=== PATIENT | female | born 1965 | race African-American/Black ===

== ENCOUNTER 2023-08-14 01:37 | Observation (INO) | payer OTHER ==
[2023-08-14 05:12] LABS: ALT/SGPT 41 U/L (13-56); AST/SGOT 36 U/L (15-37); Albumin 4.1 g/dL (3.4-5.0); Alkaline Phosphatase 73 U/L (45-117); BUN Blood Urea Nitrogen 16 mg/dL (7-18); Bicarbonate 30 mEq/L (21-32); Bilirubin Direct 0.2 mg/dL (0-0.2); Bilirubin Indirect, Calculated 0.3 mg/dL (0.2-0.8); Bilirubin Total 0.5 mg/dL (0.2-1.0); Glomerular Filtration Rate 38 ml/min (=/>90); Glucose Level 99 mg/dL (74-106); Magnesium 1.7 mg/dL (1.6-2.4); Potassium 4.2 mEq/L (3.5-5.1); Sodium Level 138 mEq/L (136-145); Troponin High Sensitivity < 3.0 pg/mL (<58.9)
[2023-08-14 05:13] LABS: Protime INR 1.21
[2023-08-14 05:14] LABS: Absolute Lymphocytes (CBC) 0.6 K/uL (0.7-4.9); Hematocrit 34.3 % (36.0-45.0); Lymphocytes % 7.6 % (15.3-44.8); MCV 78.4 fL (80-100); Platelets 159 thou/uL (152-406); RBC Red Blood Cell Count 4.37 M/uL (3.86-4.86)
[2023-08-14 05:15] LABS: Blood Morphology Comment NOT SEEN (NOT SEEN); Platelet Estimate ADEQ
--- OUTSIDE RECORDS SUMMARY | 2023-08-14 05:26 | XMS REPORT | Continuity of Care Document ---
Author Name Unknown Address [address] [facility] [address] [place] [address] [facility] Address [address] [facility] [address] [place] [address] Care Team Providers Care Planning Engineer Name Role Phone ETHAN VARELA Primary Care Physician UnavailMIRYAM Thacker Attending Clinician UnavailMEGAN Hudson Attending Clinician Unavailable ETHAN VARELA Attending Clinician Unavailable GLORIA MOORE Attending Clinician Unavailable SHALONDA STRICKLAND Attending Clinician Unavailable [place] TRAVIS Attending Clinician Unavailable Indiana Travis MD Attending Clinician [phone] Ethan Varela MD Attending Clinician [phone] Doctor Unassigned, [place] Attending Clinician U JA Rodrigez Attending Clinician Unavailable JA RASMUSSEN Attending Clinician Unavailable ELLIS LOVE Attending Clinician UnavailELLIS De La Cruz Attending Clinician UnavailSanthosh Tobin Attending Clinician [phone] SANTHOSH RIVERA Attending Clinician Unavailable Unknown, Attending Attending Clinician Unavailab molly UNKNOWN, ATTENDING Attending Clinician Unavailab Gloria Yancey Attending Clinician Unavailable Ellis Love MD Attending Clinician [phone] Sivakumar Espinosa MD Attending Clinician [phone], [facility] Attending Clinician Unavailable SIVAKUMAR ESPINOSA Attending Clinician UnavailMiryam Wright MD Attending Clinician [phone] CRESENCIO WOLF Attending Clinician Unavailable Cresencio Seymour Attending Clinician [phone] Erick Reno DOhia Vickey Attending Clinician Alex Bass MD Attending Clinician [phone] ALEX BASS Attending Clinician Unavaila ZAFAR Wade Attending Clinician Unavail able Zafar Cartwright OD Attending Clinician GLORIA GANDHI Attending Clinician Unavailable Mina PATELPGloria Attending Clinician [phone] DIAZ WALKER Attending Clinician Unavaila Danielle Wolfe MD Attending Clinician [phone] DANIELLE ZEE Attending Clinician Unavailab DENNIS Gaitan Attending Clinician Unav MANJU Rosenthal Attending Clinician Unavailable Vaccine, [facility] Attending Clinician Unavailable JONAS GRISSOM Attending Clinician Unavail JONAS Valladares Attending Clinician Unavail Jonas Valladares MD Attending Clinician JOSE ALFREDO ANN Attending Clinician Unavailable Jose Alfredo Ann MD Attending Clinician [phone] BERYL RENO Attending Clinician Unavailable JONAS GRISSOM Admitting Clinician Unavail able MIRYAM SOLORIO Admitting Clinician UnavailETHAN Peter Admitting Clinician Unavailable Payers Payer Name Policy Type Policy Number Effective Date Expirati on Date Source [id number] 2023 00:00:00 [place] [id number] 2023 00:00:00 Problems Condition Name Condition Details Condition Category Status Onset Date Resolution Date Last Treatment Date Treating Clinician Comments Source Pre-op evaluation Pre-op evaluation Disease Active 07-31 00:00: 00 [facility] Need for full coverage dental crown Need for full coverage dental crown Disease Active 07-31 00:00: 00 [facility] Chronic constipati on Chronic constipati on Disease Active - 00:00: 00 [facility] Acute pain of left hip Acute pain of left hip Disease Active - 00:00: 00 [facility] Decreased renal function Decreased renal function Disease Active 2021-07 00:00: 00 [facility] H/O sickle cell trait H/O sickle cell trait Disease Active 2021-07 00:00: 00 [facility] Hoarseness of voice Hoarseness of voice Disease Active 2021-07 00:00: 00 [facility] Elevated serum creatinine Elevated serum creatinine Disease Active 2021-07 00:00: 00 [facility] Hot flashes due to menopause Hot flashes due to menopause Disease Active 2021-07 00:00: 00 [facility] History of trichomoni asis History of trichomoni asis Disease Active 2021-07 00:00: 00 [facility] Facial droop Facial droop Disease Active 2021-07 00:00: 00 [facility] Atrophy of vagina Atrophy of vagina Disease Active 2021-07 00:00: 00 [facility] Elevated liver enzymes Elevated liver enzymes Disease Active 2021-07 00:00: 00 [facility] Vaginal discharge Vaginal discharge Disease Active 2021-07 00:00: 00 [facility] Type 2 diabetes mellitus without complicati on, with long-term current use of insulin Type 2 diabetes mellitus without complicati on, with long-term current use of insulin Disease Active 04-13 00:00: 00 [facility] 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 Disease Active 04-13 00:00: 00 [facility] Encounter for comprehens michelle diabetic foot examinatio n, type 2 diabetes mellitus Encounter for comprehens michelle diabetic foot examinatio n, type 2 diabetes mellitus Disease Active 04-13 00:00: 00 [facility] 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 Disease Active 04-13 00:00: 00 [facility] Dyslipidem ia Dyslipidem ia Disease Active 04-13 00:00: 00 [facility] Essential hypertensi on Essential hypertensi on Disease Active 04-13 00:00: 00 [facility] 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 Disease Active 04-13 00:00: 00 [facility] Anxiety, generalize d Anxiety, generalize d Disease Active 04-13 00:00: 00 [facility] Encounter for screening mammogram for malignant neoplasm of breast Encounter for screening mammogram for malignant neoplasm of breast Disease Active 04-13 00:00: 00 [facility] Need for hepatitis C screening test Need for hepatitis C screening test Disease Active 04-13 00:00: 00 [facility] Need for influenza vaccinatio n Need for influenza vaccinatio n Disease Active 04-13 00:00: 00 [facility] Screening for malignant neoplasm of the cervix Screening for malignant neoplasm of the cervix Disease Active 04-13 00:00: 00 [facility] 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 Disease Active 04-13 00:00: 00 [facility] Senile osteoporos is Senile osteoporos is Disease Active 04-13 00:00: 00 [facility] Allergies, Adverse Reactions, Alerts Allergy Name Allergy Type Status Severity Reaction(s) Onset Date Inactive Date Treating Clinician Comments Source NO KNOWN ALLERGIE S Drug Class Active [facility] Family History Family Member Diagnosis Comments Start Date Stop Date Sourc e Natural father Diabetes [facility] Natural [facility] Hy[facility] Social History Social Habit Start Date Stop Date Quantity Comments Source Gender identity [facility] Sexual [facility] Alcohol intake 2023-08-12 00:00:00 2023-08-12 00:00:00 Lifetime non-drinker (finding) [facility] History of Social function 2023-07-10 00:00:00 2023-07-10 00:00:00 [facility] Exposure to SARS-CoV-2 (event) 2022-12-10 00:00:00 2022-12-20 21:43:00 Not sure [facility] Tobacco use and exposure 2022-04-13 00:00:00 2022-04-13 00:00:00 Smokeless tobacco non-user [facility] Sex Assigned At 1965 00:00:00 1965 00:00:00 [facility] Smoking Status Start Date Stop Date Source Never smoked tobacco [facility] Medications Ordered Medication Name Filled Medication Name Start Date Stop Date Current Medication? Ordering Clinician Indication Dosage Frequency Signature (SIG) Comments Components Source gabapentin 300 mg capsule 08-12 00:00: 00 Yes [id number] 300mg Take 1 capsule by mouth in the morning and 1 capsule at noon and 1 capsule in the evening. 1 cap in morning, 1 cap in afternoon, and 2 cap at bedtime [facility] gabapentin 300 mg capsule 08-12 00:00: 00 Yes [id number] 300mg Take 1 capsule by mouth in the morning and 1 capsule at noon and 1 capsule in the evening. 1 cap in morning, 1 cap in afternoon, and 2 cap at bedtime [facility] clarithromy ofelia 500 mg tablet 07-31 00:00: 00 08-01 05:59 :00 No [id number] 500mg Take 1 tablet by mouth once now for 1 dose. Dental Prophylaxi s [facility] clarithromy ofelia 500 mg tablet 07-31 00:00: 00 08-01 05:59 :00 No [id number] 500mg Take 1 tablet by mouth once now for 1 dose. Dental Prophylaxi s [facility] cefdinir 300 mg capsule 2022-07 00:00: 00 07-30 05:59 :00 Yes [id number] 600mg Take 2 capsules by mouth in the morning for 10 days. [facility] cefdinir 300 mg capsule 2022-07 00:00: 00 07-30 05:59 :00 Yes [id number] 600mg Take 2 capsules by mouth in the morning for 10 days. [facility] dulaglutide (TRULICITY) 1.5 mg/0.5 mL PnIj 2022-07 00:00: 00 Yes [id number] 1.5mg inject 1 Pen under the skin weekly. [facility] ity [facility] dulaglutide (TRULICITY) 1.5 mg/0.5 mL PnIj 2022-07 00:00: 00 Yes [id number] 1.5mg inject 1 Pen under the skin weekly. [facility] ity [facility] tirzepatide (MOUNJARO) 2.5 mg/0.5 mL subcutaneou s injection 2022-07 00:00: 00 Yes [id number] 2.5mg inject 2.5 mg under the skin weekly. Start 2.5mg SC qWeek x 4 Weeks, then increase to 5 mg SC qWeek [facility] ity [facility] tirzepatide (MOUNJARO) 5 mg/0.5 mL subcutaneou s injection 2022-07 00:00: 00 Yes [id number] 5mg inject 5 mg under the skin weekly. Start 2.5mg SC qWeek x 4 Weeks, then increase to 5 mg SC [facility]Week [facility] dulaglutide (TRULICITY) 1.5 mg/0.5 mL PnIj 2022-07 00:00: 00 Yes [id number] 1.5mg inject 1 Pen under the skin weekly. [facility] ity [facility] tirzepatide (MOUNJARO) 2.5 mg/0.5 mL subcutaneou s injection 2022-07 00:00: 00 Yes [id number] 2.5mg inject 2.5 mg under the skin weekly. Start 2.5mg SC qWeek x 4 Weeks, then increase to 5 mg SC qWeek [facility] tirzepatide (MOUNJARO) 5 mg/0.5 mL subcutaneou s injection 2022-07 00:00: 00 Yes [id number] 5mg inject 5 mg under the skin weekly. Start 2.5mg SC qWeek x 4 Weeks, then increase to 5 mg SC qWeek [facility] dulaglutide (TRULICITY) 1.5 mg/0.5 mL PnIj 2022-07 2 00:00: 00 Yes [id number] 1.5mg inject 1 Pen under the skin weekly. [facility] tirzepatide (MOUNJARO) 2.5 mg/0.5 mL subcutaneou s injection 2022-07 2 00:00: 00 Yes [id number] 2.5mg inject 2.5 mg under the skin weekly. Start 2.5mg SC qWeek x 4 Weeks, then increase to 5 mg SC qWeek [facility] tirzepatide (MOUNJARO) 5 mg/0.5 mL subcutaneou s injection 2022-07 2 00:00: 00 Yes [id number] 5mg inject 5 mg under the skin weekly. Start 2.5mg SC qWeek x 4 Weeks, then increase to 5 mg SC qWeek [facility] dulaglutide (TRULICITY) 1.5 mg/0.5 mL PnIj 2022-07 00:00: 00 Yes [id number] 1.5mg inject 1 Pen under the skin weekly. [facility] tirzepatide (MOUNJARO) 2.5 mg/0.5 mL subcutaneou s injection 2022-07 00:00: 00 Yes [id number] 2.5mg inject 2.5 mg under the skin weekly. Start 2.5mg SC qWeek x 4 Weeks, then increase to 5 mg SC qWeek [facility] tirzepatide (MOUNJARO) 5 mg/0.5 mL subcutaneou s injection 2022-07 2 00:00: 00 Yes [id number] 5mg inject 5 mg under the skin weekly. Start 2.5mg SC qWeek x 4 Weeks, then increase to 5 mg SC qWeek [facility] dulaglutide (TRULICITY) 1.5 mg/0.5 mL PnIj 2022-07 2 00:00: 00 Yes [id number] 1.5mg inject 1 Pen under the skin weekly. [facility] dulaglutide (TRULICITY) 1.5 mg/0.5 mL PnIj 2022-07 00:00: 00 Yes [id number] 1.5mg inject 1 Pen [facility] the skin weekly. [facility] tirzepatide (MOUNJARO) 2.5 mg/0.5 mL subcutaneou s injection 2022-07 00:00: 00 Yes [id number] 2.5mg inject 2.5 mg under the skin weekly. Start 2.5mg SC qWeek x 4 Weeks, then increase to 5 mg SC qWeek [facility] tirzepatide (MOUNJARO) 5 mg/0.5 mL subcutaneou s injection 2022-07 00:00: 00 Yes [id number] 5mg inject 5 mg under the skin weekly. Start 2.5mg SC qWeek x 4 Weeks, then increase to 5 mg SC qWeek [facility] dulaglutide (TRULICITY) 1.5 mg/0.5 mL PnIj 2022-07 00:00: 00 Yes [id number] 1.5mg inject 1 Pen under the skin weekly. [facility] tirzepatide (MOUNJARO) 2.5 mg/0.5 mL subcutaneou s injection 2022-07 00:00: 00 Yes [id number] 2.5mg inject 2.5 mg under the skin weekly. Start 2.5mg SC qWeek x 4 Weeks, then increase to 5 mg SC qWeek [facility] tirzepatide (MOUNJARO) 5 mg/0.5 mL subcutaneou s injection 2022-07 00:00: 00 Yes [id number] 5mg inject 5 mg under the skin weekly. Start 2.5mg SC qWeek x 4 Weeks, then increase to 5 mg SC qWeek [facility] dulaglutide (TRULICITY) 1.5 mg/0.5 mL PnIj 2022-07 00:00: 00 Yes [id number] 1.5mg inject 1 Pen under the skin weekly. [facility] ity [facility] tirzepatide (MOUNJARO) 2.5 mg/0.5 mL subcutaneou s injection 2022-07 00:00: 00 Yes [id number] 2.5mg inject 2.5 mg under the skin weekly. Start 2.5mg SC qWeek x 4 Weeks, then increase to 5 mg SC qWeek [facility] tirzepatide (MOUNJARO) 5 mg/0.5 mL subcutaneou s injection 2022-07 00:00: 00 Yes [id number] 5mg inject 5 mg under the skin weekly. Start 2.5mg SC qWeek x 4 Weeks, then increase to 5 mg SC qWeek [facility] dulaglutide (TRULICITY) 1.5 mg/0.5 mL PnIj 2022-07 00:00: 00 Yes [id number] 1.5mg inject 1 Pen under the skin weekly. [facility] ity [facility] tirzepatide (MOUNJARO) 2.5 mg/0.5 mL subcutaneou s injection 2022-07 00:00: 00 Yes [id number] 2.5mg inject 2.5 mg under the skin weekly. Start 2.5mg SC qWeek x 4 Weeks, then increase to 5 mg SC qWeek [facility] tirzepatide (MOUNJARO) 5 mg/0.5 mL subcutaneou s injection 2022-07 00:00: 00 Yes [id number] 5mg inject 5 mg under the skin weekly. Start 2.5mg SC qWeek x 4 Weeks, then increase to 5 mg SC qWeek Univers y [facility] dulaglutide (TRULICITY) 1.5 mg/0.5 mL PnIj 2022-07 00:00: 00 Yes [id number] 1.5mg inject 1 Pen under the skin weekly. [facility] ity [facility] tirzepatide (MOUNJARO) 2.5 mg/0.5 mL subcutaneou s injection 2022-07 00:00: 00 Yes [id number] 2.5mg inject 2.5 mg under the skin weekly. Start 2.5mg SC qWeek x 4 Weeks, then increase to 5 mg SC qWeek [facility] tirzepatide (MOUNJARO) 5 mg/0.5 mL subcutaneou s injection 2022-07 2 00:00: 00 Yes [id number] 5mg inject 5 mg under the skin weekly. Start 2.5mg SC qWeek x 4 Weeks, then increase to 5 mg SC qWeek Univers [facility] dulaglutide (TRULICITY) 1.5 mg/0.5 mL PnIj 2022-07 2 00:00: 00 Yes [id number] 1.5mg inject 1 Pen under the skin weekly. [facility] tirzepatide (MOUNJARO) 2.5 mg/0.5 mL subcutaneou s injection 2022-07 00:00: 00 Yes [id number] 2.5mg inject 2.5 mg under the skin weekly. Start 2.5mg SC qWeek x 4 Weeks, then increase to 5 mg SC qWeek Univers [facility] tirzepatide (MOUNJARO) 5 mg/0.5 mL subcutaneou s injection 2022-07 00:00: 00 Yes [id number] 5mg inject 5 mg under the skin weekly. Start 2.5mg SC qWeek x 4 Weeks, then increase to 5 mg SC qWeek [facility] dulaglutide (TRULICITY) 1.5 mg/0.5 mL PnIj 2022-07 00:00: 00 Yes [id number] 1.5mg inject 1 Pen under the skin weekly. [facility] tirzepatide (MOUNJARO) 2.5 mg/0.5 mL subcutaneou s injection 2022-07 00:00: 00 Yes [id number] 2.5mg inject 2.5 mg under the skin weekly. Start 2.5mg SC qWeek x 4 Weeks, then increase to 5 mg SC qWeek [facility] tirzepatide (MOUNJARO) 5 mg/0.5 mL subcutaneou s injection 2022-07 00:00: 00 Yes [id number] 5mg inject 5 mg under the skin weekly. Start 2.5mg SC qWeek x 4 Weeks, then increase to 5 mg SC qWeek Univers [facility] dulaglutide (TRULICITY) 1.5 mg/0.5 mL PnIj 2022-07 00:00: 00 Yes [id number] 1.5mg inject 1 Pen under the skin weekly. [facility] tirzepatide (MOUNJARO) 2.5 mg/0.5 mL subcutaneou s injection 2022-07 2 00:00: 00 Yes [id number] 2.5mg inject 2.5 mg under the skin weekly. Start 2.5mg SC qWeek x 4 Weeks, then increase to 5 mg SC qWeek [facility] tirzepatide (MOUNJARO) 5 mg/0.5 mL subcutaneou s injection 2022-07 00:00: 00 Yes [id number] 5mg inject 5 mg under the skin weekly. Start 2.5mg SC qWeek x 4 Weeks, then increase to 5 mg SC qWeek [facility] tirzepatide (MOUNJARO) 5 mg/0.5 mL subcutaneou s injection 2022-07 00:00: 00 Yes [id number] 5mg inject 5 mg under the skin weekly. Start 2.5mg SC qWeek x 4 Weeks, then increase to 5 mg SC qWeek [facility] tirzepatide (MOUNJARO) 5 mg/0.5 mL subcutaneou s injection 2022-07 00:00: 00 Yes [id number] 5mg inject 5 mg under the skin weekly. Start 2.5mg SC qWeek x 4 Weeks, then increase to 5 mg SC qWeek [facility] dulaglutide (TRULICITY) 1.5 mg/0.5 mL PnIj 2022-07 00:00: 00 08-12 00:00 :00 No [id number] 1.5mg inject 1 Pen under the skin weekly. [facility] tirzepatide (MOUNJARO) 2.5 mg/0.5 mL subcutaneou s injection 2022-07 00:00: 00 08-12 00:00 :00 No [id number] 2.5mg inject 2.5 mg under the skin weekly. Start 2.5mg SC qWeek x 4 Weeks, then increase to 5 mg SC qWeek [facility] dulaglutide (TRULICITY) 1.5 mg/0.5 mL PnIj 2022-07 2 00:00: 00 08-12 00:00 :00 No [id number] 1.5mg inject 1 Pen under the skin weekly. [facility] tirzepatide (MOUNJARO) 2.5 mg/0.5 mL subcutaneou s injection 2022-07 00:00: 00 08-12 00:00 :00 No [id number] 2.5mg inject 2.5 mg under the skin weekly. Start 2.5mg SC qWeek x 4 Weeks, then increase to 5 mg SC qWeek [facility] metoprolol succinate XL 50 mg 24 hr tablet 2022-07 00:00: 00 Yes [id number] 50mg Take 1 tablet by mouth in the morning. [facility] metoprolol succinate XL 50 mg 24 hr tablet 2022-07 00:00: 00 Yes [id number] 50mg Take 1 tablet by mouth in the morning. [facility] metoprolol succinate XL 50 mg 24 hr tablet 2022-07 00:00: 00 Yes [id number] 50mg Take 1 tablet by mouth in the morning. [facility] metoprolol succinate XL 50 mg 24 hr tablet 2022-07 00:00: 00 Yes [id number] 50mg Take 1 tablet by mouth in the morning. [facility] metoprolol succinate XL 50 mg 24 hr tablet 2022-07 00:00: 00 Yes [id number] 50mg Take 1 tablet by mouth in the morning. [facility] metoprolol succinate XL 50 mg 24 hr tablet 2022-07 00:00: 00 Yes [id number] 50mg Take 1 tablet by mouth in the morning. [facility] metoprolol succinate XL 50 mg 24 hr tablet 2022-07 00:00: 00 Yes [id number] 50mg Take 1 tablet by mouth in the morning. [facility] metoprolol succinate XL 50 mg 24 hr tablet 2022-07 00:00: 00 Yes [id number] 50mg Take 1 tablet by mouth in the morning. [facility] metoprolol succinate XL 50 mg 24 hr tablet 2022-07 00:00: 00 Yes [id number] 50mg Take 1 tablet by mouth in the morning. [facility] metoprolol succinate XL 50 mg 24 hr tablet 2022-07 00:00: 00 Yes [id number] 50mg Take 1 tablet by mouth in the morning. [facility] metoprolol succinate XL 50 mg 24 hr tablet 2022-07 00:00: 00 Yes [id number] 50mg Take 1 tablet by mouth in the morning. [facility] metoprolol succinate XL 50 mg 24 hr tablet 2022-07 00:00: 00 Yes [id number] 50mg Take 1 tablet by mouth in the morning. [facility] metoprolol succinate XL 50 mg 24 hr tablet 2022-07 00:00: 00 Yes [id number] 50mg Take 1 tablet by mouth in the morning. [facility] metoprolol succinate XL 50 mg 24 hr tablet 2022-07 00:00: 00 Yes [id number] 50mg Take 1 tablet by mouth in the morning. [facility] metoprolol succinate XL 50 mg 24 hr tablet 2022-07 00:00: 00 Yes [id number] 50mg Take 1 tablet by mouth in the morning. [facility] metoprolol succinate XL 50 mg 24 hr tablet 2022-07 00:00: 00 Yes [id number] 50mg Take 1 tablet by mouth in the morning. [facility] metoprolol succinate XL 50 mg 24 hr tablet 2022-07 00:00: 00 Yes [id number] 50mg Take 1 tablet by mouth in the morning. [facility] metoprolol succinate XL 50 mg 24 hr tablet 2022-07 00:00: 00 Yes [id number] 50mg Take 1 tablet by mouth in the morning. [facility] metoprolol succinate XL 50 mg 24 hr tablet 2022-07 00:00: 00 Yes [id number] 50mg Take 1 tablet by mouth in the morning. [facility] metoprolol succinate XL 50 mg 24 hr tablet 2022-07 00:00: 00 Yes [id number] 50mg Take 1 tablet by mouth in the morning. [facility] metoprolol succinate XL 50 mg 24 hr tablet 2022-07 00:00: 00 Yes [id number] 50mg Take 1 tablet by mouth in the morning. [facility] metoprolol succinate XL 50 mg 24 hr tablet 2022-07 00:00: 00 Yes [id number] 50mg Take 1 tablet by mouth in the morning. [facility] metoprolol succinate XL 50 mg 24 hr tablet 2022-07 00:00: 00 Yes [id number] 50mg Take 1 tablet by mouth in the morning. [facility] metoprolol succinate XL 50 mg 24 hr tablet 2022-07 00:00: 00 Yes [id number] 50mg Take 1 tablet by mouth in the morning. [facility] lisinopriL 20 mg tablet 2022-07 0 00:00: 00 Yes [id number] 20mg Take 1 tablet by mouth in the morning and 1 tablet in the evening. [facility] lisinopriL 20 mg tablet 2022-07 0 00:00: 00 Yes [id number] 20mg Take 1 tablet by mouth in the morning and 1 tablet in the evening. [facility] lisinopriL 20 mg tablet 2022-07 0 00:00: 00 Yes [id number] 20mg Take 1 tablet by mouth in the morning and 1 tablet in the evening. [facility] lisinopriL 20 mg tablet 2022-07 0 00:00: 00 Yes [id number] 20mg Take 1 tablet by mouth in the morning and 1 tablet in the evening. [facility] lisinopriL 20 mg tablet 2022-07 0 00:00: 00 Yes [id number] 20mg Take 1 tablet by mouth in the morning and 1 tablet in the evening. [facility] lisinopriL 20 mg tablet 2022-07 0 00:00: 00 Yes [id number] 20mg Take 1 tablet by mouth in the morning and 1 tablet in the evening. [facility] [facility]-07 0 00:00: 00 Yes [id number] 20mg Take 1 tablet by mouth in the morning and 1 tablet in the evening. [facility] lisinopriL 20 mg tablet 2022-07 0 00:00: 00 Yes [id number] 20mg Take 1 tablet by mouth in the morning and 1 tablet in the evening. [facility] lisinopriL 20 mg tablet 2022-07 0 00:00: 00 Yes [id number] 20mg Take 1 tablet by mouth in the morning and 1 tablet in the evening. [facility] lisinopriL 20 mg tablet 2022-07 0 00:00: 00 Yes [id number] 20mg Take 1 tablet by mouth in the morning and 1 tablet in the evening. [facility] lisinopriL 20 mg tablet 2022-07 0 00:00: 00 Yes [id number] 20mg Take 1 tablet by mouth in the morning and 1 tablet in the evening. [facility] lisinopriL 20 mg tablet 2022-07 0 00:00: 00 Yes [id number] 20mg Take 1 tablet by mouth in the morning and 1 tablet in the evening. [facility] lisinopriL 20 mg tablet 2022-07 0 00:00: 00 Yes [id number] 20mg Take 1 tablet by mouth in the morning and 1 tablet in the evening. [facility] lisinopriL 20 mg tablet 2022-07 0 00:00: 00 Yes [id number] 20mg Take 1 tablet by mouth in the morning and 1 tablet in the evening. [facility] lisinopriL 20 mg tablet 2022- 0 00:00: 00 Yes [id number] 20mg Take 1 tablet by mouth in the morning and 1 tablet in the evening. [facility] lisinopriL 20 mg tablet 2022- 0 00:00: 00 Yes [id number] 20mg Take 1 tablet by mouth in the morning and 1 tablet in the evening. [facility] lisinopriL 20 mg tablet 2022-07 0 00:00: 00 Yes [id number] 20mg Take 1 tablet by mouth in the morning and 1 tablet in the evening. [facility] lisinopriL 20 mg tablet 2022-07 0 00:00: 00 Yes [id number] 20mg Take 1 tablet by mouth in the morning and 1 tablet in the evening. [facility] lisinopriL 20 mg tablet 2022-07 0 00:00: 00 Yes [id number] 20mg Take 1 tablet by mouth in the morning and 1 tablet in the evening. [facility] lisinopriL 20 mg tablet 2022-07 0 00:00: 00 Yes [id number] 20mg Take 1 tablet by mouth in the morning and 1 tablet in the evening. [facility] lisinopriL 20 mg tablet 2022-07 0 00:00: 00 Yes [id number] 20mg Take 1 tablet by mouth in the morning and 1 tablet in the evening. [facility] lisinopriL 20 mg tablet 2022-07 00:00: 00 Yes [id number] 20mg Take 1 tablet by mouth in the morning and 1 tablet in the evening. [facility] lisinopriL 20 mg tablet 2022-07 0 00:00: 00 Yes [id number] 20mg Take 1 tablet by mouth in the morning and 1 tablet in the evening. [facility] lisinopriL 20 mg tablet 2022-07 0 00:00: 00 Yes [id number] 20mg Take 1 tablet by mouth in the morning and 1 tablet in the evening. [facility] lisinopriL 20 mg tablet 2022-07 0 00:00: 00 Yes [id number] 20mg Take 1 tablet by mouth in the morning and 1 tablet in the evening. [facility] lisinopriL 20 mg tablet 2022- 0 00:00: 00 Yes [id number] 20mg Take 1 tablet by mouth in the morning and 1 tablet in the evening. [facility] lisinopriL 20 mg tablet 2022- 0 00:00: 00 Yes [id number] 20mg Take 1 tablet by mouth in the morning and 1 tablet in the evening. [facility] polyethylen e glycol 3350 (MIRALAX) 17 gram/dose powder 2022-07 0-17 00:00: 00 06-07 05:59 :00 No [id number] 34g Take 34 g by mouth in the morning for 30 days. [facility] polyethylen e glycol 3350 (MIRALAX) 17 gram/dose powder 2022-07 0- 00:00: 00 06-07 05:59 :00 No [id number] 34g Take 34 g by mouth in the morning for 30 days. [facility] polyethylen e glycol 3350 (MIRALAX) 17 gram/dose powder 2022-07 0 00:00: 00 06-07 05:59 :00 No [id number] 34g Take 34 g by mouth in the morning for 30 days. [facility] polyethylen e glycol 3350 (MIRALAX) 17 gram/dose powder 2022-07 0- 00:00: 00 06-07 05:59 :00 No [id number] 34g Take 34 g by mouth in the morning for 30 days. [facility] polyethylen e glycol 3350 (MIRALAX) 17 gram/dose powder 2022-07 0 00:00: 00 06-07 05:59 :00 No [id number] 34g Take 34 g by mouth in the morning for 30 days. [facility] polyethylen e glycol 3350 (MIRALAX) 17 gram/dose powder 2022-07 0- 00:00: 00 06-07 05:59 :00 No [id number] 34g Take 34 g by mouth in the morning for 30 days. [facility] atorvastati n 40 mg tablet 2022-07 0 00:00: 00 Yes [id number] 40mg Take 1 tablet by mouth at bedtime. [facility] gabapentin 100 mg capsule 2022-07 0 00:00: 00 Yes [id number] 1 cap in morning, 1 cap in afternoon, and 2 cap at bedtime [facility] buPROPion XL 300 mg 24 hr tablet 2022-07 0 00:00: 00 Yes [id number] 300mg Take 1 tablet by mouth in the morning. [facility] ARIPiprazol e (ABILIFY) 2 mg tablet 2022-07 00:00: 00 Yes [id number] 2mg Take 1 tablet by mouth in the morning. [facility] hydroCHLORO thiazide 25 mg tablet 2022-07 0 00:00: 00 Yes [id number] 25mg Take 1 tablet by mouth in the morning. [facility] insulin glargine U-300 conc (TOUJEO MAX U-300 SOLOSTAR) 300 unit/mL (3 mL) In 2022-07 00:00: 00 Yes [id number] 10U inject 10 Units under the skin daily before breakfast. [facility] atorvastati n 40 mg tablet 2022-07 00:00: 00 Yes [id number] 40mg Take 1 tablet by mouth at bedtime. [facility] gabapentin 100 mg capsule 2022-07 00:00: 00 Yes [id number] 1 cap in morning, 1 cap in afternoon, and 2 cap at bedtime [facility] buPROPion XL 300 mg 24 hr tablet 2022-07 00:00: 00 Yes [id number] 300mg Take 1 tablet by mouth in the morning. [facility] ARIPiprazol e (ABILIFY) 2 mg tablet 2022-07 00:00: 00 Yes [id number] 2mg Take 1 tablet by mouth in the morning. [facility] hydroCHLORO thiazide 25 mg tablet 2022-07 0 00:00: 00 Yes [id number] 25mg Take 1 tablet by mouth in the morning. [facility] insulin glargine U-300 conc (TOUJEO MAX U-300 SOLOSTAR) 300 unit/mL (3 mL) InPn 2022-07 0 00:00: 00 Yes [id number] 10U inject 10 Units under the skin daily before breakfast. [facility] atorvastati n 40 mg tablet 2022-07 00:00: 00 Yes [id number] 40mg Take 1 tablet by mouth at bedtime. [facility] gabapentin 100 mg capsule 2022-07 00:00: 00 Yes [id number] 1 cap in morning, 1 cap in afternoon, and 2 cap at bedtime [facility] buPROPion XL 300 mg 24 hr tablet 2022-07 00:00: 00 Yes [id number] 300mg Take 1 tablet by mouth in the morning. [facility] ARIPiprazol e (ABILIFY) 2 mg tablet 2022-07 00:00: 00 Yes [id number] 2mg Take 1 tablet by mouth in the morning. [facility] hydroCHLORO thiazide 25 mg tablet 2022-07 00:00: 00 Yes [id number] 25mg Take 1 tablet by mouth in the morning. [facility] insulin glargine U-300 conc (TOUJEO MAX U-300 SOLOSTAR) 300 unit/mL (3 mL) InPn 2022-07 00:00: 00 Yes [id number] 10U inject 10 Units under the skin daily before breakfast. [facility] atorvastati n 40 mg tablet 2022-07 00:00: 00 Yes [id number] 40mg Take 1 tablet by mouth at bedtime. [facility] gabapentin 100 mg capsule 2022-07 00:00: 00 Yes [id number] 1 cap in morning, 1 cap in afternoon, and 2 cap at bedtime [facility] buPROPion XL 300 mg 24 hr tablet 2022-07 00:00: 00 Yes [id number] 300mg Take 1 tablet by mouth in the morning. [facility] ARIPiprazol e (ABILIFY) 2 mg tablet 2022-07 00:00: 00 Yes [id number] 2mg Take 1 tablet by mouth in the morning. [facility] hydroCHLORO thiazide 25 mg tablet 2022-07 00:00: 00 Yes [id number] 25mg Take 1 tablet by mouth in the morning. [facility] insulin glargine U-300 conc (TOUJEO MAX U-300 SOLOSTAR) 300 unit/mL (3 mL) In 2022-07 0 00:00: 00 Yes [id number] 10U inject 10 Units under the skin daily before breakfast. [facility] atorvastati n 40 mg tablet 2022-07 0 00:00: 00 Yes [id number] 40mg Take 1 tablet by mouth at bedtime. [facility] gabapentin 100 mg capsule 2022-07 00:00: 00 Yes [id number] 1 cap in morning, 1 cap in afternoon, and 2 cap at bedtime [facility] buPROPion XL 300 mg 24 hr tablet 2022-07 00:00: 00 Yes [id number] 300mg Take 1 tablet by mouth in the morning. [facility] ARIPiprazol e (ABILIFY) 2 mg tablet 2022-07 00:00: 00 Yes [id number] 2mg Take 1 tablet by mouth in the morning. [facility] hydroCHLORO thiazide 25 mg tablet 2022-07 00:00: 00 Yes [id number] 25mg Take 1 tablet by mouth in the morning. [facility] insulin glargine U-300 conc (TOUJEO MAX U-300 SOLOSTAR) 300 unit/mL (3 mL) [facility] 2022-07 00:00: 00 Yes [id number] 10U inject 10 Units under the skin daily before breakfast. [facility] atorvastati n 40 mg tablet 2022-07 00:00: 00 Yes [id number] 40mg Take 1 tablet by mouth at bedtime. [facility] gabapentin 100 mg capsule 2022-07 0 00:00: 00 Yes [id number] 1 cap in morning, 1 cap in afternoon, and 2 cap at bedtime [facility] buPROPion XL 300 mg 24 hr tablet 2022-07 0 00:00: 00 Yes [id number] 300mg Take 1 tablet by mouth in the morning. [facility] ARIPiprazol e (ABILIFY) 2 mg tablet 2022-07 00:00: 00 Yes [id number] 2mg Take 1 tablet by mouth in the morning. [facility] hydroCHLORO thiazide 25 mg tablet 2022-07 00:00: 00 Yes [id number] 25mg Take 1 tablet by mouth in the morning. [facility] insulin glargine U-300 conc (TOUJEO MAX U-300 SOLOSTAR) 300 unit/mL (3 mL) In 2022-07 00:00: 00 Yes [id number] 10U inject 10 Units under the skin daily before breakfast. [facility] atorvastati n 40 mg tablet 2022-07 00:00: 00 Yes [id number] 40mg Take 1 tablet by mouth at bedtime. [facility] gabapentin 100 mg capsule 2022-07 00:00: 00 Yes [id number] 1 cap in morning, 1 cap in afternoon, and 2 cap at bedtime [facility] buPROPion XL 300 mg 24 hr tablet 2022-07 00:00: 00 Yes [id number] 300mg Take 1 tablet by mouth in the morning. [facility] ARIPiprazol e (ABILIFY) 2 mg tablet 2022-07 00:00: 00 Yes [id number] 2mg Take 1 tablet by mouth in the morning. [facility] hydroCHLORO thiazide 25 mg tablet 2022-07 00:00: 00 Yes [id number] 25mg Take 1 tablet by mouth in the morning. [facility] insulin glargine U-300 conc (TOUJEO MAX U-300 SOLOSTAR) 300 unit/mL (3 mL) In 2022-07 00:00: 00 Yes [id number] 10U inject 10 Units under the skin daily before breakfast. [facility] atorvastati n 40 mg tablet 2022-07 00:00: 00 Yes [id number] 40mg Take 1 tablet by mouth at bedtime. [facility] gabapentin 100 mg capsule 2022-07 00:00: 00 Yes [id number] 1 cap in morning, 1 cap in afternoon, and 2 cap at bedtime [facility] buPROPion XL 300 mg 24 hr tablet 2022-07 00:00: 00 Yes [id number] 300mg Take 1 tablet by mouth in the morning. [facility] ARIPiprazol e (ABILIFY) 2 mg tablet 2022-07 00:00: 00 Yes [id number] 2mg Take 1 tablet by mouth in the morning. [facility] hydroCHLORO thiazide 25 mg tablet 2022-07 00:00: 00 Yes [id number] 25mg Take 1 tablet by mouth in the morning. [facility] insulin glargine U-300 conc (TOUJEO MAX U-300 SOLOSTAR) 300 unit/mL (3 mL) In 2022-07 00:00: 00 Yes [id number] 10U inject 10 Units under the skin daily before breakfast. [facility] atorvastati n 40 mg tablet 2022-07 00:00: 00 Yes [id number] 40mg Take 1 tablet by mouth at bedtime. [facility] gabapentin 100 mg capsule 2022-07 00:00: 00 Yes [id number] 1 cap in morning, 1 cap in afternoon, and 2 cap at bedtime [facility] buPROPion XL 300 mg 24 hr tablet 2022-07 00:00: 00 Yes [id number] 300mg Take 1 tablet by mouth in the morning. [facility] ARIPiprazol e (ABILIFY) 2 mg tablet 2022-07 00:00: 00 Yes [id number] 2mg Take 1 tablet by mouth in the morning. [facility] hydroCHLORO thiazide 25 mg tablet 2022-07 00:00: 00 Yes [id number] 25mg Take 1 tablet by mouth in the morning. [facility] insulin glargine U-300 conc (TOUJEO MAX U-300 SOLOSTAR) 300 unit/mL (3 mL) In 2022-07 00:00: 00 Yes [id number] 10U inject 10 Units under the skin daily before breakfast. [facility] atorvastati n 40 mg tablet 2022-07 0 00:00: 00 Yes [id number] 40mg Take 1 tablet by mouth at bedtime. [facility] gabapentin 100 mg capsule 2022-07 00:00: 00 Yes [id number] 1 cap in morning, 1 cap in afternoon, and 2 cap at bedtime [facility] buPROPion XL 300 mg 24 hr tablet 2022-07 00:00: 00 Yes [id number] 300mg Take 1 tablet by mouth in the morning. [facility] ARIPiprazol e (ABILIFY) 2 mg tablet 2022-07 00:00: 00 Yes [id number] 2mg Take 1 tablet by mouth in the morning. [facility] hydroCHLORO thiazide 25 mg tablet 2022-07 00:00: 00 Yes [id number] 25mg Take 1 tablet by mouth in the morning. [facility] insulin glargine U-300 conc (TOUJEO MAX U-300 SOLOSTAR) 300 unit/mL (3 mL) InPn 2022-07 00:00: 00 Yes [id number] 10U inject 10 Units under the skin daily before breakfast. [facility] atorvastati n 40 mg tablet 2022-07 00:00: 00 Yes [id number] 40mg Take 1 tablet by mouth at bedtime. [facility] gabapentin 100 mg capsule 2022-07 00:00: 00 Yes [id number] 1 cap in morning, 1 cap in afternoon, and 2 cap at bedtime [facility] buPROPion XL 300 mg 24 hr tablet 2022-07 00:00: 00 Yes [id number] 300mg Take 1 tablet by mouth in the morning. [facility] ARIPiprazol e (ABILIFY) 2 mg tablet 2022-07 00:00: 00 Yes [id number] 2mg Take 1 tablet by mouth in the morning. [facility] hydroCHLORO thiazide 25 mg tablet 2022-07 00:00: 00 Yes [id number] 25mg Take 1 tablet by mouth in the morning. [facility] insulin glargine U-300 conc (TOUJEO MAX U-300 SOLOSTAR) 300 unit/mL (3 mL) In 2022-07 00:00: 00 Yes [id number] 10U inject 10 Units under the skin daily before breakfast. [facility] atorvastati n 40 mg tablet 2022-07 00:00: 00 Yes [id number] 40mg Take 1 tablet by mouth at bedtime. [facility] gabapentin 100 mg capsule 2022-07 00:00: 00 Yes [id number] 1 cap in morning, 1 cap in afternoon, and 2 cap at bedtime [facility] buPROPion XL 300 mg 24 hr tablet 2022-07 00:00: 00 Yes [id number] 300mg Take 1 tablet by mouth in the morning. [facility] ARIPiprazol e (ABILIFY) 2 mg tablet 2022-07 00:00: 00 Yes [id number] 2mg Take 1 tablet by mouth in the morning. [facility] hydroCHLORO thiazide 25 mg tablet 2022-07 00:00: 00 Yes [id number] 25mg Take 1 tablet by mouth in the morning. [facility] insulin glargine U-300 conc (TOUJEO MAX U-300 SOLOSTAR) 300 unit/mL (3 mL) [facility] 2022-07 00:00: 00 Yes [id number] 10U inject 10 Units under the skin daily before breakfast. [facility] atorvastati n 40 mg tablet 2022-07 00:00: 00 Yes [id number] 40mg Take 1 tablet by mouth at bedtime. [facility] gabapentin 100 mg capsule 2022-07 00:00: 00 Yes [id number] 1 cap in morning, 1 cap in afternoon, and 2 cap at bedtime [facility] buPROPion XL 300 mg 24 hr tablet 2022-07 00:00: 00 Yes [id number] 300mg Take 1 tablet by mouth in the morning. [facility] ARIPiprazol e (ABILIFY) 2 mg tablet 2022-07 00:00: 00 Yes [id number] 2mg Take 1 tablet by mouth in the morning. [facility] hydroCHLORO thiazide 25 mg tablet 2022-07 00:00: 00 Yes [id number] 25mg Take 1 tablet by mouth in the morning. [facility] insulin glargine U-300 conc (TOUJEO MAX U-300 SOLOSTAR) 300 unit/mL (3 mL) In 2022-07 00:00: 00 Yes [id number] 10U inject 10 Units under the skin daily before breakfast. [facility] atorvastati n 40 mg tablet 2022-07 00:00: 00 Yes [id number] 40mg Take 1 tablet by mouth at bedtime. [facility] gabapentin 100 mg capsule 2022-07 00:00: 00 Yes [id number] 1 cap in morning, 1 cap in afternoon, and 2 cap at bedtime [facility] buPROPion XL 300 mg 24 hr tablet 2022-07 00:00: 00 Yes [id number] 300mg Take 1 tablet by mouth in the morning. [facility] ARIPiprazol e (ABILIFY) 2 mg tablet 2022-07 00:00: 00 Yes [id number] 2mg Take 1 tablet by mouth in the morning. [facility] hydroCHLORO thiazide 25 mg tablet 2022-07 00:00: 00 Yes [id number] 25mg Take 1 tablet by mouth in the morning. [facility] insulin glargine U-300 conc (TOUJEO MAX U-300 SOLOSTAR) 300 unit/mL (3 mL) In 2022-07 00:00: 00 Yes [id number] 10U inject 10 Units under the skin daily before breakfast. [facility] atorvastati n 40 mg tablet 2022-07 00:00: 00 Yes [id number] 40mg Take 1 tablet by mouth at bedtime. [facility] gabapentin 100 mg capsule 2022-07 00:00: 00 Yes [id number] 1 cap in morning, 1 cap in afternoon, and 2 cap at bedtime [facility] buPROPion XL 300 mg 24 hr tablet 2022-07 00:00: 00 Yes [id number] 300mg Take 1 tablet by mouth in the morning. [facility] ARIPiprazol e (ABILIFY) 2 mg tablet 2022-07 00:00: 00 Yes [id number] 2mg Take 1 tablet by mouth in the morning. [facility] hydroCHLORO thiazide 25 mg tablet 2022-07 00:00: 00 Yes [id number] 25mg Take 1 tablet by mouth in the morning. [facility] insulin glargine U-300 conc (TOUJEO MAX U-300 SOLOSTAR) 300 unit/mL (3 mL) In 2022-07 00:00: 00 Yes [id number] 10U inject 10 Units under the skin daily before breakfast. [facility] atorvastati n 40 mg tablet 2022-07 00:00: 00 Yes [id number] 40mg Take 1 tablet by mouth at bedtime. [facility] gabapentin 100 mg capsule 2022-07 00:00: 00 Yes [id number] 1 cap in morning, 1 cap in afternoon, and 2 cap at bedtime [facility] buPROPion XL 300 mg 24 hr tablet 2022-07 00:00: 00 Yes [id number] 300mg Take 1 tablet by mouth in the morning. [facility] ARIPiprazol e (ABILIFY) 2 mg tablet 2022-07 00:00: 00 Yes [id number] 2mg Take 1 tablet by mouth in the morning. [facility] hydroCHLORO thiazide 25 mg tablet 2022-07 00:00: 00 Yes [id number] 25mg Take 1 tablet by mouth in the morning. [facility] insulin glargine U-300 conc (TOUJEO MAX U-300 SOLOSTAR) 300 unit/mL (3 mL) In 2022-07 00:00: 00 Yes [id number] 10U inject 10 Units under the skin daily before breakfast. [facility] atorvastati n 40 mg tablet 2022-07 0 00:00: 00 Yes [id number] 40mg Take 1 tablet by mouth at bedtime. [facility] gabapentin 100 mg capsule 2022-07 0 00:00: 00 Yes [id number] 1 cap in morning, 1 cap in afternoon, and 2 cap at bedtime [facility] buPROPion XL 300 mg 24 hr tablet 2022-07 00:00: 00 Yes [id number] 300mg Take 1 tablet by mouth in the morning. [facility] ARIPiprazol e (ABILIFY) 2 mg tablet 2022-07 00:00: 00 Yes [id number] 2mg Take 1 tablet by mouth in the morning. [facility] hydroCHLORO thiazide 25 mg tablet 2022-07 00:00: 00 Yes [id number] 25mg Take 1 tablet by mouth in the morning. [facility] insulin glargine U-300 conc (TOUJEO MAX U-300 SOLOSTAR) 300 unit/mL (3 mL) InPn 2022-07 00:00: 00 Yes [id number] 10U inject 10 Units under the skin daily before breakfast. [facility] atorvastati n 40 mg tablet 2022-07 00:00: 00 Yes [id number] 40mg Take 1 tablet by mouth at bedtime. [facility] gabapentin 100 mg capsule 2022-07 0 00:00: 00 Yes [id number] 1 cap in morning, 1 cap in afternoon, and 2 cap at bedtime [facility] buPROPion XL 300 mg 24 hr tablet 2022-07 0 00:00: 00 Yes [id number] 300mg Take 1 tablet by mouth in the morning. [facility] ARIPiprazol e (ABILIFY) 2 mg tablet 2022-07 0 00:00: 00 Yes [id number] 2mg Take 1 tablet by mouth in the morning. [facility] hydroCHLORO thiazide 25 mg tablet 2022-07 00:00: 00 Yes [id number] 25mg Take 1 tablet by mouth in the morning. [facility] insulin glargine U-300 conc (TOUJEO MAX U-300 SOLOSTAR) 300 unit/mL (3 mL) In 2022-07 00:00: 00 Yes [id number] 10U inject 10 Units under the skin daily before breakfast. [facility] atorvastati n 40 mg tablet 2022-07 00:00: 00 Yes [id number] 40mg Take 1 tablet by mouth at bedtime. [facility] gabapentin 100 mg capsule 2022-07 00:00: 00 Yes [id number] 1 cap in morning, 1 cap in afternoon, and 2 cap at bedtime [facility] buPROPion XL 300 mg 24 hr tablet 2022-07 00:00: 00 Yes [id number] 300mg Take 1 tablet by mouth in the morning. [facility] ARIPiprazol e (ABILIFY) 2 mg tablet 2022-07 00:00: 00 Yes [id number] 2mg Take 1 tablet by mouth in the morning. [facility] hydroCHLORO thiazide 25 mg tablet 2022-07 00:00: 00 Yes [id number] 25mg Take 1 tablet by mouth in the morning. [facility] insulin glargine U-300 conc (TOUJEO MAX U-300 SOLOSTAR) 300 unit/mL (3 mL) [facility] 2022-07 00:00: 00 Yes [id number] 10U inject 10 Units under the skin daily before breakfast. [facility] atorvastati n 40 mg tablet 2022-07 00:00: 00 Yes [id number] 40mg Take 1 tablet by mouth at bedtime. [facility] gabapentin 100 mg capsule 2022-07 00:00: 00 Yes [id number] 1 cap in morning, 1 cap in afternoon, and 2 cap at bedtime [facility] buPROPion XL 300 mg 24 hr tablet 2022-07 00:00: 00 Yes [id number] 300mg Take 1 tablet by mouth in the morning. [facility] ARIPiprazol e (ABILIFY) 2 mg tablet 2022-07 00:00: 00 Yes [id number] 2mg Take 1 tablet by mouth in the morning. [facility] hydroCHLORO thiazide 25 mg tablet 2022-07 00:00: 00 Yes [id number] 25mg Take 1 tablet by mouth in the morning. [facility] insulin glargine U-300 conc (TOUJEO MAX U-300 SOLOSTAR) 300 unit/mL (3 mL) In 2022-07 00:00: 00 Yes [id number] 10U inject 10 Units under the skin daily before breakfast. [facility] atorvastati n 40 mg tablet 2022-07 00:00: 00 Yes [id number] 40mg Take 1 tablet by mouth at bedtime. [facility] gabapentin 100 mg capsule 2022-07 00:00: 00 Yes [id number] 1 cap in morning, 1 cap in afternoon, and 2 cap at bedtime [facility] buPROPion XL 300 mg 24 hr tablet 2022-07 00:00: 00 Yes [id number] 300mg Take 1 tablet by mouth in the morning. [facility] ARIPiprazol e (ABILIFY) 2 mg tablet 2022-07 00:00: 00 Yes [id number] 2mg Take 1 tablet by mouth in the morning. [facility] hydroCHLORO thiazide 25 mg tablet 2022-07 00:00: 00 Yes [id number] 25mg Take 1 tablet by mouth in the morning. [facility] insulin glargine U-300 conc (TOUJEO MAX U-300 SOLOSTAR) 300 unit/mL (3 mL) In 2022-07 00:00: 00 Yes [id number] 10U inject 10 Units under the skin daily before breakfast. [facility] atorvastati n 40 mg tablet 2022-07 00:00: 00 Yes [id number] 40mg Take 1 tablet by mouth at bedtime. [facility] gabapentin 100 mg capsule 2022-07 00:00: 00 Yes [id number] 1 cap in morning, 1 cap in afternoon, and 2 cap at bedtime [facility] buPROPion XL 300 mg 24 hr tablet 2022-07 00:00: 00 Yes [id number] 300mg Take 1 tablet by mouth in the morning. [facility] ARIPiprazol e (ABILIFY) 2 mg tablet 2022-07 00:00: 00 Yes [id number] 2mg Take 1 tablet by mouth in the morning. [facility] hydroCHLORO thiazide 25 mg tablet 2022-07 00:00: 00 Yes [id number] 25mg Take 1 tablet by mouth in the morning. [facility] insulin glargine U-300 conc (TOUJEO MAX U-300 SOLOSTAR) 300 unit/mL (3 mL) InPn 2022-07 00:00: 00 Yes [id number] 10U inject 10 Units under the skin daily before breakfast. [facility] atorvastati n 40 mg tablet 2022-07 00:00: 00 Yes [id number] 40mg Take 1 tablet by mouth at bedtime. [facility] gabapentin 100 mg capsule 2022-07 00:00: 00 Yes [id number] 1 cap in morning, 1 cap in afternoon, and 2 cap at bedtime [facility] buPROPion XL 300 mg 24 hr tablet 2022-07 00:00: 00 Yes [id number] 300mg Take 1 tablet by mouth in the morning. [facility] ARIPiprazol e (ABILIFY) 2 mg tablet 2022-07 00:00: 00 Yes [id number] 2mg Take 1 tablet by mouth in the morning. [facility] hydroCHLORO thiazide 25 mg tablet 2022-07 00:00: 00 Yes [id number] 25mg Take 1 tablet by mouth in the morning. [facility] insulin glargine U-300 conc (TOUJEO MAX U-300 SOLOSTAR) 300 unit/mL (3 mL) In 2022-07 00:00: 00 Yes [id number] 10U inject 10 Units under the skin daily before breakfast. [facility] atorvastati n 40 mg tablet 2022-07 00:00: 00 Yes [id number] 40mg Take 1 tablet by mouth at bedtime. [facility] buPROPion XL 300 mg 24 hr tablet 2022-07 00:00: 00 Yes [id number] 300mg Take 1 tablet by mouth in the morning. [facility] ARIPiprazol e (ABILIFY) 2 mg tablet 2022-07 00:00: 00 Yes [id number] 2mg Take 1 tablet by mouth in the morning. [facility] hydroCHLORO thiazide 25 mg tablet 2022-07 00:00: 00 Yes [id number] 25mg Take 1 tablet by mouth in the morning. [facility] insulin glargine U-300 conc (TOUJEO MAX U-300 SOLOSTAR) 300 unit/mL (3 mL) [facility] 2022-07 00:00: 00 Yes [id number] 10U inject 10 Units under the skin daily before breakfast. [facility] atorvastati n 40 mg tablet 2022-07 00:00: 00 Yes [id number] 40mg Take 1 tablet by mouth at bedtime. [facility] buPROPion XL 300 mg 24 hr tablet 2022-07 00:00: 00 Yes [id number] 300mg Take 1 tablet by mouth in the morning. [facility] ARIPiprazol e (ABILIFY) 2 mg tablet 2022-07 00:00: 00 Yes [id number] 2mg Take 1 tablet by mouth in the morning. [facility] hydroCHLORO thiazide 25 mg tablet 2022-07 00:00: 00 Yes [id number] 25mg Take 1 tablet by mouth in the morning. [facility] insulin glargine U-300 conc (TOUJEO MAX U-300 SOLOSTAR) 300 unit/mL (3 mL) In 2022-07 00:00: 00 Yes [id number] 10U inject 10 Units under the skin daily before breakfast. [facility] atorvastati n 40 mg tablet 2022-07 0 00:00: 00 Yes [id number] 40mg Take 1 tablet by mouth at bedtime. [facility] gabapentin 100 mg capsule 2022-07 00:00: 00 Yes [id number] 1 cap in morning, 1 cap in afternoon, and 2 cap at bedtime [facility] buPROPion XL 300 mg 24 hr tablet 2022-07 00:00: 00 Yes [id number] 300mg Take 1 tablet by mouth in the morning. [facility] ARIPiprazol e (ABILIFY) 2 mg tablet 2022-07 00:00: 00 Yes [id number] 2mg Take 1 tablet by mouth in the morning. [facility] hydroCHLORO thiazide 25 mg tablet 2022-07 00:00: 00 Yes [id number] 25mg Take 1 tablet by mouth in the morning. [facility] insulin glargine U-300 conc (TOUJEO MAX U-300 SOLOSTAR) 300 unit/mL (3 mL) InPn 2022-07 00:00: 00 Yes [id number] 10U inject 10 Units under the skin daily before breakfast. [facility] atorvastati n 40 mg tablet 2022-07 00:00: 00 Yes [id number] 40mg Take 1 tablet by mouth at bedtime. [facility] gabapentin 100 mg capsule 2022-07 00:00: 00 Yes [id number] 1 cap in morning, 1 cap in afternoon, and 2 cap at bedtime [facility] buPROPion XL 300 mg 24 hr tablet 2022-07 00:00: 00 Yes [id number] 300mg Take 1 tablet by mouth in the morning. [facility] ARIPiprazol e (ABILIFY) 2 mg tablet 2022-07 00:00: 00 Yes [id number] 2mg Take 1 tablet by mouth in the morning. [facility] hydroCHLORO thiazide 25 mg tablet 2022-07 00:00: 00 Yes [id number] 25mg Take 1 tablet by mouth in the morning. [facility] insulin glargine U-300 conc (TOUJEO MAX U-300 SOLOSTAR) 300 unit/mL (3 mL) In 2022-07 00:00: 00 Yes [id number] 10U inject 10 Units under the skin daily before breakfast. [facility] atorvastati n 40 mg tablet 2022-07 00:00: 00 Yes [id number] 40mg Take 1 tablet by mouth at bedtime. [facility] gabapentin 100 mg capsule 2022-07 00:00: 00 Yes [id number] 1 cap in morning, 1 cap in afternoon, and 2 cap at bedtime [facility] buPROPion XL 300 mg 24 hr tablet 2022-07 00:00: 00 Yes [id number] 300mg Take 1 tablet by mouth in the morning. [facility] ARIPiprazol e (ABILIFY) 2 mg tablet 2022-07 00:00: 00 Yes [id number] 2mg Take 1 tablet by mouth in the morning. [facility] hydroCHLORO thiazide 25 mg tablet 2022-07 00:00: 00 Yes [id number] 25mg Take 1 tablet by mouth in the morning. [facility] insulin glargine U-300 conc (TOUJEO MAX U-300 SOLOSTAR) 300 unit/mL (3 mL) [facility] 2022-07 00:00: 00 Yes [id number] 10U inject 10 Units under the skin daily before breakfast. [facility] atorvastati n 40 mg tablet 2022-07 00:00: 00 Yes [id number] 40mg Take 1 tablet by mouth at bedtime. [facility] gabapentin 100 mg capsule 2022-07 00:00: 00 Yes [id number] 1 cap in morning, 1 cap in afternoon, and 2 cap at bedtime [facility] buPROPion XL 300 mg 24 hr tablet 2022-07 00:00: 00 Yes [id number] 300mg Take 1 tablet by mouth in the morning. [facility] ARIPiprazol e (ABILIFY) 2 mg tablet 2022-07 00:00: 00 Yes [id number] 2mg Take 1 tablet by mouth in the morning. [facility] hydroCHLORO thiazide 25 mg tablet 2022-07 00:00: 00 Yes [id number] 25mg Take 1 tablet by mouth in the morning. [facility] insulin glargine U-300 conc (TOUJEO MAX U-300 SOLOSTAR) 300 unit/mL (3 mL) In 2022-07 00:00: 00 Yes [id number] 10U inject 10 Units under the skin daily before breakfast. [facility] atorvastati n 40 mg tablet 2022-07 00:00: 00 Yes [id number] 40mg Take 1 tablet by mouth at bedtime. [facility] gabapentin 100 mg capsule 2022-07 00:00: 00 Yes [id number] 1 cap in morning, 1 cap in afternoon, and 2 cap at bedtime [facility] buPROPion XL 300 mg 24 hr tablet 2022-07 00:00: 00 Yes [id number] 300mg Take 1 tablet by mouth in the morning. [facility] ARIPiprazol e (ABILIFY) 2 mg tablet 2022-07 00:00: 00 Yes [id number] 2mg Take 1 tablet by mouth in the morning. [facility] hydroCHLORO thiazide 25 mg tablet 2022-07 00:00: 00 Yes [id number] 25mg Take 1 tablet by mouth in the morning. [facility] insulin glargine U-300 conc (TOUJEO MAX U-300 SOLOSTAR) 300 unit/mL (3 mL) In 2022-07 00:00: 00 Yes [id number] 10U inject 10 Units under the skin daily before breakfast. [facility] atorvastati n 40 mg tablet 2022-07 00:00: 00 Yes [id number] 40mg Take 1 tablet by mouth at bedtime. [facility] gabapentin 100 mg capsule 2022-07 00:00: 00 Yes [id number] 1 cap in morning, 1 cap in afternoon, and 2 cap at bedtime [facility] buPROPion XL 300 mg 24 hr tablet 2022-07 00:00: 00 Yes [id number] 300mg Take 1 tablet by mouth in the morning. [facility] ARIPiprazol e (ABILIFY) 2 mg tablet 2022-07 00:00: 00 Yes [id number] 2mg Take 1 tablet by mouth in the morning. [facility] hydroCHLORO thiazide 25 mg tablet 2022-07 00:00: 00 Yes [id number] 25mg Take 1 tablet by mouth in the morning. [facility] insulin glargine U-300 conc (TOUJEO MAX U-300 SOLOSTAR) 300 unit/mL (3 mL) InPn 2022-07 00:00: 00 Yes [id number] 10U inject 10 Units under the skin daily before breakfast. [facility] atorvastati n 40 mg tablet 2022-07 00:00: 00 Yes [id number] 40mg Take 1 tablet by mouth at bedtime. [facility] gabapentin 100 mg capsule 2022-07 00:00: 00 Yes [id number] 1 cap in morning, 1 cap in afternoon, and 2 cap at bedtime [facility] buPROPion XL 300 mg 24 hr tablet 2022-07 00:00: 00 Yes [id number] 300mg Take 1 tablet by mouth in the morning. [facility] ARIPiprazol e (ABILIFY) 2 mg tablet 2022-07 00:00: 00 Yes [id number] 2mg Take 1 tablet by mouth in the morning. [facility] hydroCHLORO thiazide 25 mg tablet 2022-07 00:00: 00 Yes [id number] 25mg Take 1 tablet by mouth in the morning. [facility] insulin glargine U-300 conc (TOUJEO MAX U-300 SOLOSTAR) 300 unit/mL (3 mL) In 2022-07 0 00:00: 00 Yes [id number] 10U inject 10 Units under the skin daily before breakfast. [facility] atorvastati n 40 mg tablet 2022-07 0 00:00: 00 Yes [id number] 40mg Take 1 tablet by mouth at bedtime. [facility] gabapentin 100 mg capsule 2022-07 0 00:00: 00 Yes [id number] 1 cap in morning, 1 cap in afternoon, and 2 cap at bedtime [facility] buPROPion XL 300 mg 24 hr tablet 2022-07 00:00: 00 Yes [id number] 300mg Take 1 tablet by mouth in the morning. [facility] ARIPiprazol e (ABILIFY) 2 mg tablet 2022-07 00:00: 00 Yes [id number] 2mg Take 1 tablet by mouth in the morning. [facility] hydroCHLORO thiazide 25 mg tablet 2022-07 0 00:00: 00 Yes [id number] 25mg Take 1 tablet by mouth in the morning. [facility] insulin glargine U-300 conc (TOUJEO MAX U-300 SOLOSTAR) 300 unit/mL (3 mL) [facility] 2022-07 00:00: 00 Yes [id number] 10U inject 10 Units under the skin daily before breakfast. [facility] gabapentin 100 mg capsule 2022-07 00:00: 00 08-12 00:00 :00 No [id number] 1 cap in morning, 1 cap in afternoon, and 2 cap at bedtime [facility] gabapentin 100 mg capsule 2022-07 0 00:00: 00 08-12 00:00 :00 No [id number] 1 cap in morning, 1 cap in afternoon, and 2 cap at bedtime [facility] Estradiol (YUVAFEM) 10 mcg tablet 2022-07 0 00:00: 00 Yes [id number] 10ug Insert 1 tablet into vagina 2 (two) times per week. [facility] Estradiol (YUVAFEM) 10 mcg tablet 2022-07 0-09 00:00: 00 Yes [id number] 10ug Insert 1 tablet into vagina 2 (two) times per week. [facility] Estradiol (YUVAFEM) 10 mcg tablet 2022-07 0- 00:00: 00 Yes [id number] 10ug Insert 1 tablet into vagina 2 (two) times per week. [facility] Estradiol (YUVAFEM) 10 mcg tablet 2022-07 0- 00:00: 00 Yes [id number] 10ug Insert 1 tablet into vagina 2 (two) times per week. [facility] Estradiol (YUVAFEM) 10 mcg tablet 2022-07 0- 00:00: 00 Yes [id number] 10ug Insert 1 tablet into vagina 2 (two) times per week. [facility] Estradiol (YUVAFEM) 10 mcg tablet 2022-07 0- 00:00: 00 Yes [id number] 10ug Insert 1 tablet into vagina 2 (two) times per week. [facility] Estradiol (YUVAFEM) 10 mcg tablet 2022-07 0- 00:00: 00 Yes [id number] 10ug Insert 1 tablet into vagina 2 (two) times per week. [facility] Estradiol (YUVAFEM) 10 mcg tablet 2022-07 0 00:00: 00 Yes [id number] 10ug Insert 1 tablet into vagina 2 (two) times per week. [facility] Estradiol (YUVAFEM) 10 mcg tablet 2022-07 0- 00:00: 00 Yes [id number] 10ug Insert 1 tablet into vagina 2 (two) times per week. [facility] Estradiol (YUVAFEM) 10 mcg tablet 2022-07 0- 00:00: 00 Yes [id number] 10ug Insert 1 tablet into vagina 2 (two) times per week. [facility] Estradiol (YUVAFEM) 10 mcg tablet 2022-07 0- 00:00: 00 Yes [id number] 10ug Insert 1 tablet into vagina 2 (two) times per week. [facility] Estradiol (YUVAFEM) 10 mcg tablet 2022-07 0- 00:00: 00 Yes [id number] 10ug Insert 1 tablet into vagina 2 (two) times per week. [facility] Estradiol (YUVAFEM) 10 mcg tablet 2022-07 0-09 00:00: 00 Yes [id number] 10ug Insert 1 tablet into vagina 2 (two) times per week. [facility] (YUVAFEM[facility] 10 mcg tablet 2022-07 0-09 00:00: 00 Yes [id number] 10ug Insert 1 tablet into vagina 2 (two) times per week. [facility] Estradiol (YUVAFEM) 10 mcg tablet 2022-07 0-09 00:00: 00 Yes [id number] 10ug Insert 1 tablet into vagina 2 (two) times per week. [facility] Estradiol (YUVAFEM) 10 mcg tablet 2022-07 0- 00:00: 00 Yes [id number] 10ug Insert 1 tablet into vagina 2 (two) times per week. [facility] Estradiol (YUVAFEM) 10 mcg tablet 2022-07 0- 00:00: 00 Yes [id number] 10ug Insert 1 tablet into vagina 2 (two) times per week. [facility] Estradiol (YUVAFEM) 10 mcg tablet 2022-07 0- 00:00: 00 Yes [id number] 10ug Insert 1 tablet into vagina 2 (two) times per week. [facility] Estradiol (YUVAFEM) 10 mcg tablet 2022-07 0- 00:00: 00 Yes [id number] 10ug Insert 1 tablet into vagina 2 (two) times per week. [facility] Estradiol (YUVAFEM) 10 mcg tablet 2022-07 0-09 00:00: 00 Yes [id number] 10ug Insert 1 tablet into vagina 2 (two) times per week. [facility] Estradiol (YUVAFEM) 10 mcg tablet 2022-07 0- 00:00: 00 Yes [id number] 10ug Insert 1 tablet into vagina 2 (two) times per week. [facility] Estradiol (YUVAFEM) 10 mcg tablet 2022-07 0-09 00:00: 00 Yes [id number] 10ug Insert 1 tablet into vagina 2 (two) times per week. [facility] Estradiol (YUVAFEM) 10 mcg tablet 2022-07 0-09 00:00: 00 Yes [id number] 10ug Insert 1 tablet into vagina 2 (two) times per week. [facility] Estradiol (YUVAFEM) 10 mcg tablet 2022-07 0-09 00:00: 00 Yes [id number] 10ug Insert 1 tablet into vagina 2 (two) times per week. [facility] Estradiol (YUVAFEM) 10 mcg tablet 2022-07 0-09 00:00: 00 Yes [id number] 10ug Insert 1 tablet into vagina 2 (two) times per week. [facility] Estradiol (YUVAFEM) 10 mcg tablet 2022-07 0-09 00:00: 00 Yes [id number] 10ug Insert 1 tablet into vagina 2 (two) times per week. [facility] Estradiol (YUVAFEM) 10 mcg tablet 2022-07 0-09 00:00: 00 Yes [id number] 10ug Insert 1 tablet into vagina 2 (two) times per week. [facility] Estradiol (YUVAFEM) 10 mcg tablet 2022-07 0-09 00:00: 00 Yes [id number] 10ug Insert 1 tablet into vagina 2 (two) times per week. [facility] Estradiol (YUVAFEM) 10 mcg tablet 2022-07 0-09 00:00: 00 Yes [id number] 10ug Insert 1 tablet into vagina 2 (two) times per week. [facility] Estradiol (YUVAFEM) 10 mcg tablet 2022-07 0-09 00:00: 00 07-10 00:00 :00 No [id number] 10ug Insert 1 tablet into vagina 2 (two) times per week. [facility] Estradiol (YUVAFEM) 10 mcg tablet 2022-07 0-09 00:00: 00 07-10 00:00 :00 No [id number] 10ug Insert 1 tablet into vagina 2 (two) times per week. [facility] Estradiol (YUVAFEM) 10 mcg tablet 2022-07 0-09 00:00: 00 07-10 00:00 :00 No [id number] 10ug Insert 1 tablet into vagina 2 (two) times per week. [facility] fluconazole (DIFLUCAN) 100 mg tablet 2022-07 0-09 00:00: 00 05-07 04:59 :00 No 100mg Take 1 tablet by mouth every 72 (seventy-t wo) hours for 3 doses. [facility] fluconazole (DIFLUCAN) 100 mg tablet 2022-07 0-09 00:00: 00 05-07 04:59 :00 No 100mg Take 1 tablet by mouth every 72 (seventy-t wo) hours for 3 doses. [facility] fluconazole (DIFLUCAN) 100 mg tablet 2022-07 0-09 00:00: 00 05-07 04:59 :00 No 100mg Take 1 tablet by mouth every 72 (seventy-t wo) hours for 3 doses. [facility] fluconazole (DIFLUCAN) 100 mg tablet 2022-07 0-09 00:00: 00 05-07 04:59 :00 No 100mg Take 1 tablet by mouth every 72 (seventy-t wo) hours for 3 doses. [facility] fluconazole (DIFLUCAN) 100 mg tablet 2022-07 0-09 00:00: 00 05-07 04:59 :00 No 100mg Take 1 tablet by mouth every 72 (seventy-t wo) hours for 3 doses. [facility] Insulin [place], Disposable, 32 gauge x 1/4" Ndle 2022-07 008 00:00: 00 Yes [id number] Use once a day. Use brand that is covered by insurance. [facility] docusate (COLACE) 100 mg capsule 2022-07 0-08 00:00: 00 Yes [id number] 100mg Take 1 capsule by mouth 2 (two) times daily as needed for Constipati on. [facility] Insulin [place], Disposable, 32 gauge x 1/4" Ndle 2022-07 0-08 00:00: 00 Yes [id number] Use once a day. Use brand that is covered by insurance. [facility] docusate (COLACE) 100 mg capsule 2022-07 0-08 00:00: 00 Yes [id number] 100mg Take 1 capsule by mouth 2 (two) times daily as needed for Constipati on. [facility] [place], Disposable, 32 gauge x 1/4" Ndle 2022-07 0-08 00:00: 00 Yes [id number] Use once a day. Use brand that is covered by insurance. [facility] docusate (COLACE) 100 mg capsule 2022-07 0-08 00:00: 00 Yes [id number] 100mg Take 1 capsule by mouth 2 (two) times daily as needed for Constipati on. [facility] Insulin [place], Disposable, 32 gauge x 1/4" Ndle 2022-07 0-08 00:00: 00 Yes [id number] Use once a day. Use brand that is covered by insurance. [facility] docusate (COLACE) 100 mg capsule 2022-07 0-08 00:00: 00 Yes [id number] 100mg Take 1 capsule by mouth 2 (two) times daily as needed for Constipati on. [facility] Insulin [place], Disposable, 32 gauge x 1/4" Ndle 2022-07 0-08 00:00: 00 Yes [id number] Use once a day. Use brand that is covered by insurance. [facility] docusate (COLACE) 100 mg capsule 2022-07 0- 00:00: 00 Yes [id number] 100mg Take 1 capsule by mouth 2 (two) times daily as needed for Constipati on. [facility] Insulin [place], Disposable, 32 gauge x 1/4" Ndle 2022-07 0-08 00:00: 00 Yes [id number] Use once a day. Use brand that is covered by insurance. [facility] docusate (COLACE) 100 mg capsule 2022-07 0-08 00:00: 00 Yes [id number] 100mg Take 1 capsule by mouth 2 (two) times daily as needed for Constipati on. [facility] Insulin [place], Disposable, 32 gauge x 1/4" Ndle 2022-07 0-08 00:00: 00 Yes [id number] Use once a day. Use brand that is covered by insurance. [facility] docusate (COLACE) 100 mg capsule 2022-07 0-08 00:00: 00 Yes [id number] 100mg Take 1 capsule by mouth 2 (two) times daily as needed for Constipati on. [facility] Insulin [place], Disposable, 32 gauge x 1/4" Ndle 2022-07 0-08 00:00: 00 Yes [id number] Use once a day. Use brand that is covered by insurance. [facility] docusate (COLACE) 100 mg capsule 2022-07 0-08 00:00: 00 Yes [id number] 100mg Take 1 capsule by mouth 2 (two) times daily as needed for Constipati on. [facility] Insulin [place], Disposable, 32 gauge x 1/4" Ndle 2022-07 0-08 00:00: 00 Yes [id number] Use once a day. Use brand that is covered by insurance. [facility] docusate (COLACE) 100 mg capsule 2022-07 0- 00:00: 00 Yes [id number] 100mg Take 1 capsule by mouth 2 (two) times daily as needed for Constipati on. [facility] Insulin [place], Disposable, 32 gauge x 1/4" Ndle 2022-07 0-08 00:00: 00 Yes [id number] Use once a day. Use brand that is covered by insurance. [facility] docusate (COLACE) 100 mg capsule 2022-07 0-08 00:00: 00 Yes [id number] 100mg Take 1 capsule by mouth 2 (two) times daily as needed for Constipati on. [facility] Insulin [place], Disposable, 32 gauge x 1/4" Ndle 2022-07 0-08 00:00: 00 Yes [id number] Use once a day. Use brand that is covered by insurance. [facility] docusate (COLACE) 100 mg capsule 2022-07 0-08 00:00: 00 Yes [id number] 100mg Take 1 capsule by mouth 2 (two) times daily as needed for Constipati on. [facility] Insulin [place], Disposable, 32 gauge x 1/4" Ndle 2022-07 0-08 00:00: 00 Yes [id number] Use once a day. Use brand that is covered by insurance. [facility] docus[facility] (COLACE) 100 mg capsule 2022-07 0-08 00:00: 00 Yes [id number] 100mg Take 1 capsule by mouth 2 (two) times daily as needed for Constipati on. [facility] Insulin [place], Disposable, 32 gauge x 1/4" Ndle 2022-07 0-08 00:00: 00 Yes [id number] Use once a day. Use brand that is covered by insurance. [facility] docusate (COLACE) 100 mg capsule 2022-07 0-08 00:00: 00 Yes [id number] 100mg Take 1 capsule by mouth 2 (two) times daily as needed for Constipati on. [facility] Insulin [place], Disposable, 32 gauge x 1/4" Ndle 2022-07 0-08 00:00: 00 Yes [id number] Use once a day. Use brand that is covered by insurance. [facility] docusate (COLACE) 100 mg capsule 2022-07 0-08 00:00: 00 Yes [id number] 100mg Take 1 capsule by mouth 2 (two) times daily as needed for Constipati on. [facility] Insulin [place], Disposable, 32 gauge x 1/4" Ndle 2022-07 0-08 00:00: 00 Yes [id number] Use once a day. Use brand that is covered by insurance. [facility] docusate (COLACE) 100 mg capsule 2022-07 0-08 00:00: 00 Yes [id number] 100mg Take 1 capsule by mouth 2 (two) times daily as needed for Constipati on. [facility] Insulin [place], Disposable, 32 gauge x 1/4" Ndle 2022-07 0-08 00:00: 00 Yes [id number] Use once a day. Use brand that is covered by insurance. [facility] docusate (COLACE) 100 mg capsule 2022-07 0-08 00:00: 00 Yes [id number] 100mg Take 1 capsule by mouth 2 (two) times daily as needed for Constipati on. [facility] Insulin [place], Disposable, 32 gauge x 1/4" Ndle 2022-07 0-08 00:00: 00 Yes [id number] Use once a day. Use brand that is covered by insurance. [facility] (COLACE) 100 mg capsule 2022-07 0-08 00:00: 00 Yes [id number] 100mg Take 1 capsule by mouth 2 (two) times daily as needed for Constipati on. [facility] Insulin [place], Disposable, 32 gauge x 1/4" Ndle 2022-07 0-08 00:00: 00 Yes [id number] Use once a day. Use brand that is covered by insurance. [facility] mg capsule 2022-07 0- 00:00: 00 Yes [id number] 100mg Take 1 capsule by mouth 2 (two) times daily as needed for Constipati on. [facility] Insulin [place], Disposable, 32 gauge x 1/4" Ndle 2022-07 0- 00:00: 00 Yes [id number] Use once a day. Use brand that is covered by insurance. [facility] docusate (COLACE) 100 mg capsule 2022-07 0- 00:00: 00 Yes [id number] 100mg Take 1 capsule by mouth 2 (two) times daily as needed for Constipati on. [facility] Insulin [place], Disposable, 32 gauge x 1/4" Ndle 2022-07 0-08 00:00: 00 Yes [id number] Use once a day. Use brand that is covered by insurance. [facility]COLACE[facility] 100 mg capsule 2022-07 0-08 00:00: 00 Yes [id number] 100mg Take 1 capsule by mouth 2 (two) times daily as needed for Constipati on. [facility] Insulin [place], Disposable, 32 gauge x 1/4" Ndle 2022-07 0-08 00:00: 00 Yes [id number] Use once a day. Use brand that is covered by insurance. [facility]COLACE[facility] 100 mg capsule 2022-07 0-08 00:00: 00 Yes [id number] 100mg Take 1 capsule by mouth 2 (two) times daily as needed for Constipati on. [facility] Insulin [place], Disposable, 32 gauge x 1/4" Ndle 2022-07 0-08 00:00: 00 Yes [id number] Use once a day. Use brand that is covered by insurance. [facility] (COLACE) 100 mg capsule 2022-07 0-08 00:00: 00 Yes [id number] 100mg Take 1 capsule by mouth 2 (two) times daily as needed for Constipati on. [facility] Insulin [place], Disposable, 32 gauge x 1/4" Ndle 2022-07 0-08 00:00: 00 Yes [id number] Use once a day. Use brand that is covered by insurance. [facility] docusate (COLACE) 100 mg capsule 2022-07 0-08 00:00: 00 Yes [id number] 100mg Take 1 capsule by mouth 2 (two) times daily as needed for Constipati on. [facility] Insulin [place], Disposable, 32 gauge x 1/4" Ndle 2022-07 0-08 00:00: 00 Yes [id number] Use once a day. Use brand that is covered by insurance. [facility] docusate (COLACE) 100 mg capsule 2022-07 0-08 00:00: 00 Yes [id number] 100mg Take 1 capsule by mouth 2 (two) times daily as needed for Constipati on. [facility] Insulin [place], Disposable, 32 gauge x 1/4" Ndle 2022-07 0-08 00:00: 00 Yes [id number] Use once a day. Use brand that is covered by insurance. [facility] docusate (COLACE) 100 mg capsule 2022-07 0-08 00:00: 00 Yes [id number] 100mg Take 1 capsule by mouth 2 (two) times daily as needed for Constipati on. [facility] Insulin [place], Disposable, 32 gauge x 1/4" Ndle 2022-07 0-08 00:00: 00 Yes [id number] Use once a day. Use brand that is covered by insurance. [facility] docusate (COLACE) 100 mg capsule 2022-07 0-08 00:00: 00 Yes [id number] 100mg Take 1 capsule by mouth 2 (two) times daily as needed for Constipati on. [facility] [place], Disposable, 32 gauge x 1/4" Ndle 2022-07 0-08 00:00: 00 Yes [id number] Use once a day. Use brand that is covered by insurance. [facility] docusate (COLACE) 100 mg capsule 2022-07 0-08 00:00: 00 Yes [id number] 100mg Take 1 capsule by mouth 2 (two) times daily as needed for Constipati on. [facility] Insulin [place], Disposable, 32 gauge x 1/4" Ndle 2022-07 0-08 00:00: 00 Yes [id number] Use once a day. Use brand that is covered by insurance. [facility] docusate (COLACE) 100 mg capsule 2022-07 0- 00:00: 00 Yes [id number] 100mg Take 1 capsule by mouth 2 (two) times daily as needed for Constipati on. [facility] Insulin [place], Disposable, 32 gauge x 1/4" Ndle 2022-07 0-08 00:00: 00 Yes [id number] Use once a day. Use brand that is covered by insurance. [facility] docusate (COLACE) 100 mg capsule 2022-07 0-08 00:00: 00 Yes [id number] 100mg Take 1 capsule by mouth 2 (two) times daily as needed for Constipati on. [facility] Insulin [place], Disposable, 32 gauge x 1/4" Ndle 2022-07 0-08 00:00: 00 Yes [id number] Use once a day. Use brand that is covered by insurance. [facility] docusate (COLACE) 100 mg capsule 2022-07 0-08 00:00: 00 Yes [id number] 100mg Take 1 capsule by mouth 2 (two) times daily as needed for Constipati on. [facility] Ins[facility] [place], Disposable, 32 gauge x 1/4" Ndle 2022-07 0-08 00:00: 00 Yes [id number] Use once a day. Use brand that is covered by insurance. [facility] docusate (COLACE) 100 mg capsule 2022-07 0-08 00:00: 00 Yes [id number] 100mg Take 1 capsule by mouth 2 (two) times daily as needed for Constipati on. [facility] Insulin [place], Disposable, 32 gauge x 1/4" Ndle 2022-07 0-08 00:00: 00 Yes [id number] Use once a day. Use brand that is covered by insurance. [facility] docusate (COLACE) 100 mg capsule 2022-07 0-08 00:00: 00 Yes [id number] 100mg Take 1 capsule by mouth 2 (two) times daily as needed for Constipati on. [facility] Insulin [place], Disposable, 32 gauge x 1/4" Ndle 2022-07 0-08 00:00: 00 Yes [id number] Use once a day. Use brand that is covered by insurance. [facility] docusate (COLACE) 100 mg capsule 2022-07 0- 00:00: 00 Yes [id number] 100mg Take 1 capsule by mouth 2 (two) times daily as needed for Constipati on. [facility] Insulin [place], Disposable, 32 gauge x 1/4" Ndle 2022-07 0 00:00: 00 Yes [id number] Use once a day. Use brand that is covered by insurance. [facility] docusate (COLACE) 100 mg capsule 2022-07 0- 00:00: 00 Yes [id number] 100mg Take 1 capsule by mouth 2 (two) times daily as needed for Constipati on. [facility] Insulin [place], Disposable, 32 gauge x 1/4" Ndle 2022-07 0-08 00:00: 00 Yes [id number] Use once a day. Use brand that is covered by insurance. [facility] docusate (COLACE) 100 mg capsule 2022-07 0-08 00:00: 00 Yes [id number] 100mg Take 1 capsule by mouth 2 (two) times daily as needed for Constipati on. [facility] Insulin [place], Disposable, 32 gauge x 1/4" Ndle 2022-07 0-08 00:00: 00 Yes [id number] Use once a day. Use brand that is covered by insurance. [facility]COLACE[facility] 100 mg capsule 2022-07 0-08 00:00: 00 Yes [id number] 100mg Take 1 capsule by mouth 2 (two) times daily as needed for Constipati on. [facility] Ins[facility] [place], Disposable, 32 gauge x 1/4" Ndle 2022-07 0-08 00:00: 00 Yes [id number] Use once a day. Use brand that is covered by insurance. [facility] docusate (COLACE) 100 mg capsule 2022-07 0-08 00:00: 00 Yes [id number] 100mg Take 1 capsule by mouth 2 (two) times daily as needed for Constipati on. [facility] Insulin [place], Disposable, 32 gauge x 1/4" Ndle 2022-07 0-08 00:00: 00 Yes [id number] Use once a day. Use brand that is covered by insurance. [facility] docusate (COLACE) 100 mg capsule 2022-07 0-08 00:00: 00 Yes [id number] 100mg Take 1 capsule by mouth 2 (two) times daily as needed for Constipati on. [facility] Insulin [place], Disposable, 32 gauge x 1/4" Ndle 2022-07 0-08 00:00: 00 Yes [id number] Use once a day. Use brand that is covered by insurance. [facility] docusate (COLACE) 100 mg capsule 2022-07 0-08 00:00: 00 Yes [id number] 100mg Take 1 capsule by mouth 2 (two) times daily as needed for Constipati on. [facility] Insulin [place], Disposable, 32 gauge x 1/4" Ndle 2022-07 0-08 00:00: 00 Yes [id number] Use once a day. Use brand that is covered by insurance. [facility] docusate (COLACE) 100 mg capsule 2022- 0-08 00:00: 00 Yes [id number] 100mg Take 1 capsule by mouth 2 (two) times daily as needed for Constipati on. [facility] metroNIDAZO LE 500 mg tablet 2022-07 0-06 00:00: 00 Yes [id number] 500mg Take 1 tablet by mouth every 12 (twelve) hours. [facility] metro[facility]IDAZ[facility] LE 500 mg tablet 2022- 0-06 00:00: 00 Yes [id number] 500mg Take 1 tablet by mouth every 12 (twelve) hours. [facility] metroNIDAZ[facility] LE 500 mg tablet 2022- 0-06 00:00: 00 Yes [id number] 500mg Take 1 tablet by mouth every 12 (twelve) hours. [facility] metroNIDAZ[facility] LE 500 mg tablet 2022- 0-06 00:00: 00 Yes [id number] 500mg Take 1 tablet by mouth every 12 (twelve) hours. [facility] metro[facility]AZ[facility] LE 500 mg tablet 2022-07 0-06 00:00: 00 Yes [id number] 500mg Take 1 tablet by mouth every 12 (twelve) hours. [facility] metro[facility]IDAZ[facility] LE 500 mg tablet 2022-07 0-06 00:00: 00 Yes [id number] 500mg Take 1 tablet by mouth every 12 (twelve) hours. [facility] metro[facility]IDAZ[facility] LE 500 mg tablet 2022-07 0-06 00:00: 00 Yes [id number] 500mg Take 1 tablet by mouth every 12 (twelve) hours. [facility] metro[facility]IDAZ[facility] LE 500 mg tablet 2022- 0-06 00:00: 00 Yes [id number] 500mg Take 1 tablet by mouth every 12 (twelve) hours. [facility] metro[facility]AZ[facility] LE 500 mg tablet 2022- 0-06 00:00: 00 Yes [id number] 500mg Take 1 tablet by mouth every 12 (twelve) hours. [facility] metro[facility]AZ[facility] LE 500 mg tablet 2022- 0-06 00:00: 00 Yes [id number] 500mg Take 1 tablet by mouth every 12 (twelve) hours. [facility] metroNIDAZ[facility] LE 500 mg tablet 2022-1 0-06 00:00: 00 Yes [id number] 500mg Take 1 tablet by mouth every 12 (twelve) hours. [facility] metroNIDAZO LE 500 mg tablet 2022-07 0-06 00:00: 00 Yes [id number] 500mg Take 1 tablet by mouth every 12 (twelve) hours. [facility] metro[facility]IDAZ[facility] LE 500 mg tablet 2022-07 0-06 00:00: 00 Yes [id number] 500mg Take 1 tablet by mouth every 12 (twelve) hours. [facility] metroNIDAZO LE 500 mg tablet 2022-07 0-06 00:00: 00 Yes [id number] 500mg Take 1 tablet by mouth every 12 (twelve) hours. [facility] metroNIDAZO LE 500 mg tablet 2022- 0-06 00:00: 00 Yes [id number] 500mg Take 1 tablet by mouth every 12 (twelve) hours. [facility] metroNIDAZ[facility] LE 500 mg tablet 2022-07 0-06 00:00: 00 Yes [id number] 500mg Take 1 tablet by mouth every 12 (twelve) hours. [facility] metroNIDAZO LE 500 mg tablet 2022-07 0-06 00:00: 00 Yes [id number] 500mg Take 1 tablet by mouth every 12 (twelve) hours. [facility] metro[facility]IDAZ[facility] LE 500 mg tablet 2022-07 0-06 00:00: 00 Yes [id number] 500mg Take 1 tablet by mouth every 12 (twelve) hours. [facility] metroNIDAZO LE 500 mg tablet 2022-07 0-06 00:00: 00 Yes [id number] 500mg Take 1 tablet by mouth every 12 (twelve) hours. [facility] metroNIDAZO LE 500 mg tablet 2022- 0-06 00:00: 00 Yes [id number] 500mg Take 1 tablet by mouth every 12 (twelve) hours. [facility] metroNIDAZO LE 500 mg tablet 2022- 0-06 00:00: 00 Yes [id number] 500mg Take 1 tablet by mouth every 12 (twelve) hours. [facility] metroNIDAZ[facility] LE 500 mg tablet 2022-1 0-06 00:00: 00 Yes [id number] 500mg Take 1 tablet by mouth every 12 (twelve) hours. [facility] metroNIDAZO LE 500 mg tablet 2022-07 0-06 00:00: 00 Yes [id number] 500mg Take 1 tablet by mouth every 12 (twelve) hours. [facility] metroNIDAZO LE 500 mg tablet 2022-07 0-06 00:00: 00 Yes [id number] 500mg Take 1 tablet by mouth every 12 (twelve) hours. [facility] metroNIDAZO LE 500 mg tablet 2022-07 0-06 00:00: 00 Yes [id number] 500mg Take 1 tablet by mouth every 12 (twelve) hours. [facility] metroNIDAZO LE 500 mg tablet 2022-07 0-06 00:00: 00 Yes [id number] 500mg Take 1 tablet by mouth every 12 (twelve) hours. [facility] metroNIDAZ[facility] LE 500 mg tablet 2022-07 0-06 00:00: 00 Yes [id number] 500mg Take 1 tablet by mouth every 12 (twelve) hours. [facility] metroNIDAZ[facility] LE 500 mg tablet 2022-07 0-06 00:00: 00 Yes [id number] 500mg Take 1 tablet by mouth every 12 (twelve) hours. [facility] metroNIDAZO LE 500 mg tablet 2022-07 0-06 00:00: 00 Yes [id number] 500mg Take 1 tablet by mouth every 12 (twelve) hours. [facility] metroNIDAZO LE 500 mg tablet 2022-07 0-06 00:00: 00 Yes [id number] 500mg Take 1 tablet by mouth every 12 (twelve) hours. [facility] metroNIDAZO LE 500 mg tablet 2022-07 0-06 00:00: 00 07-10 00:00 :00 No [id number] 500mg Take 1 tablet by mouth every 12 (twelve) hours. [facility] metroNIDAZO LE 500 mg tablet 2022-07 0-06 00:00: 00 07-10 00:00 :00 No [id number] 500mg Take 1 tablet by mouth every 12 (twelve) hours. [facility] glimepiride 4 mg tablet 9-25 00:00: 00 Yes [id number] 4mg Take 1 tablet by mouth daily with breakfast. [facility] metFORMIN 1,000 mg tablet 3-0 25 00:00: 00 Yes [id number] 1000mg Take 1 tablet by mouth in the morning and 1 tablet in the evening. Take with meals. [facility] glimepiride 4 mg tablet 3-0 -25 00:00: 00 Yes [id number] 4mg Take 1 tablet by mouth daily with breakfast. [facility] metFORMIN 1,000 mg tablet 3-0 25 00:00: 00 Yes [id number] 1000mg Take 1 tablet by mouth in the morning and 1 tablet in the evening. Take with meals. [facility] glimepiride 4 mg tablet 2022-0 25 00:00: 00 Yes [id number] 4mg Take 1 tablet by mouth daily with breakfast. [facility] metFORMIN 1,000 mg tablet 3-0 25 00:00: 00 Yes [id number] 1000mg Take 1 tablet by mouth in the morning and 1 tablet in the evening. Take with meals. [facility] glimepiride 4 mg tablet 3-0 25 00:00: 00 Yes [id number] 4mg Take 1 tablet by mouth daily with breakfast. [facility] metFORMIN 1,000 mg tablet 3-0 25 00:00: 00 Yes [id number] 1000mg Take 1 tablet by mouth in the morning and 1 tablet in the evening. Take with meals. [facility] glimepiride 4 mg tablet 3-0 25 00:00: 00 Yes [id number] 4mg Take 1 tablet by mouth daily with breakfast. [facility] metFORMIN 1,000 mg tablet 3-0 -25 00:00: 00 Yes [id number] 1000mg Take 1 tablet by mouth in the morning and 1 tablet in the evening. Take with meals. [facility] glimepiride 4 mg tablet 3-0 9-25 00:00: 00 Yes [id number] 4mg Take 1 tablet by mouth daily with breakfast. [facility] metFORMIN 1,000 mg tablet 3-0 9-25 00:00: 00 Yes [id number] 1000mg Take 1 tablet by mouth in the morning and 1 tablet in the evening. Take with meals. [facility] glimepiride 4 mg tablet 2022-0 04-15 00:00: 00 Yes [id number] 4mg Take 1 tablet by mouth daily with breakfast. [facility] metFORMIN 1,000 mg tablet 2022-0 04-15 00:00: 00 Yes [id number] 1000mg Take 1 tablet by mouth in the morning and 1 tablet in the evening. Take with meals. [facility] glimepiride 4 mg tablet 2022-0 04-15 00:00: 00 Yes [id number] 4mg Take 1 tablet by mouth daily with breakfast. [facility] metFORMIN 1,000 mg tablet 2022-0 04-15 00:00: 00 Yes [id number] 1000mg Take 1 tablet by mouth in the morning and 1 tablet in the evening. Take with meals. [facility] glimepiride 4 mg tablet 2022-0 04-15 00:00: 00 Yes [id number] 4mg Take 1 tablet by mouth daily with breakfast. [facility] metFORMIN 1,000 mg tablet 2022-0 04-15 00:00: 00 Yes [id number] 1000mg Take 1 tablet by mouth in the morning and 1 tablet in the evening. Take with meals. [facility] glimepiride 4 mg tablet 2022-0 04-15 00:00: 00 Yes [id number] 4mg Take 1 tablet by mouth daily with breakfast. [facility] metFORMIN 1,000 mg tablet 2022-0 04-15 00:00: 00 Yes [id number] 1000mg Take 1 tablet by mouth in the morning and 1 tablet in the evening. Take with meals. [facility] glimepiride 4 mg tablet 3-0 04-15 00:00: 00 Yes [id number] 4mg Take 1 tablet by mouth daily with breakfast. [facility] metFORMIN 1,000 mg tablet 3-0 04-15 00:00: 00 Yes [id number] 1000mg Take 1 tablet by mouth in the morning and 1 tablet in the evening. Take with meals. [facility] glimepiride 4 mg tablet 3-0 25 00:00: 00 Yes [id number] 4mg Take 1 tablet by mouth daily with breakfast. [facility] metFORMIN 1,000 mg tablet 2022-0 25 00:00: 00 Yes [id number] 1000mg Take 1 tablet by mouth in the morning and 1 tablet in the evening. Take with meals. [facility] glimepiride 4 mg tablet 2022-0 25 00:00: 00 Yes [id number] 4mg Take 1 tablet by mouth daily with breakfast. [facility] metFORMIN 1,000 mg tablet 2022-0 04-15 00:00: 00 Yes [id number] 1000mg Take 1 tablet by mouth in the morning and 1 tablet in the evening. Take with meals. [facility] glimepiride 4 mg tablet 2022-0 04-15 00:00: 00 Yes [id number] 4mg Take 1 tablet by mouth daily with breakfast. [facility] metFORMIN 1,000 mg tablet 2022-0 04-15 00:00: 00 Yes [id number] 1000mg Take 1 tablet by mouth in the morning and 1 tablet in the evening. Take with meals. [facility] glimepiride 4 mg tablet 2022-0 25 00:00: 00 Yes [id number] 4mg Take 1 tablet by mouth daily with breakfast. [facility] metFORMIN 1,000 mg tablet 2022-0 25 00:00: 00 Yes [id number] 1000mg Take 1 tablet by mouth in the morning and 1 tablet in the evening. Take with meals. [facility] glimepiride 4 mg tablet 3-0 25 00:00: 00 Yes [id number] 4mg Take 1 tablet by mouth daily with breakfast. [facility] metFORMIN 1,000 mg tablet 2022-0 -25 00:00: 00 Yes [id number] 1000mg Take 1 tablet by mouth in the morning and 1 tablet in the evening. Take with meals. [facility] glimepiride 4 mg tablet 3-0 25 00:00: 00 Yes [id number] 4mg Take 1 tablet by mouth daily with breakfast. [facility] metFORMIN 1,000 mg tablet 3-0 25 00:00: 00 Yes [id number] 1000mg Take 1 tablet by mouth in the morning and 1 tablet in the evening. Take with meals. [facility] glimepiride 4 mg tablet 3-0 25 00:00: 00 Yes [id number] 4mg Take 1 tablet by mouth daily with breakfast. [facility] metFORMIN 1,000 mg tablet 2022-0 25 00:00: 00 Yes [id number] 1000mg Take 1 tablet by mouth in the morning and 1 tablet in the evening. Take with meals. [facility] glimepiride 4 mg tablet 2022-0 25 00:00: 00 Yes [id number] 4mg Take 1 tablet by mouth daily with breakfast. [facility] metFORMIN 1,000 mg tablet 2022-0 25 00:00: 00 Yes [id number] 1000mg Take 1 tablet by mouth in the morning and 1 tablet in the evening. Take with meals. [facility] glimepiride 4 mg tablet 3-0 25 00:00: 00 Yes [id number] 4mg Take 1 tablet by mouth daily with breakfast. [facility] metFORMIN 1,000 mg tablet 2022-0 25 00:00: 00 Yes [id number] 1000mg Take 1 tablet by mouth in the morning and 1 tablet in the evening. Take with meals. [facility] glimepiride 4 mg tablet 3-0 25 00:00: 00 Yes [id number] 4mg Take 1 tablet by mouth daily with breakfast. [facility] metFORMIN 1,000 mg tablet 3-0 -25 00:00: 00 Yes [id number] 1000mg Take 1 tablet by mouth in the morning and 1 tablet in the evening. Take with meals. [facility] glimepiride 4 mg tablet 3-0 -25 00:00: 00 Yes [id number] 4mg Take 1 tablet by mouth daily with breakfast. [facility] metFORMIN 1,000 mg tablet 3-0 25 00:00: 00 Yes [id number] 1000mg Take 1 tablet by mouth in the morning and 1 tablet in the evening. Take with meals. [facility] glimepiride 4 mg tablet 3-0 25 00:00: 00 Yes [id number] 4mg Take 1 tablet by mouth daily with breakfast. [facility] metFORMIN 1,000 mg tablet 3-0 25 00:00: 00 Yes [id number] 1000mg Take 1 tablet by mouth in the morning and 1 tablet in the evening. Take with meals. [facility] glimepiride 4 mg tablet 3-0 25 00:00: 00 Yes [id number] 4mg Take 1 tablet by mouth daily with breakfast. [facility] metFORMIN 1,000 mg tablet 2022-0 04-15 00:00: 00 Yes [id number] 1000mg Take 1 tablet by mouth in the morning and 1 tablet in the evening. Take with meals. [facility] glimepiride 4 mg tablet 2022-0 25 00:00: 00 Yes [id number] 4mg Take 1 tablet by mouth daily with breakfast. [facility] metFORMIN 1,000 mg tablet 2022-0 25 00:00: 00 Yes [id number] 1000mg Take 1 tablet by mouth in the morning and 1 tablet in the evening. Take with meals. [facility] glimepiride 4 mg tablet 3-0 25 00:00: 00 Yes [id number] 4mg Take 1 tablet by mouth daily with breakfast. [facility] metFORMIN 1,000 mg tablet 3-0 25 00:00: 00 Yes [id number] 1000mg Take 1 tablet by mouth in the morning and 1 tablet in the evening. Take with meals. [facility] glimepiride 4 mg tablet 3-0 -25 00:00: 00 Yes [id number] 4mg Take 1 tablet by mouth daily with breakfast. [facility] metFORMIN 1,000 mg tablet 3-0 -25 00:00: 00 Yes [id number] 1000mg Take 1 tablet by mouth in the morning and 1 tablet in the evening. Take with meals. [facility] glimepiride 4 mg tablet 3-0 25 00:00: 00 Yes [id number] 4mg Take 1 tablet by mouth daily with breakfast. [facility] metFORMIN 1,000 mg tablet 2022-0 25 00:00: 00 Yes [id number] 1000mg Take 1 tablet by mouth in the morning and 1 tablet in the evening. Take with meals. [facility] glimepiride 4 mg tablet 3-0 25 00:00: 00 Yes [id number] 4mg Take 1 tablet by mouth daily with breakfast. [facility] metFORMIN 1,000 mg tablet 2022-0 25 00:00: 00 Yes [id number] 1000mg Take 1 tablet by mouth in the morning and 1 tablet in the evening. Take with meals. [facility] glimepiride 4 mg tablet 3-0 25 00:00: 00 Yes [id number] 4mg Take 1 tablet by mouth daily with breakfast. [facility] metFORMIN 1,000 mg tablet 2022-0 25 00:00: 00 Yes [id number] 1000mg Take 1 tablet by mouth in the morning and 1 tablet in the evening. Take with meals. [facility] glimepiride 4 mg tablet 2022-0 25 00:00: 00 Yes [id number] 4mg Take 1 tablet by mouth daily with breakfast. [facility] metFORMIN 1,000 mg tablet 3-0 25 00:00: 00 Yes [id number] 1000mg Take 1 tablet by mouth in the morning and 1 tablet in the evening. Take with meals. [facility] glimepiride 4 mg tablet 3-0 25 00:00: 00 Yes [id number] 4mg Take 1 tablet by mouth daily with breakfast. [facility] metFORMIN 1,000 mg tablet 3-0 -25 00:00: 00 Yes [id number] 1000mg Take 1 tablet by mouth in the morning and 1 tablet in the evening. Take with meals. [facility] glimepiride 4 mg tablet 3-0 9-25 00:00: 00 Yes [id number] 4mg Take 1 tablet by mouth daily with breakfast. [facility] metFORMIN 1,000 mg tablet 2022-0 04-15 00:00: 00 Yes [id number] 1000mg Take 1 tablet by mouth in the morning and 1 tablet in the evening. Take with meals. [facility] glimepiride 4 mg tablet 2022-0 04-15 00:00: 00 Yes [id number] 4mg Take 1 tablet by mouth daily with breakfast. [facility] metFORMIN 1,000 mg tablet 2022-0 04-15 00:00: 00 Yes [id number] 1000mg Take 1 tablet by mouth in the morning and 1 tablet in the evening. Take with meals. [facility] glimepiride 4 mg tablet 2022-0 04-15 00:00: 00 Yes [id number] 4mg Take 1 tablet by mouth daily with breakfast. [facility] metFORMIN 1,000 mg tablet 2022-0 04-15 00:00: 00 Yes [id number] 1000mg Take 1 tablet by mouth in the morning and 1 tablet in the evening. Take with meals. [facility] glimepiride 4 mg tablet 2022-0 04-15 00:00: 00 Yes [id number] 4mg Take 1 tablet by mouth daily with breakfast. [facility] metFORMIN 1,000 mg tablet 2022-0 04-15 00:00: 00 Yes [id number] 1000mg Take 1 tablet by mouth in the morning and 1 tablet in the evening. Take with meals. [facility] glimepiride 4 mg tablet 2022-0 04-15 00:00: 00 Yes [id number] 4mg Take 1 tablet by mouth daily with breakfast. [facility] metFORMIN 1,000 mg tablet 2022-0 04-15 00:00: 00 Yes [id number] 1000mg Take 1 tablet by mouth in the morning and 1 tablet in the evening. Take with meals. [facility] glimepiride 4 mg tablet 2022-0 04-15 00:00: 00 Yes [id number] 4mg Take 1 tablet by mouth daily with breakfast. [facility] metFORMIN 1,000 mg tablet 2022-0 04-15 00:00: 00 Yes [id number] 1000mg Take 1 tablet by mouth in the morning and 1 tablet in the evening. Take with meals. [facility] glimepiride 4 mg tablet 2022-0 04-15 00:00: 00 Yes [id number] 4mg Take 1 tablet by mouth daily with breakfast. [facility] metFORMIN 1,000 mg tablet 2022-0 04-15 00:00: 00 Yes [id number] 1000mg Take 1 tablet by mouth in the morning and 1 tablet in the evening. Take with meals. [facility] glimepiride 4 mg tablet 2022-0 04-15 00:00: 00 Yes [id number] 4mg Take 1 tablet by mouth daily with breakfast. [facility] metFORMIN 1,000 mg tablet 2022-0 04-15 00:00: 00 Yes [id number] 1000mg Take 1 tablet by mouth in the morning and 1 tablet in the evening. Take with meals. [facility] glimepiride 4 mg tablet 2022-0 04-15 00:00: 00 Yes [id number] 4mg Take 1 tablet by mouth daily with breakfast. [facility] metFORMIN 1,000 mg tablet 2022-0 04-15 00:00: 00 Yes [id number] 1000mg Take 1 tablet by mouth in the morning and 1 tablet in the evening. Take with meals. [facility] glimepiride 4 mg tablet 3-0 04-15 00:00: 00 Yes [id number] 4mg Take 1 tablet by mouth daily with breakfast. [facility] metFORMIN 1,000 mg tablet 3-0 25 00:00: 00 Yes [id number] 1000mg Take 1 tablet by mouth in the morning and 1 tablet in the evening. Take with meals. [facility] glimepiride 4 mg tablet 3-0 25 00:00: 00 Yes [id number] 4mg Take 1 tablet by mouth daily with breakfast. [facility] metFORMIN 1,000 mg tablet 3-0 25 00:00: 00 Yes [id number] 1000mg Take 1 tablet by mouth in the morning and 1 tablet in the evening. Take with meals. [facility] glimepiride 4 mg tablet 04-15 00:00: 00 Yes [id number] 4mg Take 1 tablet by mouth daily with breakfast. [facility] metFORMIN 1,000 mg tablet 04-15 00:00: 00 Yes [id number] 1000mg Take 1 tablet by mouth in the morning and 1 tablet in the evening. Take with meals. [facility] glimepiride 4 mg tablet 04-15 00:00: 00 Yes [id number] 4mg Take 1 tablet by mouth daily with breakfast. [facility] metFORMIN 1,000 mg tablet 04-15 00:00: 00 Yes [id number] 1000mg Take 1 tablet by mouth in the morning and 1 tablet in the evening. Take with meals. [facility] glimepiride 4 mg tablet 04-15 00:00: 00 Yes [id number] 4mg Take 1 tablet by mouth daily with breakfast. [facility] metFORMIN 1,000 mg tablet 04-15 00:00: 00 Yes [id number] 1000mg Take 1 tablet by mouth in the morning and 1 tablet in the evening. Take with meals. [facility] glimepiride 4 mg tablet 04-15 00:00: 00 Yes [id number] 4mg Take 1 tablet by mouth daily with breakfast. [facility] metFORMIN 1,000 mg tablet 04-15 00:00: 00 Yes [id number] 1000mg Take 1 tablet by mouth in the morning and 1 tablet in the evening. Take with meals. [facility] bran-gum-fi b-shannon-psyl- kelp-pec (FIBER 6) 1,000 mg Tab 04-04 00:00: 00 Yes [id number] 1{tbl} Take 1 tablet by mouth in the morning and 1 tablet in the evening. Take with meals. [facility] docusate (COLACE) 100 mg capsule 04-04 00:00: 00 Yes [id number] 100mg Take 1 capsule by mouth 2 (two) times daily as needed for Constipati on. [facility] bran-gum-fi b-shannon-psyl- kelp-pec (FIBER 6) 1,000 mg Tab 3-0 04-04 00:00: 00 Yes [id number] 1{tbl} Take 1 tablet by mouth in the morning and 1 tablet in the evening. Take with meals. [facility] docusate (COLACE) 100 mg capsule 3-0 04-04 00:00: 00 Yes [id number] 100mg Take 1 capsule by mouth 2 (two) times daily as needed for Constipati on. [facility] bran-gum-fi b-shannon-psyl- kelp-pec (FIBER 6) 1,000 mg Tab 3-0 04-04 00:00: 00 Yes [id number] 1{tbl} Take 1 tablet by mouth in the morning and 1 tablet in the evening. Take with meals. [facility] docusate (COLACE) 100 mg capsule 2022-0 04-04 00:00: 00 Yes [id number] 100mg Take 1 capsule by mouth 2 (two) times daily as needed for Constipati on. [facility] bran-gum-fi b-shannon-psyl- kelp-pec (FIBER 6) 1,000 mg Tab 3-0 04-04 00:00: 00 Yes [id number] 1{tbl} Take 1 tablet by mouth in the morning and 1 tablet in the evening. Take with meals. [facility] docusate (COLACE) 100 mg capsule 2022-0 04-04 00:00: 00 Yes [id number] 100mg Take 1 capsule by mouth 2 (two) times daily as needed for Constipati on. [facility] bran-gum-fi b-shannon-psyl- kelp-pec (FIBER 6) 1,000 mg Tab 3-0 04-04 00:00: 00 Yes [id number] 1{tbl} Take 1 tablet by mouth in the morning and 1 tablet in the evening. Take with meals. [facility] docusate (COLACE) 100 mg capsule 3-0 04-04 00:00: 00 Yes [id number] 100mg Take 1 capsule by mouth 2 (two) times daily as needed for Constipati on. [facility] bran-gum-fi b-shannon-psyl- kelp-pec (FIBER 6) 1,000 mg Tab 2022-0 04-04 00:00: 00 Yes [id number] 1{tbl} Take 1 tablet by mouth in the morning and 1 tablet in the evening. Take with meals. [facility] docusate (COLACE) 100 mg capsule 2022-04-04 00:00: 00 Yes [id number] 100mg Take 1 capsule by mouth 2 (two) times daily as needed for Constipati on. [facility] bran-gum-fi b-shannon-psyl- kelp-pec (FIBER 6) 1,000 mg Tab 2022-0 04-04 00:00: 00 Yes [id number] 1{tbl} Take 1 tablet by mouth in the morning and 1 tablet in the evening. Take with meals. [facility] docusate (COLACE) 100 mg capsule 2022-0 04-04 00:00: 00 Yes [id number] 100mg Take 1 capsule by mouth 2 (two) times daily as needed for Constipati on. [facility] bran-gum-fi b-shannon-psyl- kelp-pec (FIBER 6) 1,000 mg Tab 2022-0 04-04 00:00: 00 Yes [id number] 1{tbl} Take 1 tablet by mouth in the morning and 1 tablet in the evening. Take with meals. [facility] docusate (COLACE) 100 mg capsule 2022-0 04-04 00:00: 00 Yes [id number] 100mg Take 1 capsule by mouth 2 (two) times daily as needed for Constipati on. [facility] bran-gum-fi b-shannon-psyl- kelp-pec (FIBER 6) 1,000 mg Tab 3-0 04-04 00:00: 00 Yes [id number] 1{tbl} Take 1 tablet by mouth in the morning and 1 tablet in the evening. Take with meals. [facility] docusate (COLACE) 100 mg capsule 3-0 04-04 00:00: 00 Yes [id number] 100mg Take 1 capsule by mouth 2 (two) times daily as needed for Constipati on. [facility] bran-gum-fi b-shannon-psyl- kelp-pec (FIBER 6) 1,000 mg Tab 2022-0 04-04 00:00: 00 Yes [id number] 1{tbl} Take 1 tablet by mouth in the morning and 1 tablet in the evening. Take with meals. [facility] docusate (COLACE) 100 mg capsule 2022-0 04-04 00:00: 00 Yes [id number] 100mg Take 1 capsule by mouth 2 (two) times daily as needed for Constipati on. [facility] bran-gum-fi b-shannon-psyl- kelp-pec (FIBER 6) 1,000 mg Tab 2022-0 04-04 00:00: 00 Yes [id number] 1{tbl} Take 1 tablet by mouth in the morning and 1 tablet in the evening. Take with meals. [facility] docusate (COLACE) 100 mg capsule 2022-0 04-04 00:00: 00 Yes [id number] 100mg Take 1 capsule by mouth 2 (two) times daily as needed for Constipati on. [facility] bran-gum-fi b-shannon-psyl- kelp-pec (FIBER 6) 1,000 mg Tab 0 04-04 00:00: 00 Yes [id number] 1{tbl} Take 1 tablet by mouth in the morning and 1 tablet in the evening. Take with meals. [facility] docusate (COLACE) 100 mg capsule 2022-0 04-04 00:00: 00 Yes [id number] 100mg Take 1 capsule by mouth 2 (two) times daily as needed for Constipati on. [facility] bran-gum-fi b-shannon-psyl- kelp-pec (FIBER 6) 1,000 mg Tab 2022-0 04-04 00:00: 00 Yes [id number] 1{tbl} Take 1 tablet by mouth in the morning and 1 tablet in the evening. Take with meals. [facility] docusate (COLACE) 100 mg capsule 2023-0 9-14 00:00: 00 Yes [id number] 100mg Take 1 capsule by mouth 2 (two) times daily as needed for Constipati on. [facility] bran-gum-fi b-shannon-psyl- kelp-pec (FIBER 6) 1,000 mg Tab 2023-0 9-14 00:00: 00 Yes [id number] 1{tbl} Take 1 tablet by mouth in the morning and 1 tablet in the evening. Take with meals. [facility] bran-gum-fi b-shannon-psyl- kelp-pec (FIBER 6) 1,000 mg Tab 2023-0 9-14 00:00: 00 Yes [id number] 1{tbl} Take 1 tablet by mouth in the morning and 1 tablet in the evening. Take with meals. [facility]-gum-fi b-shannon-psyl- kelp-pec (FIBER 6) 1,000 mg Tab 2023-0 9-14 00:00: 00 Yes [id number] 1{tbl} Take 1 tablet by mouth in the morning and 1 tablet in the evening. Take with meals. [facility]-gum-fi b-shannon-psyl- kelp-pec (FIBER 6) 1,000 mg Tab 2023-0 9-14 00:00: 00 Yes [id number] 1{tbl} Take 1 tablet by mouth in the morning and 1 tablet in the evening. Take with meals. [facility] bran-gum-fi b-shannon-psyl- kelp-pec (FIBER 6) 1,000 mg Tab 2023-0 9-14 00:00: 00 Yes [id number] 1{tbl} Take 1 tablet by mouth in the morning and 1 tablet in the evening. Take with meals. [facility] bran-gum-fi b-shannon-psyl- kelp-pec (FIBER 6) 1,000 mg Tab 2023-0 9-14 00:00: 00 Yes [id number] 1{tbl} Take 1 tablet by mouth in the morning and 1 tablet in the evening. Take with meals. [facility] bran-gum-fi b-shannon-psyl- kelp-pec (FIBER 6) 1,000 mg Tab 2023-0 9-14 00:00: 00 Yes [id number] 1{tbl} Take 1 tablet by mouth in the morning and 1 tablet in the evening. Take with meals. [facility] bran-gum-fi b-shannon-psyl- kelp-pec (FIBER 6) 1,000 mg Tab 2023-0 9-14 00:00: 00 Yes [id number] 1{tbl} Take 1 tablet by mouth in the morning and 1 tablet in the evening. Take with meals. [facility]-gum-fi b-shannon-psyl- kelp-pec (FIBER 6) 1,000 mg Tab 2023-0 9-14 00:00: 00 Yes [id number] 1{tbl} Take 1 tablet by mouth in the morning and 1 tablet in the evening. Take with meals. [facility]-gum-fi b-shannon-psyl- kelp-pec (FIBER 6) 1,000 mg Tab 2023-0 9-14 00:00: 00 Yes [id number] 1{tbl} Take 1 tablet by mouth in the morning and 1 tablet in the evening. Take with meals. [facility]-gum-fi b-shannon-psyl- kelp-pec (FIBER 6) 1,000 mg Tab 2023-0 9-14 00:00: 00 Yes [id number] 1{tbl} Take 1 tablet by mouth in the morning and 1 tablet in the evening. Take with meals. [facility] bran-gum-fi b-shannon-psyl- kelp-pec (FIBER 6) 1,000 mg Tab 2023-0 9-14 00:00: 00 Yes [id number] 1{tbl} Take 1 tablet by mouth in the morning and 1 tablet in the evening. Take with meals. [facility] bran-gum-fi b-shannon-psyl- kelp-pec (FIBER 6) 1,000 mg Tab 2023-0 9-14 00:00: 00 Yes [id number] 1{tbl} Take 1 tablet by mouth in the morning and 1 tablet in the evening. Take with meals. [facility] bran-gum-fi b-shannon-psyl- kelp-pec (FIBER 6) 1,000 mg Tab 2023-0 9-14 00:00: 00 Yes [id number] 1{tbl} Take 1 tablet by mouth in the morning and 1 tablet in the evening. Take with meals. [facility] bran-gum-fi b-shannon-psyl- kelp-pec (FIBER 6) 1,000 mg Tab 2023-0 9-14 00:00: 00 Yes [id number] 1{tbl} Take 1 tablet by mouth in the morning and 1 tablet in the evening. Take with meals. [facility]-gum-fi b-shannon-psyl- kelp-pec (FIBER 6) 1,000 mg Tab 2023-0 9-14 00:00: 00 Yes [id number] 1{tbl} Take 1 tablet by mouth in the morning and 1 tablet in the evening. Take with meals. [facility]-gum-fi b-shannon-psyl- kelp-pec (FIBER 6) 1,000 mg Tab 2023-0 9-14 00:00: 00 Yes [id number] 1{tbl} Take 1 tablet by mouth in the morning and 1 tablet in the evening. Take with meals. [facility] bran-gum-fi b-shannon-psyl- kelp-pec (FIBER 6) 1,000 mg Tab 2023-0 9-14 00:00: 00 Yes [id number] 1{tbl} Take 1 tablet by mouth in the morning and 1 tablet in the evening. Take with meals. [facility] bran-gum-fi b-shannon-psyl- kelp-pec (FIBER 6) 1,000 mg Tab 2023-0 9-14 00:00: 00 Yes [id number] 1{tbl} Take 1 tablet by mouth in the morning and 1 tablet in the evening. Take with meals. [facility]-gum-fi b-shannon-psyl- kelp-pec (FIBER 6) 1,000 mg Tab 2023-0 9-14 00:00: 00 Yes [id number] 1{tbl} Take 1 tablet by mouth in the morning and 1 tablet in the evening. Take with meals. [facility] bran-gum-fi b-shannon-psyl- kelp-pec (FIBER 6) 1,000 mg Tab 2023-0 9-14 00:00: 00 Yes [id number] 1{tbl} Take 1 tablet by mouth in the morning and 1 tablet in the evening. Take with meals. [facility]-gum-fi b-shannon-psyl- kelp-pec (FIBER 6) 1,000 mg Tab 2023-0 9-14 00:00: 00 Yes [id number] 1{tbl} Take 1 tablet by mouth in the morning and 1 tablet in the evening. Take with meals. [facility]-gum-fi b-shannon-psyl- kelp-pec (FIBER 6) 1,000 mg Tab 2023-0 9-14 00:00: 00 Yes [id number] 1{tbl} Take 1 tablet by mouth in the morning and 1 tablet in the evening. Take with meals. [facility]-gum-fi b-shannon-psyl- kelp-pec (FIBER 6) 1,000 mg Tab 2023-0 9-14 00:00: 00 Yes [id number] 1{tbl} Take 1 tablet by mouth in the morning and 1 tablet in the evening. Take with meals. [facility]-gum-fi b-shannon-psyl- kelp-pec (FIBER 6) 1,000 mg Tab 2023-0 9-14 00:00: 00 Yes [id number] 1{tbl} Take 1 tablet by mouth in the morning and 1 tablet in the evening. Take with meals. [facility]-gum-fi b-shannon-psyl- kelp-pec (FIBER 6) 1,000 mg Tab 2023-0 9-14 00:00: 00 Yes [id number] 1{tbl} Take 1 tablet by mouth in the morning and 1 tablet in the evening. Take with meals. [facility]-gum- b-shannon-psyl- kelp-pec (FIBER 6) 1,000 mg Tab 2023-0 9-14 00:00: 00 Yes [id number] 1{tbl} Take 1 tablet by mouth in the morning and 1 tablet in the evening. Take with meals. [facility] bran-gum-fi b-shannon-psyl- kelp-pec (FIBER 6) 1,000 mg Tab 2023-0 9-14 00:00: 00 Yes [id number] 1{tbl} Take 1 tablet by mouth in the morning and 1 tablet in the evening. Take with meals. [facility] bran-gum-fi b-shannon-psyl- kelp-pec (FIBER 6) 1,000 mg Tab 2023-0 9-14 00:00: 00 Yes [id number] 1{tbl} Take 1 tablet by mouth in the morning and 1 tablet in the evening. Take with meals. [facility]-gum-fi b-shannon-psyl- kelp-pec (FIBER 6) 1,000 mg Tab 2023-0 9-14 00:00: 00 Yes [id number] 1{tbl} Take 1 tablet by mouth in the morning and 1 tablet in the evening. Take with meals. [facility]-gum-fi b-shannon-psyl- kelp-pec (FIBER 6) 1,000 mg Tab 2023-0 9-14 00:00: 00 Yes [id number] 1{tbl} Take 1 tablet by mouth in the morning and 1 tablet in the evening. Take with meals. [facility]-gum-fi b-shannon-psyl- kelp-pec (FIBER 6) 1,000 mg Tab 2023-0 9-14 00:00: 00 Yes [id number] 1{tbl} Take 1 tablet by mouth in the morning and 1 tablet in the evening. Take with meals. [facility]-gum-fi b-shannon-psyl- kelp-pec (FIBER 6) 1,000 mg Tab 2023-0 9-14 00:00: 00 Yes [id number] 1{tbl} Take 1 tablet by mouth in the morning and 1 tablet in the evening. Take with meals. [facility]-gum-fi b-shannon-psyl- kelp-pec (FIBER 6) 1,000 mg Tab 2023-0 9-14 00:00: 00 Yes [id number] 1{tbl} Take 1 tablet by mouth in the morning and 1 tablet in the evening. Take with meals. [facility] bran-gum-fi b-shannon-psyl- kelp-pec (FIBER 6) 1,000 mg Tab 2023-0 9-14 00:00: 00 Yes [id number] 1{tbl} Take 1 tablet by mouth in the morning and 1 tablet in the evening. Take with meals. [facility] bran-gum-fi b-shannon-psyl- kelp-pec (FIBER 6) 1,000 mg Tab 2023-0 9-14 00:00: 00 Yes [id number] 1{tbl} Take 1 tablet by mouth in the morning and 1 tablet in the evening. Take with meals. [facility]-gum-fi b-shannon-psyl- kelp-pec (FIBER 6) 1,000 mg Tab 2023-0 9-14 00:00: 00 Yes [id number] 1{tbl} Take 1 tablet by mouth in the morning and 1 tablet in the evening. Take with meals. [facility]-gum-fi b-shannon-psyl- kelp-pec (FIBER 6) 1,000 mg Tab 2023-0 9-14 00:00: 00 Yes [id number] 1{tbl} Take 1 tablet by mouth in the morning and 1 tablet in the evening. Take with meals. [facility]-gum-fi b-shannon-psyl- kelp-pec (FIBER 6) 1,000 mg Tab 2023-0 9-14 00:00: 00 Yes [id number] 1{tbl} Take 1 tablet by mouth in the morning and 1 tablet in the evening. Take with meals. [facility]-gum-fi b-shannon-psyl- kelp-pec (FIBER 6) 1,000 mg Tab 2023-0 9-14 00:00: 00 Yes [id number] 1{tbl} Take 1 tablet by mouth in the morning and 1 tablet in the evening. Take with meals. [facility]-gum-fi b-shannon-psyl- kelp-pec (FIBER 6) 1,000 mg Tab 2023-0 9-14 00:00: 00 Yes [id number] 1{tbl} Take 1 tablet by mouth in the morning and 1 tablet in the evening. Take with meals. [facility] docusate (COLACE) 100 mg capsule 04-04 00:00: 00 04-27 00:00 :00 No [id number] 100mg Take 1 capsule by mouth 2 (two) times daily as needed for Constipati on. [facility] docusate (COLACE) 100 mg capsule 04-04 00:00: 00 04-27 00:00 :00 No [id number] 100mg Take 1 capsule by mouth 2 (two) times daily as needed for Constipati on. [facility] docusate (COLACE) 100 mg capsule 02-26 00:00: 00 Yes [id number] 100mg Take 1 capsule by mouth 2 (two) times daily as needed for Constipati on. [facility] docusate (COLACE) 100 mg capsule 02-26 00:00: 00 Yes [id number] 100mg Take 1 capsule by mouth 2 (two) times daily as needed for Constipati on. [facility] docusate (COLACE) 100 mg capsule 0 02-26 00:00: 00 Yes [id number] 100mg Take 1 capsule by mouth 2 (two) times daily as needed for Constipati on. [facility] docusate (COLACE) 100 mg capsule 02-26 00:00: 00 04-04 00:00 :00 No [id number] 100mg Take 1 capsule by mouth 2 (two) times daily as needed for Constipati on. [facility] docusate (COLACE) 100 mg capsule 02-26 00:00: 00 04-04 00:00 :00 No [id number] 100mg Take 1 capsule by mouth 2 (two) times daily as needed for Constipati on. [facility] metoprolol succinate XL 50 mg 24 hr tablet 02-25 00:00: 00 Yes [id number] 50mg Take 1 tablet by mouth in the morning. [facility] metoprolol succinate XL 50 mg 24 hr tablet 2022-0 02-25 00:00: 00 Yes [id number] 50mg Take 1 tablet by mouth in the morning. [facility] metoprolol succinate XL 50 mg 24 hr tablet 2022-0 02-25 00:00: 00 Yes [id number] 50mg Take 1 tablet by mouth in the morning. [facility] metoprolol succinate XL 50 mg 24 hr tablet 2022-0 02-25 00:00: 00 Yes [id number] 50mg Take 1 tablet by mouth in the morning. [facility] metoprolol succinate XL 50 mg 24 hr tablet 2022-0 02-25 00:00: 00 Yes [id number] 50mg Take 1 tablet by mouth in the morning. [facility] metoprolol succinate XL 50 mg 24 hr tablet 2022-0 02-25 00:00: 00 Yes [id number] 50mg Take 1 tablet by mouth in the morning. [facility] metoprolol succinate XL 50 mg 24 hr tablet 2022-0 02-25 00:00: 00 Yes [id number] 50mg Take 1 tablet by mouth in the morning. [facility] metoprolol succinate XL 50 mg 24 hr tablet 2022-0 02-25 00:00: 00 Yes [id number] 50mg Take 1 tablet by mouth in the morning. [facility] metoprolol succinate XL 50 mg 24 hr tablet 2022-0 02-25 00:00: 00 Yes [id number] 50mg Take 1 tablet by mouth in the morning. [facility] metoprolol succinate XL 50 mg 24 hr tablet 2022-0 02-25 00:00: 00 Yes [id number] 50mg Take 1 tablet by mouth in the morning. [facility] metoprolol succinate XL 50 mg 24 hr tablet 3-0 02-25 00:00: 00 Yes [id number] 50mg Take 1 tablet by mouth in the morning. [facility] metoprolol succinate XL 50 mg 24 hr tablet 3-0 02-25 00:00: 00 Yes [id number] 50mg Take 1 tablet by mouth in the morning. [facility] metoprolol succinate XL 50 mg 24 hr tablet 2022-0 02-25 00:00: 00 Yes [id number] 50mg Take 1 tablet by mouth in the morning. [facility] metoprolol succinate XL 50 mg 24 hr tablet 2022-0 02-25 00:00: 00 Yes [id number] 50mg Take 1 tablet by mouth in the morning. [facility] metoprolol succinate XL 50 mg 24 hr tablet 2022-0 02-25 00:00: 00 Yes [id number] 50mg Take 1 tablet by mouth in the morning. [facility] metoprolol succinate XL 50 mg 24 hr tablet 2022-0 02-25 00:00: 00 Yes [id number] 50mg Take 1 tablet by mouth in the morning. [facility] metoprolol succinate XL 50 mg 24 hr tablet 2022-0 02-25 00:00: 00 Yes [id number] 50mg Take 1 tablet by mouth in the morning. [facility] metoprolol succinate XL 50 mg 24 hr tablet 2022-0 02-25 00:00: 00 Yes [id number] 50mg Take 1 tablet by mouth in the morning. [facility] metoprolol succinate XL 50 mg 24 hr tablet 2022-0 02-25 00:00: 00 Yes [id number] 50mg Take 1 tablet by mouth in the morning. [facility] metoprolol succinate XL 50 mg 24 hr tablet 2022-0 02-25 00:00: 00 Yes [id number] 50mg Take 1 tablet by mouth in the morning. [facility] metoprolol succinate XL 50 mg 24 hr tablet 2022-0 02-25 00:00: 00 Yes [id number] 50mg Take 1 tablet by mouth in the morning. [facility] metoprolol succinate XL 50 mg 24 hr tablet 2022-0 02-25 00:00: 00 Yes [id number] 50mg Take 1 tablet by mouth in the morning. [facility] metoprolol succinate XL 50 mg 24 hr tablet 2022-0 02-25 00:00: 00 Yes [id number] 50mg Take 1 tablet by mouth in the morning. [facility] metoprolol succinate XL 50 mg 24 hr tablet 3-0 8 00:00: 00 Yes [id number] 50mg Take 1 tablet by mouth in the morning. [facility] metoprolol succinate XL 50 mg 24 hr tablet 0 8 00:00: 00 Yes [id number] 50mg Take 1 tablet by mouth in the morning. [facility] metoprolol succinate XL 50 mg 24 hr tablet 2022-0 02-25 00:00: 00 Yes [id number] 50mg Take 1 tablet by mouth in the morning. [facility] metoprolol succinate XL 50 mg 24 hr tablet 2022-0 8 00:00: 00 Yes [id number] 50mg Take 1 tablet by mouth in the morning. [facility] metoprolol succinate XL 50 mg 24 hr tablet 0 8 00:00: 00 Yes [id number] 50mg Take 1 tablet by mouth in the morning. [facility] metoprolol succinate XL 50 mg 24 hr tablet 2022-0 8 00:00: 00 Yes [id number] 50mg Take 1 tablet by mouth in the morning. [facility] metoprolol succinate XL 50 mg 24 hr tablet 0 02-25 00:00: 00 Yes [id number] 50mg Take 1 tablet by mouth in the morning. [facility] metoprolol succinate XL 50 mg 24 hr tablet 0 02-25 00:00: 00 Yes [id number] 50mg Take 1 tablet by mouth in the morning. [facility] metoprolol succinate XL 50 mg 24 hr tablet 0 02-25 00:00: 00 Yes [id number] 50mg Take 1 tablet by mouth in the morning. [facility] metoprolol succinate XL 50 mg 24 hr tablet 0 8 00:00: 00 Yes [id number] 50mg Take 1 tablet by mouth in the morning. [facility] metoprolol succinate XL 50 mg 24 hr tablet 2022-0 8 00:00: 00 Yes [id number] 50mg Take 1 tablet by mouth in the morning. [facility] metoprolol succinate XL 50 mg 24 hr tablet 2022-0 8- 00:00: 00 Yes [id number] 50mg Take 1 tablet by mouth in the morning. [facility] metoprolol succinate XL 50 mg 24 hr tablet 0 8 00:00: 00 Yes [id number] 50mg Take 1 tablet by mouth in the morning. [facility] metoprolol succinate XL 50 mg 24 hr tablet 8 00:00: 00 06-17 00:00 :00 No [id number] 50mg Take 1 tablet by mouth in the morning. [facility] buPROPion XL 300 mg 24 hr tablet 01-29 00:00: 00 Yes [id number] 300mg Take 1 tablet by mouth in the morning. [facility] ARIPiprazol e (ABILIFY) 2 mg tablet 0 01-29 00:00: 00 Yes [id number] 2mg Take 1 tablet by mouth in the morning. [facility] buPROPion XL 300 mg 24 hr tablet 0 01-29 00:00: 00 Yes [id number] 300mg Take 1 tablet by mouth in the morning. [facility] ARIPiprazol e (ABILIFY) 2 mg tablet 0 01-29 00:00: 00 Yes [id number] 2mg Take 1 tablet by mouth in the morning. [facility] buPROPion XL 300 mg 24 hr tablet 0 01-29 00:00: 00 Yes [id number] 300mg Take 1 tablet by mouth in the morning. [facility] ARIPiprazol e (ABILIFY) 2 mg tablet 0 01-29 00:00: 00 Yes [id number] 2mg Take 1 tablet by mouth in the morning. [facility] buPROPion XL 300 mg 24 hr tablet 0 01-29 00:00: 00 Yes [id number] 300mg Take 1 tablet by mouth in the morning. [facility] ARIPiprazol e (ABILIFY) 2 mg tablet 0 01-29 00:00: 00 Yes [id number] 2mg Take 1 tablet by mouth in the morning. [facility] buPROPion XL 300 mg 24 hr tablet 2022-0 7 00:00: 00 Yes [id number] 300mg Take 1 tablet by mouth in the morning. [facility] ARIPiprazol e (ABILIFY) 2 mg tablet 3-0 7-11 00:00: 00 Yes [id number] 2mg Take 1 tablet by mouth in the morning. [facility] buPROPion XL 300 mg 24 hr tablet 2022-0 7- 00:00: 00 Yes [id number] 300mg Take 1 tablet by mouth in the morning. [facility] ARIPiprazol e (ABILIFY) 2 mg tablet 2022-0 7 00:00: 00 Yes [id number] 2mg Take 1 tablet by mouth in the morning. [facility] buPROPion XL 300 mg 24 hr tablet 3-0 7 00:00: 00 Yes [id number] 300mg Take 1 tablet by mouth in the morning. [facility] ARIPiprazol e (ABILIFY) 2 mg tablet 3-0 7- 00:00: 00 Yes [id number] 2mg Take 1 tablet by mouth in the morning. [facility] buPROPion XL 300 mg 24 hr tablet 2022-0 01-29 00:00: 00 Yes [id number] 300mg Take 1 tablet by mouth in the morning. [facility] ARIPiprazol e (ABILIFY) 2 mg tablet 2022-0 01-29 00:00: 00 Yes [id number] 2mg Take 1 tablet by mouth in the morning. [facility] buPROPion XL 300 mg 24 hr tablet 3-0 7 00:00: 00 Yes [id number] 300mg Take 1 tablet by mouth in the morning. [facility] ARIPiprazol e (ABILIFY) 2 mg tablet 2022-0 711 00:00: 00 Yes [id number] 2mg Take 1 tablet by mouth in the morning. [facility] buPROPion XL 300 mg 24 hr tablet 3-0 7-11 00:00: 00 Yes [id number] 300mg Take 1 tablet by mouth in the morning. [facility] ARIPiprazol e (ABILIFY) 2 mg tablet 3-0 7-11 00:00: 00 Yes [id number] 2mg Take 1 tablet by mouth in the morning. [facility] buPROPion XL 300 mg 24 hr tablet 2022-0 7 00:00: 00 Yes [id number] 300mg Take 1 tablet by mouth in the morning. [facility] ARIPiprazol e (ABILIFY) 2 mg tablet 2022-0 01-29 00:00: 00 Yes [id number] 2mg Take 1 tablet by mouth in the morning. [facility] buPROPion XL 300 mg 24 hr tablet 0 01-29 00:00: 00 Yes [id number] 300mg Take 1 tablet by mouth in the morning. [facility] ARIPiprazol e (ABILIFY) 2 mg tablet 0 01-29 00:00: 00 Yes [id number] 2mg Take 1 tablet by mouth in the morning. [facility] buPROPion XL 300 mg 24 hr tablet 2022-0 01-29 00:00: 00 Yes [id number] 300mg Take 1 tablet by mouth in the morning. [facility] ARIPiprazol e (ABILIFY) 2 mg tablet 0 01-29 00:00: 00 Yes [id number] 2mg Take 1 tablet by mouth in the morning. [facility] buPROPion XL 300 mg 24 hr tablet 0 01-29 00:00: 00 Yes [id number] 300mg Take 1 tablet by mouth in the morning. [facility] ARIPiprazol e (ABILIFY) 2 mg tablet 0 01-29 00:00: 00 Yes [id number] 2mg Take 1 tablet by mouth in the morning. [facility] buPROPion XL 300 mg 24 hr tablet 0 01-29 00:00: 00 Yes [id number] 300mg Take 1 tablet by mouth in the morning. [facility] ARIPiprazol e (ABILIFY) 2 mg tablet 2022-0 01-29 00:00: 00 Yes [id number] 2mg Take 1 tablet by mouth in the morning. [facility] buPROPion XL 300 mg 24 hr tablet 2022-0 7 00:00: 00 Yes [id number] 300mg Take 1 tablet by mouth in the morning. [facility] ARIPiprazol e (ABILIFY) 2 mg tablet 2022-0 7 00:00: 00 Yes [id number] 2mg Take 1 tablet by mouth in the morning. [facility] buPROPion XL 300 mg 24 hr tablet 2022-0 7 00:00: 00 Yes [id number] 300mg Take 1 tablet by mouth in the morning. [facility] ARIPiprazol e (ABILIFY) 2 mg tablet 2022-0 01-29 00:00: 00 Yes [id number] 2mg Take 1 tablet by mouth in the morning. [facility] buPROPion XL 300 mg 24 hr tablet 2022-0 01-29 00:00: 00 Yes [id number] 300mg Take 1 tablet by mouth in the morning. [facility] ARIPiprazol e (ABILIFY) 2 mg tablet 2022-0 01-29 00:00: 00 Yes [id number] 2mg Take 1 tablet by mouth in the morning. [facility] buPROPion XL 300 mg 24 hr tablet 2022-0 01-29 00:00: 00 Yes [id number] 300mg Take 1 tablet by mouth in the morning. [facility] ARIPiprazol e (ABILIFY) 2 mg tablet 2022-0 01-29 00:00: 00 Yes [id number] 2mg Take 1 tablet by mouth in the morning. [facility] buPROPion XL 300 mg 24 hr tablet 2022-0 01-29 00:00: 00 Yes [id number] 300mg Take 1 tablet by mouth in the morning. [facility] ARIPiprazol e (ABILIFY) 2 mg tablet 2022-0 7 00:00: 00 Yes [id number] 2mg Take 1 tablet by mouth in the morning. [facility] buPROPion XL 300 mg 24 hr tablet 2022-0 7 00:00: 00 Yes [id number] 300mg Take 1 tablet by mouth in the morning. [facility] ARIPiprazol e (ABILIFY) 2 mg tablet 2022-0 01-29 00:00: 00 Yes [id number] 2mg Take 1 tablet by mouth in the morning. [facility] buPROPion XL 300 mg 24 hr tablet 2022-0 7 00:00: 00 Yes [id number] 300mg Take 1 tablet by mouth in the morning. [facility] ARIPiprazol e (ABILIFY) 2 mg tablet 0 01-29 00:00: 00 Yes [id number] 2mg Take 1 tablet by mouth in the morning. [facility] buPROPion XL 300 mg 24 hr tablet 2022-0 01-29 00:00: 00 Yes [id number] 300mg Take 1 tablet by mouth in the morning. [facility] ARIPiprazol e (ABILIFY) 2 mg tablet 0 01-29 00:00: 00 Yes [id number] 2mg Take 1 tablet by mouth in the morning. [facility] buPROPion XL 300 mg 24 hr tablet 2022-0 01-29 00:00: 00 Yes [id number] 300mg Take 1 tablet by mouth in the morning. [facility] ARIPiprazol e (ABILIFY) 2 mg tablet 0 01-29 00:00: 00 Yes [id number] 2mg Take 1 tablet by mouth in the morning. [facility] buPROPion XL 300 mg 24 hr tablet 0 01-29 00:00: 00 Yes [id number] 300mg Take 1 tablet by mouth in the morning. [facility] ARIPiprazol e (ABILIFY) 2 mg tablet 0 01-29 00:00: 00 Yes [id number] 2mg Take 1 tablet by mouth in the morning. [facility] buPROPion XL 300 mg 24 hr tablet 2022-0 01-29 00:00: 00 Yes [id number] 300mg Take 1 tablet by mouth in the morning. [facility] ARIPiprazol e (ABILIFY) 2 mg tablet 2022-0 01-29 00:00: 00 Yes [id number] 2mg Take 1 tablet by mouth in the morning. [facility] buPROPion XL 300 mg 24 hr tablet 20201-29 00:00: 00 Yes [id number] 300mg Take 1 tablet by mouth in the morning. [facility] ARIPiprazol e (ABILIFY) 2 mg tablet 01-29 00:00: 00 Yes [id number] 2mg Take 1 tablet by mouth in the morning. [facility] buPROPion XL 300 mg 24 hr tablet 01-29 00:00: 00 Yes [id number] 300mg Take 1 tablet by mouth in the morning. [facility] ARIPiprazol e (ABILIFY) 2 mg tablet 01-29 00:00: 00 Yes [id number] 2mg Take 1 tablet by mouth in the morning. [facility] buPROPion XL 300 mg 24 hr tablet 01-29 00:00: 00 04-27 00:00 :00 No [id number] 300mg Take 1 tablet by mouth in the morning. [facility] ARIPiprazol e (ABILIFY) 2 mg tablet 01-29 00:00: 00 04-27 00:00 :00 No [id number] 2mg Take 1 tablet by mouth in the morning. [facility] buPROPion XL 300 mg 24 hr tablet 01-29 00:00: 00 04-27 00:00 :00 No [id number] 300mg Take 1 tablet by mouth in the morning. [facility] ARIPiprazol e (ABILIFY) 2 mg tablet 01-29 00:00: 00 04-27 00:00 :00 No [id number] 2mg Take 1 tablet by mouth in the morning. [facility] buPROPion XL 300 mg 24 hr tablet 01-29 00:00: 00 04-27 00:00 :00 No [id number] 300mg Take 1 tablet by mouth in the morning. [facility] ARIPiprazol e (ABILIFY) 2 mg tablet 01-29 00:00: 00 04-27 00:00 :00 No [id number] 2mg Take 1 tablet by mouth in the morning. [facility] buPROPion XL 300 mg 24 hr tablet 01-29 00:00: 00 04-27 00:00 :00 No [id number] 300mg Take 1 tablet by mouth in the morning. [facility] ARIPiprazol e (ABILIFY) 2 mg tablet 01-29 00:00: 00 04-27 00:00 :00 No [id number] 2mg Take 1 tablet by mouth in the morning. [facility] lisinopriL 20 mg tablet 01-28 00:00: 00 Yes [id number] 20mg Take 1 tablet by mouth in the morning and 1 tablet in the evening. [facility] hydroCHLORO thiazide 25 mg tablet 01-28 00:00: 00 Yes [id number] 25mg Take 1 tablet by mouth in the morning. [facility] metFORMIN 500 mg tablet 01-28 00:00: 00 Yes 500mg Take 1 tablet by mouth in the morning and 1 tablet in the evening. Take with meals. [facility] lisinopriL 20 mg tablet 01-28 00:00: 00 Yes [id number] 20mg Take 1 tablet by mouth in the morning and 1 tablet in the evening. [facility] hydroCHLORO thiazide 25 mg tablet 01-28 00:00: 00 Yes [id number] 25mg Take 1 tablet by mouth in the morning. [facility] metFORMIN 500 mg tablet 01-28 00:00: 00 Yes 500mg Take 1 tablet by mouth in the morning and 1 tablet in the evening. Take with meals. [facility] lisinopriL 20 mg tablet 01-28 00:00: 00 Yes [id number] 20mg Take 1 tablet by mouth in the morning and 1 tablet in the evening. [facility] hydroCHLORO thiazide 25 mg tablet 01-28 00:00: 00 Yes [id number] 25mg Take 1 tablet by mouth in the morning. [facility] metFORMIN 500 mg tablet 01-28 00:00: 00 Yes 500mg Take 1 tablet by mouth in the morning and 1 tablet in the evening. Take with meals. [facility] lisinopriL 20 mg tablet 3-0 7-10 00:00: 00 Yes [id number] 20mg Take 1 tablet by mouth in the morning and 1 tablet in the evening. [facility] hydroCHLORO thiazide 25 mg tablet 3-0 7-10 00:00: 00 Yes [id number] 25mg Take 1 tablet by mouth in the morning. [facility] metFORMIN 500 mg tablet 3-0 7-10 00:00: 00 Yes 500mg Take 1 tablet by mouth in the morning and 1 tablet in the evening. Take with meals. [facility] lisinopriL 20 mg tablet 3-0 7-10 00:00: 00 Yes [id number] 20mg Take 1 tablet by mouth in the morning and 1 tablet in the evening. [facility] hydroCHLORO thiazide 25 mg tablet 3-0 7-10 00:00: 00 Yes [id number] 25mg Take 1 tablet by mouth in the morning. [facility] metFORMIN 500 mg tablet 3-0 7-10 00:00: 00 Yes 500mg Take 1 tablet by mouth in the morning and 1 tablet in the evening. Take with meals. [facility] lisinopriL 20 mg tablet 3-0 7-10 00:00: 00 Yes [id number] 20mg Take 1 tablet by mouth in the morning and 1 tablet in the evening. [facility] hydroCHLORO thiazide 25 mg tablet 3-0 7-10 00:00: 00 Yes [id number] 25mg Take 1 tablet by mouth in the morning. [facility] metFORMIN 500 mg tablet 3-0 7-10 00:00: 00 Yes 500mg Take 1 tablet by mouth in the morning and 1 tablet in the evening. Take with meals. [facility] lisinopriL 20 mg tablet 3-0 7-10 00:00: 00 Yes [id number] 20mg Take 1 tablet by mouth in the morning and 1 tablet in the evening. [facility] hydroCHLORO thiazide 25 mg tablet 3-0 7-10 00:00: 00 Yes [id number] 25mg Take 1 tablet by mouth in the morning. [facility] metFORMIN 500 mg tablet 3-0 7-10 00:00: 00 Yes 500mg Take 1 tablet by mouth in the morning and 1 tablet in the evening. Take with meals. [facility] lisinopriL 20 mg tablet 3-0 7-10 00:00: 00 Yes [id number] 20mg Take 1 tablet by mouth in the morning and 1 tablet in the evening. [facility] hydroCHLORO thiazide 25 mg tablet 3-0 7-10 00:00: 00 Yes [id number] 25mg Take 1 tablet by mouth in the morning. [facility] metFORMIN 500 mg tablet 3-0 7-10 00:00: 00 Yes 500mg Take 1 tablet by mouth in the morning and 1 tablet in the evening. Take with meals. [facility] lisinopriL 20 mg tablet 3-0 7-10 00:00: 00 Yes [id number] 20mg Take 1 tablet by mouth in the morning and 1 tablet in the evening. [facility] hydroCHLORO thiazide 25 mg tablet 3-0 7-10 00:00: 00 Yes [id number] 25mg Take 1 tablet by mouth in the morning. [facility] metFORMIN 500 mg tablet 3-0 7-10 00:00: 00 Yes 500mg Take 1 tablet by mouth in the morning and 1 tablet in the evening. Take with meals. [facility] lisinopriL 20 mg tablet 3-0 7-10 00:00: 00 Yes [id number] 20mg Take 1 tablet by mouth in the morning and 1 tablet in the evening. [facility] hydroCHLORO thiazide 25 mg tablet 3-0 7-10 00:00: 00 Yes [id number] 25mg Take 1 tablet by mouth in the morning. [facility] metFORMIN 500 mg tablet 3-0 7-10 00:00: 00 Yes 500mg Take 1 tablet by mouth in the morning and 1 tablet in the evening. Take with meals. [facility] lisinopriL 20 mg tablet 3-0 7-10 00:00: 00 Yes [id number] 20mg Take 1 tablet by mouth in the morning and 1 tablet in the evening. [facility] hydroCHLORO thiazide 25 mg tablet 3-0 7-10 00:00: 00 Yes [id number] 25mg Take 1 tablet by mouth in the morning. [facility] metFORMIN 500 mg tablet 3-0 7-10 00:00: 00 Yes 500mg Take 1 tablet by mouth in the morning and 1 tablet in the evening. Take with meals. [facility] lisinopriL 20 mg tablet 3-0 7-10 00:00: 00 Yes [id number] 20mg Take 1 tablet by mouth in the morning and 1 tablet in the evening. [facility] hydroCHLORO thiazide 25 mg tablet 3-0 7-10 00:00: 00 Yes [id number] 25mg Take 1 tablet by mouth in the morning. [facility] metFORMIN 500 mg tablet 2022-0 7-10 00:00: 00 Yes 500mg Take 1 tablet by mouth in the morning and 1 tablet in the evening. Take with meals. [facility] lisinopriL 20 mg tablet 3-0 710 00:00: 00 Yes [id number] 20mg Take 1 tablet by mouth in the morning and 1 tablet in the evening. [facility] hydroCHLORO thiazide 25 mg tablet 3-0 7-10 00:00: 00 Yes [id number] 25mg Take 1 tablet by mouth in the morning. [facility] metFORMIN 500 mg tablet 3-0 710 00:00: 00 Yes 500mg Take 1 tablet by mouth in the morning and 1 tablet in the evening. Take with meals. [facility] lisinopriL 20 mg tablet 3-0 7-10 00:00: 00 Yes [id number] 20mg Take 1 tablet by mouth in the morning and 1 tablet in the evening. [facility] hydroCHLORO thiazide 25 mg tablet 3-0 7-10 00:00: 00 Yes [id number] 25mg Take 1 tablet by mouth in the morning. [facility] metFORMIN 500 mg tablet 3-0 7-10 00:00: 00 Yes 500mg Take 1 tablet by mouth in the morning and 1 tablet in the evening. Take with meals. [facility] lisinopriL 20 mg tablet 3-0 7-10 00:00: 00 Yes [id number] 20mg Take 1 tablet by mouth in the morning and 1 tablet in the evening. [facility] hydroCHLORO thiazide 25 mg tablet 3-0 7-10 00:00: 00 Yes [id number] 25mg Take 1 tablet by mouth in the morning. [facility] lisinopriL 20 mg tablet 3-0 7-10 00:00: 00 Yes [id number] 20mg Take 1 tablet by mouth in the morning and 1 tablet in the evening. [facility] hydroCHLORO thiazide 25 mg tablet 3-0 7-10 00:00: 00 Yes [id number] 25mg Take 1 tablet by mouth in the morning. [facility] lisinopriL 20 mg tablet 3-0 7-10 00:00: 00 Yes [id number] 20mg Take 1 tablet by mouth in the morning and 1 tablet in the evening. [facility] hydroCHLORO thiazide 25 mg tablet 3-0 7-10 00:00: 00 Yes [id number] 25mg Take 1 tablet by mouth in the morning. [facility] lisinopriL 20 mg tablet 3-0 7-10 00:00: 00 Yes [id number] 20mg Take 1 tablet by mouth in the morning and 1 tablet in the evening. [facility] hydroCHLORO thiazide 25 mg tablet 3-0 7-10 00:00: 00 Yes [id number] 25mg Take 1 tablet by mouth in the morning. [facility] lisinopriL 20 mg tablet 3-0 7-10 00:00: 00 Yes [id number] 20mg Take 1 tablet by mouth in the morning and 1 tablet in the evening. [facility] hydroCHLORO thiazide 25 mg tablet 3-0 7-10 00:00: 00 Yes [id number] 25mg Take 1 tablet by mouth in the morning. [facility] lisinopriL 20 mg tablet 3-0 7-10 00:00: 00 Yes [id number] 20mg Take 1 tablet by mouth in the morning and 1 tablet in the evening. [facility] hydroCHLORO thiazide 25 mg tablet 3-0 7-10 00:00: 00 Yes [id number] 25mg Take 1 tablet by mouth in the morning. [facility] lisinopriL 20 mg tablet 2023-0 7-10 00:00: 00 Yes [id number] 20mg Take 1 tablet by mouth in the morning and 1 tablet in the evening. [facility] hydroCHLORO thiazide 25 mg tablet 2023-0 7-10 00:00: 00 Yes [id number] 25mg Take 1 tablet by mouth in the morning. [facility] lisinopriL 20 mg tablet 2023-0 7-10 00:00: 00 Yes [id number] 20mg Take 1 tablet by mouth in the morning and 1 tablet in the evening. [facility] hydroCHLORO thiazide 25 mg tablet 3-0 7-10 00:00: 00 Yes [id number] 25mg Take 1 tablet by mouth in the morning. [facility] lisinopriL 20 mg tablet 3-0 7-10 00:00: 00 Yes [id number] 20mg Take 1 tablet by mouth in the morning and 1 tablet in the evening. [facility] hydroCHLORO thiazide 25 mg tablet 3-0 7-10 00:00: 00 Yes [id number] 25mg Take 1 tablet by mouth in the morning. [facility] lisinopriL 20 mg tablet 3-0 7-10 00:00: 00 Yes [id number] 20mg Take 1 tablet by mouth in the morning and 1 tablet in the evening. [facility] hydroCHLORO thiazide 25 mg tablet 2023-0 7-10 00:00: 00 Yes [id number] 25mg Take 1 tablet by mouth in the morning. [facility] lisinopriL 20 mg tablet 3-0 7-10 00:00: 00 Yes [id number] 20mg Take 1 tablet by mouth in the morning and 1 tablet in the evening. [facility] hydroCHLORO thiazide 25 mg tablet 3-0 7-10 00:00: 00 Yes [id number] 25mg Take 1 tablet by mouth in the morning. [facility] lisinopriL 20 mg tablet 2023-0 7-10 00:00: 00 Yes [id number] 20mg Take 1 tablet by mouth in the morning and 1 tablet in the evening. [facility] hydroCHLORO thiazide 25 mg tablet 3-0 7-10 00:00: 00 Yes [id number] 25mg Take 1 tablet by mouth in the morning. [facility] lisinopriL 20 mg tablet 3-0 7-10 00:00: 00 Yes [id number] 20mg Take 1 tablet by mouth in the morning and 1 tablet in the evening. [facility] hydroCHLORO thiazide 25 mg tablet 3-0 7-10 00:00: 00 Yes [id number] 25mg Take 1 tablet by mouth in the morning. [facility] lisinopriL 20 mg tablet 3-0 7-10 00:00: 00 Yes [id number] 20mg Take 1 tablet by mouth in the morning and 1 tablet in the evening. [facility] hydroCHLORO thiazide 25 mg tablet 3-0 7-10 00:00: 00 Yes [id number] 25mg Take 1 tablet by mouth in the morning. [facility] lisinopriL 20 mg tablet 3-0 7-10 00:00: 00 Yes [id number] 20mg Take 1 tablet by mouth in the morning and 1 tablet in the evening. [facility] lisinopriL 20 mg tablet 3-0 7-10 00:00: 00 Yes [id number] 20mg Take 1 tablet by mouth in the morning and 1 tablet in the evening. [facility] lisinopriL 20 mg tablet 3-0 7-10 00:00: 00 Yes [id number] 20mg Take 1 tablet by mouth in the morning and 1 tablet in the evening. [facility] lisinopriL 20 mg tablet 3-0 7-10 00:00: 00 Yes [id number] 20mg Take 1 tablet by mouth in the morning and 1 tablet in the evening. [facility] lisinopriL 20 mg tablet 3-0 7-10 00:00: 00 Yes [id number] 20mg Take 1 tablet by mouth in the morning and 1 tablet in the evening. [facility] lisinopriL 20 mg tablet 3-0 7-10 00:00: 00 Yes [id number] 20mg Take 1 tablet by mouth in the morning and 1 tablet in the evening. [facility] lisinopriL 20 mg tablet 3-0 7-10 00:00: 00 Yes [id number] 20mg Take 1 tablet by mouth in the morning and 1 tablet in the evening. [facility] lisinopriL 20 mg tablet 3-0 7-10 00:00: 00 Yes [id number] 20mg Take 1 tablet by mouth in the morning and 1 tablet in the evening. [facility] lisinopriL 20 mg tablet 3-0 7-10 00:00: 00 Yes [id number] 20mg Take 1 tablet by mouth in the morning and 1 tablet in the evening. [facility] lisinopriL 20 mg tablet 3-0 7-10 00:00: 00 05-12 00:00 :00 No [id number] 20mg Take 1 tablet by mouth in the morning and 1 tablet in the evening. [facility] hydroCHLORO thiazide 25 mg tablet 3-0 7-10 00:00: 00 04-27 00:00 :00 No [id number] 25mg Take 1 tablet by mouth in the morning. [facility] [facility] hydroCHLORO thiazide 25 mg tablet 3-0 7-10 00:00: 00 04-27 00:00 :00 No [id number] 25mg Take 1 tablet by mouth in the morning. [facility] hydroCHLORO thiazide 25 mg tablet 3-0 7-10 00:00: 00 04-27 00:00 :00 No [id number] 25mg Take 1 tablet by mouth in the morning. [facility] hydroCHLORO thiazide 25 mg tablet 3-0 7-10 00:00: 00 04-27 00:00 :00 No [id number] 25mg Take 1 tablet by mouth in the morning. [facility] metFORMIN 500 mg tablet 3-0 7-10 00:00: 00 04-15 00:00 :00 No 500mg Take 1 tablet by mouth in the morning and 1 tablet in the evening. Take with meals. [facility] metFORMIN 500 mg tablet 2022-0 7-10 00:00: 00 04-15 00:00 :00 No 500mg Take 1 tablet by mouth in the morning and 1 tablet in the evening. Take with meals. [facility] atorvastati n 40 mg tablet 01-18 00:00: 00 Yes [id number] 40mg Take 1 tablet by mouth at bedtime. [facility] gabapentin 100 mg capsule 01-18 00:00: 00 Yes [id number] 1 cap in morning, 1 cap in afternoon, and 2 cap at bedtime [facility] glimepiride 1 mg tablet 01-18 00:00: 00 Yes 1mg Take 1 tablet by mouth daily with breakfast. [facility] atorvastati n 40 mg tablet 01-18 00:00: 00 Yes [id number] 40mg Take 1 tablet by mouth at bedtime. [facility] gabapentin 100 mg capsule 01-18 00:00: 00 Yes [id number] 1 cap in morning, 1 cap in afternoon, and 2 cap at bedtime [facility] glimepiride 1 mg tablet 01-18 00:00: 00 Yes 1mg Take 1 tablet by mouth daily with breakfast. [facility] atorvastati n 40 mg tablet 01-18 00:00: 00 Yes [id number] 40mg Take 1 tablet by mouth at bedtime. [facility] gabapentin 100 mg capsule 01-18 00:00: 00 Yes [id number] 1 cap in morning, 1 cap in afternoon, and 2 cap at bedtime [facility] glimepiride 1 mg tablet 01-18 00:00: 00 Yes 1mg Take 1 tablet by mouth daily with breakfast. [facility] atorvastati n 40 mg tablet 01-18 00:00: 00 Yes [id number] 40mg Take 1 tablet by mouth at bedtime. [facility] gabapentin 100 mg capsule 01-18 00:00: 00 Yes [id number] 1 cap in morning, 1 cap in afternoon, and 2 cap at bedtime [facility] glimepiride 1 mg tablet 01-18 00:00: 00 Yes 1mg Take 1 tablet by mouth daily with breakfast. [facility] atorvastati n 40 mg tablet 2022-0 01-18 00:00: 00 Yes [id number] 40mg Take 1 tablet by mouth at bedtime. [facility] gabapentin 100 mg capsule 01-18 00:00: 00 Yes [id number] 1 cap in morning, 1 cap in afternoon, and 2 cap at bedtime [facility] glimepiride 1 mg tablet 01-18 00:00: 00 Yes 1mg Take 1 tablet by mouth daily with breakfast. [facility] atorvastati n 40 mg tablet 01-18 00:00: 00 Yes [id number] 40mg Take 1 tablet by mouth at bedtime. [facility] gabapentin 100 mg capsule 01-18 00:00: 00 Yes [id number] 1 cap in morning, 1 cap in afternoon, and 2 cap at bedtime [facility] glimepiride 1 mg tablet 01-18 00:00: 00 Yes 1mg Take 1 tablet by mouth daily with breakfast. [facility] atorvastati n 40 mg tablet 01-18 00:00: 00 Yes [id number] 40mg Take 1 tablet by mouth at bedtime. [facility] gabapentin 100 mg capsule 01-18 00:00: 00 Yes [id number] 1 cap in morning, 1 cap in afternoon, and 2 cap at bedtime [facility] glimepiride 1 mg tablet 01-18 00:00: 00 Yes 1mg Take 1 tablet by mouth daily with breakfast. [facility] atorvastati n 40 mg tablet 01-18 00:00: 00 Yes [id number] 40mg Take 1 tablet by mouth at bedtime. [facility] gabapentin 100 mg capsule 01-18 00:00: 00 Yes [id number] 1 cap in morning, 1 cap in afternoon, and 2 cap at bedtime [facility] glimepiride 1 mg tablet 01-18 00:00: 00 Yes 1mg Take 1 tablet by mouth daily with breakfast. [facility] atorvastati n 40 mg tablet 2022-0 01-18 00:00: 00 Yes [id number] 40mg Take 1 tablet by mouth at bedtime. [facility] gabapentin 100 mg capsule 2022-0 01-18 00:00: 00 Yes [id number] 1 cap in morning, 1 cap in afternoon, and 2 cap at bedtime [facility] glimepiride 1 mg tablet 2022-0 01-18 00:00: 00 Yes 1mg Take 1 tablet by mouth daily with breakfast. [facility] atorvastati n 40 mg tablet 2022-0 01-18 00:00: 00 Yes [id number] 40mg Take 1 tablet by mouth at bedtime. [facility] gabapentin 100 mg capsule 0 01-18 00:00: 00 Yes [id number] 1 cap in morning, 1 cap in afternoon, and 2 cap at bedtime [facility] glimepiride 1 mg tablet 2022-0 01-18 00:00: 00 Yes 1mg Take 1 tablet by mouth daily with breakfast. [facility] atorvastati n 40 mg tablet 2022-0 01-18 00:00: 00 Yes [id number] 40mg Take 1 tablet by mouth at bedtime. [facility] gabapentin 100 mg capsule 0 01-18 00:00: 00 Yes [id number] 1 cap in morning, 1 cap in afternoon, and 2 cap at bedtime [facility] glimepiride 1 mg tablet 2022-0 01-18 00:00: 00 Yes 1mg Take 1 tablet by mouth daily with breakfast. [facility] atorvastati n 40 mg tablet 2022-0 01-18 00:00: 00 Yes [id number] 40mg Take 1 tablet by mouth at bedtime. [facility] gabapentin 100 mg capsule 2022-0 01-18 00:00: 00 Yes [id number] 1 cap in morning, 1 cap in afternoon, and 2 cap at bedtime [facility] glimepiride 1 mg tablet 0 01-18 00:00: 00 Yes 1mg Take 1 tablet by mouth daily with breakfast. [facility] atorvastati n 40 mg tablet 2022-0 01-18 00:00: 00 Yes [id number] 40mg Take 1 tablet by mouth at bedtime. [facility] gabapentin 100 mg capsule 2022-0 01-18 00:00: 00 Yes [id number] 1 cap in morning, 1 cap in afternoon, and 2 cap at bedtime [facility] glimepiride 1 mg tablet 2022-0 01-18 00:00: 00 Yes 1mg Take 1 tablet by mouth daily with breakfast. [facility] atorvastati n 40 mg tablet 2022-0 01-18 00:00: 00 Yes [id number] 40mg Take 1 tablet by mouth at bedtime. [facility] gabapentin 100 mg capsule 2022-0 01-18 00:00: 00 Yes [id number] 1 cap in morning, 1 cap in afternoon, and 2 cap at bedtime [facility] glimepiride 1 mg tablet 2022-0 01-18 00:00: 00 Yes 1mg Take 1 tablet by mouth daily with breakfast. [facility] atorvastati n 40 mg tablet 2022-0 01-18 00:00: 00 Yes [id number] 40mg Take 1 tablet by mouth at bedtime. [facility] gabapentin 100 mg capsule 2022-0 01-18 00:00: 00 Yes [id number] 1 cap in morning, 1 cap in afternoon, and 2 cap at bedtime [facility] glimepiride 1 mg tablet 2022-0 01-18 00:00: 00 Yes 1mg Take 1 tablet by mouth daily with breakfast. [facility] atorvastati n 40 mg tablet 2022-0 01-18 00:00: 00 Yes [id number] 40mg Take 1 tablet by mouth at bedtime. [facility] gabapentin 100 mg capsule 2022-0 01-18 00:00: 00 Yes [id number] 1 cap in morning, 1 cap in afternoon, and 2 cap at bedtime [facility] atorvastati n 40 mg tablet 3-0 30 00:00: 00 Yes [id number] 40mg Take 1 tablet by mouth at bedtime. [facility] gabapentin 100 mg capsule 2022-0 30 00:00: 00 Yes [id number] 1 cap in morning, 1 cap in afternoon, and 2 cap at bedtime [facility] atorvastati n 40 mg tablet 3-0 30 00:00: 00 Yes [id number] 40mg Take 1 tablet by mouth at bedtime. [facility] gabapentin 100 mg capsule 3-0 30 00:00: 00 Yes [id number] 1 cap in morning, 1 cap in afternoon, and 2 cap at bedtime [facility] atorvastati n 40 mg tablet 2022-0 30 00:00: 00 Yes [id number] 40mg Take 1 tablet by mouth at bedtime. [facility] gabapentin 100 mg capsule 3-0 30 00:00: 00 Yes [id number] 1 cap in morning, 1 cap in afternoon, and 2 cap at bedtime [facility] atorvastati n 40 mg tablet 3-0 30 00:00: 00 Yes [id number] 40mg Take 1 tablet by mouth at bedtime. [facility] gabapentin 100 mg capsule 3-0 30 00:00: 00 Yes [id number] 1 cap in morning, 1 cap in afternoon, and 2 cap at bedtime [facility] atorvastati n 40 mg tablet 2022-0 30 00:00: 00 Yes [id number] 40mg Take 1 tablet by mouth at bedtime. [facility] gabapentin 100 mg capsule 3-0 30 00:00: 00 Yes [id number] 1 cap in morning, 1 cap in afternoon, and 2 cap at bedtime [facility] atorvastati n 40 mg tablet 3-0 30 00:00: 00 Yes [id number] 40mg Take 1 tablet by mouth at bedtime. [facility] gabapentin 100 mg capsule 3-0 30 00:00: 00 Yes [id number] 1 cap in morning, 1 cap in afternoon, and 2 cap at bedtime [facility] atorvastati n 40 mg tablet 3-0 30 00:00: 00 Yes [id number] 40mg Take 1 tablet by mouth at bedtime. [facility] gabapentin 100 mg capsule 3-0 30 00:00: 00 Yes [id number] 1 cap in morning, 1 cap in afternoon, and 2 cap at bedtime [facility] atorvastati n 40 mg tablet 3-0 30 00:00: 00 Yes [id number] 40mg Take 1 tablet by mouth at bedtime. [facility] gabapentin 100 mg capsule 3-0 30 00:00: 00 Yes [id number] 1 cap in morning, 1 cap in afternoon, and 2 cap at bedtime [facility] atorvastati n 40 mg tablet 3-0 30 00:00: 00 Yes [id number] 40mg Take 1 tablet by mouth at bedtime. [facility] gabapentin 100 mg capsule 3-0 30 00:00: 00 Yes [id number] 1 cap in morning, 1 cap in afternoon, and 2 cap at bedtime [facility] atorvastati n 40 mg tablet 2022-0 30 00:00: 00 Yes [id number] 40mg Take 1 tablet by mouth at bedtime. [facility] gabapentin 100 mg capsule 3-0 30 00:00: 00 Yes [id number] 1 cap in morning, 1 cap in afternoon, and 2 cap at bedtime [facility] atorvastati n 40 mg tablet 3-0 30 00:00: 00 Yes [id number] 40mg Take 1 tablet by mouth at bedtime. [facility] gabapentin 100 mg capsule 3-0 30 00:00: 00 Yes [id number] 1 cap in morning, 1 cap in afternoon, and 2 cap at bedtime [facility] atorvastati n 40 mg tablet 3-0 30 00:00: 00 Yes [id number] 40mg Take 1 tablet by mouth at bedtime. [facility] gabapentin 100 mg capsule 3-0 630 00:00: 00 Yes [id number] 1 cap in morning, 1 cap in afternoon, and 2 cap at bedtime [facility] atorvastati n 40 mg tablet 3-0 630 00:00: 00 Yes [id number] 40mg Take 1 tablet by mouth at bedtime. [facility] gabapentin 100 mg capsule 2022-0 630 00:00: 00 Yes [id number] 1 cap in morning, 1 cap in afternoon, and 2 cap at bedtime [facility] atorvastati n 40 mg tablet 2022-0 30 00:00: 00 04-27 00:00 :00 No [id number] 40mg Take 1 tablet by mouth at bedtime. [facility] gabapentin 100 mg capsule 2022-0 30 00:00: 00 04-27 00:00 :00 No [id number] 1 cap in morning, 1 cap in afternoon, and 2 cap at bedtime [facility] atorvastati n 40 mg tablet 2022-0 01-18 00:00: 00 04-27 00:00 :00 No [id number] 40mg Take 1 tablet by mouth at bedtime. [facility] gabapentin 100 mg capsule 2022-0 30 00:00: 00 04-27 00:00 :00 No [id number] 1 cap in morning, 1 cap in afternoon, and 2 cap at bedtime [facility] atorvastati n 40 mg tablet 2022-0 01-18 00:00: 00 04-27 00:00 :00 No [id number] 40mg Take 1 tablet by mouth at bedtime. [facility] gabapentin 100 mg capsule 3-0 630 00:00: 00 04-27 00:00 :00 No [id number] 1 cap in morning, 1 cap in afternoon, and 2 cap at bedtime [facility] atorvastati n 40 mg tablet 2022-0 630 00:00: 00 04-27 00:00 :00 No [id number] 40mg Take 1 tablet by mouth at bedtime. [facility] gabapentin 100 mg capsule 0 01-18 00:00: 00 04-27 00:00 :00 No [id number] 1 cap in morning, 1 cap in afternoon, and 2 cap at bedtime [facility] glimepiride 1 mg tablet 01-18 00:00: 00 04-15 00:00 :00 No 1mg Take 1 tablet by mouth daily with breakfast. [facility] glimepiride 1 mg tablet 01-18 00:00: 00 04-15 00:00 :00 No 1mg Take 1 tablet by mouth daily with breakfast. [facility] dulaglutide (TRULICITY) 1.5 mg/0.5 mL PnIj 2023-0 12-21 00:00: 00 Yes [id number] 1.5mg inject 1 Pen under the skin weekly. [facility] dulaglutide (TRULICITY) 1.5 mg/0.5 mL PnIj 2023-0 6- 00:00: 00 Yes [id number] 1.5mg inject 1 Pen under the skin weekly. [facility] dulaglutide (TRULICITY) 1.5 mg/0.5 mL PnIj 2023-0 6- 00:00: 00 Yes [id number] 1.5mg inject 1 Pen under the skin weekly. [facility] dulaglutide (TRULICITY) 1.5 mg/0.5 mL PnIj 2023-0 6 00:00: 00 Yes [id number] 1.5mg inject 1 Pen under the skin weekly. [facility] dulaglutide (TRULICITY) 1.5 mg/0.5 mL PnIj 2023-0 6- 00:00: 00 Yes [id number] 1.5mg inject 1 Pen under the skin weekly. [facility] dulaglutide (TRULICITY) 1.5 mg/0.5 mL PnIj 2023-0 6- 00:00: 00 Yes [id number] 1.5mg inject 1 Pen under the skin weekly. [facility] dulaglutide (TRULICITY) 1.5 mg/0.5 mL PnIj 2023-0 6-02 00:00: 00 Yes [id number] 1.5mg inject 1 Pen under the skin weekly. [facility] dulaglutide (TRULICITY) 1.5 mg/0.5 mL PnIj 2023-0 6-02 00:00: 00 Yes [id number] 1.5mg inject 1 Pen under the skin weekly. [facility] dulaglutide (TRULICITY) 1.5 mg/0.5 mL PnIj 2023-0 6- 00:00: 00 Yes [id number] 1.5mg inject 1 Pen under the skin weekly. [facility] dulaglutide (TRULICITY) 1.5 mg/0.5 mL PnIj 2023-0 6- 00:00: 00 Yes [id number] 1.5mg inject 1 Pen under the skin weekly. [facility] dulaglutide (TRULICITY) 1.5 mg/0.5 mL PnIj 2023-0 6- 00:00: 00 Yes [id number] 1.5mg inject 1 Pen under the skin weekly. [facility] dulaglutide (TRULICITY) 1.5 mg/0.5 mL PnIj 2023-0 6- 00:00: 00 Yes [id number] 1.5mg inject 1 Pen under the skin weekly. [facility] dulaglutide (TRULICITY) 1.5 mg/0.5 mL PnIj 2023-0 6- 00:00: 00 Yes [id number] 1.5mg inject 1 Pen under the skin weekly. [facility] dulaglutide (TRULICITY) 1.5 mg/0.5 mL PnIj 2023-0 6- 00:00: 00 Yes [id number] 1.5mg inject 1 Pen under the skin weekly. [facility] dulaglutide (TRULICITY) 1.5 mg/0.5 mL PnIj 2023-0 6-02 00:00: 00 Yes [id number] 1.5mg inject 1 Pen under the skin weekly. [facility] dulaglutide (TRULICITY) 1.5 mg/0.5 mL PnIj 2023-0 6-02 00:00: 00 Yes [id number] 1.5mg inject 1 Pen under the skin weekly. [facility] dulaglutide (TRULICITY) 1.5 mg/0.5 mL PnIj 2023-0 6-02 00:00: 00 Yes [id number] 1.5mg inject 1 Pen under the skin weekly. [facility] 1.5 mg/0.5 mL PnIj 2023-0 6-02 00:00: 00 Yes [id number] 1.5mg inject 1 Pen under the skin weekly. [facility] dulaglutide (TRULICITY) 1.5 mg/0.5 mL PnIj 2023-0 6- 00:00: 00 Yes [id number] 1.5mg inject 1 Pen under the skin weekly. [facility] dulaglutide (TRULICITY) 1.5 mg/0.5 mL PnIj 2023-0 6- 00:00: 00 Yes [id number] 1.5mg inject 1 Pen under the skin weekly. [facility] dulaglutide (TRULICITY) 1.5 mg/0.5 mL PnIj 2023-0 6-02 00:00: 00 Yes [id number] 1.5mg inject 1 Pen under the skin weekly. [facility] dulaglutide (TRULICITY) 1.5 mg/0.5 mL PnIj 2023-0 6-02 00:00: 00 Yes [id number] 1.5mg inject 1 Pen under the skin weekly. [facility] dulaglutide (TRULICITY) 1.5 mg/0.5 mL PnIj 2023-0 6-02 00:00: 00 Yes [id number] 1.5mg inject 1 Pen under the skin weekly. [facility] dulaglutide (TRULICITY) 1.5 mg/0.5 mL PnIj 2023-0 6-02 00:00: 00 Yes [id number] 1.5mg inject 1 Pen under the skin weekly. [facility] dulaglutide (TRULICITY) 1.5 mg/0.5 mL PnIj 2023-0 6-02 00:00: 00 Yes [id number] 1.5mg inject 1 Pen under the skin weekly. [facility] dulaglutide (TRULICITY) 1.5 mg/0.5 mL PnIj 2023-0 6-02 00:00: 00 Yes [id number] 1.5mg inject 1 Pen under the skin weekly. [facility] dulaglutide (TRULICITY) 1.5 mg/0.5 mL PnIj 2023-0 6-02 00:00: 00 Yes [id number] 1.5mg inject 1 Pen under the skin weekly. [facility] (TRULICITY) 1.5 mg/0.5 mL PnIj 2023-0 6-02 00:00: 00 Yes [id number] 1.5mg inject 1 Pen under the skin weekly. [facility] d[facility]ide (TRULICITY) 1.5 mg/0.5 mL PnIj 2023-0 6-02 00:00: 00 Yes [id number] 1.5mg inject 1 Pen under the skin weekly. [facility] dulaglutide (TRULICITY) 1.5 mg/0.5 mL PnIj 2023-0 6-02 00:00: 00 Yes [id number] 1.5mg inject 1 Pen under the skin weekly. [facility] dulaglutide (TRULICITY) 1.5 mg/0.5 mL PnIj 2023-0 6-02 00:00: 00 Yes [id number] 1.5mg inject 1 Pen under the skin weekly. [facility] dulaglutide (TRULICITY) 1.5 mg/0.5 mL PnIj 2023-0 6-02 00:00: 00 Yes [id number] 1.5mg inject 1 Pen under the skin weekly. [facility] dulaglutide (TRULICITY) 1.5 mg/0.5 mL PnIj 2023-0 6-02 00:00: 00 Yes [id number] 1.5mg inject 1 Pen under the skin weekly. [facility] dulag[facility]ide (TRULICITY) 1.5 mg/0.5 mL PnIj 2023-0 6-02 00:00: 00 Yes [id number] 1.5mg inject 1 Pen under the skin weekly. [facility] dulaglutide (TRULICITY) 1.5 mg/0.5 mL PnIj 2023-0 6-02 00:00: 00 Yes [id number] 1.5mg inject 1 Pen under the skin weekly. [facility] dul[facility]ide (TRULICITY) 1.5 mg/0.5 mL PnIj 2023-0 6-02 00:00: 00 Yes [id number] 1.5mg inject 1 Pen under the skin weekly. [facility] dulaglutide (TRULICITY) 1.5 mg/0.5 mL PnIj 2023-0 6- 00:00: 00 Yes [id number] 1.5mg inject 1 Pen under the skin weekly. [facility] dul[facility]ide (TRULICITY) 1.5 mg/0.5 mL PnIj 2023-0 6- 00:00: 00 Yes [id number] 1.5mg inject 1 Pen under the skin weekly. [facility] dulaglutide (TRULICITY) 1.5 mg/0.5 mL PnIj 2023-0 6- 00:00: 00 Yes [id number] 1.5mg inject 1 Pen under the skin weekly. [facility] dulaglutide (TRULICITY) 1.5 mg/0.5 mL PnIj 2023-0 6-02 00:00: 00 Yes [id number] 1.5mg inject 1 Pen under the skin weekly. [facility] dulaglutide (TRULICITY) 1.5 mg/0.5 mL PnIj 2023-0 6- 00:00: 00 Yes [id number] 1.5mg inject 1 Pen under the skin weekly. [facility] dulaglutide (TRULICITY) 1.5 mg/0.5 mL PnIj 2023-0 6- 00:00: 00 Yes [id number] 1.5mg inject 1 Pen under the skin weekly. [facility] dulaglutide (TRULICITY) 1.5 mg/0.5 mL PnIj 2023-0 6-02 00:00: 00 Yes [id number] 1.5mg inject 1 Pen under the skin weekly. [facility] dulaglutide (TRULICITY) 1.5 mg/0.5 mL PnIj 2023-0 6-02 00:00: 00 Yes [id number] 1.5mg inject 1 Pen under the skin weekly. [facility] dulaglutide (TRULICITY) 1.5 mg/0.5 mL PnIj 2023-0 6-02 00:00: 00 Yes [id number] 1.5mg inject 1 Pen under the skin weekly. [facility] dulaglutide (TRULICITY) 1.5 mg/0.5 mL PnIj 2023-0 6-02 00:00: 00 Yes [id number] 1.5mg inject 1 Pen under the skin weekly. [facility] (TRULICITY) 1.5 mg/0.5 mL PnIj 2023-0 6-02 00:00: 00 Yes [id number] 1.5mg inject 1 Pen under the skin weekly. [facility] dulaglutide (TRULICITY) 1.5 mg/0.5 mL PnIj 2023-0 6-02 00:00: 00 Yes [id number] 1.5mg inject 1 Pen under the skin weekly. [facility] dulaglutide (TRULICITY) 1.5 mg/0.5 mL PnIj 2023-0 6- 00:00: 00 Yes [id number] 1.5mg inject 1 Pen under the skin weekly. [facility] dulaglutide (TRULICITY) 1.5 mg/0.5 mL PnIj 2023-0 6- 00:00: 00 Yes [id number] 1.5mg inject 1 Pen under the skin weekly. [facility] dulaglutide (TRULICITY) 1.5 mg/0.5 mL PnIj 2023-0 6-02 00:00: 00 Yes [id number] 1.5mg inject 1 Pen under the skin weekly. [facility] dulaglutide (TRULICITY) 1.5 mg/0.5 mL PnIj 2023-0 6-02 00:00: 00 Yes [id number] 1.5mg inject 1 Pen under the skin weekly. [facility] 1.5 mg/0.5 mL PnIj 2023-0 6-02 00:00: 00 Yes [id number] 1.5mg inject 1 Pen under the skin weekly. [facility] dulaglutide (TRULICITY) 1.5 mg/0.5 mL PnIj 2023-0 6-02 00:00: 00 2023- 12-16 00:00 :00 No [id number] 1.5mg inject 1 Pen under the skin weekly. [facility] dulaglutide (TRULICITY) 1.5 mg/0.5 mL PnIj 12-21 00:00: 00 07-06 00:00 :00 No [id number] 1.5mg inject 1 Pen under the skin weekly. [facility] buPROPion XL 300 mg 24 hr tablet 12-20 00:00: 00 Yes [id number] 300mg Take 1 tablet by mouth in the morning. [facility] ARIPiprazol e (ABILIFY) 2 mg tablet 12-20 00:00: 00 Yes [id number] 2mg Take 1 tablet by mouth in the morning. [facility] buPROPion XL 300 mg 24 hr tablet 12-20 00:00: 00 Yes [id number] 300mg Take 1 tablet by mouth in the morning. [facility] ARIPiprazol e (ABILIFY) 2 mg tablet 12-20 00:00: 00 Yes [id number] 2mg Take 1 tablet by mouth in the morning. [facility] buPROPion XL 300 mg 24 hr tablet 12-20 00:00: 00 Yes [id number] 300mg Take 1 tablet by mouth in the morning. [facility] ARIPiprazol e (ABILIFY) 2 mg tablet 12-20 00:00: 00 Yes [id number] 2mg Take 1 tablet by mouth in the morning. [facility] buPROPion XL 300 mg 24 hr tablet 12-20 00:00: 00 Yes [id number] 300mg Take 1 tablet by mouth in the morning. [facility] ARIPiprazol e (ABILIFY) 2 mg tablet 12-20 00:00: 00 Yes [id number] 2mg Take 1 tablet by mouth in the morning. [facility] buPROPion XL 300 mg 24 hr tablet 12-20 00:00: 00 Yes [id number] 300mg Take 1 tablet by mouth in the morning. [facility] ARIPiprazol e (ABILIFY) 2 mg tablet 12-20 00:00: 00 Yes [id number] 2mg Take 1 tablet by mouth in the morning. [facility] buPROPion XL 300 mg 24 hr tablet 12-20 00:00: 00 Yes [id number] 300mg Take 1 tablet by mouth in the morning. [facility] ARIPiprazol e (ABILIFY) 2 mg tablet 12-20 00:00: 00 Yes [id number] 2mg Take 1 tablet by mouth in the morning. [facility] buPROPion XL 300 mg 24 hr tablet 12-20 00:00: 00 01-27 00:00 :00 No [id number] 300mg Take 1 tablet by mouth in the morning. [facility] ARIPiprazol e (ABILIFY) 2 mg tablet 12-20 00:00: 00 01-27 00:00 :00 No [id number] 2mg Take 1 tablet by mouth in the morning. [facility] Insulin [place], Disposable, 32 gauge x 1/4" Ndle 12-18 00:00: 00 Yes [id number] Use once a day. Use brand that is covered by insurance. [facility] atorvastati n 40 mg tablet 12-18 00:00: 00 Yes [id number] 40mg Take 1 tablet by mouth at bedtime. [facility] metoprolol succinate XL 50 mg 24 hr tablet 12-18 00:00: 00 Yes [id number] 50mg Take 1 tablet by mouth in the morning. [facility] [facility] lisinopriL 20 mg tablet 12-18 00:00: 00 Yes [id number] 20mg Take 1 tablet by mouth in the morning and 1 tablet in the evening. [facility] hydroCHLORO thiazide 25 mg tablet 12-18 00:00: 00 Yes [id number] 25mg Take 1 tablet by mouth in the morning. [facility] gabapentin 100 mg capsule 12-18 00:00: 00 Yes [id number] 1 cap in morning, 1 cap in afternoon, and 2 cap at bedtime [facility] metFORMIN 500 mg tablet 12-18 00:00: 00 Yes 500mg Take 1 tablet by mouth in the morning and 1 tablet in the evening. Take with meals. [facility] insulin glargine U-300 conc (TOUJEO MAX U-300 SOLOSTAR) 300 unit/mL (3 mL) InPn 12-18 00:00: 00 Yes 10U inject 10 Units under the skin daily before breakfast. [facility] glimepiride 1 mg tablet 12-18 00:00: 00 Yes 1mg Take 1 tablet by mouth daily with breakfast. [facility] dulaglutide (TRULICITY) 0.75 mg/0.5 mL PnIj 12-18 00:00: 00 Yes .75mg inject 1 Pen under the skin weekly. [facility] Insulin [place], Disposable, 32 gauge x 1/4" Ndle 12-18 00:00: 00 Yes [id number] Use once a day. Use brand that is covered by insurance. [facility] atorvastati n 40 mg tablet 12-18 00:00: 00 Yes [id number] 40mg Take 1 tablet by mouth at bedtime. [facility] metoprolol succinate XL 50 mg 24 hr tablet 12-18 00:00: 00 Yes [id number] 50mg Take 1 tablet by mouth in the morning. [facility] lisinopriL 20 mg tablet 12-18 00:00: 00 Yes [id number] 20mg Take 1 tablet by mouth in the morning and 1 tablet in the evening. [facility] hydroCHLORO thiazide 25 mg tablet 12-18 00:00: 00 Yes [id number] 25mg Take 1 tablet by mouth in the morning. [facility] gabapentin 100 mg capsule 12-18 00:00: 00 Yes [id number] 1 cap in morning, 1 cap in afternoon, and 2 cap at bedtime [facility] metFORMIN 500 mg tablet 12-18 00:00: 00 Yes 500mg Take 1 tablet by mouth in the morning and 1 tablet in the evening. Take with meals. [facility] insulin glargine U-300 conc (TOUJEO MAX U-300 SOLOSTAR) 300 unit/mL (3 mL) InPn 12-18 00:00: 00 Yes 10U inject 10 Units under the skin daily before breakfast. [facility] glimepiride 1 mg tablet 12-18 00:00: 00 Yes 1mg Take 1 tablet by mouth daily with breakfast. [facility] Insulin [place], Disposable, 32 gauge x 1/4" Ndle 12-18 00:00: 00 Yes [id number] Use once a day. Use brand that is covered by insurance. [facility] atorvastati n 40 mg tablet 12-18 00:00: 00 Yes [id number] 40mg Take 1 tablet by mouth at bedtime. [facility] metoprolol succinate XL 50 mg 24 hr tablet 12-18 00:00: 00 Yes [id number] 50mg Take 1 tablet by mouth in the morning. [facility] lisinopriL 20 mg tablet 12-18 00:00: 00 Yes [id number] 20mg Take 1 tablet by mouth in the morning and 1 tablet in the evening. [facility] hydroCHLORO thiazide 25 mg tablet 12-18 00:00: 00 Yes [id number] 25mg Take 1 tablet by mouth in the morning. [facility] gabapentin 100 mg capsule 12-18 00:00: 00 Yes [id number] 1 cap in morning, 1 cap in afternoon, and 2 cap at bedtime [facility] metFORMIN 500 mg tablet 12-18 00:00: 00 Yes 500mg Take 1 tablet by mouth in the morning and 1 tablet in the evening. Take with meals. [facility] insulin glargine U-300 conc (TOUJEO MAX U-300 SOLOSTAR) 300 unit/mL (3 mL) In 12-18 00:00: 00 Yes 10U inject 10 Units under the skin daily before breakfast. [facility] glimepiride 1 mg tablet 12-18 00:00: 00 Yes 1mg Take 1 tablet by mouth daily with breakfast. [facility] Insulin [place], Disposable, 32 gauge x 1/4" Ndle 12-18 00:00: 00 Yes [id number] Use once a day. Use brand that is covered by insurance. [facility] metoprolol succinate XL 50 mg 24 hr tablet 12-18 00:00: 00 Yes [id number] 50mg Take 1 tablet by mouth in the morning. [facility] lisinopriL 20 mg tablet 12-18 00:00: 00 Yes [id number] 20mg Take 1 tablet by mouth in the morning and 1 tablet in the evening. [facility] hydroCHLORO thiazide 25 mg tablet 12-18 00:00: 00 Yes [id number] 25mg Take 1 tablet by mouth in the morning. [facility] metFORMIN 500 mg tablet 12-18 00:00: 00 Yes 500mg Take 1 tablet by mouth in the morning and 1 tablet in the evening. Take with meals. [facility] insulin glargine U-300 conc (TOUJEO MAX U-300 SOLOSTAR) 300 unit/mL (3 mL) [facility] 12-18 00:00: 00 Yes 10U inject 10 Units under the skin daily before breakfast. [facility] Insulin [place], Disposable, 32 gauge x 1/4" Ndle 12-18 00:00: 00 Yes [id number] Use once a day. Use brand that is covered by insurance. [facility] metoprolol succinate XL 50 mg 24 hr tablet 12-18 00:00: 00 Yes [id number] 50mg Take 1 tablet by mouth in the morning. [facility] lisinopriL 20 mg tablet 12-18 00:00: 00 Yes [id number] 20mg Take 1 tablet by mouth in the morning and 1 tablet in the evening. [facility] hydroCHLORO thiazide 25 mg tablet 12-18 00:00: 00 Yes [id number] 25mg Take 1 tablet by mouth in the morning. [facility] metFORMIN 500 mg tablet 12-18 00:00: 00 Yes 500mg Take 1 tablet by mouth in the morning and 1 tablet in the evening. Take with meals. [facility] insulin glargine U-300 conc (TOUJEO MAX U-300 SOLOSTAR) 300 unit/mL (3 mL) In 12-18 00:00: 00 Yes 10U inject 10 Units under the skin daily before breakfast. [facility] Insulin [place], Disposable, 32 gauge x 1/4" Ndle 12-18 00:00: 00 Yes [id number] Use once a day. Use brand that is covered by insurance. [facility] metoprolol succinate XL 50 mg 24 hr tablet 12-18 00:00: 00 Yes [id number] 50mg Take 1 tablet by mouth in the morning. [facility] lisinopriL 20 mg tablet 12-18 00:00: 00 Yes [id number] 20mg Take 1 tablet by mouth in the morning and 1 tablet in the evening. [facility] hydroCHLORO thiazide 25 mg tablet 12-18 00:00: 00 Yes [id number] 25mg Take 1 tablet by mouth in the morning. [facility] metFORMIN 500 mg tablet 12-18 00:00: 00 Yes 500mg Take 1 tablet by mouth in the morning and 1 tablet in the evening. Take with meals. [facility] insulin glargine U-300 conc (TOUJEO MAX U-300 SOLOSTAR) 300 unit/mL (3 mL) In 12-18 00:00: 00 Yes 10U inject 10 Units under the skin daily before breakfast. [facility] Insulin [place], Disposable, 32 gauge x 1/4" Ndle 12-18 00:00: 00 Yes [id number] Use once a day. Use brand that is covered by insurance. [facility] metoprolol succinate XL 50 mg 24 hr tablet 12-18 00:00: 00 Yes [id number] 50mg Take 1 tablet by mouth in the morning. [facility]ine U-300 conc (TOUJEO MAX U-300 SOLOSTAR) 300 unit/mL (3 mL) In 12-18 00:00: 00 Yes 10U inject 10 Units under the skin daily before breakfast. [facility] Insulin [place], Disposable, 32 gauge x 1/4" Ndle 12-18 00:00: 00 Yes [id number] Use once a day. Use brand that is covered by insurance. [facility] metoprolol succinate XL 50 mg 24 hr tablet 12-18 00:00: 00 Yes [id number] 50mg Take 1 tablet by mouth in the morning. [facility] insulin glargine U-300 conc (TOUJEO MAX U-300 SOLOSTAR) 300 unit/mL (3 mL) In 12-18 00:00: 00 Yes 10U inject 10 Units under the skin daily before breakfast. [facility] Insulin [place], Disposable, 32 gauge x 1/4" Ndle 12-18 00:00: 00 Yes [id number] Use once a day. Use brand that is covered by insurance. [facility] insulin glargine U-300 conc (TOUJEO MAX U-300 SOLOSTAR) 300 unit/mL (3 mL) In 12-18 00:00: 00 Yes 10U inject 10 Units under the skin daily before breakfast. [facility] Insulin [place], Disposable, 32 gauge x 1/4" Ndle 12-18 00:00: 00 Yes [id number] Use once a day. Use brand that is covered by insurance. [facility] insulin glargine U-300 conc (TOUJEO MAX U-300 SOLOSTAR) 300 unit/mL (3 mL) In 12-18 00:00: 00 Yes 10U inject 10 Units under the skin daily before breakfast. [facility] Insulin [place], Disposable, 32 gauge x 1/4" Ndle 30 00:00: 00 Yes [id number] Use once a day. Use brand that is covered by insurance. [facility] insulin glargine U-300 conc (TOUJEO MAX U-300 SOLOSTAR) 300 unit/mL (3 mL) In 12-18 00:00: 00 Yes 10U inject 10 Units under the skin daily before breakfast. [facility] Insulin [place], Disposable, 32 gauge x 1/4" Ndle 12-18 00:00: 00 Yes [id number] Use once a day. Use brand that is covered by insurance. [facility] insulin glargine U-300 conc (TOUJEO MAX U-300 SOLOSTAR) 300 unit/mL (3 mL) In 12-18 00:00: 00 Yes 10U inject 10 Units under the skin daily before breakfast. [facility] Insulin [place], Disposable, 32 gauge x 1/4" Ndle 12-18 00:00: 00 Yes [id number] Use once a day. Use brand that is covered by insurance. [facility] insulin glargine U-300 conc (TOUJEO MAX U-300 SOLOSTAR) 300 unit/mL (3 mL) In 12-18 00:00: 00 Yes 10U inject 10 Units under the skin daily before breakfast. [facility] Insulin [place], Disposable, 32 gauge x 1/4" Ndle 30 00:00: 00 Yes [id number] Use once a day. Use brand that is covered by insurance. [facility] insulin glargine U-300 conc (TOUJEO MAX U-300 SOLOSTAR) 300 unit/mL (3 mL) In 12-18 00:00: 00 Yes 10U inject 10 Units under the skin daily before breakfast. [facility] Insulin [place], Disposable, 32 gauge x 1/4" Ndle 30 00:00: 00 Yes [id number] Use once a day. Use brand that is covered by insurance. [facility] insulin glargine U-300 conc (TOUJEO MAX U-300 SOLOSTAR) 300 unit/mL (3 mL) In 12-18 00:00: 00 Yes 10U inject 10 Units under the skin daily before breakfast. [facility] Insulin [place], Disposable, 32 gauge x 1/4" Ndle 12-18 00:00: 00 Yes [id number] Use once a day. Use brand that is covered by insurance. [facility] insulin glargine U-300 conc (TOUJEO MAX U-300 SOLOSTAR) 300 unit/mL (3 mL) In 12-18 00:00: 00 Yes 10U inject 10 Units under the skin daily before breakfast. [facility] Insulin [place], Disposable, 32 gauge x 1/4" Ndle 12-18 00:00: 00 Yes [id number] Use once a day. Use brand that is covered by insurance. [facility] insulin glargine U-300 conc (TOUJEO MAX U-300 SOLOSTAR) 300 unit/mL (3 mL) In 12-18 00:00: 00 Yes 10U inject 10 Units under the skin daily before breakfast. [facility] Insulin [place], Disposable, 32 gauge x 1/4" Ndle 12-18 00:00: 00 Yes [id number] Use once a day. Use brand that is covered by insurance. [facility] insulin glargine U-300 conc (TOUJEO MAX U-300 SOLOSTAR) 300 unit/mL (3 mL) In 12-18 00:00: 00 Yes 10U inject 10 Units under the skin daily before breakfast. [facility] Insulin [place], Disposable, 32 gauge x 1/4" Ndle 12-18 00:00: 00 Yes [id number] Use once a day. Use brand that is covered by insurance. [facility] insulin glargine U-300 conc (TOUJEO MAX U-300 SOLOSTAR) 300 unit/mL (3 mL) In 12-18 00:00: 00 Yes 10U inject 10 Units under the skin daily before breakfast. [facility] Insulin [place], Disposable, 32 gauge x 1/4" Ndle 12-18 00:00: 00 Yes [id number] Use once a day. Use brand that is covered by insurance. [facility] glargine U-300 conc (TOUJEO MAX U-300 SOLOSTAR) 300 unit/mL (3 mL) In 12-18 00:00: 00 Yes 10U inject 10 Units under the skin daily before breakfast. [facility] Insulin [place], Disposable, 32 gauge x 1/4" Ndle 12-18 00:00: 00 Yes [id number] Use once a day. Use brand that is covered by insurance. [facility] insulin glargine U-300 conc (TOUJEO MAX U-300 SOLOSTAR) 300 unit/mL (3 mL) In 12-18 00:00: 00 Yes 10U inject 10 Units under the skin daily before breakfast. [facility] Insulin [place], Disposable, 32 gauge x 1/4" Ndle 12-18 00:00: 00 Yes [id number] Use once a day. Use brand that is covered by insurance. [facility] insulin glargine U-300 conc (TOUJEO MAX U-300 SOLOSTAR) 300 unit/mL (3 mL) In 12-18 00:00: 00 Yes 10U inject 10 Units under the skin daily before breakfast. [facility] Insulin [place], Disposable, 32 gauge x 1/4" Ndle 12-18 00:00: 00 Yes [id number] Use once a day. Use brand that is covered by insurance. [facility] insulin glargine U-300 conc (TOUJEO MAX U-300 SOLOSTAR) 300 unit/mL (3 mL) In 12-18 00:00: 00 Yes 10U inject 10 Units under the skin daily before breakfast. [facility] Insulin [place], Disposable, 32 gauge x 1/4" Ndle 12-18 00:00: 00 Yes [id number] Use once a day. Use brand that is covered by insurance. [facility] insulin glargine U-300 conc (TOUJEO MAX U-300 SOLOSTAR) 300 unit/mL (3 mL) In 12-18 00:00: 00 Yes 10U inject 10 Units under the skin daily before breakfast. [facility] Insulin [place], Disposable, 32 gauge x 1/4" [place] 12-18 00:00: 00 Yes [id number] Use once a day. Use brand that is covered by insurance. [facility] insulin glargine U-300 conc (TOUJEO MAX U-300 SOLOSTAR) 300 unit/mL (3 mL) In 12-18 00:00: 00 Yes 10U inject 10 Units under the skin daily before breakfast. [facility] Insulin [place], Disposable, 32 gauge x 1/4" [place] 12-18 00:00: 00 Yes [id number] Use once a day. Use brand that is covered by insurance. [facility] insulin glargine U-300 conc (TOUJEO MAX U-300 SOLOSTAR) 300 unit/mL (3 mL) In 12-18 00:00: 00 Yes 10U inject 10 Units under the skin daily before breakfast. [facility] Insulin [place], Disposable, 32 gauge x 1/4" [place] 12-18 00:00: 00 Yes [id number] Use once a day. Use brand that is covered by insurance. [facility] insulin glargine U-300 conc (TOUJEO MAX U-300 SOLOSTAR) 300 unit/mL (3 mL) [facility] 12-18 00:00: 00 Yes 10U inject 10 Units under the skin daily before breakfast. [facility] Insulin [place], Disposable, 32 gauge x 1/4" Ndle 30 00:00: 00 Yes [id number] Use once a day. Use brand that is covered by insurance. [facility] insulin glargine U-300 conc (TOUJEO MAX U-300 SOLOSTAR) 300 unit/mL (3 mL) In 12-18 00:00: 00 Yes 10U inject 10 Units under the skin daily before breakfast. [facility] Insulin [place], Disposable, 32 gauge x 1/4" Ndle 12-18 00:00: 00 Yes [id number] Use once a day. Use brand that is covered by insurance. [facility] insulin glargine U-300 conc (TOUJEO MAX U-300 SOLOSTAR) 300 unit/mL (3 mL) In 12-18 00:00: 00 Yes 10U inject 10 Units under the skin daily before breakfast. [facility] Insulin [place], Disposable, 32 gauge x 1/4" Ndle 12-18 00:00: 00 Yes [id number] Use once a day. Use brand that is covered by insurance. [facility] insulin glargine U-300 conc (TOUJEO MAX U-300 SOLOSTAR) 300 unit/mL (3 mL) In 12-18 00:00: 00 Yes 10U inject 10 Units under the skin daily before breakfast. [facility] insulin glargine U-300 conc (TOUJEO MAX U-300 SOLOSTAR) 300 unit/mL (3 mL) In 12-18 00:00: 00 Yes 10U inject 10 Units under the skin daily before breakfast. [facility] insulin glargine U-300 conc (TOUJEO MAX U-300 SOLOSTAR) 300 unit/mL (3 mL) In 12-18 00:00: 00 Yes 10U inject 10 Units under the skin daily before breakfast. [facility] insulin glargine U-300 conc (TOUJEO MAX U-300 SOLOSTAR) 300 unit/mL (3 mL) In 12-18 00:00: 00 Yes 10U inject 10 Units under the skin daily before breakfast. [facility] insulin glargine U-300 conc (TOUJEO MAX U-300 SOLOSTAR) 300 unit/mL (3 mL) In 12-18 00:00: 00 Yes 10U inject 10 Units under the skin daily before breakfast. [facility] insulin glargine U-300 conc (TOUJEO MAX U-300 SOLOSTAR) 300 unit/mL (3 mL) In 12-18 00:00: 00 Yes 10U inject 10 Units under the skin daily before breakfast. [facility] Insulin [place], Disposable, 32 gauge x 1/4" Ndle 12-18 00:00: 00 04-27 00:00 :00 No [id number] Use once a day. Use brand that is covered by insurance. [facility] insulin glargine U-300 conc (TOUJEO MAX U-300 SOLOSTAR) 300 unit/mL (3 mL) In 12-18 00:00: 00 04-27 00:00 :00 No 10U inject 10 Units under the skin daily before breakfast. [facility] Insulin [place], Disposable, 32 gauge x 1/4" [place] 12-18 00:00: 00 04-27 00:00 :00 No [id number] Use once a day. Use brand that is covered by insurance. [facility] insulin glargine U-300 conc (TOUJEO MAX U-300 SOLOSTAR) 300 unit/mL (3 mL) In 12-18 00:00: 00 04-27 00:00 :00 No 10U inject 10 Units under the skin daily before breakfast. [facility] insulin glargine U-300 conc (TOUJEO MAX U-300 SOLOSTAR) 300 unit/mL (3 mL) In 12-18 00:00: 00 04-27 00:00 :00 No 10U inject 10 Units under the skin daily before breakfast. [facility] insulin glargine U-300 conc (TOUJEO MAX U-300 SOLOSTAR) 300 unit/mL (3 mL) In 12-18 00:00: 00 04-27 00:00 :00 No 10U inject 10 Units under the skin daily before breakfast. [facility] metoprolol succinate XL 50 mg 24 hr tablet 12-18 00:00: 00 02-24 00:00 :00 No [id number] 50mg Take 1 tablet by mouth in the morning. [facility] lisinopriL 20 mg tablet 12-18 00:00: 00 01-27 00:00 :00 No [id number] 20mg Take 1 tablet by mouth in the morning and 1 tablet in the evening. [facility] hydroCHLORO thiazide 25 mg tablet 12-18 00:00: 00 01-27 00:00 :00 No [id number] 25mg Take 1 tablet by mouth in the morning. [facility] metFORMIN 500 mg tablet 12-18 00:00: 00 01-27 00:00 :00 No 500mg Take 1 tablet by mouth in the morning and 1 tablet in the evening. Take with meals. [facility] atorvastati n 40 mg tablet 12-18 00:00: 00 01-17 00:00 :00 No [id number] 40mg Take 1 tablet by mouth at bedtime. [facility] gabapentin 100 mg capsule 12-18 00:00: 00 01-17 00:00 :00 No [id number] 1 cap in morning, 1 cap in afternoon, and 2 cap at bedtime [facility] glimepiride 1 mg tablet 12-18 00:00: 00 01-17 00:00 :00 No 1mg Take 1 tablet by mouth daily with breakfast. [facility] atorvastati n 40 mg tablet 12-18 00:00: 00 01-17 00:00 :00 No [id number] 40mg Take 1 tablet by mouth at bedtime. [facility] gabapentin 100 mg capsule 12-18 00:00: 00 01-17 00:00 :00 No [id number] 1 cap in morning, 1 cap in afternoon, and 2 cap at bedtime [facility] glimepiride 1 mg tablet 12-18 00:00: 00 01-17 00:00 :00 No 1mg Take 1 tablet by mouth daily with breakfast. [facility] atorvastati n 40 mg tablet 12-18 00:00: 00 01-17 00:00 :00 No [id number] 40mg Take 1 tablet by mouth at bedtime. [facility] gabapentin 100 mg capsule 12-18 00:00: 00 01-17 00:00 :00 No [id number] 1 cap in morning, 1 cap in afternoon, and 2 cap at bedtime [facility] glimepiride 1 mg tablet 12-18 00:00: 00 01-17 00:00 :00 No 1mg Take 1 tablet by mouth daily with breakfast. [facility] dulaglutide (TRULICITY) 0.75 mg/0.5 mL PnIj 12-18 00:00: 00 12-21 00:00 :00 No .75mg inject 1 Pen under the skin weekly. [facility] dulaglutide (TRULICITY) 0.75 mg/0.5 mL PnIj 12-18 00:00: 00 12-21 00:00 :00 No .75mg inject 1 Pen under the skin weekly. [facility] buPROPion XL 300 mg 24 hr tablet 11-16 00:00: 00 Yes [id number] 300mg Take 1 tablet by mouth in the morning. [facility] ARIPiprazol e (ABILIFY) 2 mg tablet 11-16 00:00: 00 Yes [id number] 2mg Take 1 tablet by mouth in the morning. [facility] atorvastati n 40 mg tablet 11-16 00:00: 00 Yes [id number] 40mg Take 1 tablet by mouth at bedtime. [facility] metoprolol succinate XL 50 mg 24 hr tablet 11-16 00:00: 00 Yes [id number] 50mg Take 1 tablet by mouth in the morning. [facility] lisinopriL 20 mg tablet 11-16 00:00: 00 Yes [id number] 20mg Take 1 tablet by mouth in the morning and 1 tablet in the evening. [facility] hydroCHLORO thiazide 25 mg tablet 11-16 00:00: 00 Yes [id number] 25mg Take 1 tablet by mouth in the morning. [facility] gabapentin 100 mg capsule 11-16 00:00: 00 Yes [id number] 1 cap in morning, 1 cap in afternoon, and 2 cap at bedtime [facility] metFORMIN 500 mg tablet 11-16 00:00: 00 Yes 500mg Take 1 tablet by mouth in the morning and 1 tablet in the evening. Take with meals. [facility] insulin glargine U-300 conc (TOUJEO MAX U-300 SOLOSTAR) 300 unit/mL (3 mL) InPn 11-16 00:00: 00 Yes 10U inject 10 Units under the skin daily before breakfast. [facility] glimepiride 1 mg tablet 11-16 00:00: 00 Yes 1mg Take 1 tablet by mouth daily with breakfast. [facility] dulaglutide (TRULICITY) 0.75 mg/0.5 mL PnIj 11-16 00:00: 00 Yes .75mg inject 1 Pen under the skin weekly. [facility] Diclofenac Sodium (VOLTAREN) 1 % gel 11-16 00:00: 00 Yes [id number] Apply to area(s) 4 (four) times daily. Apply 4 g qid [facility] lidocaine 5 % ointment 11-16 00:00: 00 Yes [id number] Apply 2g to affected areas BID PRN [facility] docusate 100 mg capsule 11-16 00:00: 00 Yes [id number] 100mg Take 1 capsule by mouth 2 (two) times daily as needed for Constipati on. [facility] Sennosides 8.6 mg Cap 11-16 00:00: 00 Yes [id number] 1{capsu le} Take 1 capsule by mouth once daily as needed for Constipati on. [facility] buPROPion XL 300 mg 24 hr tablet 11-16 00:00: 00 Yes [id number] 300mg Take 1 tablet by mouth in the morning. [facility] ARIPiprazol e (ABILIFY) 2 mg tablet 11-16 00:00: 00 Yes [id number] 2mg Take 1 tablet by mouth in the morning. [facility] atorvastati n 40 mg tablet 11-16 00:00: 00 Yes [id number] 40mg Take 1 tablet by mouth at bedtime. [facility] metoprolol succinate XL 50 mg 24 hr tablet 11-16 00:00: 00 Yes [id number] 50mg Take 1 tablet by mouth in the morning. [facility] lisinopriL 20 mg tablet 11-16 00:00: 00 Yes [id number] 20mg Take 1 tablet by mouth in the morning and 1 tablet in the evening. [facility] hydroCHLORO thiazide 25 mg tablet 11-16 00:00: 00 Yes [id number] 25mg Take 1 tablet by mouth in the morning. [facility] gabapentin 100 mg capsule 11-16 00:00: 00 Yes [id number] 1 cap in morning, 1 cap in afternoon, and 2 cap at bedtime [facility] metFORMIN 500 mg tablet 11-16 00:00: 00 Yes 500mg Take 1 tablet by mouth in the morning and 1 tablet in the evening. Take with meals. [facility] insulin glargine U-300 conc (TOUJEO MAX U-300 SOLOSTAR) 300 unit/mL (3 mL) InPn 11-16 00:00: 00 Yes 10U inject 10 Units under the skin daily before breakfast. [facility] glimepiride 1 mg tablet 11-16 00:00: 00 Yes 1mg Take 1 tablet by mouth daily with breakfast. [facility] dulaglutide (TRULICITY) 0.75 mg/0.5 mL PnIj 11-16 00:00: 00 Yes .75mg inject 1 Pen under the skin weekly. [facility] Diclofenac Sodium (VOLTAREN) 1 % gel 11-16 00:00: 00 Yes [id number] Apply to area(s) 4 (four) times daily. Apply 4 g qid [facility] lidocaine 5 % ointment 11-16 00:00: 00 Yes [id number] Apply 2g to affected areas BID PRN [facility] docusate 100 mg capsule 11-16 00:00: 00 Yes [id number] 100mg Take 1 capsule by mouth 2 (two) times daily as needed for Constipati on. [facility] Sennosides 8.6 mg Cap 11-16 00:00: 00 Yes [id number] 1{capsu le} Take 1 capsule by mouth once daily as needed for Constipati on. [facility] buPROPion XL 300 mg 24 hr tablet 11-16 00:00: 00 Yes [id number] 300mg Take 1 tablet by mouth in the morning. [facility] ARIPiprazol e (ABILIFY) 2 mg tablet 11-16 00:00: 00 Yes [id number] 2mg Take 1 tablet by mouth in the morning. [facility] atorvastati n 40 mg tablet 11-16 00:00: 00 Yes [id number] 40mg Take 1 tablet by mouth at bedtime. [facility] metoprolol succinate XL 50 mg 24 hr tablet 11-16 00:00: 00 Yes [id number] 50mg Take 1 tablet by mouth in the morning. [facility] lisinopriL 20 mg tablet 11-16 00:00: 00 Yes [id number] 20mg Take 1 tablet by mouth in the morning and 1 tablet in the evening. [facility] hydroCHLORO thiazide 25 mg tablet 11-16 00:00: 00 Yes [id number] 25mg Take 1 tablet by mouth in the morning. [facility] gabapentin 100 mg capsule 11-16 00:00: 00 Yes [id number] 1 cap in morning, 1 cap in afternoon, and 2 cap at bedtime [facility] metFORMIN 500 mg tablet 11-16 00:00: 00 Yes 500mg Take 1 tablet by mouth in the morning and 1 tablet in the evening. Take with meals. [facility] insulin glargine U-300 conc (TOUJEO MAX U-300 SOLOSTAR) 300 unit/mL (3 mL) InPn 11-16 00:00: 00 Yes 10U inject 10 Units under the skin daily before breakfast. [facility] glimepiride 1 mg tablet 11-16 00:00: 00 Yes 1mg Take 1 tablet by mouth daily with breakfast. [facility] dulaglutide (TRULICITY) 0.75 mg/0.5 mL PnIj 11-16 00:00: 00 Yes .75mg inject 1 Pen under the skin weekly. [facility] Diclofenac Sodium (VOLTAREN) 1 % gel 11-16 00:00: 00 Yes [id number] Apply to area(s) 4 (four) times daily. Apply 4 g qid [facility] lidocaine 5 % ointment 11-16 00:00: 00 Yes [id number] Apply 2g to affected areas BID PRN [facility] docusate 100 mg capsule 11-16 00:00: 00 Yes [id number] 100mg Take 1 capsule by mouth 2 (two) times daily as needed for Constipati on. [facility] Sennosides 8.6 mg Cap 11-16 00:00: 00 Yes [id number] 1{capsu le} Take 1 capsule by mouth once daily as needed for Constipati on. [facility] buPROPion XL 300 mg 24 hr tablet 11-16 00:00: 00 Yes [id number] 300mg Take 1 tablet by mouth in the morning. [facility] ARIPiprazol e (ABILIFY) 2 mg tablet 11-16 00:00: 00 Yes [id number] 2mg Take 1 tablet by mouth in the morning. [facility] atorvastati n 40 mg tablet 11-16 00:00: 00 Yes [id number] 40mg Take 1 tablet by mouth at bedtime. [facility] metoprolol succinate XL 50 mg 24 hr tablet 11-16 00:00: 00 Yes [id number] 50mg Take 1 tablet by mouth in the morning. [facility] lisinopriL 20 mg tablet 11-16 00:00: 00 Yes [id number] 20mg Take 1 tablet by mouth in the morning and 1 tablet in the evening. [facility] hydroCHLORO thiazide 25 mg tablet 11-16 00:00: 00 Yes [id number] 25mg Take 1 tablet by mouth in the morning. [facility] gabapentin 100 mg capsule 11-16 00:00: 00 Yes [id number] 1 cap in morning, 1 cap in afternoon, and 2 cap at bedtime [facility] metFORMIN 500 mg tablet 11-16 00:00: 00 Yes 500mg Take 1 tablet by mouth in the morning and 1 tablet in the evening. Take with meals. [facility] insulin glargine U-300 conc (TOUJEO MAX U-300 SOLOSTAR) 300 unit/mL (3 mL) InPn 11-16 00:00: 00 Yes 10U inject 10 Units under the skin daily before breakfast. [facility] glimepiride 1 mg tablet 11-16 00:00: 00 Yes 1mg Take 1 tablet by mouth daily with breakfast. [facility] dulaglutide (TRULICITY) 0.75 mg/0.5 mL PnIj 11-16 00:00: 00 Yes .75mg inject 1 Pen under the skin weekly. [facility] Diclofenac Sodium (VOLTAREN) 1 % gel 11-16 00:00: 00 Yes [id number] Apply to area(s) 4 (four) times daily. Apply 4 g qid [facility] lidocaine 5 % ointment 11-16 00:00: 00 Yes [id number] Apply 2g to affected areas BID PRN [facility] docusate 100 mg capsule 11-16 00:00: 00 Yes [id number] 100mg Take 1 capsule by mouth 2 (two) times daily as needed for Constipati on. [facility] Sennosides 8.6 mg Cap 11-16 00:00: 00 Yes [id number] 1{capsu le} Take 1 capsule by mouth once daily as needed for Constipati on. [facility] buPROPion XL 300 mg 24 hr tablet 11-16 00:00: 00 Yes [id number] 300mg Take 1 tablet by mouth in the morning. [facility] ARIPiprazol e (ABILIFY) 2 mg tablet 11-16 00:00: 00 Yes [id number] 2mg Take 1 tablet by mouth in the morning. [facility] atorvastati n 40 mg tablet 11-16 00:00: 00 Yes [id number] 40mg Take 1 tablet by mouth at bedtime. [facility] metoprolol succinate XL 50 mg 24 hr tablet 11-16 00:00: 00 Yes [id number] 50mg Take 1 tablet by mouth in the morning. [facility] lisinopriL 20 mg tablet 11-16 00:00: 00 Yes [id number] 20mg Take 1 tablet by mouth in the morning and 1 tablet in the evening. [facility] hydroCHLORO thiazide 25 mg tablet 11-16 00:00: 00 Yes [id number] 25mg Take 1 tablet by mouth in the morning. [facility] gabapentin 100 mg capsule 11-16 00:00: 00 Yes [id number] 1 cap in morning, 1 cap in afternoon, and 2 cap at bedtime [facility] metFORMIN 500 mg tablet 11-16 00:00: 00 Yes 500mg Take 1 tablet by mouth in the morning and 1 tablet in the evening. Take with meals. [facility] insulin glargine U-300 conc (TOUJEO MAX U-300 SOLOSTAR) 300 unit/mL (3 mL) InPn 11-16 00:00: 00 Yes 10U inject 10 Units under the skin daily before breakfast. [facility] glimepiride 1 mg tablet 11-16 00:00: 00 Yes 1mg Take 1 tablet by mouth daily with breakfast. [facility] dulaglutide (TRULICITY) 0.75 mg/0.5 mL PnIj 11-16 00:00: 00 Yes .75mg inject 1 Pen under the skin weekly. [facility] Diclofenac Sodium (VOLTAREN) 1 % gel 11-16 00:00: 00 Yes [id number] Apply to area(s) 4 (four) times daily. Apply 4 g qid [facility] lidocaine 5 % ointment 11-16 00:00: 00 Yes [id number] Apply 2g to affected areas BID PRN [facility] docusate 100 mg capsule 11-16 00:00: 00 Yes [id number] 100mg Take 1 capsule by mouth 2 (two) times daily as needed for Constipati on. [facility] Sennosides 8.6 mg Cap 11-16 00:00: 00 Yes [id number] 1{capsu le} Take 1 capsule by mouth once daily as needed for Constipati on. [facility] buPROPion XL 300 mg 24 hr tablet 11-16 00:00: 00 Yes [id number] 300mg Take 1 tablet by mouth in the morning. [facility] ARIPiprazol e (ABILIFY) 2 mg tablet 11-16 00:00: 00 Yes [id number] 2mg Take 1 tablet by mouth in the morning. [facility] atorvastati n 40 mg tablet 11-16 00:00: 00 Yes [id number] 40mg Take 1 tablet by mouth at bedtime. [facility] metoprolol succinate XL 50 mg 24 hr tablet 11-16 00:00: 00 Yes [id number] 50mg Take 1 tablet by mouth in the morning. [facility] lisinopriL 20 mg tablet 11-16 00:00: 00 Yes [id number] 20mg Take 1 tablet by mouth in the morning and 1 tablet in the evening. [facility] hydroCHLORO thiazide 25 mg tablet 11-16 00:00: 00 Yes [id number] 25mg Take 1 tablet by mouth in the morning. [facility] gabapentin 100 mg capsule 11-16 00:00: 00 Yes [id number] 1 cap in morning, 1 cap in afternoon, and 2 cap at bedtime [facility] metFORMIN 500 mg tablet 11-16 00:00: 00 Yes 500mg Take 1 tablet by mouth in the morning and 1 tablet in the evening. Take with meals. [facility] insulin glargine U-300 conc (TOUJEO MAX U-300 SOLOSTAR) 300 unit/mL (3 mL) InPn 11-16 00:00: 00 Yes 10U inject 10 Units under the skin daily before breakfast. [facility] glimepiride 1 mg tablet 11-16 00:00: 00 Yes 1mg Take 1 tablet by mouth daily with breakfast. [facility] dulaglutide (TRULICITY) 0.75 mg/0.5 mL PnIj 11-16 00:00: 00 Yes .75mg inject 1 Pen under the skin weekly. [facility] Diclofenac Sodium (VOLTAREN) 1 % gel 11-16 00:00: 00 Yes [id number] Apply to area(s) 4 (four) times daily. Apply 4 g qid [facility] lidocaine 5 % ointment 11-16 00:00: 00 Yes [id number] Apply 2g to affected areas BID PRN [facility] docusate 100 mg capsule 11-16 00:00: 00 Yes [id number] 100mg Take 1 capsule by mouth 2 (two) times daily as needed for Constipati on. [facility] Sennosides 8.6 mg Cap 11-16 00:00: 00 Yes [id number] 1{capsu le} Take 1 capsule by mouth once daily as needed for Constipati on. [facility] Diclofenac Sodium (VOLTAREN) 1 % gel 11-16 00:00: 00 Yes [id number] Apply to area(s) 4 (four) times daily. Apply 4 g qid [facility] ity [facility] lidocaine 5 % ointment 11-16 00:00: 00 Yes [id number] Apply 2g to affected areas BID PRN [facility] ity [facility] docusate 100 mg capsule 11-16 00:00: 00 Yes [id number] 100mg Take 1 capsule by mouth 2 (two) times daily as needed for Constipati on. [facility] Sennosides 8.6 mg Cap 11-16 00:00: 00 Yes [id number] 1{capsu le} Take 1 capsule by mouth once daily as needed for Constipati on. [facility] Diclofenac Sodium (VOLTAREN) 1 % gel 11-16 00:00: 00 Yes [id number] Apply to area(s) 4 (four) times daily. Apply 4 g qid [facility] lidocaine 5 % ointment 11-16 00:00: 00 Yes [id number] Apply 2g to affected areas BID PRN [facility] docusate 100 mg capsule 11-16 00:00: 00 Yes [id number] 100mg Take 1 capsule by mouth 2 (two) times daily as needed for Constipati on. [facility] Sennosides 8.6 mg Cap 11-16 00:00: 00 Yes [id number] 1{capsu le} Take 1 capsule by mouth once daily as needed for Constipati on. [facility] Diclofenac Sodium (VOLTAREN) 1 % gel 11-16 00:00: 00 Yes [id number] Apply to area(s) 4 (four) times daily. Apply 4 g qid [facility] ity [facility] lidocaine 5 % ointment 11-16 00:00: 00 Yes [id number] Apply 2g to affected areas BID PRN [facility] docusate 100 mg capsule 2022-0 11-16 00:00: 00 Yes [id number] 100mg Take 1 capsule by mouth 2 (two) times daily as needed for Constipati on. [facility] Sennosides 8.6 mg Cap 2022-0 11-16 00:00: 00 Yes [id number] 1{capsu le} Take 1 capsule by mouth once daily as needed for Constipati on. [facility] Diclofenac Sodium (VOLTAREN) 1 % gel 0 11-16 00:00: 00 Yes [id number] Apply to area(s) 4 (four) times daily. Apply 4 g qid [facility] ity [facility] lidocaine 5 % ointment 0 11-16 00:00: 00 Yes [id number] Apply 2g to affected areas BID PRN [facility] docusate 100 mg capsule 2022-0 11-16 00:00: 00 Yes [id number] 100mg Take 1 capsule by mouth 2 (two) times daily as needed for Constipati on. [facility] Sennosides 8.6 mg Cap 2022-0 11-16 00:00: 00 Yes [id number] 1{capsu le} Take 1 capsule by mouth once daily as needed for Constipati on. [facility] Diclofenac Sodium (VOLTAREN) 1 % gel 11-16 00:00: 00 01-20 00:00 :00 No [id number] Apply to area(s) 4 (four) times daily. Apply 4 g qid [facility] lidocaine 5 % ointment 0 11-16 00:00: 00 01-20 00:00 :00 No [id number] Apply 2g to affected areas BID PRN [facility] docusate 100 mg capsule 2022-0 11-16 00:00: 00 01-20 00:00 :00 No [id number] 100mg Take 1 capsule by mouth 2 (two) times daily as needed for Constipati on. [facility] Sennosides 8.6 mg Cap 2022-0 11-16 00:00: 00 01-20 00:00 :00 No [id number] 1{capsu le} Take 1 capsule by mouth once daily as needed for Constipati on. [facility] Diclofenac Sodium (VOLTAREN) 1 % gel 11-16 00:00: 00 01-20 00:00 :00 No [id number] Apply to area(s) 4 (four) times daily. Apply 4 g qid [facility] lidocaine 5 % ointment 11-16 00:00: 00 01-20 00:00 :00 No [id number] Apply 2g to affected areas BID PRN [facility] docusate 100 mg capsule 11-16 00:00: 00 01-20 00:00 :00 No [id number] 100mg Take 1 capsule by mouth 2 (two) times daily as needed for Constipati on. [facility] Sennosides 8.6 mg Cap 11-16 00:00: 00 01-20 00:00 :00 No [id number] 1{capsu le} Take 1 capsule by mouth once daily as needed for Constipati on. [facility] buPROPion XL 300 mg 24 hr tablet 11-16 00:00: 00 12-18 00:00 :00 No [id number] 300mg Take 1 tablet by mouth in the morning. [facility] ARIPiprazol e (ABILIFY) 2 mg tablet 11-16 00:00: 00 12-18 00:00 :00 No [id number] 2mg Take 1 tablet by mouth in the morning. [facility] atorvastati n 40 mg tablet 11-16 00:00: 00 12-18 00:00 :00 No [id number] 40mg Take 1 tablet by mouth at bedtime. [facility] metoprolol succinate XL 50 mg 24 hr tablet 11-16 00:00: 00 12-18 00:00 :00 No [id number] 50mg Take 1 tablet by mouth in the morning. [facility] lisinopriL 20 mg tablet 11-16 00:00: 00 12-18 00:00 :00 No [id number] 20mg Take 1 tablet by mouth in the morning and 1 tablet in the evening. [facility] hydroCHLORO thiazide 25 mg tablet 11-16 00:00: 00 12-18 00:00 :00 No [id number] 25mg Take 1 tablet by mouth in the morning. [facility] gabapentin 100 mg capsule 11-16 00:00: 00 12-18 00:00 :00 No [id number] 1 cap in morning, 1 cap in afternoon, and 2 cap at bedtime [facility] metFORMIN 500 mg tablet 11-16 00:00: 00 12-18 00:00 :00 No 500mg Take 1 tablet by mouth in the morning and 1 tablet in the evening. Take with meals. [facility] insulin glargine U-300 conc (TOUJEO MAX U-300 SOLOSTAR) 300 unit/mL (3 mL) InPn 11-16 00:00: 00 12-18 00:00 :00 No 10U inject 10 Units under the skin daily before breakfast. [facility] glimepiride 1 mg tablet 11-16 00:00: 00 12-18 00:00 :00 No 1mg Take 1 tablet by mouth daily with breakfast. [facility] dulaglutide (TRULICITY) 0.75 mg/0.5 mL PnIj 11-16 00:00: 00 12-18 00:00 :00 No .75mg inject 1 Pen under the skin weekly. [facility] HYDROCHLORO THIAZIDE 25 mg tablet 10-22 00:00: 00 Yes [id number] 25mg TAKE 1 TABLET BY MOUTH IN THE MORNING [facility] HYDROCHLORO THIAZIDE 25 mg tablet 10-22 00:00: 00 Yes [id number] 25mg TAKE 1 TABLET BY MOUTH IN THE MORNING [facility] HYDROCHLORO THIAZIDE 25 mg tablet 10-22 00:00: 00 11-16 00:00 :00 No [id number] 25mg TAKE 1 TABLET BY MOUTH IN THE MORNING [facility] HYDROCHLORO THIAZIDE 25 mg tablet 0 4-03 00:00: 00 11-16 00:00 :00 No [id number] 25mg TAKE 1 TABLET BY MOUTH IN THE MORNING [facility] Insulin [place], Disposable, 32 gauge x 1/4" Ndle 2023-0 2-15 00:00: 00 Yes [id number] Use once a day. Use brand that is covered by insurance. [facility] [place], Disposable, 32 gauge x 1/4" Ndle 2023-0 2-15 00:00: 00 Yes [id number] Use once a day. Use brand that is covered by insurance. [facility] [place], Disposable, 32 gauge x 1/4" Ndle 2023-0 2-15 00:00: 00 Yes [id number] Use once a day. Use brand that is covered by insurance. [facility] Insulin [place], Disposable, 32 gauge x 1/4" Ndle 2023-0 2-15 00:00: 00 Yes [id number] Use once a day. Use brand that is covered by insurance. [facility] Insulin [place], Disposable, 32 gauge x 1/4" Ndle 2023-0 2-15 00:00: 00 Yes [id number] Use once a day. Use brand that is covered by insurance. [facility] Insulin [place], Disposable, 32 gauge x 1/4" Ndle 2023-0 2-15 00:00: 00 Yes [id number] Use once a day. Use brand that is covered by insurance. [facility] Insulin [place], Disposable, 32 gauge x 1/4" Ndle 2023-0 2-15 00:00: 00 Yes [id number] Use once a day. Use brand that is covered by insurance. [facility] Insulin [place], Disposable, 32 gauge x 1/4" Ndle 2023-0 2-15 00:00: 00 Yes [id number] Use once a day. Use brand that is covered by insurance. [facility] Insulin [place], Disposable, 32 gauge x 1/4" Ndle 2023-0 2-15 00:00: 00 Yes [id number] Use once a day. Use brand that is covered by insurance. [facility] Insulin [place], Disposable, 32 gauge x 1/4" Ndle 2022-0 2-15 00:00: 00 Yes [id number] Use once a day. Use brand that is covered by insurance. [facility] Insulin [place], Disposable, 32 gauge x 1/4" Ndle 3-0 2-15 00:00: 00 Yes [id number] Use once a day. Use brand that is covered by insurance. [facility] Insulin [place], Disposable, 32 gauge x 1/4" Ndle 3-0 2-15 00:00: 00 12-18 00:00 :00 No [id number] Use once a day. Use brand that is covered by insurance. [facility] azelastine 0.05 % ophthalmic solution 2022-0 25 00:00: 00 Yes [id number] 1[drp] Place 1 Drop in both eyes in the morning and 1 Drop in the evening. [facility] azelastine 0.05 % ophthalmic solution 2022-0 25 00:00: 00 Yes [id number] 1[drp] Place 1 Drop in both eyes in the morning and 1 Drop in the evening. [facility] azelastine 0.05 % ophthalmic solution 2022-0 25 00:00: 00 Yes [id number] 1[drp] Place 1 Drop in both eyes in the morning and 1 Drop in the evening. [facility] azelastine 0.05 % ophthalmic solution 2022-0 25 00:00: 00 Yes [id number] 1[drp] Place 1 Drop in both eyes in the morning and 1 Drop in the evening. [facility] azelastine 0.05 % ophthalmic solution 2022-0 25 00:00: 00 Yes [id number] 1[drp] Place 1 Drop in both eyes in the morning and 1 Drop in the evening. [facility] azelastine 0.05 % ophthalmic solution 2022-0 25 00:00: 00 Yes [id number] 1[drp] Place 1 Drop in both eyes in the morning and 1 Drop in the evening. [facility] azelastine 0.05 % ophthalmic solution 08-15 00:00: 00 Yes [id number] 1[drp] Place 1 Drop in both eyes in the morning and 1 Drop in the evening. [facility] azelastine 0.05 % ophthalmic solution 08-15 00:00: 00 11-16 00:00 :00 No [id number] 1[drp] Place 1 Drop in both eyes in the morning and 1 Drop in the evening. [facility] azelastine 0.05 % ophthalmic solution 08-15 00:00: 00 11-16 00:00 :00 No [id number] 1[drp] Place 1 Drop in both eyes in the morning and 1 Drop in the evening. [facility] neomycin-po lymyxin-dex amethasone (MAXITROL) 3.5mg/mL-10 ,000 unit/mL-0.1 % ophthalmic suspension drops 08-13 00:00: 00 Yes [id number] 1[drp] Place 1 Drop in right eye 4 (four) times daily. [facility] epinastine 0.05 % ophthalmic drops 08-13 00:00: 00 Yes [id number] 1[drp] Place 1 Drop in right eye in the morning and 1 Drop in the evening. [facility] neomycin-po lymyxin-dex amethasone (MAXITROL) 3.5mg/mL-10 ,000 unit/mL-0.1 % ophthalmic suspension drops 08-13 00:00: 00 Yes [id number] 1[drp] Place 1 Drop in right eye 4 (four) times daily. [facility] epinastine 0.05 % ophthalmic drops 08-13 00:00: 00 Yes [id number] 1[drp] Place 1 Drop in right eye in the morning and 1 Drop in the evening. [facility] triamcinolo ne 55 mcg nasal inhaler 08-13 00:00: 00 Yes [id number] 1{spray } Use 1 [place] in each nostril in the morning and 1 [place] in the evening. Get over the counter Nasacort or triamcinol one nasal spray if not covered [facility] famotidine (PEPCID) 40 mg tablet 08-13 00:00: 00 Yes [id number] 40mg Take 1 tablet by mouth in the morning. [facility] triamcinolo ne 55 mcg nasal inhaler 08-13 00:00: 00 Yes [id number] 1{spray } Use 1 [place] in each nostril in the morning and 1 [place] in the evening. Get over the counter Nasacort or triamcinol one nasal spray if not covered [facility] famotidine (PEPCID) 40 mg tablet 08-13 00:00: 00 Yes [id number] 40mg Take 1 tablet by mouth in the morning. [facility] mcg nasal inhaler 08-13 00:00: 00 Yes [id number] 1{spray } Use 1 [place] in each nostril in the morning and 1 [place] in the evening. Get over the counter Nasacort or triamcinol one nasal spray if not covered [facility] famotidine (PEPCID) 40 mg tablet 08-13 00:00: 00 Yes [id number] 40mg Take 1 tablet by mouth in the morning. [facility] neomycin-po lymyxin-dex amethasone (MAXITROL) 3.5mg/mL-10 ,000 unit/mL-0.1 % ophthalmic suspension drops 08-13 00:00: 00 Yes [id number] 1[drp] Place 1 Drop in right eye 4 (four) times daily. [facility] epinastine 0.05 % ophthalmic drops 08-13 00:00: 00 Yes [id number] 1[drp] Place 1 Drop in right eye in the morning and 1 Drop in the evening. [facility] triamcinolo ne 55 mcg nasal inhaler 08-13 00:00: 00 Yes [id number] 1{spray } Use 1 [place] in each nostril in the morning and 1 [place] in the evening. Get over the counter Nasacort or triamcinol one nasal spray if not covered [facility] famotidine (PEPCID) 40 mg tablet 08-13 00:00: 00 Yes [id number] 40mg Take 1 tablet by mouth in the morning. [facility] neomycin-po lymyxin-dex amethasone (MAXITROL) 3.5mg/mL-10 ,000 unit/mL-0.1 % ophthalmic suspension drops 08-13 00:00: 00 Yes [id number] 1[drp] Place 1 Drop in right eye 4 (four) times daily. [facility] epinastine 0.05 % ophthalmic drops 08-13 00:00: 00 Yes [id number] 1[drp] Place 1 Drop in right eye in the morning and 1 Drop in the evening. [facility] triamcinolo ne 55 mcg nasal inhaler 08-13 00:00: 00 Yes [id number] 1{spray } Use 1 [place] in each nostril in the morning and 1 [place] in the evening. Get over the counter Nasacort or triamcinol one nasal spray if not covered [facility] famotidine (PEPCID) 40 mg tablet 08-13 00:00: 00 Yes [id number] 40mg Take 1 tablet by mouth in the morning. [facility] neomycin-po lymyxin-dex amethasone (MAXITROL) 3.5mg/mL-10 ,000 unit/mL-0.1 % ophthalmic suspension drops 08-13 00:00: 00 Yes [id number] 1[drp] Place 1 Drop in right eye 4 (four) times daily. [facility] epinastine 0.05 % ophthalmic drops 08-13 00:00: 00 Yes [id number] 1[drp] Place 1 Drop in right eye in the morning and 1 Drop in the evening. [facility] triamcinolo ne 55 mcg nasal inhaler 08-13 00:00: 00 Yes [id number] 1{spray } Use 1 [place] in each nostril in the morning and 1 [place] in the evening. Get over the counter Nasacort or triamcinol one nasal spray if not covered [facility] famotidine (PEPCID) 40 mg tablet 08-13 00:00: 00 Yes [id number] 40mg Take 1 tablet by mouth in the morning. [facility] neomycin-po lymyxin-dex amethasone (MAXITROL) 3.5mg/mL-10 ,000 unit/mL-0.1 % ophthalmic suspension drops 08-13 00:00: 00 Yes [id number] 1[drp] Place 1 Drop in right eye 4 (four) times daily. [facility] epinastine 0.05 % ophthalmic drops 08-13 00:00: 00 Yes [id number] 1[drp] Place 1 Drop in right eye in the morning and 1 Drop in the evening. [facility] triamcinolo ne 55 mcg nasal inhaler 08-13 00:00: 00 Yes [id number] 1{spray } Use 1 [place] in each nostril in the morning and 1 [place] in the evening. Get over the counter Nasacort or triamcinol one nasal spray if not covered [facility] famotidine (PEPCID) 40 mg tablet 08-13 00:00: 00 Yes [id number] 40mg Take 1 tablet by mouth in the morning. [facility] neomycin-po lymyxin-dex amethasone (MAXITROL) 3.5mg/mL-10 ,000 unit/mL-0.1 % ophthalmic suspension drops 08-13 00:00: 00 Yes [id number] 1[drp] Place 1 Drop in right eye 4 (four) times daily. [facility] epinastine 0.05 % ophthalmic drops 08-13 00:00: 00 Yes [id number] 1[drp] Place 1 Drop in right eye in the morning and 1 Drop in the evening. [facility] triamcinolo ne 55 mcg nasal inhaler 08-13 00:00: 00 Yes [id number] 1{spray } Use 1 [place] in each nostril in the morning and 1 [place] in the evening. Get over the counter Nasacort or triamcinol one nasal spray if not covered [facility] famotidine (PEPCID) 40 mg tablet 08-13 00:00: 00 Yes [id number] 40mg Take 1 tablet by mouth in the morning. [facility] neomycin-po lymyxin-dex amethasone (MAXITROL) 3.5mg/mL-10 ,000 unit/mL-0.1 % ophthalmic suspension drops 08-13 00:00: 00 Yes [id number] 1[drp] Place 1 Drop in right eye 4 (four) times daily. [facility] triamcinolo ne 55 mcg nasal inhaler 08-13 00:00: 00 Yes [id number] 1{spray } Use 1 [place] in each nostril in the morning and 1 [place] in the evening. Get over the counter Nasacort or triamcinol one nasal spray if not covered [facility] famotidine (PEPCID) 40 mg tablet 08-13 00:00: 00 Yes [id number] 40mg Take 1 tablet by mouth in the morning. [facility] neomycin-po lymyxin-dex amethasone (MAXITROL) 3.5mg/mL-10 ,000 unit/mL-0.1 % ophthalmic suspension drops 08-13 00:00: 00 Yes [id number] 1[drp] Place 1 Drop in right eye 4 (four) times daily. [facility] triamcinolo ne 55 mcg nasal inhaler 08-13 00:00: 00 Yes [id number] 1{spray } Use 1 [place] in each nostril in the morning and 1 [place] in the evening. Get over the counter Nasacort or triamcinol one nasal spray if not covered [facility] famotidine (PEPCID) 40 mg tablet 08-13 00:00: 00 Yes [id number] 40mg Take 1 tablet by mouth in the morning. [facility] triamcinolo ne 55 mcg nasal inhaler 08-13 00:00: 00 Yes [id number] 1{spray } Use 1 [place] in each nostril in the morning and 1 [place] in the evening. Get over the counter Nasacort or triamcinol one nasal spray if not covered [facility] famotidine (PEPCID) 40 mg tablet 08-13 00:00: 00 Yes [id number] 40mg Take 1 tablet by mouth in the morning. [facility] neomycin-po lymyxin-dex amethasone (MAXITROL) 3.5mg/mL-10 ,000 unit/mL-0.1 % ophthalmic suspension drops 08-13 00:00: 00 Yes [id number] 1[drp] Place 1 Drop in right eye 4 (four) times daily. [facility] triamcinolo ne 55 mcg nasal inhaler 08-13 00:00: 00 Yes [id number] 1{spray } Use 1 [place] in each nostril in the morning and 1 [place] in the evening. Get over the counter Nasacort or triamcinol one nasal spray if not covered [facility] famotidine (PEPCID) 40 mg tablet 08-13 00:00: 00 Yes [id number] 40mg Take 1 tablet by mouth in the morning. [facility] neomycin-po lymyxin-dex amethasone (MAXITROL) 3.5mg/mL-10 ,000 unit/mL-0.1 % ophthalmic suspension drops 08-13 00:00: 00 Yes [id number] 1[drp] Place 1 Drop in right eye 4 (four) times daily. [facility] triamcinolo ne 55 mcg nasal inhaler 08-13 00:00: 00 Yes [id number] 1{spray } Use 1 [place] in each nostril in the morning and 1 [place] in the evening. Get over the counter Nasacort or triamcinol one nasal spray if not covered [facility] famotidine (PEPCID) 40 mg tablet 08-13 00:00: 00 Yes [id number] 40mg Take 1 tablet by mouth in the morning. [facility] neomycin-po lymyxin-dex amethasone (MAXITROL) 3.5mg/mL-10 ,000 unit/mL-0.1 % ophthalmic suspension drops 08-13 00:00: 00 Yes [id number] 1[drp] Place 1 Drop in right eye 4 (four) times daily. [facility] triamcinolo ne 55 mcg nasal inhaler 08-13 00:00: 00 Yes [id number] 1{spray } Use 1 [place] in each nostril in the morning and 1 [place] in the evening. Get over the counter Nasacort or triamcinol one nasal spray if not covered [facility] famotidine (PEPCID) 40 mg tablet 08-13 00:00: 00 Yes [id number] 40mg Take 1 tablet by mouth in the morning. [facility] neomycin-po lymyxin-dex amethasone (MAXITROL) 3.5mg/mL-10 ,000 unit/mL-0.1 % ophthalmic suspension drops 08-13 00:00: 00 Yes [id number] 1[drp] Place 1 Drop in right eye 4 (four) times daily. [facility] mcg nasal inhaler 08-13 00:00: 00 Yes [id number] 1{spray } Use 1 [place] in each nostril in the morning and 1 [place] in the evening. Get over the counter Nasacort or triamcinol one nasal spray if not covered [facility] famotidine (PEPCID) 40 mg tablet 08-13 00:00: 00 Yes [id number] 40mg Take 1 tablet by mouth in the morning. [facility] neomycin-po lymyxin-dex amethasone (MAXITROL) 3.5mg/mL-10 ,000 unit/mL-0.1 % ophthalmic suspension drops 08-13 00:00: 00 Yes [id number] 1[drp] Place 1 Drop in right eye 4 (four) times daily. [facility] 55 mcg nasal inhaler 08-13 00:00: 00 Yes [id number] 1{spray } Use 1 [place] in each nostril in the morning and 1 [place] in the evening. Get over the counter Nasacort or triamcinol one nasal spray if not covered [facility] famotidine (PEPCID) 40 mg tablet 08-13 00:00: 00 Yes [id number] 40mg Take 1 tablet by mouth in the morning. [facility] neomycin-po lymyxin-dex amethasone (MAXITROL) 3.5mg/mL-10 ,000 unit/mL-0.1 % ophthalmic suspension drops 08-13 00:00: 00 Yes [id number] 1[drp] Place 1 Drop in right eye 4 (four) times daily. [facility] triamcinolo ne 55 mcg nasal inhaler 08-13 00:00: 00 Yes [id number] 1{spray } Use 1 [place] in each nostril in the morning and 1 [place] in the evening. Get over the counter Nasacort or triamcinol one nasal spray if not covered [facility] famotidine (PEPCID) 40 mg tablet 08-13 00:00: 00 Yes [id number] 40mg Take 1 tablet by mouth in the morning. [facility] neomycin-po lymyxin-dex amethasone (MAXITROL) 3.5mg/mL-10 ,000 unit/mL-0.1 % ophthalmic suspension drops 08-13 00:00: 00 Yes [id number] 1[drp] Place 1 Drop in right eye 4 (four) times daily. [facility] triamcinolo ne 55 mcg nasal inhaler 08-13 00:00: 00 11-16 00:00 :00 No [id number] 1{spray } Use 1 [place] in each nostril in the morning and 1 [place] in the evening. Get over the counter Nasacort or triamcinol one nasal spray if not covered [facility] famotidine (PEPCID) 40 mg tablet 08-13 00:00: 00 11-16 00:00 :00 No [id number] 40mg Take 1 tablet by mouth in the morning. [facility] neomycin-po lymyxin-dex amethasone (MAXITROL) 3.5mg/mL-10 ,000 unit/mL-0.1 % ophthalmic suspension drops 08-13 00:00: 00 11-16 00:00 :00 No [id number] 1[drp] Place 1 Drop in right eye 4 (four) times daily. [facility] triamcinolo ne 55 mcg nasal inhaler 08-13 00:00: 00 11-16 00:00 :00 No [id number] 1{spray } Use 1 [place] in each nostril in the morning and 1 [place] in the evening. Get over the counter Nasacort or triamcinol one nasal spray if not covered [facility] famotidine (PEPCID) 40 mg tablet 08-13 00:00: 00 11-16 00:00 :00 No [id number] 40mg Take 1 tablet by mouth in the morning. [facility] neomycin-po lymyxin-dex amethasone (MAXITROL) 3.5mg/mL-10 ,000 unit/mL-0.1 % ophthalmic suspension drops 08-13 00:00: 00 11-16 00:00 :00 No [id number] 1[drp] Place 1 Drop in right eye 4 (four) times daily. [facility] epinastine 0.05 % ophthalmic drops 08-13 00:00: 00 08-15 00:00 :00 No [id number] 1[drp] Place 1 Drop in right eye in the morning and 1 Drop in the evening. [facility] epinastine 0.05 % ophthalmic drops 08-13 00:00: 00 08-15 00:00 :00 No [id number] 1[drp] Place 1 Drop in right eye in the morning and 1 Drop in the evening. [facility] epinastine 0.05 % ophthalmic drops 08-13 00:00: 00 08-15 00:00 :00 No [id number] 1[drp] Place 1 Drop in right eye in the morning and 1 Drop in the evening. [facility] epinastine 0.05 % ophthalmic drops 08-13 00:00: 00 08-15 00:00 :00 No [id number] 1[drp] Place 1 Drop in right eye in the morning and 1 Drop in the evening. [facility] gabapentin 100 mg capsule 2022-0 1-05 00:00: 00 Yes [id number] 1 cap in morning, 1 cap in afternoon, and 2 cap at bedtime [facility] gabapentin 100 mg capsule 3-0 1-05 00:00: 00 Yes [id number] 1 cap in morning, 1 cap in afternoon, and 2 cap at bedtime [facility] gabapentin 100 mg capsule 3-0 1-05 00:00: 00 Yes [id number] 1 cap in morning, 1 cap in afternoon, and 2 cap at bedtime [facility] gabapentin 100 mg capsule 3-0 1-05 00:00: 00 Yes [id number] 1 cap in morning, 1 cap in afternoon, and 2 cap at bedtime [facility] gabapentin 100 mg capsule 3-0 1-05 00:00: 00 Yes [id number] 1 cap in morning, 1 cap in afternoon, and 2 cap at bedtime [facility] gabapentin 100 mg capsule 3-0 1-05 00:00: 00 Yes [id number] 1 cap in morning, 1 cap in afternoon, and 2 cap at bedtime [facility] gabapentin 100 mg capsule 3-0 1-05 00:00: 00 Yes [id number] 1 cap in morning, 1 cap in afternoon, and 2 cap at bedtime [facility] gabapentin 100 mg capsule 3-0 1-05 00:00: 00 Yes [id number] 1 cap in morning, 1 cap in afternoon, and 2 cap at bedtime [facility] gabapentin 100 mg capsule 3-0 1-05 00:00: 00 Yes [id number] 1 cap in morning, 1 cap in afternoon, and 2 cap at bedtime [facility] gabapentin 100 mg capsule 2023-0 1-05 00:00: 00 Yes [id number] 1 cap in morning, 1 cap in afternoon, and 2 cap at bedtime [facility] gabapentin 100 mg capsule 2023-0 1-05 00:00: 00 Yes [id number] 1 cap in morning, 1 cap in afternoon, and 2 cap at bedtime [facility] [place] gabapentin 100 mg capsule 2023-0 1-05 00:00: 00 Yes [id number] 1 cap in morning, 1 cap in afternoon, and 2 cap at bedtime [facility] [place] gabapentin 100 mg capsule 2023-0 1-05 00:00: 00 Yes [id number] 1 cap in morning, 1 cap in afternoon, and 2 cap at bedtime [facility] [place] gabapentin 100 mg capsule 2023-0 1-05 00:00: 00 Yes [id number] 1 cap in morning, 1 cap in afternoon, and 2 cap at bedtime [facility] gabapentin 100 mg capsule 2023-0 1-05 00:00: 00 Yes [id number] 1 cap in morning, 1 cap in afternoon, and 2 cap at bedtime [facility] gabapentin 100 mg capsule 2023-0 1-05 00:00: 00 Yes [id number] 1 cap in morning, 1 cap in afternoon, and 2 cap at bedtime [facility] gabapentin 100 mg capsule 2023-0 1-05 00:00: 00 Yes [id number] 1 cap in morning, 1 cap in afternoon, and 2 cap at bedtime [facility] [place] gabapentin 100 mg capsule 2023-0 1-05 00:00: 00 Yes [id number] 1 cap in morning, 1 cap in afternoon, and 2 cap at bedtime [facility] [place] gabapentin 100 mg capsule 2023-0 1-05 00:00: 00 Yes [id number] 1 cap in morning, 1 cap in afternoon, and 2 cap at bedtime [facility] gabapentin 100 mg capsule 2023-0 1-05 00:00: 00 Yes [id number] 1 cap in morning, 1 cap in afternoon, and 2 cap at bedtime [facility] gabapentin 100 mg capsule 2023-0 1-05 00:00: 00 Yes [id number] 1 cap in morning, 1 cap in afternoon, and 2 cap at bedtime [facility] [place] gabapentin 100 mg capsule 2023-0 1-05 00:00: 00 Yes [id number] 1 cap in morning, 1 cap in afternoon, and 2 cap at bedtime [facility] gabapentin 100 mg capsule 07-26 00:00: 00 Yes [id number] 1 cap in morning, 1 cap in afternoon, and 2 cap at bedtime [facility] gabapentin 100 mg capsule 1- 00:00: 00 11-16 00:00 :00 No [id number] 1 cap in morning, 1 cap in afternoon, and 2 cap at bedtime [facility] gabapentin 100 mg capsule - 00:00: 00 11-16 00:00 :00 No [id number] 1 cap in morning, 1 cap in afternoon, and 2 cap at bedtime [facility] dulaglutide (TRULICITY) 0.75 mg/0.5 mL PnIj 2021-07 00:00: 00 Yes [id number] .75mg inject 1 Pen under the skin weekly. [facility] metFORMIN 500 mg tablet 2021-07 00:00: 00 Yes [id number] 500mg Take 1 tablet by mouth in the morning and 1 tablet in the evening. Take with meals. [facility] buPROPion XL 300 mg 24 hr tablet 2021-07 00:00: 00 Yes [id number] 300mg Take 1 tablet by mouth in the morning. [facility] ARIPiprazol e (ABILIFY) 2 mg tablet 2021-07 00:00: 00 Yes [id number] 2mg Take 1 tablet by mouth in the morning. [facility] atorvastati n 40 mg tablet 2021-07 00:00: 00 Yes [id number] 40mg Take 1 tablet by mouth at bedtime. [facility] metoprolol succinate XL 50 mg 24 hr tablet 2021-07 00:00: 00 Yes [id number] 50mg Take 1 tablet by mouth in the morning. [facility] lisinopriL 20 mg tablet 2021-07 00:00: 00 Yes [id number] 20mg Take 1 tablet by mouth in the morning and 1 tablet in the evening. [facility] aspirin 81 mg Cap 2021-07 00:00: 00 Yes [id number] 1{tbl} Take 1 tablet by mouth daily. [facility] insulin glargine U-300 conc (TOUJEO MAX U-300 SOLOSTAR) 300 unit/mL (3 mL) InPn 2021-07 00:00: 00 Yes [id number] 10U inject 10 Units under the skin daily before breakfast. [facility] glimepiride 1 mg tablet 2021-07 00:00: 00 Yes [id number] 1mg Take 1 tablet by mouth daily with breakfast. [facility] dulaglutide (TRULICITY) 0.75 mg/0.5 mL PnIj 2021-07 00:00: 00 Yes [id number] .75mg inject 1 Pen under the skin weekly. [facility] metFORMIN 500 mg tablet 2021-07 00:00: 00 Yes [id number] 500mg Take 1 tablet by mouth in the morning and 1 tablet in the evening. Take with meals. [facility] buPROPion XL 300 mg 24 hr tablet 2021-07 00:00: 00 Yes [id number] 300mg Take 1 tablet by mouth in the morning. [facility] ARIPiprazol e (ABILIFY) 2 mg tablet 2021-07 00:00: 00 Yes [id number] 2mg Take 1 tablet by mouth in the morning. [facility] atorvastati n 40 mg tablet 2021-07 00:00: 00 Yes [id number] 40mg Take 1 tablet by mouth at bedtime. [facility] metoprolol succinate XL 50 mg 24 hr tablet 2021-07 00:00: 00 Yes [id number] 50mg Take 1 tablet by mouth in the morning. [facility] lisinopriL 20 mg tablet 2021-07 00:00: 00 Yes [id number] 20mg Take 1 tablet by mouth in the morning and 1 tablet in the evening. [facility] aspirin 81 mg Cap 2021-07 00:00: 00 Yes [id number] 1{tbl} Take 1 tablet by mouth daily. [facility] insulin glargine U-300 conc (TOUJEO MAX U-300 SOLOSTAR) 300 unit/mL (3 mL) InPn 2021-07 00:00: 00 Yes [id number] 10U inject 10 Units under the skin daily before breakfast. [facility] glimepiride 1 mg tablet 2021-07 00:00: 00 Yes [id number] 1mg Take 1 tablet by mouth daily with breakfast. [facility] dulaglutide (TRULICITY) 0.75 mg/0.5 mL PnIj 2021-07 00:00: 00 Yes [id number] .75mg inject 1 Pen under the skin weekly. [facility] metFORMIN 500 mg tablet 2021-07 00:00: 00 Yes [id number] 500mg Take 1 tablet by mouth in the morning and 1 tablet in the evening. Take with meals. [facility] buPROPion XL 300 mg 24 hr tablet 2021-07 00:00: 00 Yes [id number] 300mg Take 1 tablet by mouth in the morning. [facility] ARIPiprazol e (ABILIFY) 2 mg tablet 2021-07 00:00: 00 Yes [id number] 2mg Take 1 tablet by mouth in the morning. [facility] atorvastati n 40 mg tablet 2021-07 00:00: 00 Yes [id number] 40mg Take 1 tablet by mouth at bedtime. [facility] metoprolol succinate XL 50 mg 24 hr tablet 2021-07 00:00: 00 Yes [id number] 50mg Take 1 tablet by mouth in the morning. [facility] lisinopriL 20 mg tablet 2021-07 00:00: 00 Yes [id number] 20mg Take 1 tablet by mouth in the morning and 1 tablet in the evening. [facility] aspirin 81 mg Cap 2021-07 00:00: 00 Yes [id number] 1{tbl} Take 1 tablet by mouth daily. [facility] insulin glargine U-300 conc (TOUJEO MAX U-300 SOLOSTAR) 300 unit/mL (3 mL) In 2021-07 00:00: 00 Yes [id number] 10U inject 10 Units under the skin daily before breakfast. [facility] glimepiride 1 mg tablet 2021-07 00:00: 00 Yes [id number] 1mg Take 1 tablet by mouth daily with breakfast. [facility] dulaglutide (TRULICITY) 0.75 mg/0.5 mL PnIj 2021-07 00:00: 00 Yes [id number] .75mg inject 1 Pen under the skin weekly. [facility] metFORMIN 500 mg tablet 2021-07 00:00: 00 Yes [id number] 500mg Take 1 tablet by mouth in the morning and 1 tablet in the evening. Take with meals. [facility] buPROPion XL 300 mg 24 hr tablet 2021-07 00:00: 00 Yes [id number] 300mg Take 1 tablet by mouth in the morning. [facility] ARIPiprazol e (ABILIFY) 2 mg tablet 2021-07 00:00: 00 Yes [id number] 2mg Take 1 tablet by mouth in the morning. [facility] atorvastati n 40 mg tablet 2021-07 00:00: 00 Yes [id number] 40mg Take 1 tablet by mouth at bedtime. [facility] metoprolol succinate XL 50 mg 24 hr tablet 2021-07 00:00: 00 Yes [id number] 50mg Take 1 tablet by mouth in the morning. [facility] lisinopriL 20 mg tablet 2021-07 00:00: 00 Yes [id number] 20mg Take 1 tablet by mouth in the morning and 1 tablet in the evening. [facility] aspirin 81 mg Cap 2021-07 00:00: 00 Yes [id number] 1{tbl} Take 1 tablet by mouth daily. [facility] insulin glargine U-300 conc (TOUJEO MAX U-300 SOLOSTAR) 300 unit/mL (3 mL) [facility] 2021-07 00:00: 00 Yes [id number] 10U inject 10 Units under the skin daily before breakfast. [facility] glimepiride 1 mg tablet 2021-07 00:00: 00 Yes [id number] 1mg Take 1 tablet by mouth daily with breakfast. [facility] dulaglutide (TRULICITY) 0.75 mg/0.5 mL PnIj 2021-07 00:00: 00 Yes [id number] .75mg inject 1 Pen under the skin weekly. [facility] metFORMIN 500 mg tablet 2021-07 00:00: 00 Yes [id number] 500mg Take 1 tablet by mouth in the morning and 1 tablet in the evening. Take with meals. [facility] buPROPion XL 300 mg 24 hr tablet 2021-07 00:00: 00 Yes [id number] 300mg Take 1 tablet by mouth in the morning. [facility] ARIPiprazol e (ABILIFY) 2 mg tablet 2021-07 00:00: 00 Yes [id number] 2mg Take 1 tablet by mouth in the morning. [facility] atorvastati n 40 mg tablet 2021-07 00:00: 00 Yes [id number] 40mg Take 1 tablet by mouth at bedtime. [facility] metoprolol succinate XL 50 mg 24 hr tablet 2021-07 00:00: 00 Yes [id number] 50mg Take 1 tablet by mouth in the morning. [facility] lisinopriL 20 mg tablet 2021-07 00:00: 00 Yes [id number] 20mg Take 1 tablet by mouth in the morning and 1 tablet in the evening. [facility] aspirin 81 mg Cap 2021-07 00:00: 00 Yes [id number] 1{tbl} Take 1 tablet by mouth daily. [facility] insulin glargine U-300 conc (TOUJEO MAX U-300 SOLOSTAR) 300 unit/mL (3 mL) InPn 2021-07 00:00: 00 Yes [id number] 10U inject 10 Units under the skin daily before breakfast. [facility] glimepiride 1 mg tablet 2021-07 00:00: 00 Yes [id number] 1mg Take 1 tablet by mouth daily with breakfast. [facility] dulaglutide (TRULICITY) 0.75 mg/0.5 mL PnIj 2021-07 00:00: 00 Yes [id number] .75mg inject 1 Pen under the skin weekly. [facility] metFORMIN 500 mg tablet 2021-07 00:00: 00 Yes [id number] 500mg Take 1 tablet by mouth in the morning and 1 tablet in the evening. Take with meals. [facility] buPROPion XL 300 mg 24 hr tablet 2021-07 00:00: 00 Yes [id number] 300mg Take 1 tablet by mouth in the morning. [facility] ARIPiprazol e (ABILIFY) 2 mg tablet 2021-07 00:00: 00 Yes [id number] 2mg Take 1 tablet by mouth in the morning. [facility] atorvastati n 40 mg tablet 2021-07 00:00: 00 Yes [id number] 40mg Take 1 tablet by mouth at bedtime. [facility] metoprolol succinate XL 50 mg 24 hr tablet 2021-07 00:00: 00 Yes [id number] 50mg Take 1 tablet by mouth in the morning. [facility] lisinopriL 20 mg tablet 2021-07 00:00: 00 Yes [id number] 20mg Take 1 tablet by mouth in the morning and 1 tablet in the evening. [facility] aspirin 81 mg Cap 2021-07 00:00: 00 Yes [id number] 1{tbl} Take 1 tablet by mouth daily. [facility] insulin glargine U-300 conc (TOUJEO MAX U-300 SOLOSTAR) 300 unit/mL (3 mL) InPn 2021-07 00:00: 00 Yes [id number] 10U inject 10 Units under the skin daily before breakfast. [facility] glimepiride 1 mg tablet 2021-07 00:00: 00 Yes [id number] 1mg Take 1 tablet by mouth daily with breakfast. [facility] dulaglutide (TRULICITY) 0.75 mg/0.5 mL PnIj 2021-07 00:00: 00 Yes [id number] .75mg inject 1 Pen under the skin weekly. [facility] metFORMIN 500 mg tablet 2021-07 00:00: 00 Yes [id number] 500mg Take 1 tablet by mouth in the morning and 1 tablet in the evening. Take with meals. [facility] buPROPion XL 300 mg 24 hr tablet 2021-07 00:00: 00 Yes [id number] 300mg Take 1 tablet by mouth in the morning. [facility] ARIPiprazol e (ABILIFY) 2 mg tablet 2021-07 00:00: 00 Yes [id number] 2mg Take 1 tablet by mouth in the morning. [facility] atorvastati n 40 mg tablet 2021-07 00:00: 00 Yes [id number] 40mg Take 1 tablet by mouth at bedtime. [facility] metoprolol succinate XL 50 mg 24 hr tablet 2021-07 00:00: 00 Yes [id number] 50mg Take 1 tablet by mouth in the morning. [facility] lisinopriL 20 mg tablet 2021-07 00:00: 00 Yes [id number] 20mg Take 1 tablet by mouth in the morning and 1 tablet in the evening. [facility] aspirin 81 mg Cap 2021-07 00:00: 00 Yes [id number] 1{tbl} Take 1 tablet by mouth daily. [facility] insulin glargine U-300 conc (TOUJEO MAX U-300 SOLOSTAR) 300 unit/mL (3 mL) InPn 2021-07 00:00: 00 Yes [id number] 10U inject 10 Units under the skin daily before breakfast. [facility] glimepiride 1 mg tablet 2021-07 00:00: 00 Yes [id number] 1mg Take 1 tablet by mouth daily with breakfast. [facility] dulaglutide (TRULICITY) 0.75 mg/0.5 mL PnIj 2021-07 00:00: 00 Yes [id number] .75mg inject 1 Pen under the skin weekly. [facility] metFORMIN 500 mg tablet 2021-07 00:00: 00 Yes [id number] 500mg Take 1 tablet by mouth in the morning and 1 tablet in the evening. Take with meals. [facility] buPROPion XL 300 mg 24 hr tablet 2021-07 00:00: 00 Yes [id number] 300mg Take 1 tablet by mouth in the morning. [facility] ARIPiprazol e (ABILIFY) 2 mg tablet 2021-07 00:00: 00 Yes [id number] 2mg Take 1 tablet by mouth in the morning. [facility] atorvastati n 40 mg tablet 2021-07 00:00: 00 Yes [id number] 40mg Take 1 tablet by mouth at bedtime. [facility] metoprolol succinate XL 50 mg 24 hr tablet 2021-07 00:00: 00 Yes [id number] 50mg Take 1 tablet by mouth in the morning. [facility] lisinopriL 20 mg tablet 2021-07 00:00: 00 Yes [id number] 20mg Take 1 tablet by mouth in the morning and 1 tablet in the evening. [facility] aspirin 81 mg Cap 2021-07 00:00: 00 Yes [id number] 1{tbl} Take 1 tablet by mouth daily. [facility] insulin glargine U-300 conc (TOUJEO MAX U-300 SOLOSTAR) 300 unit/mL (3 mL) InPn 2021-07 00:00: 00 Yes [id number] 10U inject 10 Units under the skin daily before breakfast. [facility] glimepiride 1 mg tablet 2021-07 00:00: 00 Yes [id number] 1mg Take 1 tablet by mouth daily with breakfast. [facility] dulaglutide (TRULICITY) 0.75 mg/0.5 mL PnIj 2021-07 00:00: 00 Yes [id number] .75mg inject 1 Pen under the skin weekly. [facility] metFORMIN 500 mg tablet 2021-07 00:00: 00 Yes [id number] 500mg Take 1 tablet by mouth in the morning and 1 tablet in the evening. Take with meals. [facility] buPROPion XL 300 mg 24 hr tablet 2021-07 00:00: 00 Yes [id number] 300mg Take 1 tablet by mouth in the morning. [facility] ARIPiprazol e (ABILIFY) 2 mg tablet 2021-07 00:00: 00 Yes [id number] 2mg Take 1 tablet by mouth in the morning. [facility] atorvastati n 40 mg tablet 2021-07 00:00: 00 Yes [id number] 40mg Take 1 tablet by mouth at bedtime. [facility] metoprolol succinate XL 50 mg 24 hr tablet 2021-07 00:00: 00 Yes [id number] 50mg Take 1 tablet by mouth in the morning. [facility] lisinopriL 20 mg tablet 2021-07 00:00: 00 Yes [id number] 20mg Take 1 tablet by mouth in the morning and 1 tablet in the evening. [facility] aspirin 81 mg Cap 2021-07 00:00: 00 Yes [id number] 1{tbl} Take 1 tablet by mouth daily. [facility] insulin glargine U-300 conc (TOUJEO MAX U-300 SOLOSTAR) 300 unit/mL (3 mL) InPn 2021-07 00:00: 00 Yes [id number] 10U inject 10 Units under the skin daily before breakfast. [facility] glimepiride 1 mg tablet 2021-07 00:00: 00 Yes [id number] 1mg Take 1 tablet by mouth daily with breakfast. [facility] dulaglutide (TRULICITY) 0.75 mg/0.5 mL PnIj 2021-07 00:00: 00 Yes [id number] .75mg inject 1 Pen under the skin weekly. [facility] metFORMIN 500 mg tablet 2021-07 00:00: 00 Yes [id number] 500mg Take 1 tablet by mouth in the morning and 1 tablet in the evening. Take with meals. [facility] buPROPion XL 300 mg 24 hr tablet 2021-07 00:00: 00 Yes [id number] 300mg Take 1 tablet by mouth in the morning. [facility] ARIPiprazol e (ABILIFY) 2 mg tablet 2021-07 00:00: 00 Yes [id number] 2mg Take 1 tablet by mouth in the morning. [facility] atorvastati n 40 mg tablet 2021-07 00:00: 00 Yes [id number] 40mg Take 1 tablet by mouth at bedtime. [facility] metoprolol succinate XL 50 mg 24 hr tablet 2021-07 00:00: 00 Yes [id number] 50mg Take 1 tablet by mouth in the morning. [facility] lisinopriL 20 mg tablet 2021-07 00:00: 00 Yes [id number] 20mg Take 1 tablet by mouth in the morning and 1 tablet in the evening. [facility] aspirin 81 mg Cap 2021-07 00:00: 00 Yes [id number] 1{tbl} Take 1 tablet by mouth daily. [facility] insulin glargine U-300 conc (TOUJEO MAX U-300 SOLOSTAR) 300 unit/mL (3 mL) InPn 2021-07 00:00: 00 Yes [id number] 10U inject 10 Units under the skin daily before breakfast. [facility] glimepiride 1 mg tablet 2021-07 00:00: 00 Yes [id number] 1mg Take 1 tablet by mouth daily with breakfast. [facility] dulaglutide (TRULICITY) 0.75 mg/0.5 mL PnIj 2021-07 00:00: 00 Yes [id number] .75mg inject 1 Pen under the skin weekly. [facility] metFORMIN 500 mg tablet 2021-07 00:00: 00 Yes [id number] 500mg Take 1 tablet by mouth in the morning and 1 tablet in the evening. Take with meals. [facility] buPROPion XL 300 mg 24 hr tablet 2021-07 00:00: 00 Yes [id number] 300mg Take 1 tablet by mouth in the morning. [facility] ARIPiprazol e (ABILIFY) 2 mg tablet 2021-07 00:00: 00 Yes [id number] 2mg Take 1 tablet by mouth in the morning. [facility] atorvastati n 40 mg tablet 2021-07 00:00: 00 Yes [id number] 40mg Take 1 tablet by mouth at bedtime. [facility] metoprolol succinate XL 50 mg 24 hr tablet 2021-07 00:00: 00 Yes [id number] 50mg Take 1 tablet by mouth in the morning. [facility] lisinopriL 20 mg tablet 2021-07 00:00: 00 Yes [id number] 20mg Take 1 tablet by mouth in the morning and 1 tablet in the evening. [facility] aspirin 81 mg Cap 2021-07 00:00: 00 Yes [id number] 1{tbl} Take 1 tablet by mouth daily. [facility] insulin glargine U-300 conc (TOUJEO MAX U-300 SOLOSTAR) 300 unit/mL (3 mL) InPn 2021-07 00:00: 00 Yes [id number] 10U inject 10 Units under the skin daily before breakfast. [facility] glimepiride 1 mg tablet 2021-07 00:00: 00 Yes [id number] 1mg Take 1 tablet by mouth daily with breakfast. [facility] dulaglutide (TRULICITY) 0.75 mg/0.5 mL PnIj 2021-07 00:00: 00 Yes [id number] .75mg inject 1 Pen under the skin weekly. [facility] metFORMIN 500 mg tablet 2021-07 00:00: 00 Yes [id number] 500mg Take 1 tablet by mouth in the morning and 1 tablet in the evening. Take with meals. [facility] buPROPion XL 300 mg 24 hr tablet 2021-07 00:00: 00 Yes [id number] 300mg Take 1 tablet by mouth in the morning. [facility] ARIPiprazol e (ABILIFY) 2 mg tablet 2021-07 00:00: 00 Yes [id number] 2mg Take 1 tablet by mouth in the morning. [facility] atorvastati n 40 mg tablet 2021-07 00:00: 00 Yes [id number] 40mg Take 1 tablet by mouth at bedtime. [facility] metoprolol succinate XL 50 mg 24 hr tablet 2021-07 00:00: 00 Yes [id number] 50mg Take 1 tablet by mouth in the morning. [facility] lisinopriL 20 mg tablet 2021-07 00:00: 00 Yes [id number] 20mg Take 1 tablet by mouth in the morning and 1 tablet in the evening. [facility] aspirin 81 mg Cap 2021-07 00:00: 00 Yes [id number] 1{tbl} Take 1 tablet by mouth daily. [facility] insulin glargine U-300 conc (TOUJEO MAX U-300 SOLOSTAR) 300 unit/mL (3 mL) InPn 2021-07 00:00: 00 Yes [id number] 10U inject 10 Units under the skin daily before breakfast. [facility] glimepiride 1 mg tablet 2021-07 00:00: 00 Yes [id number] 1mg Take 1 tablet by mouth daily with breakfast. [facility] dulaglutide (TRULICITY) 0.75 mg/0.5 mL PnIj 2021-07 00:00: 00 Yes [id number] .75mg inject 1 Pen under the skin weekly. [facility] metFORMIN 500 mg tablet 2021-07 00:00: 00 Yes [id number] 500mg Take 1 tablet by mouth in the morning and 1 tablet in the evening. Take with meals. [facility] buPROPion XL 300 mg 24 hr tablet 2021-07 00:00: 00 Yes [id number] 300mg Take 1 tablet by mouth in the morning. [facility] ARIPiprazol e (ABILIFY) 2 mg tablet 2021-07 00:00: 00 Yes [id number] 2mg Take 1 tablet by mouth in the morning. [facility] atorvastati n 40 mg tablet 2021-07 00:00: 00 Yes [id number] 40mg Take 1 tablet by mouth at bedtime. [facility] metoprolol succinate XL 50 mg 24 hr tablet 2021-07 00:00: 00 Yes [id number] 50mg Take 1 tablet by mouth in the morning. [facility] lisinopriL 20 mg tablet 2021-07 00:00: 00 Yes [id number] 20mg Take 1 tablet by mouth in the morning and 1 tablet in the evening. [facility] aspirin 81 mg Cap 2021-07 00:00: 00 Yes [id number] 1{tbl} Take 1 tablet by mouth daily. [facility] insulin glargine U-300 conc (TOUJEO MAX U-300 SOLOSTAR) 300 unit/mL (3 mL) InPn 2021-07 00:00: 00 Yes [id number] 10U inject 10 Units under the skin daily before breakfast. [facility] glimepiride 1 mg tablet 2021-07 00:00: 00 Yes [id number] 1mg Take 1 tablet by mouth daily with breakfast. [facility] dulaglutide (TRULICITY) 0.75 mg/0.5 mL PnIj 2021-07 00:00: 00 Yes [id number] .75mg inject 1 Pen under the skin weekly. [facility] metFORMIN 500 mg tablet 2021-07 00:00: 00 Yes [id number] 500mg Take 1 tablet by mouth in the morning and 1 tablet in the evening. Take with meals. [facility] buPROPion XL 300 mg 24 hr tablet 2021-07 00:00: 00 Yes [id number] 300mg Take 1 tablet by mouth in the morning. [facility] ARIPiprazol e (ABILIFY) 2 mg tablet 2021-07 00:00: 00 Yes [id number] 2mg Take 1 tablet by mouth in the morning. [facility] atorvastati n 40 mg tablet 2021-07 00:00: 00 Yes [id number] 40mg Take 1 tablet by mouth at bedtime. [facility] metoprolol succinate XL 50 mg 24 hr tablet 2021-07 00:00: 00 Yes [id number] 50mg Take 1 tablet by mouth in the morning. [facility] lisinopriL 20 mg tablet 2021-07 00:00: 00 Yes [id number] 20mg Take 1 tablet by mouth in the morning and 1 tablet in the evening. [facility] aspirin 81 mg Cap 2021-07 00:00: 00 Yes [id number] 1{tbl} Take 1 tablet by mouth daily. [facility] insulin glargine U-300 conc (TOUJEO MAX U-300 SOLOSTAR) 300 unit/mL (3 mL) InPn 2021-07 00:00: 00 Yes [id number] 10U inject 10 Units under the skin daily before breakfast. [facility] glimepiride 1 mg tablet 2021-07 00:00: 00 Yes [id number] 1mg Take 1 tablet by mouth daily with breakfast. [facility] dulaglutide (TRULICITY) 0.75 mg/0.5 mL PnIj 2021-07 00:00: 00 Yes [id number] .75mg inject 1 Pen under the skin weekly. [facility] metFORMIN 500 mg tablet 2021-07 00:00: 00 Yes [id number] 500mg Take 1 tablet by mouth in the morning and 1 tablet in the evening. Take with meals. [facility] buPROPion XL 300 mg 24 hr tablet 2021-07 00:00: 00 Yes [id number] 300mg Take 1 tablet by mouth in the morning. [facility] ARIPiprazol e (ABILIFY) 2 mg tablet 2021-07 00:00: 00 Yes [id number] 2mg Take 1 tablet by mouth in the morning. [facility] atorvastati n 40 mg tablet 2021-07 00:00: 00 Yes [id number] 40mg Take 1 tablet by mouth at bedtime. [facility] metoprolol succinate XL 50 mg 24 hr tablet 2021-07 00:00: 00 Yes [id number] 50mg Take 1 tablet by mouth in the morning. [facility] lisinopriL 20 mg tablet 2021-07 00:00: 00 Yes [id number] 20mg Take 1 tablet by mouth in the morning and 1 tablet in the evening. [facility] aspirin 81 mg Cap 2021-07 00:00: 00 Yes [id number] 1{tbl} Take 1 tablet by mouth daily. [facility] insulin glargine U-300 conc (TOUJEO MAX U-300 SOLOSTAR) 300 unit/mL (3 mL) InPn 2021-07 00:00: 00 Yes [id number] 10U inject 10 Units under the skin daily before breakfast. [facility] glimepiride 1 mg tablet 2021-07 00:00: 00 Yes [id number] 1mg Take 1 tablet by mouth daily with breakfast. [facility] dulaglutide (TRULICITY) 0.75 mg/0.5 mL PnIj 2021-07 00:00: 00 Yes [id number] .75mg inject 1 Pen under the skin weekly. [facility] metFORMIN 500 mg tablet 2021-07 00:00: 00 Yes [id number] 500mg Take 1 tablet by mouth in the morning and 1 tablet in the evening. Take with meals. [facility] buPROPion XL 300 mg 24 hr tablet 2021-07 00:00: 00 Yes [id number] 300mg Take 1 tablet by mouth in the morning. [facility] ARIPiprazol e (ABILIFY) 2 mg tablet 2021-07 00:00: 00 Yes [id number] 2mg Take 1 tablet by mouth in the morning. [facility] atorvastati n 40 mg tablet 2021-07 00:00: 00 Yes [id number] 40mg Take 1 tablet by mouth at bedtime. [facility] metoprolol succinate XL 50 mg 24 hr tablet 2021-07 00:00: 00 Yes [id number] 50mg Take 1 tablet by mouth in the morning. [facility] lisinopriL 20 mg tablet 2021-07 00:00: 00 Yes [id number] 20mg Take 1 tablet by mouth in the morning and 1 tablet in the evening. [facility] aspirin 81 mg Cap 2021-07 00:00: 00 Yes [id number] 1{tbl} Take 1 tablet by mouth daily. [facility] insulin glargine U-300 conc (TOUJEO MAX U-300 SOLOSTAR) 300 unit/mL (3 mL) InPn 2021-07 00:00: 00 Yes [id number] 10U inject 10 Units under the skin daily before breakfast. [facility] glimepiride 1 mg tablet 2021-07 00:00: 00 Yes [id number] 1mg Take 1 tablet by mouth daily with breakfast. [facility] dulaglutide (TRULICITY) 0.75 mg/0.5 mL PnIj 2021-07 00:00: 00 Yes [id number] .75mg inject 1 Pen under the skin weekly. [facility] metFORMIN 500 mg tablet 2021-07 00:00: 00 Yes [id number] 500mg Take 1 tablet by mouth in the morning and 1 tablet in the evening. Take with meals. [facility] buPROPion XL 300 mg 24 hr tablet 2021-07 00:00: 00 Yes [id number] 300mg Take 1 tablet by mouth in the morning. [facility] ARIPiprazol e (ABILIFY) 2 mg tablet 2021-07 00:00: 00 Yes [id number] 2mg Take 1 tablet by mouth in the morning. [facility] atorvastati n 40 mg tablet 2021-07 00:00: 00 Yes [id number] 40mg Take 1 tablet by mouth at bedtime. [facility] metoprolol succinate XL 50 mg 24 hr tablet 2021-07 00:00: 00 Yes [id number] 50mg Take 1 tablet by mouth in the morning. [facility] lisinopriL 20 mg tablet 2021-07 00:00: 00 Yes [id number] 20mg Take 1 tablet by mouth in the morning and 1 tablet in the evening. [facility] aspirin 81 mg Cap 2021-07 00:00: 00 Yes [id number] 1{tbl} Take 1 tablet by mouth daily. [facility] insulin glargine U-300 conc (TOUJEO MAX U-300 SOLOSTAR) 300 unit/mL (3 mL) InPn 2021-07 00:00: 00 Yes [id number] 10U inject 10 Units under the skin daily before breakfast. [facility] glimepiride 1 mg tablet 2021-07 00:00: 00 Yes [id number] 1mg Take 1 tablet by mouth daily with breakfast. [facility] dulaglutide (TRULICITY) 0.75 mg/0.5 mL PnIj 2021-07 00:00: 00 Yes [id number] .75mg inject 1 Pen under the skin weekly. [facility] metFORMIN 500 mg tablet 2021-07 00:00: 00 Yes [id number] 500mg Take 1 tablet by mouth in the morning and 1 tablet in the evening. Take with meals. [facility] buPROPion XL 300 mg 24 hr tablet 2021-07 00:00: 00 Yes [id number] 300mg Take 1 tablet by mouth in the morning. [facility] ARIPiprazol e (ABILIFY) 2 mg tablet 2021-07 00:00: 00 Yes [id number] 2mg Take 1 tablet by mouth in the morning. [facility] atorvastati n 40 mg tablet 2021-07 00:00: 00 Yes [id number] 40mg Take 1 tablet by mouth at bedtime. [facility] metoprolol succinate XL 50 mg 24 hr tablet 2021-07 00:00: 00 Yes [id number] 50mg Take 1 tablet by mouth in the morning. [facility] lisinopriL 20 mg tablet 2021-07 00:00: 00 Yes [id number] 20mg Take 1 tablet by mouth in the morning and 1 tablet in the evening. [facility] aspirin 81 mg Cap 2021-07 00:00: 00 Yes [id number] 1{tbl} Take 1 tablet by mouth daily. [facility] insulin glargine U-300 conc (TOUJEO MAX U-300 SOLOSTAR) 300 unit/mL (3 mL) InPn 2021-07 00:00: 00 Yes [id number] 10U inject 10 Units under the skin daily before breakfast. [facility] glimepiride 1 mg tablet 2021-07 00:00: 00 Yes [id number] 1mg Take 1 tablet by mouth daily with breakfast. [facility] dulaglutide (TRULICITY) 0.75 mg/0.5 mL PnIj 2021-07 00:00: 00 Yes [id number] .75mg inject 1 Pen under the skin weekly. [facility] metFORMIN 500 mg tablet 2021-07 00:00: 00 Yes [id number] 500mg Take 1 tablet by mouth in the morning and 1 tablet in the evening. Take with meals. [facility] buPROPion XL 300 mg 24 hr tablet 2021-07 00:00: 00 Yes [id number] 300mg Take 1 tablet by mouth in the morning. [facility] ARIPiprazol e (ABILIFY) 2 mg tablet 2021-07 00:00: 00 Yes [id number] 2mg Take 1 tablet by mouth in the morning. [facility] atorvastati n 40 mg tablet 2021-07 00:00: 00 Yes [id number] 40mg Take 1 tablet by mouth at bedtime. [facility] metoprolol succinate XL 50 mg 24 hr tablet 2021-07 00:00: 00 Yes [id number] 50mg Take 1 tablet by mouth in the morning. [facility] lisinopriL 20 mg tablet 2021-07 00:00: 00 Yes [id number] 20mg Take 1 tablet by mouth in the morning and 1 tablet in the evening. [facility] aspirin 81 mg Cap 2021-07 00:00: 00 Yes [id number] 1{tbl} Take 1 tablet by mouth daily. [facility] insulin glargine U-300 conc (TOUJEO MAX U-300 SOLOSTAR) 300 unit/mL (3 mL) InPn 2021-07 00:00: 00 Yes [id number] 10U inject 10 Units under the skin daily before breakfast. [facility] glimepiride 1 mg tablet 2021-07 00:00: 00 Yes [id number] 1mg Take 1 tablet by mouth daily with breakfast. [facility] aspirin 81 mg Cap 2021-07 00:00: 00 Yes [id number] 1{tbl} Take 1 tablet by mouth daily. [facility] aspirin 81 mg Cap 2021-07 00:00: 00 Yes [id number] 1{tbl} Take 1 tablet by mouth daily. [facility] aspirin 81 mg Cap 2021-07 00:00: 00 Yes [id number] 1{tbl} Take 1 tablet by mouth daily. [facility] aspirin 81 mg Cap 2021-07 00:00: 00 Yes [id number] 1{tbl} Take 1 tablet by mouth daily. [facility] aspirin 81 mg Cap 2021-07 00:00: 00 Yes [id number] 1{tbl} Take 1 tablet by mouth daily. [facility] aspirin 81 mg Cap 2021-07 00:00: 00 Yes [id number] 1{tbl} Take 1 tablet by mouth daily. [facility] aspirin 81 mg Cap 2021-07 00:00: 00 Yes [id number] 1{tbl} Take 1 tablet by mouth daily. [facility] aspirin 81 mg Cap 2021-07 00:00: 00 Yes [id number] 1{tbl} Take 1 tablet by mouth daily. [facility] aspirin 81 mg Cap 2021-07 00:00: 00 Yes [id number] 1{tbl} Take 1 tablet by mouth daily. [facility] aspirin 81 mg Cap 2021- 2 00:00: 00 Yes [id number] 1{tbl} Take 1 tablet by mouth daily. [facility] aspirin 81 mg Cap 2021-07 00:00: 00 Yes [id number] 1{tbl} Take 1 tablet by mouth daily. [facility] aspirin 81 mg Cap 2021-09-17 00:00: 00 Yes [id number] 1{tbl} Take 1 tablet by mouth daily. [facility] aspirin 81 mg Cap 2021-09-17 00:00: 00 Yes [id number] 1{tbl} Take 1 tablet by mouth daily. [facility] aspirin 81 mg Cap 2021-09-17 00:00: 00 Yes [id number] 1{tbl} Take 1 tablet by mouth daily. [facility] aspirin 81 mg Cap 2021-09-17 00:00: 00 Yes [id number] 1{tbl} Take 1 tablet by mouth daily. [facility] aspirin 81 mg Cap 2021-09-17 00:00: 00 Yes [id number] 1{tbl} Take 1 tablet by mouth daily. [facility] aspirin 81 mg Cap 2021-09-17 00:00: 00 Yes [id number] 1{tbl} Take 1 tablet by mouth daily. [facility] aspirin 81 mg Cap 2021-09-17 00:00: 00 Yes [id number] 1{tbl} Take 1 tablet by mouth daily. [facility] aspirin 81 mg Cap 2021-09-17 00:00: 00 Yes [id number] 1{tbl} Take 1 tablet by mouth daily. [facility] aspirin 81 mg Cap 2021-09-17 00:00: 00 Yes [id number] 1{tbl} Take 1 tablet by mouth daily. [facility] aspirin 81 mg Cap 2021- 2 00:00: 00 Yes [id number] 1{tbl} Take 1 tablet by mouth daily. [facility] aspirin 81 mg Cap 2021-07 00:00: 00 Yes [id number] 1{tbl} Take 1 tablet by mouth daily. [facility] aspirin 81 mg Cap 2021-07 00:00: 00 Yes [id number] 1{tbl} Take 1 tablet by mouth daily. [facility] aspirin 81 mg Cap 2021-07 00:00: 00 Yes [id number] 1{tbl} Take 1 tablet by mouth daily. [facility] aspirin 81 mg Cap 2021-07 00:00: 00 Yes [id number] 1{tbl} Take 1 tablet by mouth daily. [facility] aspirin 81 mg Cap 2021-07 00:00: 00 Yes [id number] 1{tbl} Take 1 tablet by mouth daily. [facility] aspirin 81 mg Cap 2021-07 00:00: 00 Yes [id number] 1{tbl} Take 1 tablet by mouth daily. [facility] aspirin 81 mg Cap 2021-07 00:00: 00 Yes [id number] 1{tbl} Take 1 tablet by mouth daily. [facility] aspirin 81 mg Cap 2021-09-17 00:00: 00 Yes [id number] 1{tbl} Take 1 tablet by mouth daily. [facility] aspirin 81 mg Cap 2021-07 00:00: 00 Yes [id number] 1{tbl} Take 1 tablet by mouth daily. [facility] aspirin 81 mg Cap 2021-07 00:00: 00 Yes [id number] 1{tbl} Take 1 tablet by mouth daily. [facility] aspirin 81 mg Cap 2021-09-17 00:00: 00 Yes [id number] 1{tbl} Take 1 tablet by mouth daily. [facility] aspirin 81 mg Cap 2021-09-17 00:00: 00 Yes [id number] 1{tbl} Take 1 tablet by mouth daily. [facility] aspirin 81 mg Cap 2021-09-17 00:00: 00 Yes [id number] 1{tbl} Take 1 tablet by mouth daily. [facility] aspirin 81 mg Cap 2021-07 00:00: 00 Yes [id number] 1{tbl} Take 1 tablet by mouth daily. [facility] aspirin 81 mg Cap 2021-07 00:00: 00 Yes [id number] 1{tbl} Take 1 tablet by mouth daily. [facility] aspirin 81 mg Cap 2021-07 00:00: 00 Yes [id number] 1{tbl} Take 1 tablet by mouth daily. [facility] aspirin 81 mg Cap 2021-09-17 00:00: 00 Yes [id number] 1{tbl} Take 1 tablet by mouth daily. [facility] aspirin 81 mg Cap 2021-09-17 00:00: 00 Yes [id number] 1{tbl} Take 1 tablet by mouth daily. [facility] aspirin 81 mg Cap 2021-09-17 00:00: 00 Yes [id number] 1{tbl} Take 1 tablet by mouth daily. [facility] aspirin 81 mg Cap 2021-07 00:00: 00 Yes [id number] 1{tbl} Take 1 tablet by mouth daily. [facility] aspirin 81 mg Cap 2021-09-17 00:00: 00 Yes [id number] 1{tbl} Take 1 tablet by mouth daily. [facility] aspirin 81 mg Cap 2021-07 00:00: 00 Yes [id number] 1{tbl} Take 1 tablet by mouth daily. [facility] aspirin 81 mg Cap 2021-09-17 00:00: 00 Yes [id number] 1{tbl} Take 1 tablet by mouth daily. [facility] aspirin 81 mg Cap 2021-09-17 00:00: 00 Yes [id number] 1{tbl} Take 1 tablet by mouth daily. [facility] aspirin 81 mg Cap 2021-09-17 00:00: 00 Yes [id number] 1{tbl} Take 1 tablet by mouth daily. [facility] aspirin 81 mg Cap 2021-09-17 00:00: 00 Yes [id number] 1{tbl} Take 1 tablet by mouth daily. [facility] aspirin 81 mg Cap 2021-09-17 00:00: 00 Yes [id number] 1{tbl} Take 1 tablet by mouth daily. [facility] aspirin 81 mg Cap 2021-09-17 00:00: 00 Yes [id number] 1{tbl} Take 1 tablet by mouth daily. [facility] aspirin 81 mg Cap 2021-09-17 00:00: 00 Yes [id number] 1{tbl} Take 1 tablet by mouth daily. [facility] aspirin 81 mg Cap 2021-09-17 00:00: 00 Yes [id number] 1{tbl} Take 1 tablet by mouth daily. [facility] aspirin 81 mg Cap 2021-09-17 00:00: 00 Yes [id number] 1{tbl} Take 1 tablet by mouth daily. [facility] aspirin 81 mg Cap 2021-09-17 00:00: 00 Yes [id number] 1{tbl} Take 1 tablet by mouth daily. [facility] aspirin 81 mg Cap 2021-09-17 00:00: 00 Yes [id number] 1{tbl} Take 1 tablet by mouth daily. [facility] aspirin 81 mg Cap 2021-09-17 00:00: 00 Yes [id number] 1{tbl} Take 1 tablet by mouth daily. [facility] aspirin 81 mg Cap 2021-07 00:00: 00 Yes [id number] 1{tbl} Take 1 tablet by mouth daily. [facility] aspirin 81 mg Cap 2021-09-17 00:00: 00 Yes [id number] 1{tbl} Take 1 tablet by mouth daily. [facility] aspirin 81 mg Cap 2021-09-17 00:00: 00 Yes [id number] 1{tbl} Take 1 tablet by mouth daily. [facility] aspirin 81 mg Cap 2021-09-17 00:00: 00 Yes [id number] 1{tbl} Take 1 tablet by mouth daily. [facility] aspirin 81 mg Cap 2021-09-17 00:00: 00 Yes [id number] 1{tbl} Take 1 tablet by mouth daily. [facility] aspirin 81 mg Cap 2021- 2 00:00: 00 Yes [id number] 1{tbl} Take 1 tablet by mouth daily. [facility] aspirin 81 mg Cap 2021-09-17 00:00: 00 Yes [id number] 1{tbl} Take 1 tablet by mouth daily. [facility] aspirin 81 mg Cap 2021- 2 00:00: 00 Yes [id number] 1{tbl} Take 1 tablet by mouth daily. [facility] aspirin 81 mg Cap 2021-09-17 00:00: 00 Yes [id number] 1{tbl} Take 1 tablet by mouth daily. [facility] aspirin 81 mg Cap 2021-09-17 00:00: 00 Yes [id number] 1{tbl} Take 1 tablet by mouth daily. [facility] aspirin 81 mg Cap 2021-09-17 00:00: 00 Yes [id number] 1{tbl} Take 1 tablet by mouth daily. [facility] aspirin 81 mg Cap 2021-09-17 00:00: 00 Yes [id number] 1{tbl} Take 1 tablet by mouth daily. [facility] aspirin 81 mg Cap 2021-09-17 00:00: 00 Yes [id number] 1{tbl} Take 1 tablet by mouth daily. [facility] aspirin 81 mg Cap 2021-09-17 00:00: 00 Yes [id number] 1{tbl} Take 1 tablet by mouth daily. [facility] aspirin 81 mg Cap 2021-09-17 00:00: 00 Yes [id number] 1{tbl} Take 1 tablet by mouth daily. [facility] aspirin 81 mg Cap 2021- 2 00:00: 00 Yes [id number] 1{tbl} Take 1 tablet by mouth daily. [facility] aspirin 81 mg Cap 2021- 2 00:00: 00 Yes [id number] 1{tbl} Take 1 tablet by mouth daily. [facility] aspirin 81 mg Cap 202109-17 00:00: 00 Yes [id number] 1{tbl} Take 1 tablet by mouth daily. [facility] aspirin 81 mg Cap 2021-07 00:00: 00 Yes [id number] 1{tbl} Take 1 tablet by mouth daily. [facility] aspirin 81 mg Cap 2021-07 00:00: 00 Yes [id number] 1{tbl} Take 1 tablet by mouth daily. [facility] aspirin 81 mg Cap 2021-07 00:00: 00 Yes [id number] 1{tbl} Take 1 tablet by mouth daily. [facility] aspirin 81 mg Cap 2021-07 00:00: 00 Yes [id number] 1{tbl} Take 1 tablet by mouth daily. [facility] aspirin 81 mg Cap 2021-07 00:00: 00 Yes [id number] 1{tbl} Take 1 tablet by mouth daily. [facility] aspirin 81 mg Cap 2021-07 00:00: 00 Yes [id number] 1{tbl} Take 1 tablet by mouth daily. [facility] aspirin 81 mg Cap 2021-07 00:00: 00 Yes [id number] 1{tbl} Take 1 tablet by mouth daily. [facility] aspirin 81 mg Cap 2021-07 00:00: 00 Yes [id number] 1{tbl} Take 1 tablet by mouth daily. [facility] aspirin 81 mg Cap 2021-07 00:00: 00 Yes [id number] 1{tbl} Take 1 tablet by mouth daily. [facility] aspirin 81 mg Cap 2021-07 00:00: 00 Yes [id number] 1{tbl} Take 1 tablet by mouth daily. [facility] dulaglutide (TRULICITY) 0.75 mg/0.5 mL PnIj 2021-07 00:00: 00 Yes [id number] .75mg inject 1 Pen under the skin weekly. [facility] gabapentin 100 mg capsule 2021-07 00:00: 00 Yes [id number] 100mg Take 1 capsule by mouth in the morning and 1 capsule at noon and 1 capsule in the evening. 1 cap in morning, 1 cap in afternoon, and 2 cap at bedtime [facility] metFORMIN 500 mg tablet 2021-07 00:00: 00 Yes [id number] 500mg Take 1 tablet by mouth in the morning and 1 tablet in the evening. Take with meals. [facility] buPROPion XL 300 mg 24 hr tablet 2021-07 00:00: 00 Yes [id number] 300mg Take 1 tablet by mouth in the morning. [facility] ARIPiprazol e (ABILIFY) 2 mg tablet 2021-07 00:00: 00 Yes [id number] 2mg Take 1 tablet by mouth in the morning. [facility] atorvastati n 40 mg tablet 2021-07 00:00: 00 Yes [id number] 40mg Take 1 tablet by mouth at bedtime. [facility] metoprolol succinate XL 50 mg 24 hr tablet 2021-07 00:00: 00 Yes [id number] 50mg Take 1 tablet by mouth in the morning. [facility] lisinopriL 20 mg tablet 2021-07 00:00: 00 Yes [id number] 20mg Take 1 tablet by mouth in the morning and 1 tablet in the evening. [facility] aspirin 81 mg Cap 2021-07 00:00: 00 Yes [id number] 1{tbl} Take 1 tablet by mouth daily. [facility] insulin glargine U-300 conc (TOUJEO MAX U-300 SOLOSTAR) 300 unit/mL (3 mL) InPn 2021-07 00:00: 00 Yes [id number] 10U inject 10 Units under the skin daily before breakfast. [facility] glimepiride 1 mg tablet 2021-07 00:00: 00 Yes [id number] 1mg Take 1 tablet by mouth daily with breakfast. [facility] dulaglutide (TRULICITY) 0.75 mg/0.5 mL PnIj 2021-07 00:00: 00 Yes [id number] .75mg inject 1 Pen under the skin weekly. [facility] gabapentin 100 mg capsule 2021-07 00:00: 00 Yes [id number] 100mg Take 1 capsule by mouth in the morning and 1 capsule at noon and 1 capsule in the evening. 1 cap in morning, 1 cap in afternoon, and 2 cap at bedtime [facility] metFORMIN 500 mg tablet 2021-07 00:00: 00 Yes [id number] 500mg Take 1 tablet by mouth in the morning and 1 tablet in the evening. Take with meals. [facility] buPROPion XL 300 mg 24 hr tablet 2021-07 00:00: 00 Yes [id number] 300mg Take 1 tablet by mouth in the morning. [facility] ARIPiprazol e (ABILIFY) 2 mg tablet 2021-07 00:00: 00 Yes [id number] 2mg Take 1 tablet by mouth in the morning. [facility] atorvastati n 40 mg tablet 2021-07 00:00: 00 Yes [id number] 40mg Take 1 tablet by mouth at bedtime. [facility] metoprolol succinate XL 50 mg 24 hr tablet 2021-07 00:00: 00 Yes [id number] 50mg Take 1 tablet by mouth in the morning. [facility] lisinopriL 20 mg tablet 2021-07 00:00: 00 Yes [id number] 20mg Take 1 tablet by mouth in the morning and 1 tablet in the evening. [facility] aspirin 81 mg Cap 2021-07 00:00: 00 Yes [id number] 1{tbl} Take 1 tablet by mouth daily. [facility] insulin glargine U-300 conc (TOUJEO MAX U-300 SOLOSTAR) 300 unit/mL (3 mL) InPn 2021-07 00:00: 00 Yes [id number] 10U inject 10 Units under the skin daily before breakfast. [facility] glimepiride 1 mg tablet 2021-07 00:00: 00 Yes [id number] 1mg Take 1 tablet by mouth daily with breakfast. [facility] dulaglutide (TRULICITY) 0.75 mg/0.5 mL PnIj 2021-07 00:00: 00 Yes [id number] .75mg inject 1 Pen under the skin weekly. [facility] gabapentin 100 mg capsule 2021-07 00:00: 00 Yes [id number] 100mg Take 1 capsule by mouth in the morning and 1 capsule at noon and 1 capsule in the evening. 1 cap in morning, 1 cap in afternoon, and 2 cap at bedtime [facility] metFORMIN 500 mg tablet 2021-07 00:00: 00 Yes [id number] 500mg Take 1 tablet by mouth in the morning and 1 tablet in the evening. Take with meals. [facility] buPROPion XL 300 mg 24 hr tablet 2021-07 00:00: 00 Yes [id number] 300mg Take 1 tablet by mouth in the morning. [facility] ARIPiprazol e (ABILIFY) 2 mg tablet 2021-07 00:00: 00 Yes [id number] 2mg Take 1 tablet by mouth in the morning. [facility] atorvastati n 40 mg tablet 2021-07 00:00: 00 Yes [id number] 40mg Take 1 tablet by mouth at bedtime. [facility] metoprolol succinate XL 50 mg 24 hr tablet 2021-07 00:00: 00 Yes [id number] 50mg Take 1 tablet by mouth in the morning. [facility] lisinopriL 20 mg tablet 2021-07 00:00: 00 Yes [id number] 20mg Take 1 tablet by mouth in the morning and 1 tablet in the evening. [facility] aspirin 81 mg Cap 2021-07 00:00: 00 Yes [id number] 1{tbl} Take 1 tablet by mouth daily. [facility] insulin glargine U-300 conc (TOUJEO MAX U-300 SOLOSTAR) 300 unit/mL (3 mL) InPn 2021-07 00:00: 00 Yes [id number] 10U inject 10 Units under the skin daily before breakfast. [facility] glimepiride 1 mg tablet 2021-07 00:00: 00 Yes [id number] 1mg Take 1 tablet by mouth daily with breakfast. [facility] dulaglutide (TRULICITY) 0.75 mg/0.5 mL PnIj 2021-07 00:00: 00 Yes [id number] .75mg inject 1 Pen under the skin weekly. [facility] gabapentin 100 mg capsule 2021-07 00:00: 00 Yes [id number] 100mg Take 1 capsule by mouth in the morning and 1 capsule at noon and 1 capsule in the evening. 1 cap in morning, 1 cap in afternoon, and 2 cap at bedtime [facility] metFORMIN 500 mg tablet 2021-07 00:00: 00 Yes [id number] 500mg Take 1 tablet by mouth in the morning and 1 tablet in the evening. Take with meals. [facility] buPROPion XL 300 mg 24 hr tablet 2021-07 00:00: 00 Yes [id number] 300mg Take 1 tablet by mouth in the morning. [facility] ARIPiprazol e (ABILIFY) 2 mg tablet 2021-07 00:00: 00 Yes [id number] 2mg Take 1 tablet by mouth in the morning. [facility] atorvastati n 40 mg tablet 2021-07 00:00: 00 Yes [id number] 40mg Take 1 tablet by mouth at bedtime. [facility] metoprolol succinate XL 50 mg 24 hr tablet 2021-07 00:00: 00 Yes [id number] 50mg Take 1 tablet by mouth in the morning. [facility] lisinopriL 20 mg tablet 2021-07 00:00: 00 Yes [id number] 20mg Take 1 tablet by mouth in the morning and 1 tablet in the evening. [facility] aspirin 81 mg Cap 2021-07 00:00: 00 Yes [id number] 1{tbl} Take 1 tablet by mouth daily. [facility] insulin glargine U-300 conc (TOUJEO MAX U-300 SOLOSTAR) 300 unit/mL (3 mL) InPn 2021-07 00:00: 00 Yes [id number] 10U inject 10 Units under the skin daily before breakfast. [facility] glimepiride 1 mg tablet 2021-07 00:00: 00 Yes [id number] 1mg Take 1 tablet by mouth daily with breakfast. [facility] dulaglutide (TRULICITY) 0.75 mg/0.5 mL PnIj 2021-07 00:00: 00 Yes [id number] .75mg inject 1 Pen under the skin weekly. [facility] gabapentin 100 mg capsule 2021-07 00:00: 00 Yes [id number] 100mg Take 1 capsule by mouth in the morning and 1 capsule at noon and 1 capsule in the evening. 1 cap in morning, 1 cap in afternoon, and 2 cap at bedtime [facility] metFORMIN 500 mg tablet 2021-07 00:00: 00 Yes [id number] 500mg Take 1 tablet by mouth in the morning and 1 tablet in the evening. Take with meals. [facility] buPROPion XL 300 mg 24 hr tablet 2021-07 00:00: 00 Yes [id number] 300mg Take 1 tablet by mouth in the morning. [facility] ARIPiprazol e (ABILIFY) 2 mg tablet 2021-07 00:00: 00 Yes [id number] 2mg Take 1 tablet by mouth in the morning. [facility] atorvastati n 40 mg tablet 2021-07 00:00: 00 Yes [id number] 40mg Take 1 tablet by mouth at bedtime. [facility] metoprolol succinate XL 50 mg 24 hr tablet 2021-07 00:00: 00 Yes [id number] 50mg Take 1 tablet by mouth in the morning. [facility] lisinopriL 20 mg tablet 2021-07 00:00: 00 Yes [id number] 20mg Take 1 tablet by mouth in the morning and 1 tablet in the evening. [facility] aspirin 81 mg Cap 2021-07 00:00: 00 Yes [id number] 1{tbl} Take 1 tablet by mouth daily. [facility] insulin glargine U-300 conc (TOUJEO MAX U-300 SOLOSTAR) 300 unit/mL (3 mL) InPn 2021-07 00:00: 00 Yes [id number] 10U inject 10 Units under the skin daily before breakfast. [facility] glimepiride 1 mg tablet 2021-07 00:00: 00 Yes [id number] 1mg Take 1 tablet by mouth daily with breakfast. [facility] dulaglutide (TRULICITY) 0.75 mg/0.5 mL PnIj 2021-07 00:00: 00 Yes [id number] .75mg inject 1 Pen under the skin weekly. [facility] gabapentin 100 mg capsule 2021-07 00:00: 00 Yes [id number] 100mg Take 1 capsule by mouth in the morning and 1 capsule at noon and 1 capsule in the evening. 1 cap in morning, 1 cap in afternoon, and 2 cap at bedtime [facility] metFORMIN 500 mg tablet 2021-07 00:00: 00 Yes [id number] 500mg Take 1 tablet by mouth in the morning and 1 tablet in the evening. Take with meals. [facility] buPROPion XL 300 mg 24 hr tablet 2021-07 00:00: 00 Yes [id number] 300mg Take 1 tablet by mouth in the morning. [facility] ARIPiprazol e (ABILIFY) 2 mg tablet 2021-07 00:00: 00 Yes [id number] 2mg Take 1 tablet by mouth in the morning. [facility] atorvastati n 40 mg tablet 2021-07 00:00: 00 Yes [id number] 40mg Take 1 tablet by mouth at bedtime. [facility] metoprolol succinate XL 50 mg 24 hr tablet 2021-07 00:00: 00 Yes [id number] 50mg Take 1 tablet by mouth in the morning. [facility] lisinopriL 20 mg tablet 2021-07 00:00: 00 Yes [id number] 20mg Take 1 tablet by mouth in the morning and 1 tablet in the evening. [facility] aspirin 81 mg Cap 2021-07 00:00: 00 Yes [id number] 1{tbl} Take 1 tablet by mouth daily. [facility] insulin glargine U-300 conc (TOUJEO MAX U-300 SOLOSTAR) 300 unit/mL (3 mL) InPn 2021-07 00:00: 00 Yes [id number] 10U inject 10 Units under the skin daily before breakfast. [facility] glimepiride 1 mg tablet 2021-07 00:00: 00 Yes [id number] 1mg Take 1 tablet by mouth daily with breakfast. [facility] dulaglutide (TRULICITY) 0.75 mg/0.5 mL PnIj 2021-07 00:00: 00 Yes [id number] .75mg inject 1 Pen under the skin weekly. [facility] gabapentin 100 mg capsule 2021-07 00:00: 00 Yes [id number] 100mg Take 1 capsule by mouth in the morning and 1 capsule at noon and 1 capsule in the evening. 1 cap in morning, 1 cap in afternoon, and 2 cap at bedtime [facility] metFORMIN 500 mg tablet 2021-07 00:00: 00 Yes [id number] 500mg Take 1 tablet by mouth in the morning and 1 tablet in the evening. Take with meals. [facility] buPROPion XL 300 mg 24 hr tablet 2021-07 00:00: 00 Yes [id number] 300mg Take 1 tablet by mouth in the morning. [facility] ARIPiprazol e (ABILIFY) 2 mg tablet 2021-07 00:00: 00 Yes [id number] 2mg Take 1 tablet by mouth in the morning. [facility] atorvastati n 40 mg tablet 2021-07 00:00: 00 Yes [id number] 40mg Take 1 tablet by mouth at bedtime. [facility] metoprolol succinate XL 50 mg 24 hr tablet 2021-07 00:00: 00 Yes [id number] 50mg Take 1 tablet by mouth in the morning. [facility] lisinopriL 20 mg tablet 2021-07 00:00: 00 Yes [id number] 20mg Take 1 tablet by mouth in the morning and 1 tablet in the evening. [facility] aspirin 81 mg Cap 2021-07 00:00: 00 Yes [id number] 1{tbl} Take 1 tablet by mouth daily. [facility] insulin glargine U-300 conc (TOUJEO MAX U-300 SOLOSTAR) 300 unit/mL (3 mL) InPn 2021-07 00:00: 00 Yes [id number] 10U inject 10 Units under the skin daily before breakfast. [facility] glimepiride 1 mg tablet 2021-07 00:00: 00 Yes [id number] 1mg Take 1 tablet by mouth daily with breakfast. [facility] dulaglutide (TRULICITY) 0.75 mg/0.5 mL PnIj 2021-07 00:00: 00 Yes [id number] .75mg inject 1 Pen under the skin weekly. [facility] gabapentin 100 mg capsule 2021-07 00:00: 00 Yes [id number] 100mg Take 1 capsule by mouth in the morning and 1 capsule at noon and 1 capsule in the evening. 1 cap in morning, 1 cap in afternoon, and 2 cap at bedtime [facility] metFORMIN 500 mg tablet 2021-07 00:00: 00 Yes [id number] 500mg Take 1 tablet by mouth in the morning and 1 tablet in the evening. Take with meals. [facility] buPROPion XL 300 mg 24 hr tablet 2021-07 00:00: 00 Yes [id number] 300mg Take 1 tablet by mouth in the morning. [facility] ARIPiprazol e (ABILIFY) 2 mg tablet 2021-07 00:00: 00 Yes [id number] 2mg Take 1 tablet by mouth in the morning. [facility] atorvastati n 40 mg tablet 2021-07 00:00: 00 Yes [id number] 40mg Take 1 tablet by mouth at bedtime. [facility] metoprolol succinate XL 50 mg 24 hr tablet 2021-07 00:00: 00 Yes [id number] 50mg Take 1 tablet by mouth in the morning. [facility] lisinopriL 20 mg tablet 2021-07 00:00: 00 Yes [id number] 20mg Take 1 tablet by mouth in the morning and 1 tablet in the evening. [facility] aspirin 81 mg Cap 2021-07 00:00: 00 Yes [id number] 1{tbl} Take 1 tablet by mouth daily. [facility] insulin glargine U-300 conc (TOUJEO MAX U-300 SOLOSTAR) 300 unit/mL (3 mL) InPn 2021-07 00:00: 00 Yes [id number] 10U inject 10 Units under the skin daily before breakfast. [facility] glimepiride 1 mg tablet 2021-07 00:00: 00 Yes [id number] 1mg Take 1 tablet by mouth daily with breakfast. [facility] dulaglutide (TRULICITY) 0.75 mg/0.5 mL PnIj 2021-07 00:00: 00 Yes [id number] .75mg inject 1 Pen under the skin weekly. [facility] gabapentin 100 mg capsule 2021-07 00:00: 00 Yes [id number] 100mg Take 1 capsule by mouth in the morning and 1 capsule at noon and 1 capsule in the evening. 1 cap in morning, 1 cap in afternoon, and 2 cap at bedtime [facility] metFORMIN 500 mg tablet 2021-07 00:00: 00 Yes [id number] 500mg Take 1 tablet by mouth in the morning and 1 tablet in the evening. Take with meals. [facility] buPROPion XL 300 mg 24 hr tablet 2021-07 00:00: 00 Yes [id number] 300mg Take 1 tablet by mouth in the morning. [facility] ARIPiprazol e (ABILIFY) 2 mg tablet 2021-07 00:00: 00 Yes [id number] 2mg Take 1 tablet by mouth in the morning. [facility] atorvastati n 40 mg tablet 2021-07 00:00: 00 Yes [id number] 40mg Take 1 tablet by mouth at bedtime. [facility] metoprolol succinate XL 50 mg 24 hr tablet 2021-07 00:00: 00 Yes [id number] 50mg Take 1 tablet by mouth in the morning. [facility] lisinopriL 20 mg tablet 2021-07 00:00: 00 Yes [id number] 20mg Take 1 tablet by mouth in the morning and 1 tablet in the evening. [facility] aspirin 81 mg Cap 2021-07 00:00: 00 Yes [id number] 1{tbl} Take 1 tablet by mouth daily. [facility] insulin glargine U-300 conc (TOUJEO MAX U-300 SOLOSTAR) 300 unit/mL (3 mL) InPn 2021-07 00:00: 00 Yes [id number] 10U inject 10 Units under the skin daily before breakfast. [facility] glimepiride 1 mg tablet 2021-07 00:00: 00 Yes [id number] 1mg Take 1 tablet by mouth daily with breakfast. [facility] dulaglutide (TRULICITY) 0.75 mg/0.5 mL PnIj 2021-07 00:00: 00 Yes [id number] .75mg inject 1 Pen under the skin weekly. [facility] gabapentin 100 mg capsule 2021-07 00:00: 00 Yes [id number] 100mg Take 1 capsule by mouth in the morning and 1 capsule at noon and 1 capsule in the evening. 1 cap in morning, 1 cap in afternoon, and 2 cap at bedtime [facility] metFORMIN 500 mg tablet 2021-07 00:00: 00 Yes [id number] 500mg Take 1 tablet by mouth in the morning and 1 tablet in the evening. Take with meals. [facility] buPROPion XL 300 mg 24 hr tablet 2021-07 00:00: 00 Yes [id number] 300mg Take 1 tablet by mouth in the morning. [facility] ARIPiprazol e (ABILIFY) 2 mg tablet 2021-07 00:00: 00 Yes [id number] 2mg Take 1 tablet by mouth in the morning. [facility] atorvastati n 40 mg tablet 2021-07 00:00: 00 Yes [id number] 40mg Take 1 tablet by mouth at bedtime. [facility] metoprolol succinate XL 50 mg 24 hr tablet 2021-07 00:00: 00 Yes [id number] 50mg Take 1 tablet by mouth in the morning. [facility] lisinopriL 20 mg tablet 2021-07 00:00: 00 Yes [id number] 20mg Take 1 tablet by mouth in the morning and 1 tablet in the evening. [facility] aspirin 81 mg Cap 2021-07 00:00: 00 Yes [id number] 1{tbl} Take 1 tablet by mouth daily. [facility] insulin glargine U-300 conc (TOUJEO MAX U-300 SOLOSTAR) 300 unit/mL (3 mL) InPn 2021-07 00:00: 00 Yes [id number] 10U inject 10 Units under the skin daily before breakfast. [facility] glimepiride 1 mg tablet 2021-07 00:00: 00 Yes [id number] 1mg Take 1 tablet by mouth daily with breakfast. [facility] dulaglutide (TRULICITY) 0.75 mg/0.5 mL PnIj 2021-07 00:00: 00 Yes [id number] .75mg inject 1 Pen under the skin weekly. [facility] gabapentin 100 mg capsule 2021-07 00:00: 00 Yes [id number] 100mg Take 1 capsule by mouth in the morning and 1 capsule at noon and 1 capsule in the evening. 1 cap in morning, 1 cap in afternoon, and 2 cap at bedtime [facility] metFORMIN 500 mg tablet 2021-07 00:00: 00 Yes [id number] 500mg Take 1 tablet by mouth in the morning and 1 tablet in the evening. Take with meals. [facility] buPROPion XL 300 mg 24 hr tablet 2021-07 00:00: 00 Yes [id number] 300mg Take 1 tablet by mouth in the morning. [facility] ARIPiprazol e (ABILIFY) 2 mg tablet 2021-07 00:00: 00 Yes [id number] 2mg Take 1 tablet by mouth in the morning. [facility] atorvastati n 40 mg tablet 2021-07 00:00: 00 Yes [id number] 40mg Take 1 tablet by mouth at bedtime. [facility] metoprolol succinate XL 50 mg 24 hr tablet 2021-07 00:00: 00 Yes [id number] 50mg Take 1 tablet by mouth in the morning. [facility] lisinopriL 20 mg tablet 2021-07 00:00: 00 Yes [id number] 20mg Take 1 tablet by mouth in the morning and 1 tablet in the evening. [facility] aspirin 81 mg Cap 2021-07 00:00: 00 Yes [id number] 1{tbl} Take 1 tablet by mouth daily. [facility] insulin glargine U-300 conc (TOUJEO MAX U-300 SOLOSTAR) 300 unit/mL (3 mL) InPn 2021-07 00:00: 00 Yes [id number] 10U inject 10 Units under the skin daily before breakfast. [facility] glimepiride 1 mg tablet 2021-07 00:00: 00 Yes [id number] 1mg Take 1 tablet by mouth daily with breakfast. [facility] dulaglutide (TRULICITY) 0.75 mg/0.5 mL PnIj 2021-07 00:00: 00 Yes [id number] .75mg inject 1 Pen under the skin weekly. [facility] gabapentin 100 mg capsule 2021-07 00:00: 00 Yes [id number] 100mg Take 1 capsule by mouth in the morning and 1 capsule at noon and 1 capsule in the evening. 1 cap in morning, 1 cap in afternoon, and 2 cap at bedtime [facility] metFORMIN 500 mg tablet 2021-07 00:00: 00 Yes [id number] 500mg Take 1 tablet by mouth in the morning and 1 tablet in the evening. Take with meals. [facility] buPROPion XL 300 mg 24 hr tablet 2021-07 00:00: 00 Yes [id number] 300mg Take 1 tablet by mouth in the morning. [facility] ARIPiprazol e (ABILIFY) 2 mg tablet 2021-07 00:00: 00 Yes [id number] 2mg Take 1 tablet by mouth in the morning. [facility] atorvastati n 40 mg tablet 2021-07 00:00: 00 Yes [id number] 40mg Take 1 tablet by mouth at bedtime. [facility] metoprolol succinate XL 50 mg 24 hr tablet 2021-07 00:00: 00 Yes [id number] 50mg Take 1 tablet by mouth in the morning. [facility] lisinopriL 20 mg tablet 2021-07 00:00: 00 Yes [id number] 20mg Take 1 tablet by mouth in the morning and 1 tablet in the evening. [facility] aspirin 81 mg Cap 2021-07 00:00: 00 Yes [id number] 1{tbl} Take 1 tablet by mouth daily. [facility] insulin glargine U-300 conc (TOUJEO MAX U-300 SOLOSTAR) 300 unit/mL (3 mL) InPn 2021-07 00:00: 00 Yes [id number] 10U inject 10 Units under the skin daily before breakfast. [facility] glimepiride 1 mg tablet 2021-07 00:00: 00 Yes [id number] 1mg Take 1 tablet by mouth daily with breakfast. [facility] dulaglutide (TRULICITY) 0.75 mg/0.5 mL PnIj 2021-07 00:00: 00 Yes [id number] .75mg inject 1 Pen under the skin weekly. [facility] metFORMIN 500 mg tablet 2021-07 00:00: 00 Yes [id number] 500mg Take 1 tablet by mouth in the morning and 1 tablet in the evening. Take with meals. [facility] buPROPion XL 300 mg 24 hr tablet 2021-07 00:00: 00 Yes [id number] 300mg Take 1 tablet by mouth in the morning. [facility] ARIPiprazol e (ABILIFY) 2 mg tablet 2021-07 00:00: 00 Yes [id number] 2mg Take 1 tablet by mouth in the morning. [facility] atorvastati n 40 mg tablet 2021-07 00:00: 00 Yes [id number] 40mg Take 1 tablet by mouth at bedtime. [facility] metoprolol succinate XL 50 mg 24 hr tablet 2021-07 00:00: 00 Yes [id number] 50mg Take 1 tablet by mouth in the morning. [facility] lisinopriL 20 mg tablet 2021-07 00:00: 00 Yes [id number] 20mg Take 1 tablet by mouth in the morning and 1 tablet in the evening. [facility] aspirin 81 mg Cap 2021-07 00:00: 00 Yes [id number] 1{tbl} Take 1 tablet by mouth daily. [facility] insulin glargine U-300 conc (TOUJEO MAX U-300 SOLOSTAR) 300 unit/mL (3 mL) InPn 2021-07 00:00: 00 Yes [id number] 10U inject 10 Units under the skin daily before breakfast. [facility] glimepiride 1 mg tablet 2021-07 00:00: 00 Yes [id number] 1mg Take 1 tablet by mouth daily with breakfast. [facility] dulaglutide (TRULICITY) 0.75 mg/0.5 mL PnIj 2021-07 00:00: 00 Yes [id number] .75mg inject 1 Pen under the skin weekly. [facility] metFORMIN 500 mg tablet 2021-07 00:00: 00 Yes [id number] 500mg Take 1 tablet by mouth in the morning and 1 tablet in the evening. Take with meals. [facility] buPROPion XL 300 mg 24 hr tablet 2021-07 00:00: 00 Yes [id number] 300mg Take 1 tablet by mouth in the morning. [facility] ARIPiprazol e (ABILIFY) 2 mg tablet 2021-07 00:00: 00 Yes [id number] 2mg Take 1 tablet by mouth in the morning. [facility] atorvastati n 40 mg tablet 2021-07 00:00: 00 Yes [id number] 40mg Take 1 tablet by mouth at bedtime. [facility] metoprolol succinate XL 50 mg 24 hr tablet 2021-07 00:00: 00 Yes [id number] 50mg Take 1 tablet by mouth in the morning. [facility] lisinopriL 20 mg tablet 2021-07 00:00: 00 Yes [id number] 20mg Take 1 tablet by mouth in the morning and 1 tablet in the evening. [facility] aspirin 81 mg Cap 2021-07 00:00: 00 Yes [id number] 1{tbl} Take 1 tablet by mouth daily. [facility] insulin glargine U-300 conc (TOUJEO MAX U-300 SOLOSTAR) 300 unit/mL (3 mL) InPn 2021-07 00:00: 00 Yes [id number] 10U inject 10 Units under the skin daily before breakfast. [facility] glimepiride 1 mg tablet 2021-07 00:00: 00 Yes [id number] 1mg Take 1 tablet by mouth daily with breakfast. [facility] dulaglutide (TRULICITY) 0.75 mg/0.5 mL PnIj 2021-07 00:00: 00 Yes [id number] .75mg inject 1 Pen under the skin weekly. [facility] metFORMIN 500 mg tablet 2021-07 00:00: 00 Yes [id number] 500mg Take 1 tablet by mouth in the morning and 1 tablet in the evening. Take with meals. [facility] buPROPion XL 300 mg 24 hr tablet 2021-07 00:00: 00 Yes [id number] 300mg Take 1 tablet by mouth in the morning. [facility] ARIPiprazol e (ABILIFY) 2 mg tablet 2021-07 00:00: 00 Yes [id number] 2mg Take 1 tablet by mouth in the morning. [facility] atorvastati n 40 mg tablet 2021-07 00:00: 00 Yes [id number] 40mg Take 1 tablet by mouth at bedtime. [facility] metoprolol succinate XL 50 mg 24 hr tablet 2021-07 00:00: 00 Yes [id number] 50mg Take 1 tablet by mouth in the morning. [facility] lisinopriL 20 mg tablet 2021-07 00:00: 00 Yes [id number] 20mg Take 1 tablet by mouth in the morning and 1 tablet in the evening. [facility] aspirin 81 mg Cap 2021-07 00:00: 00 Yes [id number] 1{tbl} Take 1 tablet by mouth daily. [facility] insulin glargine U-300 conc (TOUJEO MAX U-300 SOLOSTAR) 300 unit/mL (3 mL) InPn 2021-07 00:00: 00 Yes [id number] 10U inject 10 Units under the skin daily before breakfast. [facility] glimepiride 1 mg tablet 2021-07 00:00: 00 Yes [id number] 1mg Take 1 tablet by mouth daily with breakfast. [facility] dulaglutide (TRULICITY) 0.75 mg/0.5 mL PnIj 2021-07 00:00: 00 Yes [id number] .75mg inject 1 Pen under the skin weekly. [facility] metFORMIN 500 mg tablet 2021-07 00:00: 00 Yes [id number] 500mg Take 1 tablet by mouth in the morning and 1 tablet in the evening. Take with meals. [facility] buPROPion XL 300 mg 24 hr tablet 2021-07 00:00: 00 Yes [id number] 300mg Take 1 tablet by mouth in the morning. [facility] ARIPiprazol e (ABILIFY) 2 mg tablet 2021-07 00:00: 00 Yes [id number] 2mg Take 1 tablet by mouth in the morning. [facility] atorvastati n 40 mg tablet 2021-07 00:00: 00 Yes [id number] 40mg Take 1 tablet by mouth at bedtime. [facility] metoprolol succinate XL 50 mg 24 hr tablet 2021-07 00:00: 00 Yes [id number] 50mg Take 1 tablet by mouth in the morning. [facility] lisinopriL 20 mg tablet 2021-07 00:00: 00 Yes [id number] 20mg Take 1 tablet by mouth in the morning and 1 tablet in the evening. [facility] aspirin 81 mg Cap 2021-07 00:00: 00 Yes [id number] 1{tbl} Take 1 tablet by mouth daily. [facility] insulin glargine U-300 conc (TOUJEO MAX U-300 SOLOSTAR) 300 unit/mL (3 mL) InPn 2021-07 00:00: 00 Yes [id number] 10U inject 10 Units under the skin daily before breakfast. [facility] glimepiride 1 mg tablet 2021-07 00:00: 00 Yes [id number] 1mg Take 1 tablet by mouth daily with breakfast. [facility] dulaglutide (TRULICITY) 0.75 mg/0.5 mL PnIj 2021-07 00:00: 00 Yes [id number] .75mg inject 1 Pen under the skin weekly. [facility] metFORMIN 500 mg tablet 2021-07 00:00: 00 Yes [id number] 500mg Take 1 tablet by mouth in the morning and 1 tablet in the evening. Take with meals. [facility] buPROPion XL 300 mg 24 hr tablet 2021-07 00:00: 00 Yes [id number] 300mg Take 1 tablet by mouth in the morning. [facility] ARIPiprazol e (ABILIFY) 2 mg tablet 2021-07 00:00: 00 Yes [id number] 2mg Take 1 tablet by mouth in the morning. [facility] atorvastati n 40 mg tablet 2021-07 00:00: 00 Yes [id number] 40mg Take 1 tablet by mouth at bedtime. [facility] metoprolol succinate XL 50 mg 24 hr tablet 2021-07 00:00: 00 Yes [id number] 50mg Take 1 tablet by mouth in the morning. [facility] lisinopriL 20 mg tablet 2021-07 00:00: 00 Yes [id number] 20mg Take 1 tablet by mouth in the morning and 1 tablet in the evening. [facility] aspirin 81 mg Cap 2021-07 00:00: 00 Yes [id number] 1{tbl} Take 1 tablet by mouth daily. [facility] insulin glargine U-300 conc (TOUJEO MAX U-300 SOLOSTAR) 300 unit/mL (3 mL) InPn 2021-07 00:00: 00 Yes [id number] 10U inject 10 Units under the skin daily before breakfast. [facility] glimepiride 1 mg tablet 2021-07 00:00: 00 Yes [id number] 1mg Take 1 tablet by mouth daily with breakfast. [facility] dulaglutide (TRULICITY) 0.75 mg/0.5 mL PnIj 2021-07 00:00: 00 Yes [id number] .75mg inject 1 Pen under the skin weekly. [facility] metFORMIN 500 mg tablet 2021-07 00:00: 00 Yes [id number] 500mg Take 1 tablet by mouth in the morning and 1 tablet in the evening. Take with meals. [facility] buPROPion XL 300 mg 24 hr tablet 2021-07 00:00: 00 Yes [id number] 300mg Take 1 tablet by mouth in the morning. [facility] ARIPiprazol e (ABILIFY) 2 mg tablet 2021-07 00:00: 00 Yes [id number] 2mg Take 1 tablet by mouth in the morning. [facility] atorvastati n 40 mg tablet 2021-07 00:00: 00 Yes [id number] 40mg Take 1 tablet by mouth at bedtime. [facility] metoprolol succinate XL 50 mg 24 hr tablet 2021-07 00:00: 00 Yes [id number] 50mg Take 1 tablet by mouth in the morning. [facility] lisinopriL 20 mg tablet 2021-07 00:00: 00 Yes [id number] 20mg Take 1 tablet by mouth in the morning and 1 tablet in the evening. [facility] aspirin 81 mg Cap 2021-07 00:00: 00 Yes [id number] 1{tbl} Take 1 tablet by mouth daily. [facility] insulin glargine U-300 conc (TOUJEO MAX U-300 SOLOSTAR) 300 unit/mL (3 mL) InPn 2021-07 00:00: 00 Yes [id number] 10U inject 10 Units under the skin daily before breakfast. [facility] glimepiride 1 mg tablet 2021-07 00:00: 00 Yes [id number] 1mg Take 1 tablet by mouth daily with breakfast. [facility] dulaglutide (TRULICITY) 0.75 mg/0.5 mL PnIj 2021-07 00:00: 00 Yes [id number] .75mg inject 1 Pen under the skin weekly. [facility] metFORMIN 500 mg tablet 2021-07 00:00: 00 Yes [id number] 500mg Take 1 tablet by mouth in the morning and 1 tablet in the evening. Take with meals. [facility] buPROPion XL 300 mg 24 hr tablet 2021-07 00:00: 00 Yes [id number] 300mg Take 1 tablet by mouth in the morning. [facility] ARIPiprazol e (ABILIFY) 2 mg tablet 2021-07 00:00: 00 Yes [id number] 2mg Take 1 tablet by mouth in the morning. [facility] atorvastati n 40 mg tablet 2021-07 00:00: 00 Yes [id number] 40mg Take 1 tablet by mouth at bedtime. [facility] metoprolol succinate XL 50 mg 24 hr tablet 2021-07 00:00: 00 Yes [id number] 50mg Take 1 tablet by mouth in the morning. [facility] lisinopriL 20 mg tablet 2021-07 00:00: 00 Yes [id number] 20mg Take 1 tablet by mouth in the morning and 1 tablet in the evening. [facility] aspirin 81 mg Cap 2021-07 00:00: 00 Yes [id number] 1{tbl} Take 1 tablet by mouth daily. [facility] insulin glargine U-300 conc (TOUJEO MAX U-300 SOLOSTAR) 300 unit/mL (3 mL) InPn 2021-07 00:00: 00 Yes [id number] 10U inject 10 Units under the skin daily before breakfast. [facility] glimepiride 1 mg tablet 2021-07 00:00: 00 Yes [id number] 1mg Take 1 tablet by mouth daily with breakfast. [facility] dulaglutide (TRULICITY) 0.75 mg/0.5 mL PnIj 2021-07 00:00: 00 11-16 00:00 :00 No [id number] .75mg inject 1 Pen under the skin weekly. [facility] metFORMIN 500 mg tablet 2021-07 00:00: 00 11-16 00:00 :00 No [id number] 500mg Take 1 tablet by mouth in the morning and 1 tablet in the evening. Take with meals. [facility] buPROPion XL 300 mg 24 hr tablet 2021-07 00:00: 00 11-16 00:00 :00 No [id number] 300mg Take 1 tablet by mouth in the morning. [facility] ARIPiprazol e (ABILIFY) 2 mg tablet 2021-07 00:00: 00 11-16 00:00 :00 No [id number] 2mg Take 1 tablet by mouth in the morning. [facility] atorvastati n 40 mg tablet 2021-07 00:00: 00 11-16 00:00 :00 No [id number] 40mg Take 1 tablet by mouth at bedtime. [facility] metoprolol succinate XL 50 mg 24 hr tablet 2021-07 00:00: 00 11-16 00:00 :00 No [id number] 50mg Take 1 tablet by mouth in the morning. [facility] lisinopriL 20 mg tablet 2021-07 00:00: 00 11-16 00:00 :00 No [id number] 20mg Take 1 tablet by mouth in the morning and 1 tablet in the evening. [facility] insulin glargine U-300 conc (TOUJEO MAX U-300 SOLOSTAR) 300 unit/mL (3 mL) InPn 2021-07 00:00: 00 11-16 00:00 :00 No [id number] 10U inject 10 Units under the skin daily before breakfast. [facility] glimepiride 1 mg tablet 2021-07 00:00: 00 11-16 00:00 :00 No [id number] 1mg Take 1 tablet by mouth daily with breakfast. [facility] dulaglutide (TRULICITY) 0.75 mg/0.5 mL PnIj 2021-07 00:00: 00 11-16 00:00 :00 No [id number] .75mg inject 1 Pen under the skin weekly. [facility] metFORMIN 500 mg tablet 2021-07 00:00: 00 11-16 00:00 :00 No [id number] 500mg Take 1 tablet by mouth in the morning and 1 tablet in the evening. Take with meals. [facility] buPROPion XL 300 mg 24 hr tablet 2021-07 00:00: 00 11-16 00:00 :00 No [id number] 300mg Take 1 tablet by mouth in the morning. [facility] ARIPiprazol e (ABILIFY) 2 mg tablet 2021-07 00:00: 00 11-16 00:00 :00 No [id number] 2mg Take 1 tablet by mouth in the morning. [facility] atorvastati n 40 mg tablet 2021-07 00:00: 00 11-16 00:00 :00 No [id number] 40mg Take 1 tablet by mouth at bedtime. [facility] metoprolol succinate XL 50 mg 24 hr tablet 2021-07 00:00: 00 11-16 00:00 :00 No [id number] 50mg Take 1 tablet by mouth in the morning. [facility] lisinopriL 20 mg tablet 2021-07 00:00: 00 11-16 00:00 :00 No [id number] 20mg Take 1 tablet by mouth in the morning and 1 tablet in the evening. [facility] insulin glargine U-300 conc (TOUJEO MAX U-300 SOLOSTAR) 300 unit/mL (3 mL) InPn 2021-07 00:00: 00 11-16 00:00 :00 No [id number] 10U inject 10 Units under the skin daily before breakfast. [facility] glimepiride 1 mg tablet 2021-07 00:00: 00 11-16 00:00 :00 No [id number] 1mg Take 1 tablet by mouth daily with breakfast. [facility] dulaglutide (TRULICITY) 0.75 mg/0.5 mL PnIj 2021-07 00:00: 00 11-16 00:00 :00 No [id number] .75mg inject 1 Pen under the skin weekly. [facility] metFORMIN 500 mg tablet 2021-07 00:00: 00 11-16 00:00 :00 No [id number] 500mg Take 1 tablet by mouth in the morning and 1 tablet in the evening. Take with meals. [facility] buPROPion XL 300 mg 24 hr tablet 2021-07 00:00: 00 11-16 00:00 :00 No [id number] 300mg Take 1 tablet by mouth in the morning. [facility] ARIPiprazol e (ABILIFY) 2 mg tablet 2021-07 00:00: 11-16 00:00 :00 No [id number] 2mg Take 1 tablet by mouth in the morning. [facility] atorvastati n 40 mg tablet 2021-07 00:00: 00 11-16 00:00 :00 No [id number] 40mg Take 1 tablet by mouth at bedtime. [facility] metoprolol succinate XL 50 mg 24 hr tablet 2021-07 00:00: 00 11-16 00:00 :00 No [id number] 50mg Take 1 tablet by mouth in the morning. [facility] lisinopriL 20 mg tablet 2021-07 00:00: 00 11-16 00:00 :00 No [id number] 20mg Take 1 tablet by mouth in the morning and 1 tablet in the evening. [facility] insulin glargine U-300 conc (TOUJEO MAX U-300 SOLOSTAR) 300 unit/mL (3 mL) InPn 2021-07 00:00: 00 11-16 00:00 :00 No [id number] 10U inject 10 Units under the skin daily before breakfast. [facility] glimepiride 1 mg tablet 2021-07 00:00: 00 11-16 00:00 :00 No [id number] 1mg Take 1 tablet by mouth daily with breakfast. [facility] dulaglutide (TRULICITY) 0.75 mg/0.5 mL PnIj 2021-07 00:00: 00 11-16 00:00 :00 No [id number] .75mg inject 1 Pen under the skin weekly. [facility] metFORMIN 500 mg tablet 2021-07 00:00: 00 11-16 00:00 :00 No [id number] 500mg Take 1 tablet by mouth in the morning and 1 tablet in the evening. Take with meals. [facility] buPROPion XL 300 mg 24 hr tablet 2021-07 00:00: 00 11-16 00:00 :00 No [id number] 300mg Take 1 tablet by mouth in the morning. [facility] ARIPiprazol e (ABILIFY) 2 mg tablet 2021-07 00:00: 00 11-16 00:00 :00 No [id number] 2mg Take 1 tablet by mouth in the morning. [facility] atorvastati n 40 mg tablet 2021-07 00:00: 00 11-16 00:00 :00 No [id number] 40mg Take 1 tablet by mouth at bedtime. [facility] metoprolol succinate XL 50 mg 24 hr tablet 2021-07 00:00: 00 11-16 00:00 :00 No [id number] 50mg Take 1 tablet by mouth in the morning. [facility] lisinopriL 20 mg tablet 2021-07 00:00: 00 11-16 00:00 :00 No [id number] 20mg Take 1 tablet by mouth in the morning and 1 tablet in the evening. [facility] insulin glargine U-300 conc (TOUJEO MAX U-300 SOLOSTAR) 300 unit/mL (3 mL) InPn 2021-07 00:00: 00 11-16 00:00 :00 No [id number] 10U inject 10 Units under the skin daily before breakfast. [facility] glimepiride 1 mg tablet 2021-07 00:00: 00 11-16 00:00 :00 No [id number] 1mg Take 1 tablet by mouth daily with breakfast. [facility] gabapentin 100 mg capsule 2021-07 00:00: 00 07-26 00:00 :00 No [id number] 100mg Take 1 capsule by mouth in the morning and 1 capsule at noon and 1 capsule in the evening. 1 cap in morning, 1 cap in afternoon, and 2 cap at bedtime [facility] gabapentin 100 mg capsule 2021-07 00:00: 00 07-26 00:00 :00 No [id number] 100mg Take 1 capsule by mouth in the morning and 1 capsule at noon and 1 capsule in the evening. 1 cap in morning, 1 cap in afternoon, and 2 cap at bedtime [facility] gabapentin 100 mg capsule 2021-07 00:00: 00 07-26 00:00 :00 No [id number] 100mg Take 1 capsule by mouth in the morning and 1 capsule at noon and 1 capsule in the evening. 1 cap in morning, 1 cap in afternoon, and 2 cap at bedtime [facility] gabapentin 100 mg capsule 2021-07 00:00: 00 07-26 00:00 :00 No [id number] 100mg Take 1 capsule by mouth in the morning and 1 capsule at noon and 1 capsule in the evening. 1 cap in morning, 1 cap in afternoon, and 2 cap at bedtime [facility] gabapentin 100 mg capsule 2021-07 00:00: 00 07-26 00:00 :00 No [id number] 100mg Take 1 capsule by mouth in the morning and 1 capsule at noon and 1 capsule in the evening. 1 cap in morning, 1 cap in afternoon, and 2 cap at bedtime [facility] gabapentin 100 mg capsule 2021-07 00:00: 00 07-26 00:00 :00 No [id number] 100mg Take 1 capsule by mouth in the morning and 1 capsule at noon and 1 capsule in the evening. 1 cap in morning, 1 cap in afternoon, and 2 cap at bedtime [facility] metroNIDAZO LE (FLAGYL) 500 mg tablet 2021-07 00:00: 00 Yes 500mg Take 1 tablet by mouth in the morning and 1 tablet in the evening. [facility] clindamycin 2 % cream 2021-07 00:00: 00 07-23 05:59 :00 No 1{appli cator} Insert 1 Applicator into vagina at bedtime for 12 doses. [facility] metroNIDAZO LE (FLAGYL) 500 mg tablet 2021-07 2 00:00: 00 07-17 00:00 :00 No 500mg Take 1 tablet by mouth in the morning and 1 tablet in the evening. [facility] clindamycin 2 % cream 2021-07 2-20 00:00: 00 07-17 00:00 :00 No 1{appli cator} Insert 1 Applicator into vagina at bedtime for 12 doses. [facility] metroNIDAZO LE (FLAGYL) 500 mg tablet 2021-07 2-20 00:00: 00 07-17 00:00 :00 No 500mg Take 1 tablet by mouth in the morning and 1 tablet in the evening. [facility] clindamycin 2 % cream 2021-07 2-20 00:00: 00 07-17 00:00 :00 No 1{appli cator} Insert 1 Applicator into vagina at bedtime for 12 doses. [facility] metroNIDAZO LE (FLAGYL) 500 mg tablet 2021-07 2-20 00:00: 00 07-17 00:00 :00 No 500mg Take 1 tablet by mouth in the morning and 1 tablet in the evening. [facility] clindamycin 2 % cream 2021-07 2-20 00:00: 00 07-17 00:00 :00 No 1{appli cator} Insert 1 Applicator into vagina at bedtime for 12 doses. [facility] metroNIDAZO LE (FLAGYL) 500 mg tablet 2021-07 2-20 00:00: 00 07-17 00:00 :00 No 500mg Take 1 tablet by mouth in the morning and 1 tablet in the evening. [facility] clindamycin 2 % cream 2021-07 2-20 00:00: 00 07-17 00:00 :00 No 1{appli cator} Insert 1 Applicator into vagina at bedtime for 12 doses. [facility] metroNIDAZO LE (FLAGYL) 500 mg tablet 2021-07 1- 00:00: 00 06-08 05:59 :00 No [id number] 500mg Take 1 tablet by mouth every 12 (twelve) hours for 7 days. [facility] metroNIDAZO LE (FLAGYL) 500 mg tablet 2021-07 1-10 00:00: 00 06-08 05:59 :00 No [id number] 500mg Take 1 tablet by mouth every 12 (twelve) hours for 7 days. [facility] metroNIDAZO LE (FLAGYL) 500 mg tablet 2021-07 00:00: 00 06-08 05:59 :00 No [id number] 500mg Take 1 tablet by mouth every 12 (twelve) hours for 7 days. [facility] metroNIDAZO LE (FLAGYL) 500 mg tablet 2021-07 00:00: 00 06-08 05:59 :00 No [id number] 500mg Take 1 tablet by mouth every 12 (twelve) hours for 7 days. [facility] metroNIDAZO LE (FLAGYL) 500 mg tablet 2021-07 00:00: 00 06-08 05:59 :00 No [id number] 500mg Take 1 tablet by mouth every 12 (twelve) hours for 7 days. [facility] ARIPiprazol e (ABILIFY) 2 mg tablet 2021-07 0 00:00: 00 Yes [id number] 2mg Take 1 tablet by mouth in the morning. [facility] ARIPiprazol e (ABILIFY) 2 mg tablet 2021-07 0 00:00: 00 Yes [id number] 2mg Take 1 tablet by mouth in the morning. [facility] ARIPiprazol e (ABILIFY) 2 mg tablet 2021-07 0 00:00: 00 Yes [id number] 2mg Take 1 tablet by mouth in the morning. [facility] ARIPiprazol e (ABILIFY) 2 mg tablet 2021-07 017 00:00: 00 Yes [id number] 2mg Take 1 tablet by mouth in the morning. [facility] ARIPiprazol e (ABILIFY) 2 mg tablet 2021-07 0 00:00: 00 Yes [id number] 2mg Take 1 tablet by mouth in the morning. [facility] ARIPiprazol e (ABILIFY) 2 mg tablet 2021-07 0-17 00:00: 00 Yes [id number] 2mg Take 1 tablet by mouth in the morning. [facility] ARIPiprazol e (ABILIFY) 2 mg tablet 2021-07 0-17 00:00: 00 Yes [id number] 2mg Take 1 tablet by mouth in the morning. [facility] ARIPiprazol e (ABILIFY) 2 mg tablet 2021-07 0-17 00:00: 00 Yes [id number] 2mg Take 1 tablet by mouth in the morning. [facility] ARIPiprazol e (ABILIFY) 2 mg tablet 2021-07 017 00:00: 00 Yes [id number] 2mg Take 1 tablet by mouth in the morning. [facility] ARIPiprazol e (ABILIFY) 2 mg tablet 2021-07 0 00:00: 00 Yes [id number] 2mg Take 1 tablet by mouth in the morning. [facility] ARIPiprazol e (ABILIFY) 2 mg tablet 2021-07 0 00:00: 00 Yes [id number] 2mg Take 1 tablet by mouth in the morning. [facility] ARIPiprazol e (ABILIFY) 2 mg tablet 2021-07 0 00:00: 00 Yes [id number] 2mg Take 1 tablet by mouth in the morning. [facility] ARIPiprazol e (ABILIFY) 2 mg tablet 2021-07 017 00:00: 00 Yes [id number] 2mg Take 1 tablet by mouth in the morning. [facility] ARIPiprazol e (ABILIFY) 2 mg tablet 2021-07 017 00:00: 00 Yes [id number] 2mg Take 1 tablet by mouth in the morning. [facility] ARIPiprazol e (ABILIFY) 2 mg tablet 2021-07 017 00:00: 00 07-17 00:00 :00 No [id number] 2mg Take 1 tablet by mouth in the morning. [facility] ARIPiprazol e (ABILIFY) 2 mg tablet 2021-07 0-17 00:00: 00 07-17 00:00 :00 No [id number] 2mg Take 1 tablet by mouth in the morning. [facility] ARIPiprazol e (ABILIFY) 2 mg tablet 2021-07 00:00: 00 07-17 00:00 :00 No [id number] 2mg Take 1 tablet by mouth in the morning. [facility] ARIPiprazol e (ABILIFY) 2 mg tablet 2021-07 00:00: 00 07-17 00:00 :00 No [id number] 2mg Take 1 tablet by mouth in the morning. [facility] atorvastati n 40 mg tablet 04-13 10:54: 04-13 00:00 :00 No 40mg Take 40 mg by mouth at bedtime. [facility] glimepiride 1 mg tablet 04-13 10:54: 29 04-13 00:00 :00 No 1mg Take 1 mg by mouth daily with breakfast. [facility] ARIPiprazol e 2 mg [id number] 04-13 10:54: 04-13 00:00 :00 No Take by mouth. [facility] buPROPion XL 300 mg 24 hr tablet 04-13 10:54: 04-13 00:00 :00 No 300mg Take 300 mg by mouth in the morning. [facility] hydroCHLORO thiazide 25 mg tablet 04-13 10:54: 04-13 00:00 :00 No 25mg Take 25 mg by mouth in the morning. [facility] metFORMIN 500 mg tablet 04-13 10:54: 04-13 00:00 :00 No 500mg Take 500 mg by mouth in the morning and 500 mg in the evening. Take with meals. [facility] lisinopriL 20 mg tablet 04-13 10:54: 29 04-13 00:00 :00 No 20mg Take 20 mg by mouth in the morning and 20 mg in the evening. [facility] gabapentin 100 mg capsule 04-13 10:54: 04-13 00:00 :00 No 100mg Take 100 mg by mouth in the morning and 100 mg at noon and 100 mg in the evening. 1 cap in morning, 1 cap in afternoon, and 2 cap at bedtime [facility] aspirin 81 mg Cap 04-13 10:54: 04-13 00:00 :00 No Take by mouth. [facility] metoprolol succinate XL 50 mg 24 hr tablet 04-13 10:54: 04-13 00:00 :00 No 50mg Take 50 mg by mouth in the morning. [facility] atorvastati n 40 mg tablet 04-13 10:54: 04-13 00:00 :00 No 40mg Take 40 mg by mouth at bedtime. [facility] glimepiride 1 mg tablet 04-13 10:54: 04-13 00:00 :00 No 1mg Take 1 mg by mouth daily with breakfast. [facility] ARIPiprazol e 2 mg [id number] 04-13 10:54: 04-13 00:00 :00 No Take by mouth. [facility] buPROPion XL 300 mg 24 hr tablet 04-13 10:54: 04-13 00:00 :00 No 300mg Take 300 mg by mouth in the morning. [facility] hydroCHLORO thiazide 25 mg tablet 04-13 10:54: 04-13 00:00 :00 No 25mg Take 25 mg by mouth in the morning. [facility] metFORMIN 500 mg tablet 04-13 10:54: 04-13 00:00 :00 No 500mg Take 500 mg by mouth in the morning and 500 mg in the evening. Take with meals. [facility] lisinopriL 20 mg tablet 04-13 10:54: 04-13 00:00 :00 No 20mg Take 20 mg by mouth in the morning and 20 mg in the evening. [facility] gabapentin 100 mg capsule 04-13 10:54: 04-13 00:00 :00 No 100mg Take 100 mg by mouth in the morning and 100 mg at noon and 100 mg in the evening. 1 cap in morning, 1 cap in afternoon, and 2 cap at bedtime [facility] aspirin 81 mg Cap 04-13 10:54: 04-13 00:00 :00 No Take by mouth. [facility] metoprolol succinate XL 50 mg 24 hr tablet 04-13 10:54: 04-13 00:00 :00 No 50mg Take 50 mg by mouth in the morning. [facility] atorvastati n 40 mg tablet 04-13 10:54: 04-13 00:00 :00 No 40mg Take 40 mg by mouth at bedtime. [facility] glimepiride 1 mg tablet 04-13 10:54: 04-13 00:00 :00 No 1mg Take 1 mg by mouth daily with breakfast. [facility] ARIPiprazol e 2 mg [id number] 04-13 10:54: 04-13 00:00 :00 No Take by mouth. [facility] buPROPion XL 300 mg 24 hr tablet 04-13 10:54: 04-13 00:00 :00 No 300mg Take 300 mg by mouth in the morning. [facility] hydroCHLORO thiazide 25 mg tablet 04-13 10:54: 04-13 00:00 :00 No 25mg Take 25 mg by mouth in the morning. [facility] metFORMIN 500 mg tablet 04-13 10:54: 04-13 00:00 :00 No 500mg Take 500 mg by mouth in the morning and 500 mg in the evening. Take with meals. [facility] lisinopriL 20 mg tablet 04-13 10:54: 04-13 00:00 :00 No 20mg Take 20 mg by mouth in the morning and 20 mg in the evening. [facility] gabapentin 100 mg capsule 04-13 10:54: 04-13 00:00 :00 No 100mg Take 100 mg by mouth in the morning and 100 mg at noon and 100 mg in the evening. 1 cap in morning, 1 cap in afternoon, and 2 cap at bedtime [facility] aspirin 81 mg Cap 04-13 10:54: 04-13 00:00 :00 No Take by mouth. [facility] metoprolol succinate XL 50 mg 24 hr tablet 04-13 10:54: 04-13 00:00 :00 No 50mg Take 50 mg by mouth in the morning. [facility] insulin [email or web address] (TOUJEO SOLOSTAR U-300 INSULIN SC) 04-13 10:54: 04-13 00:00 :00 No inject under the skin. [facility] insulin [email or web address] (TOUJEO SOLOSTAR U-300 INSULIN SC) 04-13 10:54: 04-13 00:00 :00 No inject under the skin. [facility] insulin [email or web address] (TOUJEO SOLOSTAR U-300 INSULIN SC) 04-13 10:54: 04-13 00:00 :00 No inject under the skin. [facility] hydroCHLORO thiazide 25 mg tablet 04-13 00:00: 00 Yes [id number] 25mg Take 1 tablet by mouth in the morning. [facility] hydroCHLORO thiazide 25 mg tablet 04-13 00:00: 00 Yes [id number] 25mg Take 1 tablet by mouth in the morning. [facility] hydroCHLORO thiazide 25 mg tablet 04-13 00:00: 00 Yes [id number] 25mg Take 1 tablet by mouth in the morning. [facility] hydroCHLORO thiazide 25 mg tablet 04-13 00:00: 00 Yes [id number] 25mg Take 1 tablet by mouth in the morning. [facility] hydroCHLORO thiazide 25 mg tablet 04-13 00:00: 00 Yes [id number] 25mg Take 1 tablet by mouth in the morning. [facility] hydroCHLORO thiazide 25 mg tablet 04-13 00:00: 00 Yes [id number] 25mg Take 1 tablet by mouth in the morning. [facility] hydroCHLORO thiazide 25 mg tablet 04-13 00:00: 00 Yes [id number] 25mg Take 1 tablet by mouth in the morning. [facility] hydroCHLORO thiazide 25 mg tablet 04-13 00:00: 00 Yes [id number] 25mg Take 1 tablet by mouth in the morning. [facility] hydroCHLORO thiazide 25 mg tablet 04-13 00:00: 00 Yes [id number] 25mg Take 1 tablet by mouth in the morning. [facility] hydroCHLORO thiazide 25 mg tablet 04-13 00:00: 00 Yes [id number] 25mg Take 1 tablet by mouth in the morning. [facility] metoprolol succinate XL 50 mg 24 hr tablet 04-13 00:00: 00 Yes [id number] 50mg Take 1 tablet by mouth in the morning. [facility] metFORMIN 500 mg tablet 04-13 00:00: 00 Yes [id number] 500mg Take 1 tablet by mouth in the morning and 1 tablet in the evening. Take with meals. [facility] hydroCHLORO thiazide 25 mg tablet 04-13 00:00: 00 Yes [id number] 25mg Take 1 tablet by mouth in the morning. [facility] lisinopriL 20 mg tablet 04-13 00:00: 00 Yes [id number] 20mg Take 1 tablet by mouth in the morning and 1 tablet in the evening. [facility] hydroCHLORO thiazide 25 mg tablet 04-13 00:00: 00 Yes [id number] 25mg Take 1 tablet by mouth in the morning. [facility] hydroCHLORO thiazide 25 mg tablet 04-13 00:00: 00 Yes [id number] 25mg Take 1 tablet by mouth in the morning. [facility] glimepiride 1 mg tablet 04-13 00:00: 00 Yes [id number] 1mg Take 1 tablet by mouth daily with breakfast. [facility] gabapentin 100 mg capsule 04-13 00:00: 00 Yes [id number] 100mg Take 1 capsule by mouth in the morning and 1 capsule at noon and 1 capsule in the evening. 1 cap in morning, 1 cap in afternoon, and 2 cap at bedtime [facility] hydroCHLORO thiazide 25 mg tablet 04-13 00:00: 00 Yes [id number] 25mg Take 1 tablet by mouth in the morning. [facility] buPROPion XL 300 mg 24 hr tablet 04-13 00:00: 00 Yes [id number] 300mg Take 1 tablet by mouth in the morning. [facility] atorvastati n 40 mg tablet 04-13 00:00: 00 Yes [id number] 40mg Take 1 tablet by mouth at bedtime. [facility] hydroCHLORO thiazide 25 mg tablet 04-13 00:00: 00 Yes [id number] 25mg Take 1 tablet by mouth in the morning. [facility] aspirin 81 mg Cap 04-13 00:00: 00 Yes [id number] 1{tbl} Take 1 tablet by mouth daily. [facility] ARIPiprazol e 2 mg [id number] 04-13 00:00: 00 Yes [id number] 1{tbl} Take 1 tablet by mouth daily. [facility] insulin glargine U-300 conc (TOUJEO MAX U-300 SOLOSTAR) 300 unit/mL (3 mL) InPn 04-13 00:00: 00 Yes [id number] 10U inject 10 Units under the skin daily before breakfast. [facility] hydroCHLORO thiazide 25 mg tablet 04-13 00:00: 00 Yes [id number] 25mg Take 1 tablet by mouth in the morning. [facility] hydroCHLORO thiazide 25 mg tablet 04-13 00:00: 00 Yes [id number] 25mg Take 1 tablet by mouth in the morning. [facility] hydroCHLORO thiazide 25 mg tablet 04-13 00:00: 00 Yes [id number] 25mg Take 1 tablet by mouth in the morning. [facility] metoprolol succinate XL 50 mg 24 hr tablet 04-13 00:00: 00 Yes [id number] 50mg Take 1 tablet by mouth in the morning. [facility] metFORMIN 500 mg tablet 04-13 00:00: 00 Yes [id number] 500mg Take 1 tablet by mouth in the morning and 1 tablet in the evening. Take with meals. [facility] lisinopriL 20 mg tablet 04-13 00:00: 00 Yes [id number] 20mg Take 1 tablet by mouth in the morning and 1 tablet in the evening. [facility] hydroCHLORO thiazide 25 mg tablet 04-13 00:00: 00 Yes [id number] 25mg Take 1 tablet by mouth in the morning. [facility] glimepiride 1 mg tablet 04-13 00:00: 00 Yes [id number] 1mg Take 1 tablet by mouth daily with breakfast. [facility] gabapentin 100 mg capsule 04-13 00:00: 00 Yes [id number] 100mg Take 1 capsule by mouth in the morning and 1 capsule at noon and 1 capsule in the evening. 1 cap in morning, 1 cap in afternoon, and 2 cap at bedtime [facility] buPROPion XL 300 mg 24 hr tablet 04-13 00:00: 00 Yes [id number] 300mg Take 1 tablet by mouth in the morning. [facility] atorvastati n 40 mg tablet 04-13 00:00: 00 Yes [id number] 40mg Take 1 tablet by mouth at bedtime. [facility] aspirin 81 mg Cap 04-13 00:00: 00 Yes [id number] 1{tbl} Take 1 tablet by mouth daily. [facility] ARIPiprazol e 2 mg [id number] 04-13 00:00: 00 Yes [id number] 1{tbl} Take 1 tablet by mouth daily. [facility] insulin glargine U-300 conc (TOUJEO MAX U-300 SOLOSTAR) 300 unit/mL (3 mL) InPn 04-13 00:00: 00 Yes [id number] 10U inject 10 Units under the skin daily before breakfast. [facility] metoprolol succinate XL 50 mg 24 hr tablet 04-13 00:00: 00 Yes [id number] 50mg Take 1 tablet by mouth in the morning. [facility] metFORMIN 500 mg tablet 04-13 00:00: 00 Yes [id number] 500mg Take 1 tablet by mouth in the morning and 1 tablet in the evening. Take with meals. [facility] lisinopriL 20 mg tablet 04-13 00:00: 00 Yes [id number] 20mg Take 1 tablet by mouth in the morning and 1 tablet in the evening. [facility] hydroCHLORO thiazide 25 mg tablet 04-13 00:00: 00 Yes [id number] 25mg Take 1 tablet by mouth in the morning. [facility] glimepiride 1 mg tablet 04-13 00:00: 00 Yes [id number] 1mg Take 1 tablet by mouth daily with breakfast. [facility] gabapentin 100 mg capsule 04-13 00:00: 00 Yes [id number] 100mg Take 1 capsule by mouth in the morning and 1 capsule at noon and 1 capsule in the evening. 1 cap in morning, 1 cap in afternoon, and 2 cap at bedtime [facility] buPROPion XL 300 mg 24 hr tablet 04-13 00:00: 00 Yes [id number] 300mg Take 1 tablet by mouth in the morning. [facility] atorvastati n 40 mg tablet 04-13 00:00: 00 Yes [id number] 40mg Take 1 tablet by mouth at bedtime. [facility] aspirin 81 mg Cap 04-13 00:00: 00 Yes [id number] 1{tbl} Take 1 tablet by mouth daily. [facility] ARIPiprazol e 2 mg [id number] 04-13 00:00: 00 Yes [id number] 1{tbl} Take 1 tablet by mouth daily. [facility] insulin glargine U-300 conc (TOUJEO MAX U-300 SOLOSTAR) 300 unit/mL (3 mL) InPn 04-13 00:00: 00 Yes [id number] 10U inject 10 Units under the skin daily before breakfast. [facility] metoprolol succinate XL 50 mg 24 hr tablet 04-13 00:00: 00 Yes [id number] 50mg Take 1 tablet by mouth in the morning. [facility] metFORMIN 500 mg tablet 04-13 00:00: 00 Yes [id number] 500mg Take 1 tablet by mouth in the morning and 1 tablet in the evening. Take with meals. [facility] lisinopriL 20 mg tablet 04-13 00:00: 00 Yes [id number] 20mg Take 1 tablet by mouth in the morning and 1 tablet in the evening. [facility] hydroCHLORO thiazide 25 mg tablet 04-13 00:00: 00 Yes [id number] 25mg Take 1 tablet by mouth in the morning. [facility] glimepiride 1 mg tablet 04-13 00:00: 00 Yes [id number] 1mg Take 1 tablet by mouth daily with breakfast. [facility] gabapentin 100 mg capsule 04-13 00:00: 00 Yes [id number] 100mg Take 1 capsule by mouth in the morning and 1 capsule at noon and 1 capsule in the evening. 1 cap in morning, 1 cap in afternoon, and 2 cap at bedtime [facility] buPROPion XL 300 mg 24 hr tablet 04-13 00:00: 00 Yes [id number] 300mg Take 1 tablet by mouth in the morning. [facility] atorvastati n 40 mg tablet 04-13 00:00: 00 Yes [id number] 40mg Take 1 tablet by mouth at bedtime. [facility] aspirin 81 mg Cap 04-13 00:00: 00 Yes [id number] 1{tbl} Take 1 tablet by mouth daily. [facility] ARIPiprazol e 2 mg [id number] 04-13 00:00: 00 Yes [id number] 1{tbl} Take 1 tablet by mouth daily. [facility] insulin glargine U-300 conc (TOUJEO MAX U-300 SOLOSTAR) 300 unit/mL (3 mL) InPn 04-13 00:00: 00 Yes [id number] 10U inject 10 Units under the skin daily before breakfast. [facility] metoprolol succinate XL 50 mg 24 hr tablet 04-13 00:00: 00 Yes [id number] 50mg Take 1 tablet by mouth in the morning. [facility] metFORMIN 500 mg tablet 04-13 00:00: 00 Yes [id number] 500mg Take 1 tablet by mouth in the morning and 1 tablet in the evening. Take with meals. [facility] lisinopriL 20 mg tablet 04-13 00:00: 00 Yes [id number] 20mg Take 1 tablet by mouth in the morning and 1 tablet in the evening. [facility] hydroCHLORO thiazide 25 mg tablet 04-13 00:00: 00 Yes [id number] 25mg Take 1 tablet by mouth in the morning. [facility] glimepiride 1 mg tablet 04-13 00:00: 00 Yes [id number] 1mg Take 1 tablet by mouth daily with breakfast. [facility] gabapentin 100 mg capsule 04-13 00:00: 00 Yes [id number] 100mg Take 1 capsule by mouth in the morning and 1 capsule at noon and 1 capsule in the evening. 1 cap in morning, 1 cap in afternoon, and 2 cap at bedtime [facility] buPROPion XL 300 mg 24 hr tablet 04-13 00:00: 00 Yes [id number] 300mg Take 1 tablet by mouth in the morning. [facility] atorvastati n 40 mg tablet 04-13 00:00: 00 Yes [id number] 40mg Take 1 tablet by mouth at bedtime. [facility] aspirin 81 mg Cap 04-13 00:00: 00 Yes [id number] 1{tbl} Take 1 tablet by mouth daily. [facility] ARIPiprazol e 2 mg [id number] 04-13 00:00: 00 Yes [id number] 1{tbl} Take 1 tablet by mouth daily. [facility] insulin glargine U-300 conc (TOUJEO MAX U-300 SOLOSTAR) 300 unit/mL (3 mL) InPn 04-13 00:00: 00 Yes [id number] 10U inject 10 Units under the skin daily before breakfast. [facility] metoprolol succinate XL 50 mg 24 hr tablet 04-13 00:00: 00 Yes [id number] 50mg Take 1 tablet by mouth in the morning. [facility] metFORMIN 500 mg tablet 04-13 00:00: 00 Yes [id number] 500mg Take 1 tablet by mouth in the morning and 1 tablet in the evening. Take with meals. [facility] lisinopriL 20 mg tablet 04-13 00:00: 00 Yes [id number] 20mg Take 1 tablet by mouth in the morning and 1 tablet in the evening. [facility] hydroCHLORO thiazide 25 mg tablet 04-13 00:00: 00 Yes [id number] 25mg Take 1 tablet by mouth in the morning. [facility] glimepiride 1 mg tablet 04-13 00:00: 00 Yes [id number] 1mg Take 1 tablet by mouth daily with breakfast. [facility] gabapentin 100 mg capsule 04-13 00:00: 00 Yes [id number] 100mg Take 1 capsule by mouth in the morning and 1 capsule at noon and 1 capsule in the evening. 1 cap in morning, 1 cap in afternoon, and 2 cap at bedtime [facility] buPROPion XL 300 mg 24 hr tablet 04-13 00:00: 00 Yes [id number] 300mg Take 1 tablet by mouth in the morning. [facility] atorvastati n 40 mg tablet 04-13 00:00: 00 Yes [id number] 40mg Take 1 tablet by mouth at bedtime. [facility] aspirin 81 mg Cap 04-13 00:00: 00 Yes [id number] 1{tbl} Take 1 tablet by mouth daily. [facility] ARIPiprazol e 2 mg [id number] 04-13 00:00: 00 Yes [id number] 1{tbl} Take 1 tablet by mouth daily. [facility] insulin glargine U-300 conc (TOUJEO MAX U-300 SOLOSTAR) 300 unit/mL (3 mL) InPn 04-13 00:00: 00 Yes [id number] 10U inject 10 Units under the skin daily before breakfast. [facility] metoprolol succinate XL 50 mg 24 hr tablet 04-13 00:00: 00 Yes [id number] 50mg Take 1 tablet by mouth in the morning. [facility] metFORMIN 500 mg tablet 04-13 00:00: 00 Yes [id number] 500mg Take 1 tablet by mouth in the morning and 1 tablet in the evening. Take with meals. [facility] lisinopriL 20 mg tablet 04-13 00:00: 00 Yes [id number] 20mg Take 1 tablet by mouth in the morning and 1 tablet in the evening. [facility] hydroCHLORO thiazide 25 mg tablet 04-13 00:00: 00 Yes [id number] 25mg Take 1 tablet by mouth in the morning. [facility] glimepiride 1 mg tablet 04-13 00:00: 00 Yes [id number] 1mg Take 1 tablet by mouth daily with breakfast. [facility] gabapentin 100 mg capsule 04-13 00:00: 00 Yes [id number] 100mg Take 1 capsule by mouth in the morning and 1 capsule at noon and 1 capsule in the evening. 1 cap in morning, 1 cap in afternoon, and 2 cap at bedtime [facility] buPROPion XL 300 mg 24 hr tablet 04-13 00:00: 00 Yes [id number] 300mg Take 1 tablet by mouth in the morning. [facility] atorvastati n 40 mg tablet 04-13 00:00: 00 Yes [id number] 40mg Take 1 tablet by mouth at bedtime. [facility] aspirin 81 mg Cap 04-13 00:00: 00 Yes [id number] 1{tbl} Take 1 tablet by mouth daily. [facility] ARIPiprazol e 2 mg [id number] 04-13 00:00: 00 Yes [id number] 1{tbl} Take 1 tablet by mouth daily. [facility] insulin glargine U-300 conc (TOUJEO MAX U-300 SOLOSTAR) 300 unit/mL (3 mL) InPn 04-13 00:00: 00 Yes [id number] 10U inject 10 Units under the skin daily before breakfast. [facility] metoprolol succinate XL 50 mg 24 hr tablet 04-13 00:00: 00 Yes [id number] 50mg Take 1 tablet by mouth in the morning. [facility] metFORMIN 500 mg tablet 04-13 00:00: 00 Yes [id number] 500mg Take 1 tablet by mouth in the morning and 1 tablet in the evening. Take with meals. [facility] lisinopriL 20 mg tablet 04-13 00:00: 00 Yes [id number] 20mg Take 1 tablet by mouth in the morning and 1 tablet in the evening. [facility] hydroCHLORO thiazide 25 mg tablet 04-13 00:00: 00 Yes [id number] 25mg Take 1 tablet by mouth in the morning. [facility] glimepiride 1 mg tablet 04-13 00:00: 00 Yes [id number] 1mg Take 1 tablet by mouth daily with breakfast. [facility] gabapentin 100 mg capsule 04-13 00:00: 00 Yes [id number] 100mg Take 1 capsule by mouth in the morning and 1 capsule at noon and 1 capsule in the evening. 1 cap in morning, 1 cap in afternoon, and 2 cap at bedtime [facility] buPROPion XL 300 mg 24 hr tablet 04-13 00:00: 00 Yes [id number] 300mg Take 1 tablet by mouth in the morning. [facility] atorvastati n 40 mg tablet 04-13 00:00: 00 Yes [id number] 40mg Take 1 tablet by mouth at bedtime. [facility] aspirin 81 mg Cap 04-13 00:00: 00 Yes [id number] 1{tbl} Take 1 tablet by mouth daily. [facility] insulin glargine U-300 conc (TOUJEO MAX U-300 SOLOSTAR) 300 unit/mL (3 mL) InPn 04-13 00:00: 00 Yes [id number] 10U inject 10 Units under the skin daily before breakfast. [facility] metoprolol succinate XL 50 mg 24 hr tablet 04-13 00:00: 00 Yes [id number] 50mg Take 1 tablet by mouth in the morning. [facility] metFORMIN 500 mg tablet 04-13 00:00: 00 Yes [id number] 500mg Take 1 tablet by mouth in the morning and 1 tablet in the evening. Take with meals. [facility] lisinopriL 20 mg tablet 04-13 00:00: 00 Yes [id number] 20mg Take 1 tablet by mouth in the morning and 1 tablet in the evening. [facility] hydroCHLORO thiazide 25 mg tablet 04-13 00:00: 00 Yes [id number] 25mg Take 1 tablet by mouth in the morning. [facility] glimepiride 1 mg tablet 04-13 00:00: 00 Yes [id number] 1mg Take 1 tablet by mouth daily with breakfast. [facility] gabapentin 100 mg capsule 04-13 00:00: 00 Yes [id number] 100mg Take 1 capsule by mouth in the morning and 1 capsule at noon and 1 capsule in the evening. 1 cap in morning, 1 cap in afternoon, and 2 cap at bedtime [facility] buPROPion XL 300 mg 24 hr tablet 04-13 00:00: 00 Yes [id number] 300mg Take 1 tablet by mouth in the morning. [facility] atorvastati n 40 mg tablet 04-13 00:00: 00 Yes [id number] 40mg Take 1 tablet by mouth at bedtime. [facility] aspirin 81 mg Cap 04-13 00:00: 00 Yes [id number] 1{tbl} Take 1 tablet by mouth daily. [facility] insulin glargine U-300 conc (TOUJEO MAX U-300 SOLOSTAR) 300 unit/mL (3 mL) InPn 04-13 00:00: 00 Yes [id number] 10U inject 10 Units under the skin daily before breakfast. [facility] metoprolol succinate XL 50 mg 24 hr tablet 04-13 00:00: 00 Yes [id number] 50mg Take 1 tablet by mouth in the morning. [facility] metFORMIN 500 mg tablet 04-13 00:00: 00 Yes [id number] 500mg Take 1 tablet by mouth in the morning and 1 tablet in the evening. Take with meals. [facility] lisinopriL 20 mg tablet 04-13 00:00: 00 Yes [id number] 20mg Take 1 tablet by mouth in the morning and 1 tablet in the evening. [facility] hydroCHLORO thiazide 25 mg tablet 04-13 00:00: 00 Yes [id number] 25mg Take 1 tablet by mouth in the morning. [facility] glimepiride 1 mg tablet 04-13 00:00: 00 Yes [id number] 1mg Take 1 tablet by mouth daily with breakfast. [facility] gabapentin 100 mg capsule 04-13 00:00: 00 Yes [id number] 100mg Take 1 capsule by mouth in the morning and 1 capsule at noon and 1 capsule in the evening. 1 cap in morning, 1 cap in afternoon, and 2 cap at bedtime [facility] buPROPion XL 300 mg 24 hr tablet 04-13 00:00: 00 Yes [id number] 300mg Take 1 tablet by mouth in the morning. [facility] atorvastati n 40 mg tablet 04-13 00:00: 00 Yes [id number] 40mg Take 1 tablet by mouth at bedtime. [facility] aspirin 81 mg Cap 04-13 00:00: 00 Yes [id number] 1{tbl} Take 1 tablet by mouth daily. [facility] insulin glargine U-300 conc (TOUJEO MAX U-300 SOLOSTAR) 300 unit/mL (3 mL) InPn 04-13 00:00: 00 Yes [id number] 10U inject 10 Units under the skin daily before breakfast. [facility] metoprolol succinate XL 50 mg 24 hr tablet 04-13 00:00: 00 Yes [id number] 50mg Take 1 tablet by mouth in the morning. [facility] metFORMIN 500 mg tablet 04-13 00:00: 00 Yes [id number] 500mg Take 1 tablet by mouth in the morning and 1 tablet in the evening. Take with meals. [facility] lisinopriL 20 mg tablet 04-13 00:00: 00 Yes [id number] 20mg Take 1 tablet by mouth in the morning and 1 tablet in the evening. [facility] hydroCHLORO thiazide 25 mg tablet 04-13 00:00: 00 Yes [id number] 25mg Take 1 tablet by mouth in the morning. [facility] glimepiride 1 mg tablet 04-13 00:00: 00 Yes [id number] 1mg Take 1 tablet by mouth daily with breakfast. [facility] gabapentin 100 mg capsule 04-13 00:00: 00 Yes [id number] 100mg Take 1 capsule by mouth in the morning and 1 capsule at noon and 1 capsule in the evening. 1 cap in morning, 1 cap in afternoon, and 2 cap at bedtime [facility] buPROPion XL 300 mg 24 hr tablet 04-13 00:00: 00 Yes [id number] 300mg Take 1 tablet by mouth in the morning. [facility] atorvastati n 40 mg tablet 04-13 00:00: 00 Yes [id number] 40mg Take 1 tablet by mouth at bedtime. [facility] aspirin 81 mg Cap 04-13 00:00: 00 Yes [id number] 1{tbl} Take 1 tablet by mouth daily. [facility] insulin glargine U-300 conc (TOUJEO MAX U-300 SOLOSTAR) 300 unit/mL (3 mL) InPn 04-13 00:00: 00 Yes [id number] 10U inject 10 Units under the skin daily before breakfast. [facility] metoprolol succinate XL 50 mg 24 hr tablet 04-13 00:00: 00 Yes [id number] 50mg Take 1 tablet by mouth in the morning. [facility] metFORMIN 500 mg tablet 04-13 00:00: 00 Yes [id number] 500mg Take 1 tablet by mouth in the morning and 1 tablet in the evening. Take with meals. [facility] lisinopriL 20 mg tablet 04-13 00:00: 00 Yes [id number] 20mg Take 1 tablet by mouth in the morning and 1 tablet in the evening. [facility] hydroCHLORO thiazide 25 mg tablet 04-13 00:00: 00 Yes [id number] 25mg Take 1 tablet by mouth in the morning. [facility] glimepiride 1 mg tablet 04-13 00:00: 00 Yes [id number] 1mg Take 1 tablet by mouth daily with breakfast. [facility] gabapentin 100 mg capsule 04-13 00:00: 00 Yes [id number] 100mg Take 1 capsule by mouth in the morning and 1 capsule at noon and 1 capsule in the evening. 1 cap in morning, 1 cap in afternoon, and 2 cap at bedtime [facility] buPROPion XL 300 mg 24 hr tablet 04-13 00:00: 00 Yes [id number] 300mg Take 1 tablet by mouth in the morning. [facility] atorvastati n 40 mg tablet 04-13 00:00: 00 Yes [id number] 40mg Take 1 tablet by mouth at bedtime. [facility] aspirin 81 mg Cap 04-13 00:00: 00 Yes [id number] 1{tbl} Take 1 tablet by mouth daily. [facility] insulin glargine U-300 conc (TOUJEO MAX U-300 SOLOSTAR) 300 unit/mL (3 mL) InPn 04-13 00:00: 00 Yes [id number] 10U inject 10 Units under the skin daily before breakfast. [facility] metoprolol succinate XL 50 mg 24 hr tablet 04-13 00:00: 00 Yes [id number] 50mg Take 1 tablet by mouth in the morning. [facility] metFORMIN 500 mg tablet 04-13 00:00: 00 Yes [id number] 500mg Take 1 tablet by mouth in the morning and 1 tablet in the evening. Take with meals. [facility] lisinopriL 20 mg tablet 04-13 00:00: 00 Yes [id number] 20mg Take 1 tablet by mouth in the morning and 1 tablet in the evening. [facility] hydroCHLORO thiazide 25 mg tablet 04-13 00:00: 00 Yes [id number] 25mg Take 1 tablet by mouth in the morning. [facility] glimepiride 1 mg tablet 04-13 00:00: 00 Yes [id number] 1mg Take 1 tablet by mouth daily with breakfast. [facility] gabapentin 100 mg capsule 04-13 00:00: 00 Yes [id number] 100mg Take 1 capsule by mouth in the morning and 1 capsule at noon and 1 capsule in the evening. 1 cap in morning, 1 cap in afternoon, and 2 cap at bedtime [facility] buPROPion XL 300 mg 24 hr tablet 04-13 00:00: 00 Yes [id number] 300mg Take 1 tablet by mouth in the morning. [facility] atorvastati n 40 mg tablet 04-13 00:00: 00 Yes [id number] 40mg Take 1 tablet by mouth at bedtime. [facility] aspirin 81 mg Cap 04-13 00:00: 00 Yes [id number] 1{tbl} Take 1 tablet by mouth daily. [facility] insulin glargine U-300 conc (TOUJEO MAX U-300 SOLOSTAR) 300 unit/mL (3 mL) InPn 04-13 00:00: 00 Yes [id number] 10U inject 10 Units under the skin daily before breakfast. [facility] metoprolol succinate XL 50 mg 24 hr tablet 04-13 00:00: 00 Yes [id number] 50mg Take 1 tablet by mouth in the morning. [facility] metFORMIN 500 mg tablet 04-13 00:00: 00 Yes [id number] 500mg Take 1 tablet by mouth in the morning and 1 tablet in the evening. Take with meals. [facility] lisinopriL 20 mg tablet 04-13 00:00: 00 Yes [id number] 20mg Take 1 tablet by mouth in the morning and 1 tablet in the evening. [facility] hydroCHLORO thiazide 25 mg tablet 04-13 00:00: 00 Yes [id number] 25mg Take 1 tablet by mouth in the morning. [facility] glimepiride 1 mg tablet 04-13 00:00: 00 Yes [id number] 1mg Take 1 tablet by mouth daily with breakfast. [facility] gabapentin 100 mg capsule 04-13 00:00: 00 Yes [id number] 100mg Take 1 capsule by mouth in the morning and 1 capsule at noon and 1 capsule in the evening. 1 cap in morning, 1 cap in afternoon, and 2 cap at bedtime [facility] buPROPion XL 300 mg 24 hr tablet 04-13 00:00: 00 Yes [id number] 300mg Take 1 tablet by mouth in the morning. [facility] atorvastati n 40 mg tablet 04-13 00:00: 00 Yes [id number] 40mg Take 1 tablet by mouth at bedtime. [facility] aspirin 81 mg Cap 04-13 00:00: 00 Yes [id number] 1{tbl} Take 1 tablet by mouth daily. [facility] insulin glargine U-300 conc (TOUJEO MAX U-300 SOLOSTAR) 300 unit/mL (3 mL) InPn 04-13 00:00: 00 Yes [id number] 10U inject 10 Units under the skin daily before breakfast. [facility] metoprolol succinate XL 50 mg 24 hr tablet 04-13 00:00: 00 Yes [id number] 50mg Take 1 tablet by mouth in the morning. [facility] metFORMIN 500 mg tablet 04-13 00:00: 00 Yes [id number] 500mg Take 1 tablet by mouth in the morning and 1 tablet in the evening. Take with meals. [facility] lisinopriL 20 mg tablet 04-13 00:00: 00 Yes [id number] 20mg Take 1 tablet by mouth in the morning and 1 tablet in the evening. [facility] hydroCHLORO thiazide 25 mg tablet 04-13 00:00: 00 Yes [id number] 25mg Take 1 tablet by mouth in the morning. [facility] glimepiride 1 mg tablet 04-13 00:00: 00 Yes [id number] 1mg Take 1 tablet by mouth daily with breakfast. [facility] gabapentin 100 mg capsule 04-13 00:00: 00 Yes [id number] 100mg Take 1 capsule by mouth in the morning and 1 capsule at noon and 1 capsule in the evening. 1 cap in morning, 1 cap in afternoon, and 2 cap at bedtime [facility] buPROPion XL 300 mg 24 hr tablet 04-13 00:00: 00 Yes [id number] 300mg Take 1 tablet by mouth in the morning. [facility] atorvastati n 40 mg tablet 04-13 00:00: 00 Yes [id number] 40mg Take 1 tablet by mouth at bedtime. [facility] aspirin 81 mg Cap 04-13 00:00: 00 Yes [id number] 1{tbl} Take 1 tablet by mouth daily. [facility] insulin glargine U-300 conc (TOUJEO MAX U-300 SOLOSTAR) 300 unit/mL (3 mL) InPn 04-13 00:00: 00 Yes [id number] 10U inject 10 Units under the skin daily before breakfast. [facility] metoprolol succinate XL 50 mg 24 hr tablet 04-13 00:00: 00 Yes [id number] 50mg Take 1 tablet by mouth in the morning. [facility] metFORMIN 500 mg tablet 04-13 00:00: 00 Yes [id number] 500mg Take 1 tablet by mouth in the morning and 1 tablet in the evening. Take with meals. [facility] lisinopriL 20 mg tablet 04-13 00:00: 00 Yes [id number] 20mg Take 1 tablet by mouth in the morning and 1 tablet in the evening. [facility] hydroCHLORO thiazide 25 mg tablet 04-13 00:00: 00 Yes [id number] 25mg Take 1 tablet by mouth in the morning. [facility] glimepiride 1 mg tablet 04-13 00:00: 00 Yes [id number] 1mg Take 1 tablet by mouth daily with breakfast. [facility] gabapentin 100 mg capsule 04-13 00:00: 00 Yes [id number] 100mg Take 1 capsule by mouth in the morning and 1 capsule at noon and 1 capsule in the evening. 1 cap in morning, 1 cap in afternoon, and 2 cap at bedtime [facility] buPROPion XL 300 mg 24 hr tablet 04-13 00:00: 00 Yes [id number] 300mg Take 1 tablet by mouth in the morning. [facility] atorvastati n 40 mg tablet 04-13 00:00: 00 Yes [id number] 40mg Take 1 tablet by mouth at bedtime. [facility] aspirin 81 mg Cap 04-13 00:00: 00 Yes [id number] 1{tbl} Take 1 tablet by mouth daily. [facility] insulin glargine U-300 conc (TOUJEO MAX U-300 SOLOSTAR) 300 unit/mL (3 mL) InPn 04-13 00:00: 00 Yes [id number] 10U inject 10 Units under the skin daily before breakfast. [facility] metoprolol succinate XL 50 mg 24 hr tablet 04-13 00:00: 00 Yes [id number] 50mg Take 1 tablet by mouth in the morning. [facility] metFORMIN 500 mg tablet 04-13 00:00: 00 Yes [id number] 500mg Take 1 tablet by mouth in the morning and 1 tablet in the evening. Take with meals. [facility] metoprolol succinate XL 50 mg 24 hr tablet 04-13 00:00: 00 Yes [id number] 50mg Take 1 tablet by mouth in the morning. [facility] metFORMIN 500 mg tablet 04-13 00:00: 00 Yes [id number] 500mg Take 1 tablet by mouth in the morning and 1 tablet in the evening. Take with meals. [facility] lisinopriL 20 mg tablet 04-13 00:00: 00 Yes [id number] 20mg Take 1 tablet by mouth in the morning and 1 tablet in the evening. [facility] hydroCHLORO thiazide 25 mg tablet 04-13 00:00: 00 Yes [id number] 25mg Take 1 tablet by mouth in the morning. [facility] glimepiride 1 mg tablet 04-13 00:00: 00 Yes [id number] 1mg Take 1 tablet by mouth daily with breakfast. [facility] gabapentin 100 mg capsule 04-13 00:00: 00 Yes [id number] 100mg Take 1 capsule by mouth in the morning and 1 capsule at noon and 1 capsule in the evening. 1 cap in morning, 1 cap in afternoon, and 2 cap at bedtime [facility] buPROPion XL 300 mg 24 hr tablet 04-13 00:00: 00 Yes [id number] 300mg Take 1 tablet by mouth in the morning. [facility] atorvastati n 40 mg tablet 04-13 00:00: 00 Yes [id number] 40mg Take 1 tablet by mouth at bedtime. [facility] aspirin 81 mg Cap 04-13 00:00: 00 Yes [id number] 1{tbl} Take 1 tablet by mouth daily. [facility] lisinopriL 20 mg tablet 04-13 00:00: 00 Yes [id number] 20mg Take 1 tablet by mouth in the morning and 1 tablet in the evening. [facility] insulin glargine U-300 conc (TOUJEO MAX U-300 SOLOSTAR) 300 unit/mL (3 mL) InPn 04-13 00:00: 00 Yes [id number] 10U inject 10 Units under the skin daily before breakfast. [facility] metoprolol succinate XL 50 mg 24 hr tablet 04-13 00:00: 00 Yes [id number] 50mg Take 1 tablet by mouth in the morning. [facility] hydroCHLORO thiazide 25 mg tablet 04-13 00:00: 00 Yes [id number] 25mg Take 1 tablet by mouth in the morning. [facility] metFORMIN 500 mg tablet 04-13 00:00: 00 Yes [id number] 500mg Take 1 tablet by mouth in the morning and 1 tablet in the evening. Take with meals. [facility] lisinopriL 20 mg tablet 04-13 00:00: 00 Yes [id number] 20mg Take 1 tablet by mouth in the morning and 1 tablet in the evening. [facility] hydroCHLORO thiazide 25 mg tablet 04-13 00:00: 00 Yes [id number] 25mg Take 1 tablet by mouth in the morning. [facility] glimepiride 1 mg tablet 04-13 00:00: 00 Yes [id number] 1mg Take 1 tablet by mouth daily with breakfast. [facility] gabapentin 100 mg capsule 04-13 00:00: 00 Yes [id number] 100mg Take 1 capsule by mouth in the morning and 1 capsule at noon and 1 capsule in the evening. 1 cap in morning, 1 cap in afternoon, and 2 cap at bedtime [facility] buPROPion XL 300 mg 24 hr tablet 04-13 00:00: 00 Yes [id number] 300mg Take 1 tablet by mouth in the morning. [facility] atorvastati n 40 mg tablet 04-13 00:00: 00 Yes [id number] 40mg Take 1 tablet by mouth at bedtime. [facility] aspirin 81 mg Cap 04-13 00:00: 00 Yes [id number] 1{tbl} Take 1 tablet by mouth daily. [facility] insulin glargine U-300 conc (TOUJEO MAX U-300 SOLOSTAR) 300 unit/mL (3 mL) InPn 04-13 00:00: 00 Yes [id number] 10U inject 10 Units under the skin daily before breakfast. [facility] glimepiride 1 mg tablet 04-13 00:00: 00 Yes [id number] 1mg Take 1 tablet by mouth daily with breakfast. [facility] metoprolol succinate XL 50 mg 24 hr tablet 04-13 00:00: 00 Yes [id number] 50mg Take 1 tablet by mouth in the morning. [facility] metFORMIN 500 mg tablet 04-13 00:00: 00 Yes [id number] 500mg Take 1 tablet by mouth in the morning and 1 tablet in the evening. Take with meals. [facility] lisinopriL 20 mg tablet 04-13 00:00: 00 Yes [id number] 20mg Take 1 tablet by mouth in the morning and 1 tablet in the evening. [facility] hydroCHLORO thiazide 25 mg tablet 04-13 00:00: 00 Yes [id number] 25mg Take 1 tablet by mouth in the morning. [facility] glimepiride 1 mg tablet 04-13 00:00: 00 Yes [id number] 1mg Take 1 tablet by mouth daily with breakfast. [facility] gabapentin 100 mg capsule 04-13 00:00: 00 Yes [id number] 100mg Take 1 capsule by mouth in the morning and 1 capsule at noon and 1 capsule in the evening. 1 cap in morning, 1 cap in afternoon, and 2 cap at bedtime [facility] buPROPion XL 300 mg 24 hr tablet 04-13 00:00: 00 Yes [id number] 300mg Take 1 tablet by mouth in the morning. [facility] gabapentin 100 mg capsule 04-13 00:00: 00 Yes [id number] 100mg Take 1 capsule by mouth in the morning and 1 capsule at noon and 1 capsule in the evening. 1 cap in morning, 1 cap in afternoon, and 2 cap at bedtime [facility] atorvastati n 40 mg tablet 04-13 00:00: 00 Yes [id number] 40mg Take 1 tablet by mouth at bedtime. [facility] aspirin 81 mg Cap 04-13 00:00: 00 Yes [id number] 1{tbl} Take 1 tablet by mouth daily. [facility] insulin glargine U-300 conc (TOUJEO MAX U-300 SOLOSTAR) 300 unit/mL (3 mL) InPn 04-13 00:00: 00 Yes [id number] 10U inject 10 Units under the skin daily before breakfast. [facility] metoprolol succinate XL 50 mg 24 hr tablet 04-13 00:00: 00 Yes [id number] 50mg Take 1 tablet by mouth in the morning. [facility] metFORMIN 500 mg tablet 04-13 00:00: 00 Yes [id number] 500mg Take 1 tablet by mouth in the morning and 1 tablet in the evening. Take with meals. [facility] lisinopriL 20 mg tablet 04-13 00:00: 00 Yes [id number] 20mg Take 1 tablet by mouth in the morning and 1 tablet in the evening. [facility] buPROPion XL 300 mg 24 hr tablet 04-13 00:00: 00 Yes [id number] 300mg Take 1 tablet by mouth in the morning. [facility] hydroCHLORO thiazide 25 mg tablet 04-13 00:00: 00 Yes [id number] 25mg Take 1 tablet by mouth in the morning. [facility] glimepiride 1 mg tablet 04-13 00:00: 00 Yes [id number] 1mg Take 1 tablet by mouth daily with breakfast. [facility] gabapentin 100 mg capsule 04-13 00:00: 00 Yes [id number] 100mg Take 1 capsule by mouth in the morning and 1 capsule at noon and 1 capsule in the evening. 1 cap in morning, 1 cap in afternoon, and 2 cap at bedtime [facility] buPROPion XL 300 mg 24 hr tablet 04-13 00:00: 00 Yes [id number] 300mg Take 1 tablet by mouth in the morning. [facility] atorvastati n 40 mg tablet 04-13 00:00: 00 Yes [id number] 40mg Take 1 tablet by mouth at bedtime. [facility] aspirin 81 mg Cap 04-13 00:00: 00 Yes [id number] 1{tbl} Take 1 tablet by mouth daily. [facility] insulin glargine U-300 conc (TOUJEO MAX U-300 SOLOSTAR) 300 unit/mL (3 mL) InPn 04-13 00:00: 00 Yes [id number] 10U inject 10 Units under the skin daily before breakfast. [facility] atorvastati n 40 mg tablet 04-13 00:00: 00 Yes [id number] 40mg Take 1 tablet by mouth at bedtime. [facility] metoprolol succinate XL 50 mg 24 hr tablet 04-13 00:00: 00 Yes [id number] 50mg Take 1 tablet by mouth in the morning. [facility] metFORMIN 500 mg tablet 04-13 00:00: 00 Yes [id number] 500mg Take 1 tablet by mouth in the morning and 1 tablet in the evening. Take with meals. [facility] lisinopriL 20 mg tablet 04-13 00:00: 00 Yes [id number] 20mg Take 1 tablet by mouth in the morning and 1 tablet in the evening. [facility] hydroCHLORO thiazide 25 mg tablet 04-13 00:00: 00 Yes [id number] 25mg Take 1 tablet by mouth in the morning. [facility] glimepiride 1 mg tablet 04-13 00:00: 00 Yes [id number] 1mg Take 1 tablet by mouth daily with breakfast. [facility] gabapentin 100 mg capsule 04-13 00:00: 00 Yes [id number] 100mg Take 1 capsule by mouth in the morning and 1 capsule at noon and 1 capsule in the evening. 1 cap in morning, 1 cap in afternoon, and 2 cap at bedtime [facility] buPROPion XL 300 mg 24 hr tablet 04-13 00:00: 00 Yes [id number] 300mg Take 1 tablet by mouth in the morning. [facility] atorvastati n 40 mg tablet 04-13 00:00: 00 Yes [id number] 40mg Take 1 tablet by mouth at bedtime. [facility] aspirin 81 mg Cap 04-13 00:00: 00 Yes [id number] 1{tbl} Take 1 tablet by mouth daily. [facility] aspirin 81 mg Cap 04-13 00:00: 00 Yes [id number] 1{tbl} Take 1 tablet by mouth daily. [facility] insulin glargine U-300 conc (TOUJEO MAX U-300 SOLOSTAR) 300 unit/mL (3 mL) InPn 04-13 00:00: 00 Yes [id number] 10U inject 10 Units under the skin daily before breakfast. [facility] ARIPiprazol e 2 mg [id number] 04-13 00:00: 00 Yes [id number] 1{tbl} Take 1 tablet by mouth daily. [facility] insulin glargine U-300 conc (TOUJEO MAX U-300 SOLOSTAR) 300 unit/mL (3 mL) InPn 04-13 00:00: 00 Yes [id number] 10U inject 10 Units under the skin daily before breakfast. [facility] hydroCHLORO thiazide 25 mg tablet 04-13 00:00: 00 Yes [id number] 25mg Take 1 tablet by mouth in the morning. [facility] hydroCHLORO thiazide 25 mg tablet 04-13 00:00: 00 Yes [id number] 25mg Take 1 tablet by mouth in the morning. [facility] hydroCHLORO thiazide 25 mg tablet 04-13 00:00: 00 Yes [id number] 25mg Take 1 tablet by mouth in the morning. [facility] hydroCHLORO thiazide 25 mg tablet 04-13 00:00: 00 Yes [id number] 25mg Take 1 tablet by mouth in the morning. [facility] hydroCHLORO thiazide 25 mg tablet 04-13 00:00: 00 Yes [id number] 25mg Take 1 tablet by mouth in the morning. [facility] hydroCHLORO thiazide 25 mg tablet 04-13 00:00: 00 Yes [id number] 25mg Take 1 tablet by mouth in the morning. [facility] hydroCHLORO thiazide 25 mg tablet 04-13 00:00: 00 Yes [id number] 25mg Take 1 tablet by mouth in the morning. [facility] hydroCHLORO thiazide 25 mg tablet 04-13 00:00: 00 Yes [id number] 25mg Take 1 tablet by mouth in the morning. [facility] hydroCHLORO thiazide 25 mg tablet 04-13 00:00: 00 Yes [id number] 25mg Take 1 tablet by mouth in the morning. [facility] hydroCHLORO thiazide 25 mg tablet 04-13 00:00: 00 Yes [id number] 25mg Take 1 tablet by mouth in the morning. [facility] hydroCHLORO thiazide 25 mg tablet 04-13 00:00: 00 Yes [id number] 25mg Take 1 tablet by mouth in the morning. [facility] hydroCHLORO thiazide 25 mg tablet 04-13 00:00: 00 Yes [id number] 25mg Take 1 tablet by mouth in the morning. [facility] hydroCHLORO thiazide 25 mg tablet 04-13 00:00: 00 Yes [id number] 25mg Take 1 tablet by mouth in the morning. [facility] hydroCHLORO thiazide 25 mg tablet 04-13 00:00: 00 Yes [id number] 25mg Take 1 tablet by mouth in the morning. [facility] hydroCHLORO thiazide 25 mg tablet 04-13 00:00: 00 Yes [id number] 25mg Take 1 tablet by mouth in the morning. [facility] metoprolol succinate XL 50 mg 24 hr tablet 04-13 00:00: 00 Yes [id number] 50mg Take 1 tablet by mouth in the morning. [facility] hydroCHLORO thiazide 25 mg tablet 04-13 00:00: 00 Yes [id number] 25mg Take 1 tablet by mouth in the morning. [facility] metFORMIN 500 mg tablet 04-13 00:00: 00 Yes [id number] 500mg Take 1 tablet by mouth in the morning and 1 tablet in the evening. Take with meals. [facility] lisinopriL 20 mg tablet 04-13 00:00: 00 Yes [id number] 20mg Take 1 tablet by mouth in the morning and 1 tablet in the evening. [facility] hydroCHLORO thiazide 25 mg tablet 04-13 00:00: 00 Yes [id number] 25mg Take 1 tablet by mouth in the morning. [facility] hydroCHLORO thiazide 25 mg tablet 04-13 00:00: 00 Yes [id number] 25mg Take 1 tablet by mouth in the morning. [facility] glimepiride 1 mg tablet 04-13 00:00: 00 Yes [id number] 1mg Take 1 tablet by mouth daily with breakfast. [facility] hydroCHLORO thiazide 25 mg tablet 04-13 00:00: 00 Yes [id number] 25mg Take 1 tablet by mouth in the morning. [facility] gabapentin 100 mg capsule 04-13 00:00: 00 Yes [id number] 100mg Take 1 capsule by mouth in the morning and 1 capsule at noon and 1 capsule in the evening. 1 cap in morning, 1 cap in afternoon, and 2 cap at bedtime [facility] buPROPion XL 300 mg 24 hr tablet 04-13 00:00: 00 Yes [id number] 300mg Take 1 tablet by mouth in the morning. [facility] hydroCHLORO thiazide 25 mg tablet 04-13 00:00: 00 Yes [id number] 25mg Take 1 tablet by mouth in the morning. [facility] atorvastati n 40 mg tablet 04-13 00:00: 00 Yes [id number] 40mg Take 1 tablet by mouth at bedtime. [facility] aspirin 81 mg Cap 04-13 00:00: 00 Yes [id number] 1{tbl} Take 1 tablet by mouth daily. [facility] hydroCHLORO thiazide 25 mg tablet 04-13 00:00: 00 Yes [id number] 25mg Take 1 tablet by mouth in the morning. [facility] ARIPiprazol e 2 mg [id number] 04-13 00:00: 00 Yes [id number] 1{tbl} Take 1 tablet by mouth daily. [facility] insulin glargine U-300 conc (TOUJEO MAX U-300 SOLOSTAR) 300 unit/mL (3 mL) InPn 04-13 00:00: 00 Yes [id number] 10U inject 10 Units under the skin daily before breakfast. [facility] hydroCHLORO thiazide 25 mg tablet 04-13 00:00: 00 Yes [id number] 25mg Take 1 tablet by mouth in the morning. [facility] hydroCHLORO thiazide 25 mg tablet 04-13 00:00: 00 10-22 00:00 :00 No [id number] 25mg Take 1 tablet by mouth in the morning. [facility] hydroCHLORO thiazide 25 mg tablet 04-13 00:00: 00 10-22 00:00 :00 No [id number] 25mg Take 1 tablet by mouth in the morning. [facility] hydroCHLORO thiazide 25 mg tablet 04-13 00:00: 00 10-22 00:00 :00 No [id number] 25mg Take 1 tablet by mouth in the morning. [facility] hydroCHLORO thiazide 25 mg tablet 04-13 00:00: 00 10-22 00:00 :00 No [id number] 25mg Take 1 tablet by mouth in the morning. [facility] metoprolol succinate XL 50 mg 24 hr tablet 04-13 00:00: 00 07-17 00:00 :00 No [id number] 50mg Take 1 tablet by mouth in the morning. [facility] metFORMIN 500 mg tablet 04-13 00:00: 07-17 00:00 :00 No [id number] 500mg Take 1 tablet by mouth in the morning and 1 tablet in the evening. Take with meals. [facility] lisinopriL 20 mg tablet 04-13 00:00: 00 07-17 00:00 :00 No [id number] 20mg Take 1 tablet by mouth in the morning and 1 tablet in the evening. [facility] glimepiride 1 mg tablet 04-13 00:00: 00 07-17 00:00 :00 No [id number] 1mg Take 1 tablet by mouth daily with breakfast. [facility] gabapentin 100 mg capsule 04-13 00:00: 00 07-17 00:00 :00 No [id number] 100mg Take 1 capsule by mouth in the morning and 1 capsule at noon and 1 capsule in the evening. 1 cap in morning, 1 cap in afternoon, and 2 cap at bedtime [facility] buPROPion XL 300 mg 24 hr tablet 04-13 00:00: 00 07-17 00:00 :00 No [id number] 300mg Take 1 tablet by mouth in the morning. [facility] atorvastati n 40 mg tablet 04-13 00:00: 00 07-17 00:00 :00 No [id number] 40mg Take 1 tablet by mouth at bedtime. [facility] aspirin 81 mg Cap 04-13 00:00: 00 07-17 00:00 :00 No [id number] 1{tbl} Take 1 tablet by mouth daily. [facility] insulin glargine U-300 conc (TOUJEO MAX U-300 SOLOSTAR) 300 unit/mL (3 mL) InPn 04-13 00:00: 00 07-17 00:00 :00 No [id number] 10U inject 10 Units under the skin daily before breakfast. [facility] metoprolol succinate XL 50 mg 24 hr tablet 04-13 00:00: 00 07-17 00:00 :00 No [id number] 50mg Take 1 tablet by mouth in the morning. [facility] metFORMIN 500 mg tablet 04-13 00:00: 00 07-17 00:00 :00 No [id number] 500mg Take 1 tablet by mouth in the morning and 1 tablet in the evening. Take with meals. [facility] lisinopriL 20 mg tablet 04-13 00:00: 00 07-17 00:00 :00 No [id number] 20mg Take 1 tablet by mouth in the morning and 1 tablet in the evening. [facility] glimepiride 1 mg tablet 04-13 00:00: 00 07-17 00:00 :00 No [id number] 1mg Take 1 tablet by mouth daily with breakfast. [facility] gabapentin 100 mg capsule 04-13 00:00: 00 07-17 00:00 :00 No [id number] 100mg Take 1 capsule by mouth in the morning and 1 capsule at noon and 1 capsule in the evening. 1 cap in morning, 1 cap in afternoon, and 2 cap at bedtime [facility] buPROPion XL 300 mg 24 hr tablet 04-13 00:00: 00 07-17 00:00 :00 No [id number] 300mg Take 1 tablet by mouth in the morning. [facility] atorvastati n 40 mg tablet 04-13 00:00: 00 07-17 00:00 :00 No [id number] 40mg Take 1 tablet by mouth at bedtime. [facility] aspirin 81 mg Cap 04-13 00:00: 00 07-17 00:00 :00 No [id number] 1{tbl} Take 1 tablet by mouth daily. [facility] insulin glargine U-300 conc (TOUJEO MAX U-300 SOLOSTAR) 300 unit/mL (3 mL) InPn 04-13 00:00: 00 07-17 00:00 :00 No [id number] 10U inject 10 Units under the skin daily before breakfast. [facility] metoprolol succinate XL 50 mg 24 hr tablet 04-13 00:00: 00 07-17 00:00 :00 No [id number] 50mg Take 1 tablet by mouth in the morning. [facility] metFORMIN 500 mg tablet 04-13 00:00: 00 07-17 00:00 :00 No [id number] 500mg Take 1 tablet by mouth in the morning and 1 tablet in the evening. Take with meals. [facility] lisinopriL 20 mg tablet 04-13 00:00: 00 07-17 00:00 :00 No [id number] 20mg Take 1 tablet by mouth in the morning and 1 tablet in the evening. [facility] glimepiride 1 mg tablet 04-13 00:00: 00 07-17 00:00 :00 No [id number] 1mg Take 1 tablet by mouth daily with breakfast. [facility] gabapentin 100 mg capsule 04-13 00:00: 00 07-17 00:00 :00 No [id number] 100mg Take 1 capsule by mouth in the morning and 1 capsule at noon and 1 capsule in the evening. 1 cap in morning, 1 cap in afternoon, and 2 cap at bedtime [facility] buPROPion XL 300 mg 24 hr tablet 04-13 00:00: 00 07-17 00:00 :00 No [id number] 300mg Take 1 tablet by mouth in the morning. [facility] atorvastati n 40 mg tablet 04-13 00:00: 00 07-17 00:00 :00 No [id number] 40mg Take 1 tablet by mouth at bedtime. [facility] aspirin 81 mg Cap 04-13 00:00: 00 07-17 00:00 :00 No [id number] 1{tbl} Take 1 tablet by mouth daily. [facility] insulin glargine U-300 conc (TOUJEO MAX U-300 SOLOSTAR) 300 unit/mL (3 mL) InPn 04-13 00:00: 00 07-17 00:00 :00 No [id number] 10U inject 10 Units under the skin daily before breakfast. [facility] metoprolol succinate XL 50 mg 24 hr tablet 04-13 00:00: 00 07-17 00:00 :00 No [id number] 50mg Take 1 tablet by mouth in the morning. [facility] metFORMIN 500 mg tablet 04-13 00:00: 00 07-17 00:00 :00 No [id number] 500mg Take 1 tablet by mouth in the morning and 1 tablet in the evening. Take with meals. [facility] lisinopriL 20 mg tablet 04-13 00:00: 00 07-17 00:00 :00 No [id number] 20mg Take 1 tablet by mouth in the morning and 1 tablet in the evening. [facility] glimepiride 1 mg tablet 04-13 00:00: 00 07-17 00:00 :00 No [id number] 1mg Take 1 tablet by mouth daily with breakfast. [facility] gabapentin 100 mg capsule 04-13 00:00: 00 07-17 00:00 :00 No [id number] 100mg Take 1 capsule by mouth in the morning and 1 capsule at noon and 1 capsule in the evening. 1 cap in morning, 1 cap in afternoon, and 2 cap at bedtime [facility] buPROPion XL 300 mg 24 hr tablet 04-13 00:00: 00 07-17 00:00 :00 No [id number] 300mg Take 1 tablet by mouth in the morning. [facility] atorvastati n 40 mg tablet 04-13 00:00: 00 07-17 00:00 :00 No [id number] 40mg Take 1 tablet by mouth at bedtime. [facility] aspirin 81 mg Cap 04-13 00:00: 00 07-17 00:00 :00 No [id number] 1{tbl} Take 1 tablet by mouth daily. [facility] insulin glargine U-300 conc (TOUJEO MAX U-300 SOLOSTAR) 300 unit/mL (3 mL) InPn 04-13 00:00: 00 07-17 00:00 :00 No [id number] 10U inject 10 Units under the skin daily before breakfast. [facility] metoprolol succinate XL 50 mg 24 hr tablet 04-13 00:00: 00 07-17 00:00 :00 No [id number] 50mg Take 1 tablet by mouth in the morning. [facility] metFORMIN 500 mg tablet 04-13 00:00: 00 07-17 00:00 :00 No [id number] 500mg Take 1 tablet by mouth in the morning and 1 tablet in the evening. Take with meals. [facility] lisinopriL 20 mg tablet 04-13 00:00: 00 07-17 00:00 :00 No [id number] 20mg Take 1 tablet by mouth in the morning and 1 tablet in the evening. [facility] glimepiride 1 mg tablet 04-13 00:00: 07-17 00:00 :00 No [id number] 1mg Take 1 tablet by mouth daily with breakfast. [facility] gabapentin 100 mg capsule 04-13 00:00: 00 07-17 00:00 :00 No [id number] 100mg Take 1 capsule by mouth in the morning and 1 capsule at noon and 1 capsule in the evening. 1 cap in morning, 1 cap in afternoon, and 2 cap at bedtime [facility] buPROPion XL 300 mg 24 hr tablet 04-13 00:00: 00 07-17 00:00 :00 No [id number] 300mg Take 1 tablet by mouth in the morning. [facility] atorvastati n 40 mg tablet 04-13 00:00: 00 07-17 00:00 :00 No [id number] 40mg Take 1 tablet by mouth at bedtime. [facility] aspirin 81 mg Cap 04-13 00:00: 00 07-17 00:00 :00 No [id number] 1{tbl} Take 1 tablet by mouth daily. [facility] insulin glargine U-300 conc (TOUJEO MAX U-300 SOLOSTAR) 300 unit/mL (3 mL) InPn 04-13 00:00: 00 07-17 00:00 :00 No [id number] 10U inject 10 Units under the skin daily before breakfast. [facility] ARIPiprazol e 2 mg [id number] 04-13 00:00: 00 05-07 00:00 :00 No [id number] 1{tbl} Take 1 tablet by mouth daily. [facility] ARIPiprazol e 2 mg [id number] 04-13 00:00: 00 05-07 00:00 :00 No [id number] 1{tbl} Take 1 tablet by mouth daily. [facility] Immunizations Ordered Immunization Name Filled Immunization Name Date Status Comments Source SARS-COV-2 COVID-19 VACCINE 12 YRS+, BIVALENT 0.5ML, IM, (MODERNA BOOSTER) 2022-07-17 00:00:00 Completed [facility] SARS-COV-2 COVID-19 VACCINE 12 YRS+, BIVALENT 0.5ML, IM, (MODERNA BOOSTER) 2022-07-17 00:00:00 Completed [facility] SARS-COV-2 COVID-19 VACCINE 12 YRS+, BIVALENT 0.5ML, IM, (MODERNA BOOSTER) 2022-07-17 00:00:00 Completed [facility] SARS-COV-2 COVID-19 VACCINE 12 YRS+, BIVALENT 0.5ML, IM, (MODERNA BOOSTER) 2022-07-17 00:00:00 Completed [facility] SARS-COV-2 COVID-19 VACCINE 12 YRS+, BIVALENT 0.5ML, IM, (MODERNA BOOSTER) 2022-07-17 00:00:00 Completed [facility] SARS-COV-2 COVID-19 VACCINE 12 YRS+, BIVALENT 0.5ML, IM, (MODERNA BOOSTER) 2022-07-17 00:00:00 Completed [facility] SARS-COV-2 COVID-19 VACCINE 12 YRS+, BIVALENT 0.5ML, IM, (MODERNA BOOSTER) 2022-07-17 00:00:00 Completed [facility] SARS-COV-2 COVID-19 VACCINE 12 YRS+, BIVALENT 0.5ML, IM, (MODERNA BOOSTER) 2022-07-17 00:00:00 Completed [facility] SARS-COV-2 COVID-19 VACCINE 12 YRS+, BIVALENT 0.5ML, IM, (MODERNA BOOSTER) 2022-07-17 00:00:00 Completed [facility] SARS-COV-2 COVID-19 VACCINE 12 YRS+, BIVALENT 0.5ML, IM, (MODERNA BOOSTER) 2022-07-17 00:00:00 Completed [facility] SARS-COV-2 COVID-19 VACCINE 12 YRS+, BIVALENT 0.5ML, IM, (MODERNA BOOSTER) 2022-07-17 00:00:00 Completed [facility] SARS-COV-2 COVID-19 VACCINE 12 YRS+, BIVALENT 0.5ML, IM, (MODERNA BOOSTER) 2022-07-17 00:00:00 Completed [facility] SARS-COV-2 COVID-19 VACCINE 12 YRS+, BIVALENT 0.5ML, IM, (MODERNA BOOSTER) 2022-07-17 00:00:00 Completed [facility] SARS-COV-2 COVID-19 VACCINE 12 YRS+, BIVALENT 0.5ML, IM, (MODERNA BOOSTER) 2022-07-17 00:00:00 Completed [facility] SARS-COV-2 COVID-19 VACCINE 12 YRS+, BIVALENT 0.5ML, IM, (MODERNA BOOSTER) 2022-07-17 00:00:00 Completed [facility] SARS-COV-2 COVID-19 VACCINE 12 YRS+, BIVALENT 0.5ML, IM, (MODERNA BOOSTER) 2022-07-17 00:00:00 Completed [facility] SARS-COV-2 COVID-19 VACCINE 12 YRS+, BIVALENT 0.5ML, IM, (MODERNA BOOSTER) 2022-07-17 00:00:00 Completed [facility] SARS-COV-2 COVID-19 VACCINE 12 YRS+, BIVALENT 0.5ML, IM, (MODERNA BOOSTER) 2022-07-17 00:00:00 Completed [facility] SARS-COV-2 COVID-19 VACCINE 12 YRS+, BIVALENT 0.5ML, IM, (MODERNA BOOSTER) 2022-07-17 00:00:00 Completed [facility] SARS-COV-2 COVID-19 VACCINE 12 YRS+, BIVALENT 0.5ML, IM, (MODERNA) 2022-07-17 00:00:00 Completed [facility] SARS-COV-2 COVID-19 VACCINE 12 YRS+, BIVALENT 0.5ML, IM, (MODERNA) 2022-07-17 00:00:00 Completed [facility] SARS-COV-2 COVID-19 VACCINE 12 YRS+, BIVALENT 0.5ML, IM, (MODERNA) 2022-07-17 00:00:00 Completed [facility] SARS-COV-2 COVID-19 VACCINE 12 YRS+, BIVALENT 0.5ML, IM, (MODERNA) 2022-07-17 00:00:00 Completed [facility] SARS-COV-2 COVID-19 VACCINE 12 YRS+, BIVALENT 0.5ML, IM, (MODERNA) 2022-07-17 00:00:00 Completed [facility] SARS-COV-2 COVID-19 VACCINE 12 YRS+, BIVALENT 0.5ML, IM, (MODERNA) 2022-07-17 00:00:00 Completed [facility] SARS-COV-2 COVID-19 VACCINE 12 YRS+, BIVALENT 0.5ML, IM, (MODERNA-BLUE TOP) 2022-07-17 00:00:00 Completed [facility] SARS-COV-2 COVID-19 VACCINE 12 YRS+, BIVALENT 0.5ML, IM, (MODERNA-BLUE TOP) 2022-07-17 00:00:00 Completed [facility] SARS-COV-2 COVID-19 VACCINE 12 YRS+, BIVALENT 0.5ML, IM, (MODERNA-BLUE TOP) 2022-07-17 00:00:00 Completed [facility] SARS-COV-2 COVID-19 VACCINE 12 YRS+, BIVALENT 0.5ML, IM, (MODERNA-BLUE TOP) 2022-07-17 00:00:00 Completed [facility] SARS-COV-2 COVID-19 VACCINE 12 YRS+, BIVALENT 0.5ML, IM, (MODERNA-BLUE TOP) 2022-07-17 00:00:00 Completed [facility] SARS-COV-2 COVID-19 VACCINE 12 YRS+, BIVALENT 0.5ML, IM, (MODERNA-BLUE TOP) 2022-07-17 00:00:00 Completed [facility] SARS-COV-2 COVID-19 VACCINE 12 YRS+, BIVALENT 0.5ML, IM, (MODERNA-BLUE TOP) 2022-07-17 00:00:00 Completed [facility] SARS-COV-2 COVID-19 VACCINE 12 YRS+, BIVALENT 0.5ML, IM, (MODERNA-BLUE TOP) 2022-07-17 00:00:00 Completed [facility] SARS-COV-2 COVID-19 VACCINE 12 YRS+, BIVALENT 0.5ML, IM, (MODERNA-BLUE TOP) 2022-07-17 00:00:00 Completed [facility] SARS-COV-2 COVID-19 VACCINE 12 YRS+, BIVALENT 0.5ML, IM, (MODERNA-BLUE TOP) 2022-07-17 00:00:00 Completed [facility] SARS-COV-2 COVID-19 VACCINE 12 YRS+, BIVALENT 0.5ML, IM, (MODERNA-BLUE TOP) 2022-07-17 00:00:00 Completed [facility] SARS-COV-2 COVID-19 VACCINE 12 YRS+, BIVALENT 0.5ML, IM, (MODERNA-BLUE TOP) 2022-07-17 00:00:00 Completed [facility] SARS-COV-2 COVID-19 VACCINE 12 YRS+, BIVALENT 0.5ML, IM, (MODERNA-BLUE TOP) 2022-07-17 00:00:00 Completed [facility] SARS-COV-2 COVID-19 VACCINE 12 YRS+, BIVALENT 0.5ML, IM, (MODERNA-BLUE TOP) 2022-07-17 00:00:00 Completed [facility] SARS-COV-2 COVID-19 VACCINE 12 YRS+, BIVALENT 0.5ML, IM, (MODERNA-BLUE TOP) 2022-07-17 00:00:00 Completed [facility] SARS-COV-2 COVID-19 VACCINE 12 YRS+, BIVALENT 0.5ML, IM, (MODERNA-BLUE TOP) 2022-07-17 00:00:00 Completed [facility] SARS-COV-2 COVID-19 VACCINE 12 YRS+, BIVALENT 0.5ML, IM, (MODERNA-BLUE TOP) 2022-07-17 00:00:00 Completed [facility] SARS-COV-2 COVID-19 VACCINE 12 YRS+, BIVALENT 0.5ML, IM, (MODERNA-BLUE TOP) 2022-07-17 00:00:00 Completed [facility] SARS-COV-2 COVID-19 VACCINE 12 YRS+, BIVALENT 0.5ML, IM, (MODERNA-BLUE TOP) 2022-07-17 00:00:00 Completed [facility] SARS-COV-2 COVID-19 VACCINE 12 YRS+, BIVALENT 0.5ML, IM, (MODERNA-BLUE TOP) 2022-07-17 00:00:00 Completed [facility] SARS-COV-2 COVID-19 VACCINE 12 YRS+, BIVALENT 0.5ML, IM, (MODERNA BOOSTER) 2022-07-17 00:00:00 Completed [facility] SARS-COV-2 COVID-19 VACCINE 12 YRS+, BIVALENT 0.5ML, IM, (MODERNA BOOSTER) 2022-07-17 00:00:00 Completed [facility] SARS-COV-2 COVID-19 VACCINE 12 YRS+, BIVALENT 0.5ML, IM, (MODERNA BOOSTER) 2022-07-17 00:00:00 Completed [facility] SARS-COV-2 COVID-19 VACCINE 12 YRS+, BIVALENT 0.5ML, IM, (MODERNA BOOSTER) 2022-07-17 00:00:00 Completed [facility] SARS-COV-2 COVID-19 VACCINE 12 YRS+, BIVALENT 0.5ML, IM, (MODERNA BOOSTER) 2022-07-17 00:00:00 Completed [facility] SARS-COV-2 COVID-19 VACCINE 12 YRS+, BIVALENT 0.5ML, IM, (MODERNA BOOSTER) 2022-07-17 00:00:00 Completed [facility] SARS-COV-2 COVID-19 VACCINE 12 YRS+, BIVALENT 0.5ML, IM, (MODERNA BOOSTER) 2022-07-17 00:00:00 Completed [facility] SARS-COV-2 COVID-19 VACCINE 12 YRS+, BIVALENT 0.5ML, IM, (MODERNA BOOSTER) 2022-07-17 00:00:00 Completed [facility] SARS-COV-2 COVID-19 VACCINE 12 YRS+, BIVALENT 0.5ML, IM, (MODERNA BOOSTER) 2022-07-17 00:00:00 Completed [facility] SARS-COV-2 COVID-19 VACCINE 12 YRS+, BIVALENT 0.5ML, IM, (MODERNA BOOSTER) 2022-07-17 00:00:00 Completed [facility] SARS-COV-2 COVID-19 VACCINE 12 YRS+, BIVALENT 0.5ML, IM, (MODERNA BOOSTER) 2022-07-17 00:00:00 Completed [facility] SARS-COV-2 COVID-19 VACCINE 12 YRS+, BIVALENT 0.5ML, IM, (MODERNA BOOSTER) 2022-07-17 00:00:00 Completed [facility] SARS-COV-2 COVID-19 VACCINE 12 YRS+, BIVALENT 0.5ML, IM, (MODERNA BOOSTER) 2022-07-17 00:00:00 Completed [facility] SARS-COV-2 COVID-19 VACCINE 12 YRS+, BIVALENT 0.5ML, IM, (MODERNA BOOSTER) 2022-07-17 00:00:00 Completed [facility] SARS-COV-2 COVID-19 VACCINE 12 YRS+, BIVALENT 0.5ML, IM, (MODERNA BOOSTER) 2022-07-17 00:00:00 Completed [facility] SARS-COV-2 COVID-19 VACCINE 12 YRS+, BIVALENT 0.5ML, IM, (MODERNA BOOSTER) 2022-07-17 00:00:00 Completed [facility] SARS-COV-2 COVID-19 VACCINE 12 YRS+, BIVALENT 0.5ML, IM, (MODERNA BOOSTER) 2022-07-17 00:00:00 Completed [facility] SARS-COV-2 COVID-19 VACCINE 12 YRS+, BIVALENT 0.5ML, IM, (MODERNA BOOSTER) 2022-07-17 00:00:00 Completed [facility] SARS-COV-2 COVID-19 VACCINE 12 YRS+, BIVALENT 0.5ML, IM, (MODERNA BOOSTER) 2022-07-17 00:00:00 Completed [facility] Influenza Virus Vaccine Quad IM, Preserv and ABX Free 6 MO-64 YRS 2022-04-13 00:00:00 Completed [facility] Influenza Virus Vaccine Quad IM, Preserv and ABX Free 6 MO-64 YRS 2022-04-13 00:00:00 Completed [facility] Influenza Virus Vaccine Quad IM, Preserv and ABX Free 6 MO-64 YRS 2022-04-13 00:00:00 Completed [facility] Influenza Virus Vaccine Quad IM, Preserv and ABX Free 6 MO-64 YRS 2022-04-13 00:00:00 Completed [facility] Influenza Virus Vaccine Quad IM, Preserv and ABX Free 6 MO-64 YRS 2022-04-13 00:00:00 Completed [facility] Influenza Virus Vaccine Quad IM, Preserv and ABX Free 6 MO-64 YRS 2022-04-13 00:00:00 Completed [facility] Influenza Virus Vaccine Quad IM, Preserv and ABX Free 6 MO-64 YRS 2022-04-13 00:00:00 Completed [facility] Influenza Virus Vaccine Quad IM, Preserv and ABX Free 6 MO-64 YRS 2022-04-13 00:00:00 Completed [facility] Influenza Virus Vaccine Quad IM, Preserv and ABX Free 6 MO-64 YRS 2022-04-13 00:00:00 Completed [facility] Influenza Virus Vaccine Quad IM, Preserv and ABX Free 6 MO-64 YRS 2022-04-13 00:00:00 Completed [facility] Influenza Virus Vaccine Quad IM, Preserv and ABX Free 6 MO-64 YRS 2022-04-13 00:00:00 Completed [facility] Influenza Virus Vaccine Quad IM, Preserv and ABX Free 6 MO-64 YRS 2022-04-13 00:00:00 Completed [facility] Influenza Virus Vaccine Quad IM, Preserv and ABX Free 6 MO-64 YRS 2022-04-13 00:00:00 Completed [facility] Influenza Virus Vaccine Quad IM, Preserv and ABX Free 6 MO-64 YRS 2022-04-13 00:00:00 Completed [facility] Influenza Virus Vaccine Quad IM, Preserv and ABX Free 6 MO-64 YRS 2022-04-13 00:00:00 Completed [facility] Influenza Virus Vaccine Quad IM, Preserv and ABX Free 6 MO-64 YRS 2022-04-13 00:00:00 Completed [facility] Influenza Virus Vaccine Quad IM, Preserv and ABX Free 6 MO-64 YRS 2022-04-13 00:00:00 Completed [facility] Influenza Virus Vaccine Quad IM, Preserv and ABX Free 6 MO-64 YRS 2022-04-13 00:00:00 Completed [facility] Influenza Virus Vaccine Quad IM, Preserv and ABX Free 6 MO-64 YRS 2022-04-13 00:00:00 Completed [facility] Influenza Virus Vaccine Quad IM, Preserv and ABX Free 6 MO-64 YRS 2022-04-13 00:00:00 Completed [facility] Influenza Virus Vaccine Quad IM, Preserv and ABX Free 6 MO-64 YRS 2022-04-13 00:00:00 Completed [facility] Influenza Virus Vaccine Quad IM, Preserv and ABX Free 6 MO-64 YRS 2022-04-13 00:00:00 Completed [facility] Influenza Virus Vaccine Quad IM, Preserv and ABX Free 6 MO-64 YRS 2022-04-13 00:00:00 [facility] [place] [facility] Virus Vaccine Quad IM, Preserv and ABX Free 6 MO-64 YRS 2022-04-13 00:00:00 Completed [facility] Influenza Virus Vaccine Quad IM, Preserv and ABX Free 6 MO-64 YRS 2022-04-13 00:00:00 Completed [facility] Influenza Virus Vaccine Quad IM, Preserv and ABX Free 6 MO-64 YRS 2022-04-13 00:00:00 Completed [facility] Influenza Virus Vaccine Quad IM, Preserv and ABX Free 6 MO-64 YRS 2022-04-13 00:00:00 Completed [facility] Influenza Virus Vaccine Quad IM, Preserv and ABX Free 6 MO-64 YRS 2022-04-13 00:00:00 Completed [facility] Influenza Virus Vaccine Quad IM, Preserv and ABX Free 6 MO-64 YRS 2022-04-13 00:00:00 Completed [facility] Influenza Virus Vaccine Quad IM, Preserv and ABX Free 6 MO-64 YRS 2022-04-13 00:00:00 Completed [facility] Influenza Virus Vaccine Quad IM, Preserv and ABX Free 6 MO-64 YRS 2022-04-13 00:00:00 Completed [facility] Influenza Virus Vaccine Quad IM, Preserv and ABX Free 6 MO-64 YRS 2022-04-13 00:00:00 Completed [facility] Influenza Virus Vaccine Quad IM, Preserv and ABX Free 6 MO-64 YRS 2022-04-13 00:00:00 Completed [facility] Influenza Virus Vaccine Quad IM, Preserv and ABX Free 6 MO-64 YRS 2022-04-13 00:00:00 Completed [facility] Influenza Virus Vaccine Quad IM, Preserv and ABX Free 6 MO-64 YRS 2022-04-13 00:00:00 Completed [facility] Influenza Virus Vaccine Quad IM, Preserv and ABX Free 6 MO-64 YRS 2022-04-13 00:00:00 Completed [facility] Influenza Virus Vaccine Quad IM, Preserv and ABX Free 6 MO-64 YRS 2022-04-13 00:00:00 Completed [facility] Influenza Virus Vaccine Quad IM, Preserv and ABX Free 6 MO-64 YRS 2022-04-13 00:00:00 Completed [facility] Influenza Virus Vaccine Quad IM, Preserv and ABX Free 6 MO-64 YRS 2022-04-13 00:00:00 Completed [facility] Influenza Virus Vaccine Quad IM, Preserv and ABX Free 6 MO-64 YRS 2022-04-13 00:00:00 Completed [facility] Influenza Virus Vaccine Quad IM, Preserv and ABX Free 6 MO-64 YRS 2022-04-13 00:00:00 Completed [facility] Influenza Virus Vaccine Quad IM, Preserv and ABX Free 6 MO-64 YRS 2022-04-13 00:00:00 Completed [facility] Influenza Virus Vaccine Quad IM, Preserv and ABX Free 6 MO-64 YRS (FLUCELVAX) 2022-04-13 00:00:00 Completed [facility] Influenza Virus Vaccine Quad IM, Preserv and ABX Free 6 MO-64 YRS (FLUCELVAX) 2022-04-13 00:00:00 Completed [facility] Influenza Virus Vaccine Quad IM, Preserv and ABX Free 6 MO-64 YRS (FLUCELVAX) 2022-04-13 00:00:00 Completed [facility] Influenza Virus Vaccine Quad IM, Preserv and ABX Free 6 MO-64 YRS (FLUCELVAX) 2022-04-13 00:00:00 Completed [facility] Influenza Virus Vaccine Quad IM, Preserv and ABX Free 6 MO-64 YRS (FLUCELVAX) 2022-04-13 00:00:00 Completed [facility] Influenza Virus Vaccine Quad IM, Preserv and ABX Free 6 MO-64 YRS 2022-04-13 00:00:00 Completed [facility] Influenza Virus Vaccine Quad IM, Preserv and ABX Free 6 MO-64 YRS (FLUCELVAX) 2022-04-13 00:00:00 Completed [facility] Influenza Virus Vaccine Quad IM, Preserv and ABX Free 6 MO-64 YRS (FLUCELVAX) 2022-04-13 00:00:00 Completed [facility] Influenza Virus Vaccine Quad IM, Preserv and ABX Free 6 MO-64 YRS (FLUCELVAX) 2022-04-13 00:00:00 Completed [facility] Influenza Virus Vaccine Quad IM, Preserv and ABX Free 6 MO-64 YRS 2022-04-13 00:00:00 Completed [facility] Influenza Virus Vaccine Quad IM, Preserv and ABX Free 6 MO-64 YRS 2022-04-13 00:00:00 Completed [facility] Influenza Virus Vaccine Quad IM, Preserv and ABX Free 6 MO-64 YRS 2022-04-13 00:00:00 Completed [facility] Influenza Virus Vaccine Quad IM, Preserv and ABX Free 6 MO-64 YRS 2022-04-13 00:00:00 Completed [facility] Influenza Virus Vaccine Quad IM, Preserv and ABX Free 6 MO-64 YRS 2022-04-13 00:00:00 Completed [facility] Influenza Virus Vaccine Quad IM, Preserv and ABX Free 6 MO-64 YRS 2022-04-13 00:00:00 Completed [facility] Influenza Virus Vaccine Quad IM, Preserv and ABX Free 6 MO-64 YRS 2022-04-13 00:00:00 Completed [facility] Influenza Virus Vaccine Quad IM, Preserv and ABX Free 6 MO-64 YRS 2022-04-13 00:00:00 Completed [facility] Influenza Virus Vaccine Quad IM, Preserv and ABX Free 6 MO-64 YRS 2022-04-13 00:00:00 Completed [facility] Influenza Virus Vaccine Quad IM, Preserv and ABX Free 6 MO-64 YRS 2022-04-13 00:00:00 Completed [facility] Influenza Virus Vaccine Quad IM, Preserv and ABX Free 6 MO-64 YRS 2022-04-13 00:00:00 Completed [facility] Influenza Virus Vaccine Quad IM, Preserv and ABX Free 6 MO-64 YRS 2022-04-13 00:00:00 Completed [facility] Influenza Virus Vaccine Quad IM, Preserv and ABX Free 6 MO-64 YRS 2022-04-13 00:00:00 Completed [facility] Influenza Virus Vaccine Quad IM, Preserv and ABX Free 6 MO-64 YRS 2022-04-13 00:00:00 Completed [facility] Influenza Virus Vaccine Quad IM, Preserv and ABX Free 6 MO-64 YRS 2022-04-13 00:00:00 Completed [facility] Influenza Virus Vaccine Quad IM, Preserv and ABX Free 6 MO-64 YRS 2022-04-13 00:00:00 Completed [facility] Influenza Virus Vaccine Quad IM, Preserv and ABX Free 6 MO-64 YRS 2022-04-13 00:00:00 Completed [facility] Influenza Virus Vaccine Quad IM, Preserv and ABX Free 6 MO-64 YRS 2022-04-13 00:00:00 Completed [facility] Influenza Virus Vaccine Quad IM, Preserv and ABX Free 6 MO-64 YRS 2022-04-13 00:00:00 Completed [facility] Influenza Virus Vaccine Quad IM, Preserv and ABX Free 6 MO-64 YRS 2022-04-13 00:00:00 Completed [facility] Influenza Virus Vaccine Quad IM, Preserv and ABX Free 6 MO-64 YRS 2022-04-13 00:00:00 Completed [facility] Influenza Virus Vaccine Quad IM, Preserv and ABX Free 6 MO-64 YRS 2022-04-13 00:00:00 Completed [facility] Influenza Virus Vaccine Quad IM, Preserv and ABX Free 6 MO-64 YRS 2022-04-13 00:00:00 Completed [facility] Influenza Virus Vaccine Quad IM, Preserv and ABX Free 6 MO-64 YRS 2022-04-13 00:00:00 Completed [facility] Influenza Virus Vaccine Quad IM, Preserv and ABX Free 6 MO-64 YRS 2022-04-13 00:00:00 Completed [facility] Influenza Virus Vaccine Quad IM, Preserv and ABX Free 6 MO-64 YRS 2022-04-13 00:00:00 Completed [facility] Influenza Virus Vaccine Quad IM, Preserv and ABX Free 6 MO-64 YRS 2022-04-13 00:00:00 Completed [facility] Influenza Virus Vaccine Quad IM, Preserv and ABX Free 6 MO-64 YRS 2022-04-13 00:00:00 Completed [facility] Influenza Virus Vaccine Quad IM, Preserv and ABX Free 6 MO-64 YRS 2022-04-13 00:00:00 Completed [facility] Influenza Virus Vaccine Quad IM, Preserv and ABX Free 6 MO-64 YRS 2022-04-13 00:00:00 Completed [facility] Influenza Virus Vaccine Quad IM, Preserv and ABX Free 6 MO-64 YRS 2022-04-13 00:00:00 Completed [facility] Influenza Virus Vaccine Quad IM, Preserv and ABX Free 6 MO-64 YRS 2022-04-13 00:00:00 Completed [facility] Influenza Virus Vaccine Quad IM, Preserv and ABX Free 6 MO-64 YRS 2022-04-13 00:00:00 Completed [facility] Influenza Virus Vaccine Quad IM, Preserv and ABX Free 6 MO-64 YRS 2022-04-13 00:00:00 Completed [facility] Influenza Virus Vaccine Quad IM, Preserv and ABX Free 6 MO-64 YRS 2022-04-13 00:00:00 Completed [facility] Influenza Virus Vaccine Quad IM, Preserv and ABX Free 6 MO-64 YRS 2022-04-13 00:00:00 Completed [facility] Influenza Virus Vaccine Quad IM, Preserv and ABX Free 6 MO-64 YRS 2022-04-13 00:00:00 Completed [facility] Influenza Virus Vaccine Quad IM, Preserv and ABX Free 6 MO-64 YRS 2022-04-13 00:00:00 Completed [facility] Pneumococcal Polysaccharide, PPSV23 (PNEUMOVAX) 2016-03-27 00:00:00 Completed [facility] Pneumococcal Polysaccharide, PPSV23 (PNEUMOVAX) 2016-03-27 00:00:00 Completed [facility] Pneumococcal Polysaccharide, PPSV23 (PNEUMOVAX) 2016-03-27 00:00:00 Completed [facility] Pneumococcal Polysaccharide, PPSV23 (PNEUMOVAX) 2016-03-27 00:00:00 Completed [facility] Pneumococcal Polysaccharide, PPSV23 (PNEUMOVAX) 2016-03-27 00:00:00 Completed [facility] Pneumococcal Polysaccharide, PPSV23 (PNEUMOVAX) 2016-03-27 00:00:00 Completed [facility] Pneumococcal Polysaccharide, PPSV23 (PNEUMOVAX) 2016-03-27 00:00:00 Completed [facility] Pneumococcal Polysaccharide, PPSV23 (PNEUMOVAX) 2016-03-27 00:00:00 Completed [facility] Pneumococcal Polysaccharide, PPSV23 (PNEUMOVAX) 2016-03-27 00:00:00 Completed [facility] Pneumococcal Polysaccharide, PPSV23 (PNEUMOVAX) 2016-03-27 00:00:00 Completed [facility] Pneumococcal Polysaccharide, PPSV23 (PNEUMOVAX) 2016-03-27 00:00:00 Completed [facility] Pneumococcal Polysaccharide, PPSV23 (PNEUMOVAX) 2016-03-27 00:00:00 Completed [facility] Pneumococcal Polysaccharide, PPSV23 (PNEUMOVAX) 2016-03-27 00:00:00 Completed [facility] Pneumococcal Polysaccharide, PPSV23 (PNEUMOVAX) 2016-03-27 00:00:00 Completed [facility] Pneumococcal Polysaccharide, PPSV23 (PNEUMOVAX) 2016-03-27 00:00:00 Completed [facility] Pneumococcal Polysaccharide, PPSV23 (PNEUMOVAX) 2016-03-27 00:00:00 Completed [facility] Pneumococcal Polysaccharide, PPSV23 (PNEUMOVAX) 2016-03-27 00:00:00 Completed [facility] Pneumococcal Polysaccharide, PPSV23 (PNEUMOVAX) 2016-03-27 00:00:00 Completed [facility] Pneumococcal Polysaccharide, PPSV23 (PNEUMOVAX) 2016-03-27 00:00:00 Completed [facility] Pneumococcal Polysaccharide, PPSV23 (PNEUMOVAX) 2016-03-27 00:00:00 Completed [facility] Pneumococcal Polysaccharide, PPSV23 (PNEUMOVAX) 2016-03-27 00:00:00 Completed [facility] Pneumococcal Polysaccharide, PPSV23 (PNEUMOVAX) 2016-03-27 00:00:00 Completed [facility] Pneumococcal Polysaccharide, PPSV23 (PNEUMOVAX) 2016-03-27 00:00:00 Completed [facility] Pneumococcal Polysaccharide, PPSV23 (PNEUMOVAX) 2016-03-27 00:00:00 Completed [facility] Pneumococcal Polysaccharide, PPSV23 (PNEUMOVAX) 2016-03-27 00:00:00 Completed [facility] Pneumococcal Polysaccharide, PPSV23 (PNEUMOVAX) 2016-03-27 00:00:00 Completed [facility] Pneumococcal Polysaccharide, PPSV23 (PNEUMOVAX) 2016-03-27 00:00:00 Completed [facility] Pneumococcal Polysaccharide, PPSV23 (PNEUMOVAX) 2016-03-27 00:00:00 Completed [facility] Pneumococcal Polysaccharide, PPSV23 (PNEUMOVAX) 2016-03-27 00:00:00 Completed [facility] Pneumococcal Polysaccharide, PPSV23 (PNEUMOVAX) 2016-03-27 00:00:00 Completed [facility] Pneumococcal Polysaccharide, PPSV23 (PNEUMOVAX) 2016-03-27 00:00:00 Completed [facility] Pneumococcal Polysaccharide, PPSV23 (PNEUMOVAX) 2016-03-27 00:00:00 Completed [facility] Pneumococcal Polysaccharide, PPSV23 (PNEUMOVAX) 2016-03-27 00:00:00 Completed [facility] Pneumococcal Polysaccharide, PPSV23 (PNEUMOVAX) 2016-03-27 00:00:00 Completed [facility] Pneumococcal Polysaccharide, PPSV23 (PNEUMOVAX) 2016-03-27 00:00:00 Completed [facility] Pneumococcal Polysaccharide, PPSV23 (PNEUMOVAX) 2016-03-27 00:00:00 Completed [facility] Pneumococcal Polysaccharide, PPSV23 (PNEUMOVAX) 2016-03-27 00:00:00 Completed [facility] Pneumococcal Polysaccharide, PPSV23 (PNEUMOVAX) 2016-03-27 00:00:00 Completed [facility] Pneumococcal Polysaccharide, PPSV23 (PNEUMOVAX) 2016-03-27 00:00:00 Completed [facility] Pneumococcal Polysaccharide, PPSV23 (PNEUMOVAX) 2016-03-27 00:00:00 Completed [facility] Pneumococcal Polysaccharide, PPSV23 (PNEUMOVAX) 2016-03-27 00:00:00 Completed [facility] Pneumococcal Polysaccharide, PPSV23 (PNEUMOVAX) 2016-03-27 00:00:00 Completed [facility] Pneumococcal Polysaccharide, PPSV23 (PNEUMOVAX) 2016-03-27 00:00:00 Completed [facility] Pneumococcal Polysaccharide, PPSV23 (PNEUMOVAX) 2016-03-27 00:00:00 Completed [facility] Pneumococcal Polysaccharide, PPSV23 (PNEUMOVAX) 2016-03-27 00:00:00 Completed [facility] Pneumococcal Polysaccharide, PPSV23 (PNEUMOVAX) 2016-03-27 00:00:00 Completed [facility] Influenza Virus Vaccine Quad IM, Preserv and ABX Free 6 MO-64 YRS (FLUCELVAX) Unknown Completed [facility] SARS-COV-2 COVID-19 VACCINE 12 YRS+, BIVALENT 0.5ML, IM, (MODERNA-BLUE TOP) Unknown Completed [facility] Pneumococcal Polysaccharide, PPSV23 (PNEUMOVAX) Unknown Completed [facility] Influenza Virus Vaccine Quad IM, Preserv and ABX Free 6 MO-64 YRS (FLUCELVAX) Unknown Completed [facility] SARS-COV-2 COVID-19 VACCINE 12 YRS+, BIVALENT 0.5ML, IM, (MODERNA-BLUE TOP) Unknown Completed [facility] Pneumococcal Polysaccharide, PPSV23 (PNEUMOVAX) Unknown Completed [facility] Influenza Virus Vaccine Quad IM, Preserv and ABX Free 6 MO-64 YRS (FLUCELVAX) Unknown Completed [facility] SARS-COV-2 COVID-19 VACCINE 12 YRS+, BIVALENT 0.5ML, IM, (MODERNA-BLUE TOP) Unknown Completed [facility] Pneumococcal Polysaccharide, PPSV23 (PNEUMOVAX) Unknown Completed [facility] Influenza Virus Vaccine Quad IM, Preserv and ABX Free 6 MO-64 YRS (FLUCELVAX) Unknown Completed [facility] SARS-COV-2 COVID-19 VACCINE 12 YRS+, BIVALENT 0.5ML, IM, (MODERNA-BLUE TOP) Unknown Completed [facility] Pneumococcal Polysaccharide, PPSV23 (PNEUMOVAX) Unknown Completed [facility] Influenza Virus Vaccine Quad IM, Preserv and ABX Free 6 MO-64 YRS (FLUCELVAX) Unknown Completed [facility] SARS-COV-2 COVID-19 VACCINE 12 YRS+, BIVALENT 0.5ML, IM, (MODERNA-BLUE TOP) Unknown Completed [facility] Pneumococcal Polysaccharide, PPSV23 (PNEUMOVAX) Unknown Completed [facility] Influenza Virus Vaccine Quad IM, Preserv and ABX Free 6 MO-64 YRS (FLUCELVAX) Unknown Completed [facility] SARS-COV-2 COVID-19 VACCINE 12 YRS+, BIVALENT 0.5ML, IM, (MODERNA-BLUE TOP) Unknown Completed [facility] Pneumococcal Polysaccharide, PPSV23 (PNEUMOVAX) Unknown Completed [facility] Influenza Virus Vaccine Quad IM, Preserv and ABX Free 6 MO-64 YRS (FLUCELVAX) Unknown Completed [facility] SARS-COV-2 COVID-19 VACCINE 12 YRS+, BIVALENT 0.5ML, IM, (MODERNA-BLUE TOP) Unknown Completed [facility] Pneumococcal Polysaccharide, PPSV23 (PNEUMOVAX) Unknown Completed [facility] Influenza Virus Vaccine Quad IM, Preserv and ABX Free 6 MO-64 YRS (FLUCELVAX) Unknown Completed [facility] SARS-COV-2 COVID-19 VACCINE 12 YRS+, BIVALENT 0.5ML, IM, (MODERNA-BLUE TOP) Unknown Completed [facility] Pneumococcal Polysaccharide, PPSV23 (PNEUMOVAX) Unknown Completed [facility] Influenza Virus Vaccine Quad IM, Preserv and ABX Free 6 MO-64 YRS (FLUCELVAX) Unknown Completed [facility] SARS-COV-2 COVID-19 VACCINE 12 YRS+, BIVALENT 0.5ML, IM, (MODERNA-BLUE TOP) Unknown Completed [facility] Pneumococcal Polysaccharide, PPSV23 (PNEUMOVAX) Unknown Completed [facility] Influenza Virus Vaccine Quad IM, Preserv and ABX Free 6 MO-64 YRS (FLUCELVAX) Unknown Completed [facility] SARS-COV-2 COVID-19 VACCINE 12 YRS+, BIVALENT 0.5ML, IM, (MODERNA-BLUE TOP) Unknown Completed [facility] Pneumococcal Polysaccharide, PPSV23 (PNEUMOVAX) Unknown Completed [facility] Influenza Virus Vaccine Quad IM, Preserv and ABX Free 6 MO-64 YRS (FLUCELVAX) Unknown Completed [facility] SARS-COV-2 COVID-19 VACCINE 12 YRS+, BIVALENT 0.5ML, IM, (MODERNA-BLUE TOP) Unknown Completed [facility] Pneumococcal Polysaccharide, PPSV23 (PNEUMOVAX) Unknown Completed [facility] Influenza Virus Vaccine Quad IM, Preserv and ABX Free 6 MO-64 YRS (FLUCELVAX) Unknown Completed [facility] Pneumococcal Polysaccharide, PPSV23 (PNEUMOVAX) Unknown Completed [facility] Influenza Virus Vaccine Quad IM, Preserv and ABX Free 6 MO-64 YRS (FLUCELVAX) Unknown Completed [facility] Pneumococcal Polysaccharide, PPSV23 (PNEUMOVAX) Unknown Completed [facility] Influenza Virus Vaccine Quad IM, Preserv and ABX Free 6 MO-64 YRS (FLUCELVAX) Unknown Completed [facility] SARS-COV-2 COVID-19 VACCINE 12 YRS+, BIVALENT 0.5ML, IM, (MODERNA-BLUE TOP) Unknown Completed [facility] Pneumococcal Polysaccharide, PPSV23 (PNEUMOVAX) Unknown Completed [facility] Influenza Virus Vaccine Quad IM, Preserv and ABX Free 6 MO-64 YRS (FLUCELVAX) Unknown Completed [facility] SARS-COV-2 COVID-19 VACCINE 12 YRS+, BIVALENT 0.5ML, IM, (MODERNA-BLUE TOP) Unknown Completed [facility] Pneumococcal Polysaccharide, PPSV23 (PNEUMOVAX) Unknown Completed [facility] Influenza Virus Vaccine Quad IM, Preserv and ABX Free 6 MO-64 YRS (FLUCELVAX) Unknown Completed [facility] SARS-COV-2 COVID-19 VACCINE 12 YRS+, BIVALENT 0.5ML, IM, (MODERNA-BLUE TOP) Unknown Completed [facility] Pneumococcal Polysaccharide, PPSV23 (PNEUMOVAX) Unknown Completed [facility] Influenza Virus Vaccine Quad IM, Preserv and ABX Free 6 MO-64 YRS (FLUCELVAX) Unknown Completed [facility] SARS-COV-2 COVID-19 VACCINE 12 YRS+, BIVALENT 0.5ML, IM, (MODERNA-BLUE TOP) Unknown Completed [facility] Pneumococcal Polysaccharide, PPSV23 (PNEUMOVAX) Unknown Completed [facility] Influenza Virus Vaccine Quad IM, Preserv and ABX Free 6 MO-64 YRS (FLUCELVAX) Unknown Completed [facility] SARS-COV-2 COVID-19 VACCINE 12 YRS+, BIVALENT 0.5ML, IM, (MODERNA-BLUE TOP) Unknown Completed [facility] Pneumococcal Polysaccharide, PPSV23 (PNEUMOVAX) Unknown Completed [facility] Influenza Virus Vaccine Quad IM, Preserv and ABX Free 6 MO-64 YRS (FLUCELVAX) Unknown Completed [facility] SARS-COV-2 COVID-19 VACCINE 12 YRS+, BIVALENT 0.5ML, IM, (MODERNA-BLUE TOP) Unknown Completed [facility] Pneumococcal Polysaccharide, PPSV23 (PNEUMOVAX) Unknown Completed [facility] Influenza Virus Vaccine Quad IM, Preserv and ABX Free 6 MO-64 YRS (FLUCELVAX) Unknown Completed [facility] SARS-COV-2 COVID-19 VACCINE 12 YRS+, BIVALENT 0.5ML, IM, (MODERNA-BLUE TOP) Unknown Completed [facility] Pneumococcal Polysaccharide, PPSV23 (PNEUMOVAX) Unknown Completed [facility] Influenza Virus Vaccine Quad IM, Preserv and ABX Free 6 MO-64 YRS (FLUCELVAX) Unknown Completed [facility] SARS-COV-2 COVID-19 VACCINE 12 YRS+, BIVALENT 0.5ML, IM, (MODERNA-BLUE TOP) Unknown Completed [facility] Pneumococcal Polysaccharide, PPSV23 (PNEUMOVAX) Unknown Completed [facility] Influenza Virus Vaccine Quad IM, Preserv and ABX Free 6 MO-64 YRS (FLUCELVAX) Unknown Completed [facility] SARS-COV-2 COVID-19 VACCINE 12 YRS+, BIVALENT 0.5ML, IM, (MODERNA-BLUE TOP) Unknown Completed [facility] Pneumococcal Polysaccharide, PPSV23 (PNEUMOVAX) Unknown Completed [facility] Influenza Virus Vaccine Quad IM, Preserv and ABX Free 6 MO-64 YRS (FLUCELVAX) Unknown Completed [facility] SARS-COV-2 COVID-19 VACCINE 12 YRS+, BIVALENT 0.5ML, IM, (MODERNA-BLUE TOP) Unknown Completed [facility] Pneumococcal Polysaccharide, PPSV23 (PNEUMOVAX) Unknown Completed [facility] Influenza Virus Vaccine Quad IM, Preserv and ABX Free 6 MO-64 YRS (FLUCELVAX) Unknown Completed [facility] SARS-COV-2 COVID-19 VACCINE 12 YRS+, BIVALENT 0.5ML, IM, (MODERNA-BLUE TOP) Unknown Completed [facility] Pneumococcal Polysaccharide, PPSV23 (PNEUMOVAX) Unknown Completed [facility] Influenza Virus Vaccine Quad IM, Preserv and ABX Free 6 MO-64 YRS (FLUCELVAX) Unknown Completed [facility] SARS-COV-2 COVID-19 VACCINE 12 YRS+, BIVALENT 0.5ML, IM, (MODERNA-BLUE TOP) Unknown Completed [facility] Pneumococcal Polysaccharide, PPSV23 (PNEUMOVAX) Unknown Completed [facility] Influenza Virus Vaccine Quad IM, Preserv and ABX Free 6 MO-64 YRS (FLUCELVAX) Unknown Completed [facility] SARS-COV-2 COVID-19 VACCINE 12 YRS+, BIVALENT 0.5ML, IM, (MODERNA-BLUE TOP) Unknown Completed [facility] Pneumococcal Polysaccharide, PPSV23 (PNEUMOVAX) Unknown Completed [facility] Influenza Virus Vaccine Quad IM, Preserv and ABX Free 6 MO-64 YRS (FLUCELVAX) Unknown Completed [facility] SARS-COV-2 COVID-19 VACCINE 12 YRS+, BIVALENT 0.5ML, IM, (MODERNA-BLUE TOP) Unknown Completed [facility] Pneumococcal Polysaccharide, PPSV23 (PNEUMOVAX) Unknown Completed [facility] Influenza Virus Vaccine Quad IM, Preserv and ABX Free 6 MO-64 YRS (FLUCELVAX) Unknown Completed [facility] SARS-COV-2 COVID-19 VACCINE 12 YRS+, BIVALENT 0.5ML, IM, (MODERNA-BLUE TOP) Unknown Completed [facility] Pneumococcal Polysaccharide, PPSV23 (PNEUMOVAX) Unknown Completed [facility] Influenza Virus Vaccine Quad IM, Preserv and ABX Free 6 MO-64 YRS (FLUCELVAX) Unknown Completed [facility] SARS-COV-2 COVID-19 VACCINE 12 YRS+, BIVALENT 0.5ML, IM, (MODERNA-BLUE TOP) Unknown Completed [facility] Pneumococcal Polysaccharide, PPSV23 (PNEUMOVAX) Unknown Completed [facility] Influenza Virus Vaccine Quad IM, Preserv and ABX Free 6 MO-64 YRS (FLUCELVAX) Unknown Completed [facility] SARS-COV-2 COVID-19 VACCINE 12 YRS+, BIVALENT 0.5ML, IM, (MODERNA-BLUE TOP) Unknown Completed [facility] Pneumococcal Polysaccharide, PPSV23 (PNEUMOVAX) Unknown Completed [facility] Influenza Virus Vaccine Quad IM, Preserv and ABX Free 6 MO-64 YRS (FLUCELVAX) Unknown Completed [facility] SARS-COV-2 COVID-19 VACCINE 12 YRS+, BIVALENT 0.5ML, IM, (MODERNA-BLUE TOP) Unknown Completed [facility] Pneumococcal Polysaccharide, PPSV23 (PNEUMOVAX) Unknown Completed [facility] Influenza Virus Vaccine Quad IM, Preserv and ABX Free 6 MO-64 YRS (FLUCELVAX) Unknown Completed [facility] SARS-COV-2 COVID-19 VACCINE 12 YRS+, BIVALENT 0.5ML, IM, (MODERNA-BLUE TOP) Unknown Completed [facility] Pneumococcal Polysaccharide, PPSV23 (PNEUMOVAX) Unknown Completed [facility] Influenza Virus Vaccine Quad IM, Preserv and ABX Free 6 MO-64 YRS (FLUCELVAX) Unknown Completed [facility] SARS-COV-2 COVID-19 VACCINE 12 YRS+, BIVALENT 0.5ML, IM, (MODERNA-BLUE TOP) Unknown Completed [facility] Pneumococcal Polysaccharide, PPSV23 (PNEUMOVAX) Unknown Completed [facility] Influenza Virus Vaccine Quad IM, Preserv and ABX Free 6 MO-64 YRS (FLUCELVAX) Unknown Completed [facility] SARS-COV-2 COVID-19 VACCINE 12 YRS+, BIVALENT 0.5ML, IM, (MODERNA-BLUE TOP) Unknown Completed [facility] Pneumococcal Polysaccharide, PPSV23 (PNEUMOVAX) Unknown Completed [facility] Influenza Virus Vaccine Quad IM, Preserv and ABX Free 6 MO-64 YRS (FLUCELVAX) Unknown Completed [facility] SARS-COV-2 COVID-19 VACCINE 12 YRS+, BIVALENT 0.5ML, IM, (MODERNA-BLUE TOP) Unknown Completed [facility] Pneumococcal Polysaccharide, PPSV23 (PNEUMOVAX) Unknown Completed [facility] Influenza Virus Vaccine Quad IM, Preserv and ABX Free 6 MO-64 YRS (FLUCELVAX) Unknown Completed [facility] SARS-COV-2 COVID-19 VACCINE 12 YRS+, BIVALENT 0.5ML, IM, (MODERNA-BLUE TOP) Unknown Completed [facility] Pneumococcal Polysaccharide, PPSV23 (PNEUMOVAX) Unknown Completed [facility] Influenza Virus Vaccine Quad IM, Preserv and ABX Free 6 MO-64 YRS (FLUCELVAX) Unknown Completed [facility] SARS-COV-2 COVID-19 VACCINE 12 YRS+, BIVALENT 0.5ML, IM, (MODERNA-BLUE TOP) Unknown Completed [facility] Pneumococcal Polysaccharide, PPSV23 (PNEUMOVAX) Unknown Completed [facility] Influenza Virus Vaccine Quad IM, Preserv and ABX Free 6 MO-64 YRS (FLUCELVAX) Unknown Completed [facility] SARS-COV-2 COVID-19 VACCINE 12 YRS+, BIVALENT 0.5ML, IM, (MODERNA-BLUE TOP) Unknown Completed [facility] Pneumococcal Polysaccharide, PPSV23 (PNEUMOVAX) Unknown Completed [facility] Influenza Virus Vaccine Quad IM, Preserv and ABX Free 6 MO-64 YRS (FLUCELVAX) Unknown Completed [facility] SARS-COV-2 COVID-19 VACCINE 12 YRS+, BIVALENT 0.5ML, IM, (MODERNA-BLUE TOP) Unknown Completed [facility] Pneumococcal Polysaccharide, PPSV23 (PNEUMOVAX) Unknown Completed [facility] Influenza Virus Vaccine Quad IM, Preserv and ABX Free 6 MO-64 YRS (FLUCELVAX) Unknown Completed [facility] SARS-COV-2 COVID-19 VACCINE 12 YRS+, BIVALENT 0.5ML, IM, (MODERNA-BLUE TOP) Unknown Completed [facility] Pneumococcal Polysaccharide, PPSV23 (PNEUMOVAX) Unknown Completed [facility] Influenza Virus Vaccine Quad IM, Preserv and ABX Free 6 MO-64 YRS (FLUCELVAX) Unknown Completed [facility] SARS-COV-2 COVID-19 VACCINE 12 YRS+, BIVALENT 0.5ML, IM, (MODERNA-BLUE TOP) Unknown Completed [facility] Pneumococcal Polysaccharide, PPSV23 (PNEUMOVAX) Unknown Completed [facility] Influenza Virus Vaccine Quad IM, Preserv and ABX Free 6 MO-64 YRS (FLUCELVAX) Unknown Completed [facility] SARS-COV-2 COVID-19 VACCINE 12 YRS+, BIVALENT 0.5ML, IM, (MODERNA-BLUE TOP) Unknown Completed [facility] Pneumococcal Polysaccharide, PPSV23 (PNEUMOVAX) Unknown Completed [facility] Influenza Virus Vaccine Quad IM, Preserv and ABX Free 6 MO-64 YRS (FLUCELVAX) Unknown Completed [facility] SARS-COV-2 COVID-19 VACCINE 12 YRS+, BIVALENT 0.5ML, IM, (MODERNA-BLUE TOP) Unknown Completed [facility] Pneumococcal Polysaccharide, PPSV23 (PNEUMOVAX) Unknown Completed [facility] Influenza Virus Vaccine Quad IM, Preserv and ABX Free 6 MO-64 YRS (FLUCELVAX) Unknown Completed [facility] SARS-COV-2 COVID-19 VACCINE 12 YRS+, BIVALENT 0.5ML, IM, (MODERNA-BLUE TOP) Unknown Completed [facility] Pneumococcal Polysaccharide, PPSV23 (PNEUMOVAX) Unknown Completed [facility] Influenza Virus Vaccine Quad IM 3+ YRS Unknown Completed [facility] Influenza Virus Vaccine Quad IM 3+ YRS Unknown Completed [facility] Influenza Virus Vaccine Quad IM 3+ YRS Unknown Completed [facility] Flu Trivalent Unknown Completed [facility] Influenza Virus Vaccine Quad IM Multi-dose 6+ MO Unknown Completed [facility] Zoster Vaccine Recombinant Unknown Completed [facility] Zoster Vaccine Recombinant Unknown Completed [facility] Zoster Vaccine Recombinant Unknown Completed [facility] Zoster Vaccine Recombinant Unknown Completed [facility] TDAP Unknown Completed [facility] Influenza Virus Vaccine Quad IM, Preserv and ABX Free 6 MO-64 YRS (FLUCELVAX) Unknown Completed [facility] SARS-COV-2 COVID-19 VACCINE 12 YRS+, BIVALENT 0.5ML, IM, (MODERNA-BLUE TOP) Unknown Completed [facility] Pneumococcal Polysaccharide, PPSV23 (PNEUMOVAX) Unknown Completed [facility] Influenza Virus Vaccine Quad IM 3+ YRS Unknown Completed [facility] Influenza Virus Vaccine Quad IM 3+ YRS Unknown Completed [facility] Influenza Virus Vaccine Quad IM 3+ YRS Unknown Completed [facility] Flu [facility]rivalent [facility] Multi-dose 6+ MO Unknown Completed [facility] Zoster Vaccine Recombinant Unknown Completed [facility] Zoster Vaccine Recombinant Unknown Completed [facility] Zoster Vaccine Recombinant Unknown Completed [facility] Zoster Vaccine Recombinant Unknown Completed [facility] TDAP Unknown Completed [facility] Influenza Virus Vaccine Quad IM, Preserv and ABX Free 6 MO-64 YRS (FLUCELVAX) Unknown Completed [facility] SARS-COV-2 COVID-19 VACCINE 12 YRS+, BIVALENT 0.5ML, IM, (MODERNA-BLUE TOP) Unknown Completed [facility] Pneumococcal Polysaccharide, PPSV23 (PNEUMOVAX) Unknown Completed [facility] Influenza Virus Vaccine Quad IM 3+ YRS Unknown Completed [facility] Influenza Virus Vaccine Quad IM 3+ YRS Unknown Completed [facility] Influenza Virus Vaccine Quad IM 3+ YRS Unknown Completed [facility] Flu Trivalent [facility] Vacc[facility] Quad [facility] Multi-dose 6+ MO Unknown Completed [facility] Zoster Vaccine Recombinant Unknown Completed [facility] Zoster Vaccine Recombinant Unknown Completed [facility] Zoster Vaccine Recombinant Unknown Completed [facility] Zoster Vaccine Recombinant Unknown Completed [facility] TDAP Unknown Completed [facility] Influenza Virus Vaccine Quad IM, Preserv and ABX Free 6 MO-64 YRS (FLUCELVAX) Unknown Completed [facility] SARS-COV-2 COVID-19 VACCINE 12 YRS+, BIVALENT 0.5ML, IM, (MODERNA-BLUE TOP) Unknown Completed [facility] Pneumococcal Polysaccharide, PPSV23 (PNEUMOVAX) Unknown Completed [facility] Influenza Virus Vaccine Quad IM 3+ YRS Unknown Completed [facility] Influenza Virus Vaccine Quad IM 3+ YRS Unknown Completed [facility] Influenza Virus Vaccine Quad IM 3+ YRS Unknown Completed [facility] Flu Trivalent Unknown Completed [facility] Influenza Virus Vaccine Quad IM Multi-dose 6+ MO Unknown Completed [facility] Zoster Vaccine Recombinant Unknown Completed [facility] Zoster Vaccine Recombinant Unknown Completed [facility] Zoster Vaccine Recombinant Unknown Completed [facility] Zoster Vaccine Recombinant Unknown Completed [facility] TDAP Unknown Completed [facility] Influenza Virus Vaccine Quad IM, Preserv and ABX Free 6 MO-64 YRS (FLUCELVAX) Unknown Completed [facility] SARS-COV-2 COVID-19 VACCINE 12 YRS+, BIVALENT 0.5ML, IM, (MODERNA-BLUE TOP) Unknown Completed [facility] Pneumococcal Polysaccharide, PPSV23 (PNEUMOVAX) Unknown Completed [facility] Influenza Virus Vaccine Quad IM 3+ YRS Unknown Completed [facility] Influenza Virus Vaccine Quad IM 3+ YRS Unknown Completed [facility] Influenza Virus Vaccine Quad IM 3+ YRS Unknown Completed [facility] Flu Trivalent Unknown Completed [facility] Influenza Virus Vaccine Quad IM Multi-dose 6+ MO Unknown Completed [facility] Zoster Vaccine Recombinant Unknown Completed [facility] Zoster Vaccine Recombinant Unknown Completed [facility] Zoster Vaccine Recombinant Unknown Completed [facility] Zoster Vaccine Recombinant Unknown Completed [facility] TDAP Unknown Completed [facility] Influenza Virus Vaccine Quad IM, Preserv and ABX Free 6 MO-64 YRS (FLUCELVAX) Unknown Completed [facility] SARS-COV-2 COVID-19 VACCINE 12 YRS+, BIVALENT 0.5ML, IM, (MODERNA-BLUE TOP) Unknown Completed [facility] Pneumococcal Polysaccharide, PPSV23 (PNEUMOVAX) Unknown Completed [facility] Influenza Virus Vaccine Quad IM 3+ YRS Unknown Completed [facility] Influenza Virus Vaccine Quad IM 3+ YRS Unknown Completed [facility] Influenza Virus Vaccine Quad IM 3+ YRS Unknown Completed [facility] Flu Trivalent Unknown [facility] Multi-dose 6+ MO Unknown Completed [facility] Zoster Vaccine Recombinant Unknown Completed [facility] Zoster Vaccine Recombinant Unknown Completed [facility] Zoster Vaccine Recombinant Unknown Completed [facility] Zoster Vaccine Recombinant Unknown Completed [facility] TDAP Unknown Completed [facility] Influenza Virus Vaccine Quad IM, Preserv and ABX Free 6 MO-64 YRS (FLUCELVAX) Unknown Completed [facility] SARS-COV-2 COVID-19 VACCINE 12 YRS+, BIVALENT 0.5ML, IM, (MODERNA-BLUE TOP) Unknown Completed [facility] Pneumococcal Polysaccharide, PPSV23 (PNEUMOVAX) Unknown Completed [facility] Influenza Virus Vaccine Quad IM 3+ YRS Unknown Completed [facility] Influenza Virus Vaccine Quad IM 3+ YRS Unknown Completed [facility] Influenza Virus Vaccine Quad IM 3+ YRS Unknown Completed [facility] Flu Trivalent [facility] Quad [facility] Multi-dose 6+ MO Unknown Completed [facility] Zoster Vaccine Recombinant Unknown Completed [facility] Zoster Vaccine Recombinant Unknown Completed [facility] Zoster Vaccine Recombinant Unknown Completed [facility] Zoster Vaccine Recombinant Unknown Completed [facility] TDAP Unknown Completed [facility] Influenza Virus Vaccine Quad IM, Preserv and ABX Free 6 MO-64 YRS (FLUCELVAX) Unknown Completed [facility] SARS-COV-2 COVID-19 VACCINE 12 YRS+, BIVALENT 0.5ML, IM, (MODERNA-BLUE TOP) Unknown Completed [facility] Pneumococcal Polysaccharide, PPSV23 (PNEUMOVAX) Unknown Completed [facility] Influenza Virus Vaccine Quad IM 3+ YRS Unknown Completed [facility] Influenza Virus Vaccine Quad IM 3+ YRS Unknown Completed [facility] Influenza Virus Vaccine Quad IM 3+ YRS Unknown Completed [facility] Flu Trivalent Unknown [facility] Influenza Virus Vaccine Quad IM Multi-dose 6+ MO Unknown Completed [facility] Zoster Vaccine Recombinant Unknown Completed [facility] Zoster Vaccine Recombinant Unknown Completed [facility] Zoster Vaccine Recombinant Unknown Completed [facility] Zoster Vaccine Recombinant Unknown Completed [facility] TDAP Unknown Completed [facility] Influenza Virus Vaccine Quad IM, Preserv and ABX Free 6 MO-64 YRS (FLUCELVAX) Unknown Completed [facility] SARS-COV-2 COVID-19 VACCINE 12 YRS+, BIVALENT 0.5ML, IM, (MODERNA-BLUE TOP) Unknown Completed [facility] Pneumococcal Polysaccharide, PPSV23 (PNEUMOVAX) Unknown Completed [facility] Influenza Virus Vaccine Quad IM 3+ YRS Unknown Completed [facility] Influenza Virus Vaccine Quad IM 3+ YRS Unknown Completed [facility] Influenza Virus Vaccine Quad IM 3+ YRS Unknown Completed [facility] Flu Trivalent Unknown [facility] Vaccine Quad IM Multi-dose 6+ MO Unknown Completed [facility] Zoster Vaccine Recombinant Unknown Completed [facility] Zoster Vaccine Recombinant Unknown Completed [facility] Zoster Vaccine Recombinant Unknown Completed [facility] Zoster Vaccine Recombinant Unknown Completed [facility] TDAP Unknown Completed [facility] Influenza Virus Vaccine Quad IM, Preserv and ABX Free 6 MO-64 YRS (FLUCELVAX) Unknown Completed [facility] SARS-COV-2 COVID-19 VACCINE 12 YRS+, BIVALENT 0.5ML, IM, (MODERNA-BLUE TOP) Unknown Completed [facility] Pneumococcal Polysaccharide, PPSV23 (PNEUMOVAX) Unknown Completed [facility] Influenza Virus Vaccine Quad IM 3+ YRS Unknown Completed [facility] Influenza Virus Vaccine Quad IM 3+ YRS Unknown Completed [facility] Influenza Virus Vaccine Quad IM 3+ YRS Unknown Completed [facility] Flu Trivalent Unknown [facility] Vaccine Quad IM Multi-dose 6+ MO Unknown Completed [facility] Zoster Vaccine Recombinant Unknown Completed [facility] Zoster Vaccine Recombinant Unknown Completed [facility] Zoster Vaccine Recombinant Unknown Completed [facility] Zoster Vaccine Recombinant Unknown Completed [facility] TDAP Unknown Completed [facility] Influenza Virus Vaccine Quad IM, Preserv and ABX Free 6 MO-64 YRS (FLUCELVAX) Unknown Completed [facility] SARS-COV-2 COVID-19 VACCINE 12 YRS+, BIVALENT 0.5ML, IM, (MODERNA-BLUE TOP) Unknown Completed [facility] Pneumococcal Polysaccharide, PPSV23 (PNEUMOVAX) Unknown Completed [facility] Influenza Virus Vaccine Quad IM 3+ YRS Unknown Completed [facility] Influenza Virus Vaccine Quad IM 3+ YRS Unknown Completed [facility] Influenza Virus Vaccine Quad IM 3+ YRS Unknown Completed [facility] Flu Trivalent Unknown Completed [facility] Influenza Virus Vaccine Quad IM Multi-dose 6+ MO Unknown Completed [facility] Zoster Vaccine Recombinant Unknown Completed [facility] Zoster Vaccine Recombinant Unknown Completed [facility] Zoster Vaccine Recombinant Unknown Completed [facility] Zoster Vaccine Recombinant Unknown Completed [facility] TDAP Unknown Completed [facility] Influenza Virus Vaccine Quad IM, Preserv and ABX Free 6 MO-64 YRS (FLUCELVAX) Unknown Completed [facility] SARS-COV-2 COVID-19 VACCINE 12 YRS+, BIVALENT 0.5ML, IM, (MODERNA-BLUE TOP) Unknown Completed [facility] Pneumococcal Polysaccharide, PPSV23 (PNEUMOVAX) Unknown Completed [facility] Influenza Virus Vaccine Quad IM 3+ YRS Unknown Completed [facility] Influenza Virus Vaccine Quad IM 3+ YRS Unknown Completed [facility] Influenza Virus Vaccine Quad IM 3+ YRS Unknown Completed [facility] Flu Trivalent Unknown Completed [facility] Influenza Virus Vaccine Quad IM Multi-dose 6+ MO Unknown Completed [facility] Zoster Vaccine Recombinant Unknown Completed [facility] Zoster Vaccine Recombinant Unknown Completed [facility] Zoster Vaccine Recombinant Unknown Completed [facility] Zoster Vaccine Recombinant Unknown Completed [facility] TDAP Unknown Completed [facility] Influenza Virus Vaccine Quad IM, Preserv and ABX Free 6 MO-64 YRS (FLUCELVAX) Unknown Completed [facility] SARS-COV-2 COVID-19 VACCINE 12 YRS+, BIVALENT 0.5ML, IM, (MODERNA-BLUE TOP) Unknown Completed [facility] Pneumococcal Polysaccharide, PPSV23 (PNEUMOVAX) Unknown Completed [facility] Influenza Virus Vaccine Quad IM 3+ YRS Unknown Completed [facility] Influenza Virus Vaccine Quad IM 3+ YRS Unknown Completed [facility] Influenza Virus Vaccine Quad IM 3+ YRS Unknown Completed [facility] Flu Trivalent Unknown [facility] Quad IM Multi-dose 6+ MO Unknown Completed [facility] Zoster Vaccine Recombinant Unknown Completed [facility] Zoster Vaccine Recombinant Unknown Completed [facility] Zoster Vaccine Recombinant Unknown Completed [facility] Zoster Vaccine Recombinant Unknown Completed [facility] TDAP Unknown Completed [facility] Influenza Virus Vaccine Quad IM, Preserv and ABX Free 6 MO-64 YRS (FLUCELVAX) Unknown Completed [facility] SARS-COV-2 COVID-19 VACCINE 12 YRS+, BIVALENT 0.5ML, IM, (MODERNA-BLUE TOP) Unknown Completed [facility] Pneumococcal Polysaccharide, PPSV23 (PNEUMOVAX) Unknown [facility] Quad IM 3+ YRS Unknown Completed [facility] Influenza Virus Vaccine Quad IM 3+ YRS Unknown Completed [facility] Influenza Virus Vaccine Quad IM 3+ YRS Unknown Completed [facility] Flu Trivalent Unknown [facility] Vaccine Quad IM Multi-dose 6+ MO Unknown Completed [facility] Zoster Vaccine Recombinant Unknown Completed [facility] Zoster Vaccine Recombinant Unknown Completed [facility] Zoster Vaccine Recombinant Unknown Completed [facility] Zoster Vaccine Recombinant Unknown Completed [facility] TDAP Unknown Completed [facility] Influenza Virus Vaccine Quad IM, Preserv and ABX Free 6 MO-64 YRS (FLUCELVAX) Unknown Completed [facility] SARS-COV-2 COVID-19 VACCINE 12 YRS+, BIVALENT 0.5ML, IM, (MODERNA-BLUE TOP) Unknown Completed [facility] Pneumococcal Polysaccharide, PPSV23 (PNEUMOVAX) Unknown Completed [facility] Influenza Virus Vaccine Quad IM 3+ YRS Unknown Completed [facility] Influenza Virus Vaccine Quad IM 3+ YRS Unknown Completed [facility] Influenza Virus Vaccine Quad IM 3+ YRS Unknown Completed [facility] Flu Trivalent Unknown [facility] Influenza Virus Vaccine Quad IM Multi-dose 6+ MO Unknown Completed [facility] Zoster Vaccine Recombinant Unknown Completed [facility] Zoster Vaccine Recombinant Unknown Completed [facility] Zoster Vaccine Recombinant Unknown Completed [facility] Zoster Vaccine Recombinant Unknown Completed [facility] TDAP Unknown Completed [facility] Influenza Virus Vaccine Quad IM, Preserv and ABX Free 6 MO-64 YRS (FLUCELVAX) Unknown Completed [facility] SARS-COV-2 COVID-19 VACCINE 12 YRS+, BIVALENT 0.5ML, IM, (MODERNA-BLUE TOP) Unknown Completed [facility] Pneumococcal Polysaccharide, PPSV23 (PNEUMOVAX) Unknown Completed [facility] Influenza Virus Vaccine Quad IM 3+ YRS Unknown Completed [facility] Influenza Virus Vaccine Quad IM 3+ YRS Unknown Completed [facility] Influenza Virus Vaccine Quad IM 3+ YRS Unknown Completed [facility] Flu Trivalent Unknown Completed [facility] Influenza Virus Vaccine Quad IM Multi-dose 6+ MO Unknown Completed [facility] Zoster Vaccine Recombinant Unknown Completed [facility] Zoster Vaccine Recombinant Unknown Completed [facility] Zoster Vaccine Recombinant Unknown Completed [facility] Zoster Vaccine Recombinant Unknown Completed [facility] TDAP Unknown Completed [facility] Vital Signs Vital Name Observation Time Observation Value Comments S ource Systolic blood pressure 2023-08-12 15:25:00 119 mm[Hg] [facility] Diastolic blood pressure 2023-08-12 15:25:00 71 mm[Hg] [facility] Heart rate 2023-08-12 15:25:00 87 /min [facility] Body height 2023-08-12 15:25:00 162.6 cm [facility] Body weight 2023-08-12 15:25:00 61.553 kg [facility] BMI 2023-08-12 15:25:00 23.29 kg/m2 [facility] Oxygen saturation in Arterial blood by Pulse oximetry 2023-08-12 15:25:00 99 /min [facility] Systolic blood pressure 2023-07-31 15:38:00 139 mm[Hg] [facility] Diastolic blood pressure 2023-07-31 15:38:00 88 mm[Hg] [facility] Heart rate 2023-07-31 15:38:00 80 /min [facility] Respiratory rate 2023-07-31 15:38:00 18 /min [facility] Body height 2023-07-31 15:38:00 162.6 cm [facility] Body weight 2023-07-31 15:38:00 61.689 kg [facility] BMI 2023-07-31 15:38:00 23.34 kg/m2 [facility] Oxygen saturation in Arterial blood by Pulse oximetry 2023-07-31 15:38:00 98 /min [facility] Systolic blood pressure 2023-07-19 21:33:00 146 mm[Hg] [facility] Diastolic blood pressure 2023-07-19 21:33:00 85 mm[Hg] [facility] Heart rate 2023-07-19 21:32:00 103 /min [facility] Body temperature 2023-07-19 21:32:00 37.22 Shannon [facility] Respiratory rate 2023-07-19 21:32:00 16 /min [facility] Body height 2023-07-19 21:32:00 162.6 cm [facility] Body weight 2023-07-19 21:32:00 62.642 kg [facility] BMI 2023-07-19 21:32:00 23.70 kg/m2 [facility] Oxygen saturation in Arterial blood by Pulse oximetry 2023-07-19 21:32:00 100 /min [facility] Systolic blood pressure 2023-07-10 20:22:00 107 mm[Hg] [facility] Diastolic blood pressure 2023-07-10 20:22:00 73 mm[Hg] [facility] Heart rate 2023-07-10 20:22:00 101 /min [facility] Body temperature 2023-07-10 20:22:00 36.89 Shannon [facility] Respiratory rate 2023-07-10 20:22:00 17 /min [facility] Body height 2023-07-10 20:22:00 160 cm [facility] Body weight 2023-07-10 20:22:00 61.871 kg [facility] BMI 2023-07-10 20:22:00 24.16 kg/m2 [facility] Oxygen saturation in Arterial blood by Pulse oximetry 2023-07-10 20:22:00 98 /min [facility] Systolic blood pressure 2023-07-10 21:29:00 107 mm[Hg] [facility] Diastolic blood pressure 2023-07-10 21:29:00 73 mm[Hg] [facility] Heart rate 2023-07-10 21:29:00 101 /min [facility] Respiratory rate 2023-07-10 21:29:00 17 /min [facility] Body height 2023-07-10 21:29:00 160 cm [facility] Body weight 2023-07-10 21:29:00 61.689 kg [facility] BMI 2023-07-10 21:29:00 24.09 kg/m2 [facility] Oxygen saturation in Arterial blood by Pulse oximetry 2023-07-10 21:29:00 98 /min [facility] Systolic blood pressure 2023-05-08 19:48:00 137 mm[Hg] [facility] Diastolic blood pressure 2023-05-08 19:48:00 91 mm[Hg] [facility] Heart rate 2023-05-08 19:45:00 93 /min [facility] Body temperature 2023-05-08 19:45:00 37.39 Shannon [facility] Respiratory rate 2023-05-08 19:45:00 16 /min [facility] Body height 2023-05-08 19:45:00 162.6 cm [facility] Body weight 2023-05-08 19:45:00 60.056 kg [facility] BMI 2023-05-08 19:45:00 22.73 kg/m2 [facility] Oxygen saturation in Arterial blood by Pulse oximetry 2023-05-08 19:45:00 97 /min [facility] Systolic blood pressure 2023-05-07 15:23:00 139 mm[Hg] notified provider [facility] Diastolic blood pressure 2023-05-07 15:23:00 94 mm[Hg] notified provider [facility] Heart rate 2023-05-07 15:23:00 92 /min [facility] Body temperature 2023-05-07 15:21:00 35.83 Shannon [facility] Respiratory rate 2023-05-07 15:21:00 16 /min [facility] Body height 2023-05-07 15:21:00 162.6 cm [facility] Body weight 2023-05-07 15:21:00 60.419 kg [facility] BMI 2023-05-07 15:21:00 22.86 kg/m2 [facility] Oxygen saturation in Arterial blood by Pulse oximetry 2023-05-07 15:21:00 99 /min [facility] Body weight 2023-04-30 15:42:00 61.236 kg [facility] BMI 2023-04-30 15:42:00 23.17 kg/m2 [facility] Systolic blood pressure 2023-04-26 16:14:00 156 mm[Hg] [facility] Diastolic blood pressure 2023-04-26 16:14:00 91 mm[Hg] [facility] Heart rate 2023-04-26 16:14:00 90 /min [facility] Body height 2023-04-26 16:10:00 162.6 cm [facility] Body weight 2023-04-26 16:10:00 61.236 kg [facility] BMI 2023-04-26 16:10:00 23.17 kg/m2 [facility] Systolic blood pressure 2023-04-15 17:33:00 138 mm[Hg] [facility] Diastolic blood pressure 2023-04-15 17:33:00 86 mm[Hg] [facility] Heart rate 2023-04-15 17:33:00 85 /min [facility] Body temperature 2023-04-15 17:33:00 36.17 Shannon [facility] Body height 2023-04-15 17:33:00 162.6 cm [facility] Body weight 2023-04-15 17:33:00 60.691 kg [facility] BMI 2023-04-15 17:33:00 22.97 kg/m2 [facility] Oxygen saturation in Arterial blood by Pulse oximetry 2023-04-15 17:33:00 100 /min [facility] Systolic blood pressure 2023-04-04 18:12:00 128 mm[Hg] [facility] Diastolic blood pressure 2023-04-04 18:12:00 89 mm[Hg] [facility] Heart rate 2023-04-04 18:12:00 96 /min [facility] Body temperature 2023-04-04 18:12:00 36.56 Shannon [facility] Respiratory rate 2023-04-04 18:12:00 20 /min [facility] Body height 2023-04-04 18:12:00 162.6 cm [facility] Body weight 2023-04-04 18:12:00 61.236 kg [facility] BMI 2023-04-04 18:12:00 23.17 kg/m2 [facility] Oxygen saturation in Arterial blood by Pulse oximetry 2023-04-04 18:12:00 98 /min [facility] Systolic blood pressure 2023-02-26 15:54:00 121 mm[Hg] [facility] Diastolic blood pressure 2023-02-26 15:54:00 78 mm[Hg] [facility] Heart rate 2023-02-26 15:54:00 90 /min [facility] Respiratory rate 2023-02-26 15:54:00 16 /min [facility] Body height 2023-02-26 15:54:00 162.6 cm [facility] Body weight 2023-02-26 15:54:00 60.328 kg [facility] BMI 2023-02-26 15:54:00 22.83 kg/m2 [facility] Oxygen saturation in Arterial blood by Pulse oximetry 2023-02-26 15:54:00 96 /min [facility] Systolic blood pressure 2022-12-21 17:01:00 134 mm[Hg] [facility] Diastolic blood pressure 2022-12-21 17:01:00 84 mm[Hg] [facility] Heart rate 2022-12-21 17:01:00 87 /min [facility] Respiratory rate 2022-12-21 17:01:00 18 /min [facility] Body height 2022-12-21 17:01:00 162.6 cm [facility] Body weight 2022-12-21 17:01:00 61.871 kg [facility] BMI 2022-12-21 17:01:00 23.41 kg/m2 [facility] Oxygen saturation in Arterial blood by Pulse oximetry 2022-12-21 17:01:00 99 /min [facility] Systolic blood pressure 2022-11-16 19:41:00 127 mm[Hg] [facility] Diastolic blood pressure 2022-11-16 19:41:00 80 mm[Hg] [facility] Heart rate 2022-11-16 19:41:00 93 /min [facility] Body temperature 2022-11-16 19:41:00 36.61 Shannon [facility] Respiratory rate 2022-11-16 19:41:00 18 /min [facility] Body height 2022-11-16 19:41:00 162.6 cm [facility] Body weight 2022-11-16 19:41:00 61.508 kg [facility] BMI 2022-11-16 19:41:00 23.28 kg/m2 [facility] Oxygen saturation in Arterial blood by Pulse oximetry 2022-11-16 19:41:00 100 /min [facility] Body weight 2022-08-13 20:17:00 62.596 kg [facility] BMI 2022-08-13 20:17:00 23.69 kg/m2 [facility] Body temperature 2022-08-13 19:12:00 36.5 Shannon [facility] Body height 2022-08-13 19:12:00 162.6 cm [facility] Body weight 2022-08-13 19:12:00 62.596 kg [facility] BMI 2022-08-13 19:12:00 23.69 kg/m2 [facility] Systolic blood pressure 2022-07-30 19:51:00 139 mm[Hg] [facility] Diastolic blood pressure 2022-07-30 19:51:00 85 mm[Hg] [facility] Heart rate 2022-07-30 19:44:00 91 /min [facility] Body temperature 2022-07-30 19:44:00 36.44 Shannon [facility] Respiratory rate 2022-07-30 19:44:00 18 /min [facility] Body height 2022-07-30 19:44:00 162.6 cm [facility] Body weight 2022-07-30 19:44:00 61.508 kg [facility] BMI 2022-07-30 19:44:00 23.28 kg/m2 [facility] Oxygen saturation in Arterial blood by Pulse oximetry 2022-07-30 19:44:00 98 /min [facility] Systolic blood pressure 2022-07-17 15:38:00 149 mm[Hg] [facility] Diastolic blood pressure 2022-07-17 15:38:00 89 mm[Hg] [facility] Heart rate 2022-07-17 15:38:00 89 /min [facility] Body temperature 2022-07-17 15:38:00 36.06 Shannon [facility] Respiratory rate 2022-07-17 15:38:00 18 /min [facility] Body height 2022-07-17 15:38:00 162.6 cm [facility] Body weight 2022-07-17 15:38:00 63.322 kg [facility] BMI 2022-07-17 15:38:00 23.96 kg/m2 [facility] Oxygen saturation in Arterial blood by Pulse oximetry 2022-07-17 15:38:00 98 /min [facility] Systolic blood pressure 2022-07-17 15:32:00 149 mm[Hg] [facility] Diastolic blood pressure 2022-07-17 15:32:00 89 mm[Hg] [facility] Heart rate 2022-07-17 15:32:00 89 /min [facility] Body temperature 2022-07-17 15:32:00 36.06 Shannon [facility] Respiratory rate 2022-07-17 15:32:00 18 /min [facility] Body height 2022-07-17 15:32:00 162.6 cm [facility] Body weight 2022-07-17 15:32:00 63.322 kg [facility] BMI 2022-07-17 15:32:00 23.96 kg/m2 [facility] Oxygen saturation in Arterial blood by Pulse oximetry 2022-07-17 15:32:00 98 /min [facility] Systolic blood pressure 2022-07-06 15:56:00 150 mm[Hg] [facility] Diastolic blood pressure 2022-07-06 15:56:00 95 mm[Hg] [facility] Heart rate 2022-07-06 15:56:00 88 /min [facility] Body weight 2022-07-06 15:55:00 61.236 kg [facility] BMI 2022-07-06 15:55:00 23.17 kg/m2 [facility] Systolic blood pressure 2022-06-05 16:21:00 144 mm[Hg] [facility] Diastolic blood pressure 2022-06-05 16:21:00 84 mm[Hg] [facility] Heart rate 2022-06-05 16:21:00 86 /min [facility] Body height 2022-06-05 16:21:00 162.6 cm [facility] Body weight 2022-06-05 16:21:00 62.596 kg [facility] BMI 2022-06-05 16:21:00 23.69 kg/m2 [facility] Oxygen saturation in Arterial blood by Pulse oximetry 2022-06-05 16:21:00 99 /min [facility] Systolic blood pressure 2022-05-31 19:40:00 143 mm[Hg] [facility] Diastolic blood pressure 2022-05-31 19:40:00 82 mm[Hg] [facility] Heart rate 2022-05-31 19:40:00 92 /min [facility] Body temperature 2022-05-31 19:40:00 37.56 Shannon [facility] Respiratory rate 2022-05-31 19:40:00 16 /min [facility] Body height 2022-05-31 19:40:00 162.6 cm [facility] Body weight 2022-05-31 19:40:00 61.009 kg [facility] BMI 2022-05-31 19:40:00 23.09 kg/m2 [facility] Oxygen saturation in Arterial blood by Pulse oximetry 2022-05-31 19:40:00 98 /min [facility] Systolic blood pressure 2022-05-23 14:03:00 135 mm[Hg] [facility] Diastolic blood pressure 2022-05-23 14:03:00 85 mm[Hg] [facility] Heart rate 2022-05-23 14:03:00 85 /min [facility] Body height 2022-05-23 14:03:00 162.6 cm [facility] Body weight 2022-05-23 14:03:00 61.689 kg [facility] BMI 2022-05-23 14:03:00 23.34 kg/m2 [facility] Diastolic blood pressure 2022-04-13 15:21:00 83 mm[Hg] [facility] Heart rate 2022-04-13 15:21:00 78 /min [facility] Body temperature 2022-04-13 15:21:00 36.61 Shannon [facility] Respiratory rate 2022-04-13 15:21:00 18 /min [facility] Body height 2022-04-13 15:21:00 162.6 cm [facility] Body weight 2022-04-13 15:21:00 59.829 kg [facility] BMI 2022-04-13 15:21:00 22.64 kg/m2 [facility] Oxygen saturation in Arterial blood by Pulse oximetry 2022-04-13 15:21:00 98 /min [facility] Systolic blood pressure 2022-04-13 15:21:00 124 mm[Hg] [facility] Body weight 2022-08-13 20:17:00 62.596 kg [facility] BMI 2022-08-13 20:17:00 23.69 kg/m2 [facility] Body temperature 2022-08-13 19:12:00 36.5 Shannon [facility] Body height 2022-08-13 19:12:00 162.6 cm [facility] Systolic blood pressure 2022-07-30 19:51:00 139 mm[Hg] [facility] Diastolic blood pressure 2022-07-30 19:51:00 85 mm[Hg] [facility] Heart rate 2022-07-30 19:44:00 91 /min [facility] Respiratory rate 2022-07-30 19:44:00 18 /min [facility] Oxygen saturation in Arterial blood by Pulse oximetry 2022-07-30 19:44:00 98 /min [facility] Procedures Procedure Date / Time Performed Performing Clinician Source EMG/NCV 2023-08-09 06:01:00 Jonas Grissom [facility] MEDICAL RELEASE/CLEARANCE FORMS 2023-07-31 06:01:00 Doctor Unassigned, [place] [facility] POCT SARS-COV-2 ANTIGEN (BINAX NOW) 2023-07-19 22:06:00 Santhosh Rivera [facility] POCT URINALYSIS 2023-07-19 21:53:[address] [facility] POCT MOLECULAR FLU 2023-07-19 21:52:00 Unknown, Attend [facility] POCT MOLECULAR STREP 2023-07-19 21:45:00 Unknown, Atte marilee [facility] AUTHORIZATION FOR RELEASE OF PHI 2023-07-19 06:01:00 Doctor Unassigned, [place] [facility] EXTERNAL PROVIDER RECORDS 2023-05-14 05:01:00 Do ctor Unassigned, [place] [facility] POCT SARS-COV-2 ANTIGEN (BINAX NOW) 2023-05-08 19:51:00 Cresencio Wolf [facility] POCT MOLECULAR FLU 2023-05-08 19:49:00 Unknown, Attend [facility] POCT MOLECULAR STREP 2023-05-08 19:42:00 Unknown, Atte marilee [facility] PHYSICIAN CERTIFICATION STATEMENT 2023-04-30 05:01:00 Doctor Unassigned, [place] [facility] XR KUB 2023-02-26 16:34:49 Gloria Gandhi [facility] XR HIPS 3 VW LEFT 2022-11-16 21:19:57 Ethan Varela [facility] FREE T4 2022-11-16 20:40:00 Bessy [facility] THYROID STIMULATING HORMONE 2022-11-16 20:40:00 Ethan Varela [facility] COMP. METABOLIC PANEL (68787) 2022-11-16 20:40:00 Ethan Varela [facility] LIPID PANEL (61649)(TOTAL CHOLESTEROL, TRIGLYCERIDES, HDL) 2022-11-16 20:40:00 Ethan Varela [facility] CBC WITH DIFF 2022-11-16 20:40:00 Ethan Varela [facility] GLYCOSYLATED HEMOGLOBIN (A1C) 2022-11-16 20:40:00 Bessy [facility] VITAMIN D, 25-OH 2022-11-16 20:40:00 Ethan Varela [facility] FREE T3 2022-11-16 20:40:00 Ethan Varela [facility] INSURANCE CORRESPONDENCE 2022-08-15 06:01:00 Doc tor Unassigned, [place] [facility] MEDICATION CORRESPONDENCE 2022-08-14 06:01:00 Do ctor Unassigned, [place] [facility] MEDICATION CORRESPONDENCE 2022-08-14 06:01:00 Do ctor Unassigned, [place] [facility] MEDICAL RELEASE/CLEARANCE FORMS 2022-07-30 06:01:00 Doctor Unassigned, [place] [facility] MEDICAL RELEASE/CLEARANCE FORMS 2022-07-30 06:01:00 Doctor Unassigned, [place] [facility] CREATININE U 24 HR 2022-07-19 19:24:00 Wai Varela [facility] PROTEIN QUANT U/24H 2022-07-19 19:24:00 Umang Varela [facility] NOTICE OF PRIVACY PRACTICES 2022-07-19 19:20:28 Doctor Unassigned, [place] [facility] CONSENT/REFUSAL FOR DIAGNOSIS AND TREATMENT 2022-07-19 19:19:05 Doctor Unassigned, [place] [facility] CONSENT/REFUSAL FOR DIAGNOSIS AND TREATMENT 2022-07-19 19:19:05 Doctor Unassigned, [place] [facility] ASSIGNMENT OF BENEFITS 2022-07-19 19:18:47 Docto r Unassigned, [place] [facility] ASSIGNMENT OF BENEFITS 2022-07-19 19:18:47 Docto r Unassigned, [place] [facility] GLYCOSYLATED HEMOGLOBIN (A1C) 2022-07-17 16:44:00 Ethan Varela [facility] BASIC METABOLIC PANEL (NA, K, CL, CO2, GLUCOSE, BUN, CREATININE, CA) 2022-07-17 16:44:00 Ethan Varela [facility] INTACT PTH CALCIUM GROUP 2022-07-17 16:44:00 Ethan Varela [facility] SARS-COV-2 COVID-19 VACCINE 12 YRS+, BIVALENT 0.5ML, IM (MODERNA BOOSTER) 2022-07-17 16:26:31 Doctor Unassigned, [place] [facility] SARS-COV-2 COVID-19 VACCINE 12 YRS+, BIVALENT 0.5ML, IM (MODERNA BOOSTER) 2022-07-17 16:26:31 Doctor Unassigned, [place] [facility] GALV ONLY - VAGINAL PATHOGENS BY NUCLEIC ACID TESTING 2022-07-06 16:44:00 Miryam Solorio [facility] LIPID PANEL ([id number])(TOTAL CHOLESTEROL, TRIGLYCERIDES, HDL) 2022-04-13 16:26:00 Ethan Varela [facility] FREE T3 2022-04-13 16:26:00 Ethan Varela [facility] FLU VACC (), 6 MO-64 YRS, .5ML, IM, QUAD (FLUCELVAX) 2022-04-13 16:14:50 Ethan Varela [facility] Encounters Start Date/Time End Date/Time Encounter Type Admission Type Attending Clinicians Care Facility Care Department Encounter ID Source 2023-11-05 11:00:00 2023-11-05 11:00:00 Outpatient MIRYAM SONG [facility] [id number] [facility] 2023-10-11 15:00:00 2023-10-11 15:00:00 Outpatient ETHAN KING [facility] [id number] [facility] 2023-10-04 09:30:00 2023-10-04 09:30:00 Outpatient R [facility] [id number] [facility] 2023-08-20 15:00:00 2023-08-20 15:00:00 Outpatient R SHALONDA STRICKLAND [facility] [id number] [facility] 2023-08-15 00:00:00 2023-08-15 00:00:00 Outpatient R GLORIA MOORE [facility] [id number] [facility] 2023-08-12 09:30:00 2023-08-12 09:44:18 Outpatient R MOOREKRISSGLORIA [facility] [id number] [facility] 2023-08-12 09:30:00 2023-08-12 09:44:18 [facility] [id number] [facility] 2023-08-09 10:22:07 2023-08-09 23:59:00 Outpatient R [place] TRAVIS [facility] [id number] [facility] 2023-08-09 10:22:07 2023-08-09 23:59:00 Hospital Encounter [place] Travis [facility] [id number] [facility] 2023-07-31 09:40:00 2023-07-31 10:19:20 Outpatient R ETHAN VARELA [facility] [id number] [facility] 2023-07-31 09:40:00 2023-07-31 10:19:20 Office Visit [facility] [id number] [facility] 2023-07-31 00:00:00 2023-07-31 00:00:00 Orders Only Doctor Unassigned, [place] [facility] 1.114 [id number] [facility] 2023-07-24 13:00:00 2023-07-24 13:00:00 Outpatient R ELLIS LOVE, ELLIS [facility] [id number] [facility] 2023-07-22 00:00:00 2023-07-22 00:00:00 Telephone Santhosh Rivera [facility] 1.114 [id number] [facility] 2023-07-19 15:20:00 2023-07-19 16:10:58 Outpatient R SANTHOSH RIVERA [facility] [id number] [facility] 2023-07-19 15:20:00 2023-07-19 15:40:00 Urgent Care Santhosh Rivera Unknown, Attending [facility] MEDICAL OFFICE BUILDING 1.114 350.1.13.10 4.2.7.2.686 [id number] [facility] 2023-07-19 00:00:00 2023-07-19 00:00:00 Orders Only Doctor Unassigned, [place] [facility] .114 350.1.13.10 4.2.7.2.686 [id number] 009 [id number] [facility] 2023-07-17 00:00:00 2023-07-17 00:00:00 Telephone Gloria Long [facility] NAL BUILDING 1.114 350.1.13.10 4.2.7.2.686 [id number] 145 [id number] [facility] 2023-07-10 14:40:00 2023-07-10 15:37:05 Office Visit Ethan Varela [facility] BUILDING 1.2.840.114 350.1.13.10 4.2.7.2.686 [id number] 044 [id number] [facility] 2023-07-10 15:00:00 2023-07-10 15:35:43 Outpatient R ETHAN VARELA [facility] [id number] [facility] 2023-07-10 15:00:00 2023-07-10 15:35:43 Office Visit Ethan Varela [facility] 1..840.114 350.1.13.10 4.2.7.2.686 [id number] 044 [id number] [facility] 2023-07-10 11:00:00 2023-07-10 12:59:18 Outpatient R ELLIS LOVE CRAIG [facility] [id number] [facility] 2023-07-10 11:00:00 2023-07-10 12:59:18 Ancillary Visit Spaw, Ellis Jaramillo [facility] BUILDING 1..840.114 350.1.13.10 4.2.7.2.686 [id number] 145 [id number] [facility] 2023-07-07 00:00:00 2023-07-07 00:00:00 Patient Secure Msg Bessy [facility] BUILDING 1.2.840.114 350.1.13.10 4.2.7.2.686 [id number] 044 [id number] [facility] 2023-07-06 00:00:00 2023-07-06 00:00:00 [facility] BU[facility] 1.2.840.114 350.1.13.10 4.2.7.2.686 [id number] [facility] 2023-07-04 00:00:00 2023-07-04 00:00:00 Telephone Chelseaerick Ethan [facility] BUILDING 1.2.840.114 350.1.13.10 4.2.7.2.686 [id number] 044 [id number] [facility] 2023-07-01 09:00:00 2023-07-01 09:15:00 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, 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 Chelseaerick Ethan [facility] BUILDING 1.2.840.114 350.1.13.10 4.2.7.2.686 [id number] [facility] 2023-07-01 09:00:00 2023-07-01 09:00:00 Outpatient R ETHAN VARELA [facility] [id number] [facility] 2023-07-01 00:00:00 2023-07-01 00:00:00 Telephone RemyprasanthEthan rivera [facility] 1.2.840.114 350.1.13.10 4.2.7.2.686 [id number] 044 [id number] [facility] 2023-06-20 00:00:00 2023-06-20 00:00:00 Telephone Gloria Long [facility] 1.2.840.114 350.1.13.10 4.2.7.2.686 [id number] 145 [id number] [facility] 2023-06-19 16:00:00 2023-06-19 16:47:49 Outpatient R ELLIS LOVE CRAIG [facility] [id number] [facility] 2023-06-19 16:00:00 2023-06-19 16:47:49 Ancillary Visit Spaw, Ellis Jaramillo [facility] BUILDING 1.840.114 350.1.13.10 4.2.7.2.686 [id number] 145 [id number] [facility] 2023-06-17 00:00:00 2023-06-17 00:00:00 Refill Ethan Varela [facility] BUILDING 1.840.114 350.1.13.10 4.2.7.2.686 [id number] 044 [id number] [facility] 2023-05-21 00:00:00 2023-05-21 00:00:00 Patient Secure doyle Solorio Miryam Hollis [facility] MEDICAL OFFICE BUILDING 1.840.114 350.1.13.10 4.2.7.2.686 [id number] 095 [id number] [facility] 2023-05-14 00:00:00 2023-05-14 00:00:00 Orders Only Doctor Unassigned, [place] [facility] 1.840.114 350.1.13.10 4.2.7.2.686 [id number] [id number] [facility] 2023-05-12 00:00:00 2023-05-12 00:00:00 Refill Ethan Varela [facility] BUILDING 1.840.114 350.1.13.10 4.2.7.2.686 [id number] 044 [id number] [facility] 2023-05-08 14:20:00 2023-05-08 15:52:46 Outpatient R CRESENCIO WOLF [facility] [id number] [facility] 2023-05-08 14:20:00 2023-05-08 15:52:46 Urgent Care Cresencio Wolf Unknown, Attending [facility] BUILDING 1.2840.114 350.1.13.10 4.2.7.2.686 [id number] [facility] 2023-05-07 10:00:00 2023-05-07 10:30:00 Office Visit Wilfrid Reno Joseph Marc [facility] 1.840.114 350.1.13.10 4.2.7.2.686 [id number] [id number] [facility] 2023-05-07 10:00:00 2023-05-07 10:00:00 Outpatient ALEX BARRAZA [facility] [id number] [facility] 2023-05-06 09:33:31 2023-05-06 23:59:00 Outpatient MIRYAM SONG [facility] [id number] [facility] 2023-05-06 09:33:31 2023-05-06 23:59:00 Hospital Encounter Miryam Solorio [facility] 1.0.114 350.1.13.10 4.2.7.2.686 [id number] [facility] 2023-04-30 10:45:00 2023-04-30 11:13:42 Outpatient R ZAFAR CARTWRIGHT [facility] [id number] [facility] 2023-04-30 10:45:00 2023-04-30 11:13:42 Office Visit Zafar Cartwright [facility] 1.2840.114 350.1.13.10 4.2.7.2.686 [id number] [facility] 2023-04-30 00:00:00 2023-04-30 00:00:00 Orders Only Doctor Unassigned, [place] [facility] 1.840.114 350.1.13.10 4.2.7.2.686 [id number] [id number] [facility] 2023-04-29 00:00:00 2023-04-29 00:00:00 Telephone SolorioMiryam [facility] 1.2.840.114 350.1.13.10 4.2.7.2.686 [id number] 095 [id number] [facility] 2023-04-29 00:00:00 2023-04-29 00:00:00 Case Management Miryam Solorio [facility] MEDICAL OFFICE BUILDING 1.2.840.114 350.1.13.10 4.2.7.2.686 [id number] 095 [id number] [facility] 2023-04-29 00:00:00 2023-04-29 00:00:00 Patient Secure Msg Miryam Solorio [facility] MEDICAL OFFICE BUILDING 1.2.840.114 350.1.13.10 4.2.7.2.686 [id number] 095 [id number] [facility] 2023-04-27 00:00:00 2023-04-27 00:00:00 Refill Ethan Varela [facility] BUILDING 1.2.840.114 350.1.13.10 4.2.7.2.686 [id number] 044 [id number] [facility] 2023-04-27 00:00:00 2023-04-27 00:00:00 Refill Bessy [facility] NAL BUILDING 1.2.840.114 350.1.13.10 4.2.7.2.686 [id number] 044 [id number] [facility] 2023-04-26 11:00:00 2023-04-26 11:30:00 Office Visit Mriyam Solorio [facility] MEDICAL OFFICE BUILDING 1.2.840.114 350.1.13.10 4.2.7.2.686 [id number] 095 [id number] [facility] 2023-04-26 11:00:00 2023-04-26 11:00:00 Outpatient R MIRYAM SOLORIO [facility] [id number] [facility] 2023-04-22 14:30:00 2023-04-22 14:30:00 Outpatient R JA RASMUSSEN DAVID [facility] [id number] [facility] 2023-04-15 12:30:00 2023-04-15 12:55:41 Outpatient R GLORIA GANDHI [facility] [id number] [facility] 2023-04-15 12:30:00 2023-04-15 12:55:41 Office Visit Brayan Gandhissica [facility] 1.2.840.114 350.1.13.10 4.2.7.2.686 [id number] 044 [id number] [facility] 2023-04-05 10:30:00 2023-04-05 11:34:49 Outpatient R REMYPRASANTHETHAN RIVERA [facility] [id number] [facility] 2023-04-05 10:30:00 2023-04-05 10:45:00 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, Adc Lab RemyprasanthEthan rivera [facility] 1.2.840.114 350.1.13.10 4.2.7.2.686 [id number] [facility] 2023-04-04 13:20:00 2023-04-04 13:44:23 Outpatient R REMYJAKOB ETHAN [facility] [id number] [facility] 2023-04-04 13:20:00 2023-04-04 13:44:23 Office Visit Ethan Varela [facility] 1.2.840.114 350.1.13.10 4.2.7.2.686 [id number] 044 [id number] [facility] 2023-04-04 00:00:00 2023-04-04 00:00:00 Telephone Ja Rasmussen [facility] 1.2.840.114 350.1.13.10 4.2.7.2.686 [id number] [facility] 2023-04-01 13:30:00 2023-04-01 13:30:00 Outpatient R GLORIA MOORE [facility] [id number] [facility] 2023-03-29 10:30:00 2023-03-29 10:30:00 Outpatient R [place] TRAVIS [facility] [id number] [facility] 2023-03-27 00:00:00 2023-03-27 00:00:00 Patient Secure Msg Doctor Unassigned, [place] [facility] 1.2.840.114 350.1.13.10 4.2.7.2.686 [id number] 044 [id number] [facility] 2023-03-12 00:00:00 2023-03-12 00:00:00 Telephone Ethan [facility]are[facility] 1.2.840.114 350.1.13.10 4.2.7.2.686 [id number] 044 [id number] [facility] 2023-03-02 00:00:00 2023-03-02 00:00:00 Patient Secure Msg Doctor Unassigned, [place] [facility] 1.2.840.114 350.1.13.10 4.2.7.2.686 [id number] [facility] 2023-02-26 11:20:41 2023-02-26 23:59:00 Outpatient R GLORIA GANDHI [facility] [id number] [facility] 2023-02-26 11:20:41 2023-02-26 23:59:00 Hospital Encounter Gloria Gandhi [facility] 1.2.840.114 350.1.13.10 4.2.7.2.686 [id number] [facility] 2023-02-26 11:00:00 2023-02-26 12:04:16 Office Visit Gloria Gandhi [facility] BUILDING 1.2.840.114 350.1.13.10 4.2.7.2.686 [id number] 044 [id number] [facility] 2023-02-24 00:00:00 2023-02-24 00:00:00 Refill Ethan Varela [facility] BUILDING 1.2.840.114 350.1.13.10 4.2.7.2.686 [id number] 044 [id number] [facility] 2023-02-23 00:00:00 2023-02-23 00:00:00 Telephone Gloria Gandhi [facility] MEDICAL OFF[facility] BUILDING 1.2.840.114 350.1.13.10 4.2.7.2.686 [id number] [facility] 2023-01-28 00:00:00 2023-01-28 00:00:00 Patient Secure Msg Ethan Varela [facility] BUILDING 1.2.840.114 350.1.13.10 4.2.7.2.686 [id number] 044 [id number] [facility] 2023-01-27 00:00:00 2023-01-27 00:00:00 Refill Ethan Varela [facility] BUILDING 1.2.840.114 350.1.13.10 4.2.7.2.686 [id number] 044 [id number] [facility] 2023-01-17 00:00:00 2023-01-17 00:00:00 Refill Ethan Varela [facility] BUILDING 1.2.840.114 350.1.13.10 4.2.7.2.686 [id number] 044 [id number] [facility] 2023-01-01 00:00:00 2023-01-01 00:00:00 Patient Secure MsEthan Samaniego [facility] BUILDING 1.2.840.114 350.1.13.10 4.2.7.2.686 [id number] 044 [id number] [facility] 2022-12-31 00:00:00 2022-12-31 00:00:00 Refill Ethan Varela [facility] BUILDING 1.2.840.114 350.1.13.10 4.2.7.2.686 [id number] 044 [id number] [facility] 2022-12-31 00:00:00 2022-12-31 00:00:00 Refill Ethan Varela [facility] 1..840.114 350.1.13.10 4.2.7.2.686 [id number] 044 [id number] [facility] 2022-12-21 12:00:00 2022-12-21 12:39:12 Outpatient R SIVAKUMAR ESPINOSA [facility] [id number] [facility] 2022-12-21 12:00:00 2022-12-21 12:39:12 Office Visit Sivakumar Espinosa [facility] BUILDING 1.2.840.114 350.1.13.10 4.2.7.2.686 [id number] [facility] 2022-12-18 00:00:00 2022-12-18 00:00:00 Refill Ethan Varela [facility] BUILDING 1.2.840.114 350.1.13.10 4.2.7.2.686 [id number] 044 [id number] [facility] 2022-12-11 14:00:00 2022-12-11 14:00:00 Outpatient R [place] TRAVIS [facility] [id number] [facility] 2022-12-07 00:00:00 2022-12-07 00:00:00 Patient Secure g Ethan Varela [facility] BUILDING 1.2.840.114 350.1.13.10 4.2.7.2.686 [id number] 044 [id number] [facility] 2022-11-28 00:00:00 2022-11-28 00:00:00 Patient Secure g Ethan Varela [facility] BUILDING 1.2.840.114 350.1.13.10 4.2.7.2.686 [id number] 044 [id number] [facility] 2022-11-19 00:00:00 2022-11-19 00:00:00 Patient Secure Ethan Hancock [facility] BUILDING 1.2.840.114 350.1.13.10 4.2.7.2.686 [id number] 044 [id number] [facility] 2022-11-19 00:00:00 2022-11-19 00:00:00 Telephone Ethan Varela [facility] BUILDING 1.2.840.114 350.1.13.10 4.2.7.2.686 [id number] 044 [id number] [facility] 2022-11-16 15:59:18 2022-11-16 23:59:00 Hospital Encounter Ethan Varela [facility] 1.2.840.114 350.1.13.10 4.2.7.2.686 [id number] [facility] 2022-11-16 15:30:00 2022-11-16 15:45:00 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, Adc Lab Ethan Varela [facility] BUILDING 1.2.840.114 350.1.13.10 4.2.7.2.686 [id number] [facility] 2022-11-16 14:40:00 2022-11-16 15:29:40 Office Visit Ethan Varela [facility] 1.2.840.114 350.1.13.10 4.2.7.2.686 [id number] 044 [id number] [facility] 2022-11-16 14:40:00 2022-11-16 15:29:40 Outpatient R ETHAN VARELA [facility] [id number] [facility] 2022-10-29 00:00:00 2022-10-29 00:00:00 Telephone Ja Rasmussen [facility] 1.2.840.114 350.1.13.10 4.2.7.2.686 [id number] [facility] 2022-10-26 13:00:00 2022-10-26 13:00:00 Outpatient R SIVAKUMAR ESPINOSA [facility] [id number] [facility] 2022-10-21 00:00:00 2022-10-21 00:00:00 Refill Ethan Varela [facility] 1.2.840.114 350.1.13.10 4.2.7.2.686 [id number] 044 [id number] [facility] 2022-10-09 11:00:00 2022-10-09 11:00:00 Outpatient R MIRYMA SOLORIO [facility] [id number] [facility] 2022-10-05 13:00:00 2022-10-05 13:00:00 Outpatient R GLORIA MOORE [facility] [id number] [facility] 2022-10-02 10:30:00 2022-10-02 10:30:00 Outpatient R [place] TRAVIS [facility] [id number] [facility] 2022-10-01 14:00:00 2022-10-01 14:52:08 Outpatient R DIAZ WALKER [facility] [id number] [facility] 2022-10-01 00:00:00 2022-10-01 00:00:00 Travel 1.2.840.1 55600.1.1 3.104.2.7 .3.464806 .8 1.2.840.114 350.1.13.10 4.2.7.3.698 084.8 [id number] [facility] 2022-09-03 15:30:00 2022-09-03 15:30:00 Outpatient R [facility] [id number] [facility] 2022-09-03 00:00:00 2022-09-03 00:00:00 Patient Secure Ethan Hancokc 1.2.840.1 75161.1.1 3.104.2.7 .3.981156 .8 [id number] [facility] 2022-08-15 00:00:00 2022-08-15 00:00:00 Zafar Cronelius 1.2.840.1 40881.1.1 3.104.2.7 .3.438912 .8 [id number] [facility] 2022-08-15 00:00:00 2022-08-15 00:00:00 Telephone Zafar Cartwright 1.2.840.1 30246.1.1 3.104.2.7 .3.704503 .8 [id number] [facility] 2022-08-14 00:00:00 2022-08-14 00:00:00 Orders Only Doctor Unassigned, [place] 1.2.840.1 67588.1.1 3.104.2.7 .3.082331 .8 [id number] [facility] 2022-08-14 00:00:00 2022-08-14 00:00:00 Telephone Zafar Cartwright 1.2.840.1 17586.1.1 3.104.2.7 .3.115404 .8 [id number] [facility] 2022-08-14 00:00:00 2022-08-14 00:00:00 Patient Secure Ethan Hancock 1.2.840.1 60080.1.1 3.104.2.7 .3.779989 .8 [id number] [facility] 2022-08-13 14:30:00 2022-08-13 14:45:00 Office Visit Rayne Cartwrightew Carlos 1.2.840.1 86184.1.1 3.104.2.7 .3.332380 .8 [id number] [facility] 2022-08-13 13:15:00 2022-08-13 13:30:00 Office Visit Danielle Zee 1.2.840.1 08456.1.1 3.104.2.7 .3.029337 .8 [id number] [facility] 2022-08-13 13:15:00 2022-08-13 13:15:00 Outpatient R DANIELLE ZEE [facility] [id number] [facility] 2022-08-13 00:00:00 2022-08-13 00:00:00 Travel 1.2.840.1 22033.1.1 3.104.2.7 .3.347264 .8 1.2.840.114 350.1.13.10 4.2.7.3.698 084.8 [id number] [facility] 2022-08-08 00:00:00 2022-08-08 00:00:00 Patient Secure Ethan Hancock [facility] ANDREA LEON PROFESSIO [facility] 1.2.840.114 350.1.13.10 4.2.7.2.686 [id number] 044 [id number] [facility] 2022-08-07 13:00:00 2022-08-07 13:00:00 Outpatient R GLORIA MOORE [facility] [id number] [facility] 2022-08-07 00:00:00 2022-08-07 00:00:00 Travel 1.2.840.1 33307.1.1 3.104.2.7 .3.315095 .8 1.2.840.114 350.1.13.10 4.2.7.3.698 084.8 [id number] [facility] 2022-08-07 00:00:00 2022-08-07 00:00:00 Telephone Ethan Varela 1.2.840.1 97774.1.1 3.104.2.7 .3.421744 .8 [id number] [facility] 2022-08-06 00:00:00 2022-08-06 00:00:00 Patient Secure Msg Doctor Unassigned, [place] [facility] 1.2.840.114 350.1.13.10 4.2.7.2.686 [id number] 019 [id number] [facility] 2022-08-05 00:00:00 2022-08-05 00:00:00 Travel 1.2.840.1 48831.1.1 3.104.2.7 .3.849659 .8 1.2.840.114 350.1.13.10 4.2.7.3.698 084.8 [id number] [facility] 2022-07-30 13:30:00 2022-07-30 14:18:47 Outpatient R GLORIA GANDHI [facility] [id number] [facility] 2022-07-30 13:30:00 2022-07-30 14:18:47 Office Visit Gloria Gandhi 1.2.840.1 29177.1.1 3.104.2.7 .3.956035 .8 [id number] [facility] 2022-07-30 00:00:00 2022-07-30 00:00:00 Travel 1.2.840.1 70630.1.1 3.104.2.7 .3.681574 .8 1.2.840.114 350.1.13.10 4.2.7.3.698 084.8 [id number] [facility] 2022-07-30 00:00:00 2022-07-30 00:00:00 Orders Only Doctor Unassigned, [place] 1.2.840.1 74680.1.1 3.104.2.7 .3.281763 .8 [id number] [facility] 2022-07-25 14:40:00 2022-07-25 14:40:00 Outpatient DENNIS CARNE [facility] [id number] [facility] 2022-07-24 00:00:00 2022-07-24 00:00:00 Patient Secure Msg Miryam Solorio 1..840.1 62338.1.1 3.104.2.7 .3.697423 .8 [id number] [facility] 2022-07-24 00:00:00 2022-07-24 00:00:00 Telephone Ethan Varela 1.2.840.1 74460.1.1 3.104.2.7 .3.487223 .8 [id number] [facility] 2022-07-20 15:45:00 2022-07-20 15:45:00 Outpatient ZAFAR JUSTIN [facility] [id number] [facility] 2022-07-19 13:15:00 2022-07-19 13:30:00 Coach Mechanic Visit Ethan Varela 2, Adc Lab 1.2.840.1 33608.1.1 3.104.2.7 .3.100879 .8 [id number] [facility] 2022-07-19 13:15:00 2022-07-19 13:15:00 Outpatient ETHAN KING [facility] [id number] [facility] 2022-07-19 00:00:00 2022-07-19 00:00:00 Patient Secure Msg Ethan Varela [facility] ANDREA CHINESSIO [facility] 1.2.840.114 350.1.13.10 4.2.7.2.686 [id number] [facility] 2022-07-19 00:00:00 2022-07-19 00:00:00 Telephone Ethan Varela 1.2.840.1 42431.1.1 3.104.2.7 .3.022413 .8 [id number] [facility] 2022-07-19 00:00:00 2022-07-19 00:00:00 Orders Only Doctor Unassigned, [place] 1.2.840.1 70702.1.1 3.104.2.7 .3.025382 .8 [id number] [facility] 2022-07-18 00:00:00 2022-07-18 00:00:00 Travel 1.2.840.1 56227.1.1 3.104.2.7 .3.523971 .8 1.2.840.114 350.1.13.10 4.2.7.3.698 084.8 [id number] [facility] 2022-07-18 00:00:00 2022-07-18 00:00:00 Telephone tEhan Varela 1.2.840.1 59215.1.1 3.104.2.7 .3.185109 .8 [id number] [facility] 2022-07-17 10:45:00 2022-07-17 10:45:09 Coach Mechanic Visit Ethan Varela 2, [facility] 1.2.840.1 21581.1.1 3.104.2.7 .3.335019 .8 [id number] [facility] 2022-07-17 10:30:00 2022-07-17 10:33:05 Imm/Inj Visit Ethan Varela [facility] 1.2.840.1 19041.1.1 3.104.2.7 .3.436829 .8 [id number] [facility] 2022-07-17 09:00:00 2022-07-17 10:30:00 Outpatient R ETHAN VARELA [facility] [id number] [facility] 2022-07-17 09:00:00 2022-07-17 10:30:00 Office Visit Ethan Varela 1.2.840.1 12225.1.1 3.104.2.7 .3.819499 .8 [id number] [facility] 2022-07-17 09:20:00 2022-07-17 10:27:06 Office Visit Ethan Varela 1.2.840.1 85772.1.1 3.104.2.7 .3.603962 .8 [id number] [facility] 2022-07-17 00:00:00 2022-07-17 00:00:00 Patient Secure Msg Doctor Unassigned, [place] [facility] 1.2.840.114 350.1.13.10 4.2.7.2.686 [id number] [facility] 2022-07-17 00:00:00 2022-07-17 00:00:00 Travel 1.2.840.1 00574.1.1 3.104.2.7 .3.805729 .8 1.2.840.114 350.1.13.10 4.2.7.3.698 084.8 [id number] [facility] 2022 00:00:00 2022 00:00:00 Travel 1.2.840.1 43341.1.1 3.104.2.7 .3.100803 .8 1.2.840.114 350.1.13.10 4.2.7.3.698 084.8 [id number] [facility] 2022-07-10 00:00:00 2022-07-10 00:00:00 Patient Secure Msg Miryam Solorio R 1.2.840.1 38065.1.1 3.104.2.7 .3.155831 .8 [id number] [facility] 2022-07-09 00:00:00 2022-07-09 00:00:00 Telephone Miryam Solorio R 1.2.840.1 33477.1.1 3.104.2.7 .3.408640 .8 [id number] [facility] 2022-07-06 09:30:00 2022-07-06 10:54:49 Outpatient R MIRYAM SOLORIO [facility] [id number] [facility] 2022-07-06 09:30:00 2022-07-06 10:54:49 Office Visit Gaudencio Miryam R 1.2.840.1 24373.1.1 3.104.2.7 .3.354341 .8 [id number] [facility] 2022-07-06 00:00:00 2022-07-06 00:00:00 Travel 1.2.840.1 04711.1.1 3.104.2.7 .3.346936 .8 1.2.840.114 350.1.13.10 4.2.7.3.698 084.8 [id number] [facility] 2022-06-05 10:20:00 2022-06-05 11:14:21 Outpatient JONAS MOREJON HOWARD [facility] [id number] [facility] 2022-06-05 10:20:00 2022-06-05 11:14:21 Office Visit Jonas Grissom [facility] 1.2.840.114 350.1.13.10 4.2.7.2.686 [id number] [facility] 2022-05-31 13:20:00 2022-05-31 14:10:45 Outpatient R SANTHOSH RIVERA [facility] [id number] [facility] 2022-05-31 13:20:00 2022-05-31 14:10:45 Urgent Care Santhosh Rivera Unknown, Attending [facility] 1.2.840.114 350.1.13.10 4.2.7.2.686 [id number] [facility] 2022-05-23 09:00:00 2022-05-23 10:01:30 Outpatient JOSE ALFREDO DAI [facility] [id number] [facility] 2022-05-23 09:00:00 2022-05-23 10:01:30 Office Visit Jose Alfredo Ann [facility] 1.2.840.114 350.1.13.10 4.2.7.2.686 [id number] [facility] 2022-05-02 09:43:30 2022-05-02 23:59:00 Outpatient ETHAN KING [facility] [id number] [facility] 2022-05-02 09:40:00 2022-05-02 23:59:00 Hospital Encounter Ethan Varela [facility] 1.2.840.114 350.1.13.10 4.2.7.2.686 [id number] [facility] 2022-05-01 08:40:00 2022-05-01 08:40:00 Outpatient JONAS MOREJON HOWARD [facility] [id number] [facility] 2022-04-30 09:15:00 2022-04-30 09:15:00 Outpatient ELLIS MARTINEZ [facility] [id number] [facility] 2022-04-30 00:00:00 2022-04-30 00:00:00 Telephone Ethan Varela [facility] 1.2.840.114 350.1.13.10 4.2.7.2.686 [id number] [facility] 2022-04-30 00:00:00 2022-04-30 00:00:00 Patient Secure Msg Doctor Unassigned, [place] [facility] 1.2.840.114 350.1.13.10 4.2.7.2.686 [id number] [facility] 2022-04-27 00:00:00 2022-04-27 00:00:00 Patient Secure Msg Doctor Unassigned, [place] [facility] 1.2.840.114 350.1.13.10 4.2.7.2.686 [id number] [facility] 2022-04-24 00:00:00 2022-04-24 00:00:00 Refill Ethan Varela [facility] 1.2.840.114 350.1.13.10 4.2.7.2.686 [id number] [facility] 2022-04-13 11:45:00 2022-04-13 12:00:00 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, Adc Lab Ethan Varela [facility] 1.2.840.114 350.1.13.10 4.2.7.2.686 [id number] [facility] 2022-04-13 10:00:00 2022-04-13 11:12:17 Outpatient R ETHAN VARELA [facility] [id number] [facility] 2022-04-13 10:00:00 2022-04-13 11:12:17 Office Visit Ethan Varela [facility] 1.2.840.114 350.1.13.10 4.2.7.2.686 [id number] [facility] 2022-04-13 00:00:00 2022-04-13 00:00:00 Telephone Ethan Varela [facility] 1.2.840.114 350.1.13.10 4.2.7.2.686 [id number] [facility] Results Test Description Test Time Test Comments Results Result Co mments Source [facility] Molecular [id number] 22:04:49* Test Item Value Reference Range Interpretation Comme nts POCT Molecular FluA (test co de = 22043-3) Negative Negative POCT Molecular FluB (test co de = 57472-5) Negative Negative Lab Interpretation (test cod e = 25038-8) Normal [facility] MOLECULAR [id number] 21:53:33* Test Item Value Reference Range Interpretation Comme nts POCT Molecular Strep (test c ode = 00276-4) Negative Negative Lab Interpretation (test cod e = 81538-1) Normal [facility] Urinalysis W Specific Dppykmk5877-76-97 21:53:00* Test Item Value Reference Range Interpretation Comme nts POCT U SP GRAV (test code = 3255) 1.015 mg/dl 1.005-1.025 POCT PH U (test code = 3254) 5 mg/dl 5-8 POCT U LEUK EST (test code = 3263) POS Negative - Negative POCT U NIT (test code = 3262) POS Negative - Negative POCT U PROT (test code = 3259) POS Negative - Negative POCT U GLU (test code = 3256) POS Negative - Negative POCT U KETONE (test code = 3258) NEG Negative - Negative POCT U UROBILI (test code = 3260) NEG 0.2-1 POCT U BILI (test code = 3261) NEG Negative - Negative POCT U BLD (test code = 3257) POS Negative - Negative POCT U COLOR (test code = 3266) BROWN/BLOODY POCT U APPEAR (test code = 3267) DARK ZAC (test code = ZAC) accurate developme nt and interpretation of all internal controls Lab Interpretation (test code = 84700-2) Abnormal [facility] MOLECULAR [id number] 20:01:36* Test Item Value Reference Range Interpretation Comme nts POCT Molecular FluA (test co de = 29294-9) Negative Negative POCT Molecular FluB (test co de = 14195-7) Negative Negative Lab Interpretation (test cod e = 89052-9) Normal [facility] SARS-COV-2 ANTIGEN (BINAX NOW)2023-05-08 19:51:00* Test Item Value Reference Range Interpretation Comme nts POCT SARS-COV-2 ANTIGEN (test code = 07881-2) Not Detected Not Detected On board controls acceptable with C Line (test code = 3574) Yes ZAC (test code = ZAC) accurate developme nt and interpretation of all internal controls [facility] MOLECULAR [id number] 19:50:27* Test Item Value Reference Range Interpretation Comme nts POCT Molecular Strep (test c ode = 15573-4) Negative Negative Lab Interpretation (test cod e = 02326-1) Normal [facility] Notes Date/Time Note Provider Source 2023-07-22 14:35:09 vtxUd7K1lDRKbS6ai9Ew lGUV3HbMxePtN u/DRsqu8e+o5ld0Qe9Nnebk+hmtbmqN69 14-08-00T14:35:09 Patient was called with UA. Patient verbalized understanding of taking and completing all medications. Has no further question at this time. Will follow up with PCP if no improvement or worsening of symptoms 95386-8Jpqknfijl encounter MexuPR3636-23-40H14:36:50Telephon e encounter NoteTXT1.2.840.969931.1.13.104.2. 7.2.884283|[id number] for patient spzi19413-2YsdhTDYCRPPLOTQGupcyar ed C-CDA narrative [id number] [address] 948KTWMZLEFRRNFZZPLNFQYQI2592-09- 01T14:36:501.2.840.232817.1.72.3. 15|1.2.840.501318.1.13.104.2.7.2. 727879_[id number] Gisele Calhoun [facility] 2023-07-17 11:29:33 zvxvEAV0MoiL9+nLQwZu xSVxitFHblnGk n72swIpLxIzLWV3i5VlEimGCBCjJQdZ14 13-07-27T11:29:33 Kell Reese is a 58 year old femalePt cancel appt and needing to r/sPt will be out of town until Aug 10Please advise [phone] (home) 68726-3Ijliynoip encounter OwbiDQ8325-97-30Q35:31:46Telephon e encounter NoteTXT1.2.840.488726.1.13.104.2. 7.2.033256|[id number] for patient fvjf06789-9WfugFVMBLAFTAGZHxhypkw ed C-CDA narrative dyzn851184885Lkcoydv [address] 700ENLQWJUNQUJVBNOOCMLXAJ7370-93- 27T11:31:461.2.840.373560.1.72.3. 15|1.2.840.518569.1.13.104.2.7.2. 727879_[id number] Padmini [facility] 2023-04-08 16:43:06 /qkNEa3H5ZZZYiHtTnDp iZU/VcpiXR7fh ATbCdlaMCTIxJuMzGh9tP2pTAGEamZ671 13-04-18:43:06 Scheduled 04/22 @ 2:30 73886-6Ullddmrrm encounter JjmvGI9562-28-48D66:43:27Telephon e encounter NoteTXT1.2.840.401469.1.13.104.2. 7.2.358183|[id number] for patient zihs41872-9CulsFI053335502Ixlyzdv r Yvonne [address] 972RQCKAUXPDNSAMYGPBSUTPT2438-46- 18T16:43:271.2.840.006330.1.72.3. 15|1.2.840.124753.1.13.104.2.7.2. 727879_[id number] Iglesia Yvonne Romanrossanatyron [facility] 2023-04-07 15:17:03 2I3FAgM3hgF+2UiqAF6k 2E8pX2STTkxiM PuFhemTg8GvMx3CmLtbOAlnoIU7a6jd92 13-04-175:17:03 Please offer new patient appointment as overbook on 04/22/23 at 1:30 or 2:30 pm.Ja Rasmussen MDLaryngologist- [facility] Department of Otolaryngology Head and Neck Surgery 24533-6Etfnbnurn encounter TinzOQ3024-81-31N31:18:05Telephon e encounter NoteTXT1.2.840.269296.1.13.104.2. 7.2.515094|[id number] for patient qsca05372-3LsbzKIZNR-JCZYVLNEOITX STAFFOTO-OTOLARYNGOLOGY [address]TX[address] 146BEPPCNMWVQMMHSMNTYMIVU7846-16- 17T15:18:051.2.840.139106.1.72.3. 15|1.2.840.198525.1.13.104.2.7.2. 727879_[id number] TONY-OTOLARYNGOLOGY STAFF [facility] 2023-04-05 10:30:00 b9423vzn2WOLOZI2PcEq Mv5R/oC26+H24 MiAXzocu0sOGqbCM6DgTS7RvrC9E/O620 13-04-15T10:30:00 Images from the original note were not included.Venipuncture collection performed by clean technique on the left anticubitus. Total of 1 attempts were made. Slight pressure and a bandage/dressing were applied to the site(s). The patient experienced no complications. The following specimens were processed according to instructions and sent to [facility] laboratories per lab order on 04/05/2023: LT BLUE SST 2 RED LAV 1 PPT DK GREEN (LiHep) DK GREEN (SodH) CEVALLOS DK BLUE (K2) DK BLUE (S) ACD Blood Culture NIPT/NTD 96470-9Vnpei QigbSH7059-25-76P20:41:08Nurse NoteTXT1.2.840.247964.1.13.104.2. 7.2.517727|[id number] for patient mrwq63498-4Iyafs NoteLNUT[address] ZgqtKprkxpmobPgbaucetdZHSD4282004 260DHVNFBLSKCCVTFOYVYIPMP6949-48- 15T10:41:081.2.840.529686.1.72.3. 15|1.2.840.903415.1.13.104.2.7.2. 727879_[id number] [facility] 2023-04-04 14:19:36 V9PTpz4W5vcEfnRxEWzE fb7tBzmSxI3f7 5mgvGumoBhAJEIwwobqLjfi2xkWkD1j93 13-04-144:19:36 Kell Reddy is a 57 year old femalePt is calling to r/s missed appt with Valery on 12/24/2022. Please advise. [phone] (home) 99313-8Ckfaqqshz encounter IwpeZZ7876-70-41A19:21:09Telephon e encounter NoteTXT1.2.840.828198.1.13.104.2. 7.2.420498|[id number] for patient tlad90504-7EltbXE152960196Kebzqw E [address] 001DJNHFRWSHQXKXLVIYXCIIH9362-57- 14T14:21:091.2.840.855623.1.72.3. 15|1.2.840.337587.1.13.104.2.7.2. 727879_[id number] Jayjay Roque [facility] 2023-03-12 11:36:30 YyHe+t3z2PrjH5GFRnMD sdvLBy7k+DsA8 JV2POAaD++3MoG8IIeMZE/yiDKdRjCo72 13-03-22:36:30 [employer] sent patient care plan for review. Should be reviewed with patient at next appointment. Placed in providers folder for review with patient. 33366-5Fdxdrufpm encounter AvwsKQ1923-73-49T18:40:18Telephon e encounter NoteTXT1.2.840.877608.1.13.104.2. 7.2.862668|[id number] for patient dexk31187-3WwnbSB238241901Rplkxo L Reid RNUT[address]TXTX[address] 534IKNAETMHPJAYPIURXXGOTV0618-49- 22T11:40:181.2.840.210761.1.72.3. 15|1.2.840.677862.1.13.104.2.7.2. 727879_[id number] Melvina Jacobs RN [facility] 2023-02-26 11:45:00 4RnGAKj19EpLQUOnEBKi MFH6hJQllxNiY SyYs3EMsgIH91iLfsORCP6Yjdx/WXSv20 13-03-08T11:45:00 IMPRESSION?Small to moderate volume of stool. Bowel gas pattern is unremarkable.Please take meds as discussed and if no improvement will discuss other options 67316-9Xzhonedm sbqwKI8202-70-90F88:10:00Progress noteTXT1.2.840.692335.1.13.104.2. 7.2.109078|[id number] for patient bezr49313-4QjtoCYOPIMCJTZ[address]TXTX[address] 397YXKKGGXSXDCEIXRUGHMFVP7248-54- 08T13:10:001.2.840.549852.1.72.3. 15|1.2.840.969578.1.13.104.2.7.2. 727879_[id number] [facility] 2023-02-25 09:55:02 fQS15J2QQmPbJiAYinpP AB8gRWjgchtTA UgzZJxIeKK0olBMQCFDHj0lNii/C78T20 13-03-07T09:55:02 Spoke with patient still having constipation issue, transferred to [facility] to schedule an appointment. 95201-2Ypddjkjsq encounter UfxiUF3645-03-64I46:56:17Telephon e encounter NoteTXT1.2.840.000608.1.13.104.2. 7.2.142801|[id number] for patient padl46136-9OwvkBR200816547Rfsoup L Reid RN[address]TXTX[address] 443YAJVNSTQEDLOQFQNKNJPAX7618-04- 07T09:56:171.2.840.857655.1.72.3. 15|1.2.840.482921.1.13.104.2.7.2. 727879_[id number] Melvina Jacobs RN [facility] 2023-02-23 15:22:17 xZzFEtR69d6acoTqW3zP 2106r4jh0Jm0+ IZE/UlPLo+feDqJZ8Cquj2Kz9OaW1EL63 13-03-055:22:17 Can you see if patient can come in for evaluation for the constipation if still not improved 29605-6Zsgyhqnvi encounter EcbcRA6605-85-30Q49:22:46Telephon e encounter NoteTXT1.2.840.834825.1.13.104.2. 7.2.906016|[id number] for patient esip93456-4YwgkVHVK-DNZUUP MIDLEVEL PROVIDERNP-FAMILY MIDLEVEL PROVIDER[address] 171FJHJBVEYKSTNZYEREPUKZO3522-09- 05T15:22:461.2.840.327169.1.72.3. 15|1.2.840.405833.1.13.104.2.7.2. 727879_[id number] PRODUCTION EXPERT-FAMILY MIDLEVEL PROVIDER [facility]
--- NOTE | 2023-08-14 06:27 | ER ---
Nurse's Notes [facility] Name: Kell Huizar Age: 58 yrs Sex: Female : 1965 Arrival Date: 08/14/2023 Time: 01:37 Bed 3 Private MD: Diagnosis: Transient ischemic attack, acute dysarthria;Acute COVID-19 Presentation: 08/14 02:23 Chief complaint: EMS states: toned out for facial droop and falling twice; last known km8 normal 2100 yesterday 08/13/23;. Coronavirus screen: Client denies travel out of the [place] in the last 14 days. Ebola Screen: No symptoms or risks identified at this time. Initial Sepsis Screen: Does the patient meet any 2 criteria? HR > 90 bpm. Does the patient have a suspected source of infection? No. Patient's initial sepsis screen is negative. Risk Assessment: Do you want to hurt yourself or someone else? Patient reports no desire to harm self or others. Onset of symptoms was August 13, 2023 at 21:00. 02:23 Method Of Arrival: EMS km8 02:23 Acuity: HI 2 km8 02:23 Care prior to arrival: IV initiated. 20 GA, in the right forearm, Glucose check: 96. km8 Triage Assessment: 02:23 General: Appears in no apparent distress. comfortable, Behavior is calm, cooperative, km8 appropriate for age. Pain: Denies pain. EENT: Eyes right eye prosthetic . Neuro: Level of Consciousness is awake, alert, obeys commands, Oriented to person, place, time, situation, Gaming Cashier are equal bilaterally Moves all extremities. Full function Gait is steady, Speech is slurred, Facial droop on left, Pupils are PERRLA, Intact. Cardiovascular: Denies chest pain, shortness of breath, Capillary refill < 3 seconds Patient's skin is warm and dry. Respiratory: Airway is patent Respiratory effort is even, unlabored, Respiratory pattern is regular, symmetrical. GI: No signs and/or symptoms were reported involving the gastrointestinal system. : No signs and/or symptoms were reported regarding the genitourinary system. Derm: Skin is intact, is healthy with good turgor, Skin is dry, Skin is pink, warm \T\ dry. normal, Skin temperature is warm. Musculoskeletal: Circulation, motion, and sensation intact. Range of motion: intact in all extremities. Historical: - Allergies: 03:15 No Known Allergies; km8 - PMHx: 03:15 diabetes mellitus; High Cholesterol; Hypertension; km8 - PSHx: 03:15 right eye; km8 - Immunization history:: Client reports receiving the 2nd dose of the Covid vaccine, Flu vaccine is up to date. - Social history:: Smoking status: Patient denies any tobacco usage or history of. Patient/guardian denies using alcohol, street drugs. - Family history:: not pertinent. Screenin:23 [facility] ED Fall Risk Assessment (Adult) History of falling in the last 3 months, km8 including since admission Yes- single mechanical fall (1 pt) Confusion or Disorientation No (0 pts) Intoxicated or Sedated No (0 pts) Impaired Gait No (0 pts) Mobility Assist Device Used No (0 pt) Altered Elimination No (0 pt) Score/Fall Risk Level 0 - 2 = Low Risk Oriented to surroundings, Maintained a safe environment, Educated pt \T\ family on fall prevention, incl call for assistance when getting out of bed, Assessed \T\ reinforced patient's understanding of fall precautions. Abuse screen: Denies threats or abuse. Denies injuries from another. Nutritional screening: No deficits noted. Tuberculosis screening: No symptoms or risk factors identified. 03:57 Yasemin Swallow Protocol Brief Cognitive Screen What is your name? Normal, Where are you km8 right now? Normal, What year is it? Normal. Oral Mechanism Examination Facial Symmetry: Normal, Motion: Normal, Lip Closure: Normal, 3 oz Water Swallow Challenge: Pt able to drink all water without stopping, coughing, choking or throat clearing: Yes Result: PASS. Assessment: 02:23 Reassessment: see triage notes/assessment. km8 03:00 Reassessment: No changes from previously documented assessment. Patient and/or family vc1 updated on plan of care and expected duration. Pain level reassessed. Patient is alert, oriented x 3, equal unlabored respirations, skin warm/dry/pink. 04:00 Reassessment: Patient appears in no apparent distress at this time. No changes from vc1 previously documented assessment. Patient and/or family updated on plan of care and expected duration. Pain level reassessed. Patient is alert, oriented x 3, equal unlabored respirations, skin warm/dry/pink. 05:00 Reassessment: Patient appears in no apparent distress at this time. No changes from 8 previously documented assessment. Patient and/or family updated on plan of care and expected duration. Pain level reassessed. Patient is alert, oriented x 3, equal unlabored respirations, skin warm/dry/pink. 06:00 Reassessment: Patient appears in no apparent distress at this time. No changes from 8 previously documented assessment. Patient and/or family updated on plan of care and expected duration. Pain level reassessed. Patient is alert, oriented x 3, equal unlabored respirations, skin warm/dry/pink. 06:47 Reassessment: Patient appears in no apparent distress at this time. No changes from vc1 previously documented assessment. Patient and/or family updated on plan of care and expected duration. Pain level reassessed. Patient is alert, oriented x 3, equal unlabored respirations, skin warm/dry/pink. 15:40 Reassessment: attempted to call report to [facility] nurses phone but it went straight to , delvis left message and tried to call [phone] and [phone] with no answer. Vital Signs: 02:23 BP 120 / 74; Pulse 111; Resp 16; Temp 100.1(O); Pulse Ox 98% on R/A; Weight 61.23 kg 8 (R); Height 5 ft. 4 in. (R); Pain 0/10; 03:00 BP 120 / 78; Pulse 112; Resp 21; Pulse Ox 96% ; vc1 04:00 BP 125 / 75; Pulse 114; Resp 18; Pulse Ox 98% ; vc1 05:00 BP 127 / 78; Pulse 112; Resp 16; Pulse Ox 100% on R/A; km8 06:00 BP 131 / 79; Pulse 111; Resp 16; Pulse Ox 100% on R/A; km8 06:30 BP 131 / 81; Pulse 109; Resp 20; Pulse Ox 97% ; vc1 07:09 BP 126 / 71; Pulse 109; Resp 17; Pulse Ox 100% ; ko1 02:23 Body Mass Index 23.17 (61.23 kg, 162.56 cm) [facility] 02:23 Pain Scale: Adult [facility] [place] Coma Score: 02:23 Eye Response: spontaneous(4). Motor Response: obeys commands(6). Verbal Response: km8 oriented(5). Total: 15. 06:23 Eye Response: spontaneous(4). Motor Response: obeys commands(6). Verbal Response: sp4 oriented(5). Total: 15. NIH Stroke Scale Scores: 02:23 NIHSS Score: 2 km8 06:23 NIHSS Score: 2 sp4 ED Course: 02:23 Patient arrived in ED. gm2 02:23 Arm band placed on right wrist. km8 02:23 Patient has correct armband on for positive identification. Placed in gown. Bed in low km8 position. Call light in reach. Side rails up X2. Client placed on continuous cardiac and pulse oximetry monitoring. NIBP monitoring applied. Noise minimized. Warm blanket given. 02:23 No provider procedures requiring assistance completed. Maintain EMS IV. Dressing km8 intact. Good blood return noted. Site clean \T\ dry. Gauge \T\ site: 20 gauge right forearm. Patient maintains SpO2 saturation greater than 95% on room air. 02:31 Jade Nails, RN is Primary Nurse. km8 02:32 Lewis Avila MD is Attending Physician. sp4 03:03 Triage completed. km8 05:20 Head Brain Wo Cont In Process Unspecified. EDMS 05:21 CT Head Angio In Process Unspecified. EDMS 05:21 CT Neck Angio In Process Unspecified. EDMS 06:23 Provided Education on: admission process. km8 06:26 Alex Olivo is Hospitalizing Provider. sp4 07:20 Primary Nurse role handed off by Jade Nails, KATHRYN ko1 07:20 Tamela Nix, KATHRYN is Primary Nurse. ko1 09:15 Protein Electo w/M Celso Serum Sent. ko1 09:15 Protein S (Total Sent. ko1 09:15 PROTHROMBIN GENE ANALYSIS (F2) Sent. ko1 09:15 Factor V Leiden Mutation Sent. ko1 09:15 Homocysteine Sent. ko1 09:15 Miscellaneous Test Lab Sent. ko1 09:15 P-ANCA Anti-Myeloperoxidase Ab Sent. ko1 09:15 Protein C Antigen Sent. ko1 09:15 Troponin High Sensitivity Sent. ko1 09:15 Phosphorus Sent. ko1 09:15 Magnesium Sent. ko1 09:15 Cardiolipin Antibodies G,M Sent. ko1 09:15 Vitamin B12 Level Sent. ko1 09:15 Vitamin D, 25 (OH), TOTAL Sent. ko1 09:15 Anti-Thrombin III Activity Sent. ko1 10:29 UDS Sent. ko1 16:25 Patient admitted, IV remains in place. ko1 Administered Medications: 02:51 Drug: NS 0.9% IV 1000 ml IV at 125 ml/hr continuous Route: IV; Rate: 125 ml/hr; Site: [facility] right forearm; 06:48 Follow up: IV Status: Infusion continued upon admission vc1 06:32 Drug: Aspirin PO 325 mg PO once Route: PO; km8 06:49 Follow up: Response: No adverse reaction vc1 Medication: 02:23 VIS not applicable for this client. km8 Outcome: 06:27 Decision to Hospitalize by Provider. sp4 16:25 Admitted to Med/surg accompanied by nurse, via stretcher, room 405, with chart, Report ko1 called to kathryn Mtz 16:25 Condition: stable 16:25 Instructed on the need for admit, 16:26 Patient left the ED. ko1 NIH Stroke Scale - NIH Stroke Score Date: 08/14/2023 Time: 02:23 Total Score = 2 10. Dysarthria (speech clarity - read or repeat words) - 1(Mild to Moderate) 11. Extinction and Inattention (visual/tactile/auditory/spatial/personal) - 0(No abnormality) 1a. Level of Consciousness (LOC) - 0(Alert) 1b. Level of Consciousness (LOC) (Month \T\ Age) - 0(Both) 1c. LOC Commands (Open \T\ Closes Eyes/Photographic Printer) - 0(Both) 2. Best Gaze (Lateral Gaze Paresis) - 0(Normal) 3. Visual Field Loss - 0(No visual loss) 4. Facial Palsy - 1(Minor Paralysis) 5a. Left Arm: Motor (10-second hold) - 0(No drift) 5b. Right Arm: Motor (10-second hold) - 0(No drift) 6a. Left Leg: Motor (5-second hold - always test supine) - 0(No drift) 6b. Right Leg: Motor (5-second hold - always test supine) - 0(No drift) 7. Limb Ataxia (finger/nose \T\ heel/cain - test with eyes open) - 0(Absent) 8. Sensory Loss (pinprick arms/legs/face) - 0(Normal) 9. Best Language: Aphasia (description/naming/reading) - 0(No aphasia) Initials: km8 NIH Stroke Scale - NIH Stroke Score Date: 08/14/2023 Time: 06:23 Total Score = 2 10. Dysarthria (speech clarity - read or repeat words) - 1(Mild to Moderate) 11. Extinction and Inattention (visual/tactile/auditory/spatial/personal) - 0(No abnormality) 1a. Level of Consciousness (LOC) - 0(Alert) 1b. Level of Consciousness (LOC) (Month \T\ Age) - 0(Both) 1c. LOC Commands (Open \T\ Closes Eyes/Photographic Printer) - 0(Both) 2. Best Gaze (Lateral Gaze Paresis) - 0(Normal) 3. Visual Field Loss - 0(No visual loss) 4. Facial Palsy - 1(Minor Paralysis) 5a. Left Arm: Motor (10-second hold) - 0(No drift) 5b. Right Arm: Motor (10-second hold) - 0(No drift) 6a. Left Leg: Motor (5-second hold - always test supine) - 0(No drift) 6b. Right Leg: Motor (5-second hold - always test supine) - 0(No drift) 7. Limb Ataxia (finger/nose \T\ heel/cain - test with eyes open) - 0(Absent) 8. Sensory Loss (pinprick arms/legs/face) - 0(Normal) 9. Best Language: Aphasia (description/naming/reading) - 0(No aphasia) Initials: sp4 Signatures: Dispatcher [employer] EDAK Yenny Ayala RN RN 1 Tamela Nix RN RN delvis1 Lewis Avila MD MD sp4 Janae Flores 2 Jade Nails, KATHRYN RN km8 Corrections: (The following items were deleted from the chart) 04:44 02:23 Initial Sepsis Screen: Does the patient meet any 2 criteria? HR > 90 bpm. km8 Does the patient have a suspected source of infection? No. Patient's initial sepsis screen is negative. km8
--- NOTE | 2023-08-14 06:27 | EDPHYS ---
Physician Documentation [facility] Name: Kell Huizar Age: 58 yrs Sex: Female : 1965 Arrival Date: 08/14/2023 Time: 01:37 Bed 3 Private MD: ED Physician Lewis Avila HPI: 08/14 02:35 This 58 yrs old Black Female presents to ER via Unassigned with complaints of Weakness, sp4 facial asymmetry . 02:35 Last known well 10 PM. Patient arrived to the emergency room at 0 2:25 AM. On sp4 assessment patient is out of the window for TNKase. . 06:24 8-year-old female past medical history diabetes hypercholesterolemia hypertension sp4 presents with acute onset slurring of the speech starting at 10 PM yesterday. It was also reported that patient had facial asymmetry prior to presentation. On initial presentation patient has no limb deficits. She does have mild dysarthria and left-sided facial asymmetry. Patient was able to stand up and ambulate. She states she takes aspirin 81 mg p.o. daily.. Historical: - Allergies: 03:15 No Known Allergies; km8 - PMHx: 03:15 diabetes mellitus; High Cholesterol; Hypertension; km8 - PSHx: 03:15 right eye; km8 - Immunization history:: Client reports receiving the 2nd dose of the Covid vaccine, Flu vaccine is up to date. - Social history:: Smoking status: Patient denies any tobacco usage or history of. Patient/guardian denies using alcohol, street drugs. - Family history:: not pertinent. ROS: 06:27 Constitutional: Negative for fever, chills, and weight loss, positive slurring of the sp4 speech, positive facial asymmetry, positive altered mental status 06:27 All other systems are negative, Exam: 06:27 Constitutional: This is a well developed, well nourished patient who is awake, alert, sp4 and in no acute distress. Thin appearing female Head/Face: Normocephalic, atraumatic. Eyes: Left eye exam unremarkable, intact visual verde. Patient is also having a right prosthetic eye. ENT: Nares patent. No nasal discharge, no septal abnormalities noted. Tympanic membranes are normal and external auditory canals are clear. Oropharynx with no redness, swelling, or masses, exudates, or evidence of obstruction, uvula midline. Mucous membranes moist. Neck: Trachea midline, no thyromegaly or masses palpated, and no cervical lymphadenopathy. Supple, full range of motion without nuchal rigidity, or vertebral point tenderness. Chest/axilla: Normal chest wall appearance and motion. Nontender with no deformity. No lesions are appreciated. Cardiovascular: Regular rate and rhythm with a normal S1 and S2. No gallops, murmurs, or rubs. Normal PMI, no JVD. No pulse deficits. Respiratory: Lungs have equal breath sounds bilaterally, clear to auscultation and percussion. No rales, rhonchi or wheezes noted. No increased work of breathing, no retractions or nasal flaring. Abdomen/GI: Soft, non-tender, with normal bowel sounds. No distension or tympany. No guarding or rebound. No evidence of tenderness throughout. Back: No spinal tenderness. No costovertebral tenderness. Skin: Warm, dry with normal turgor. Normal color with no rashes, no lesions, and no evidence of cellulitis. MS/ Extremity: Pulses equal, no cyanosis. Neurovascular intact. Full, normal range of motion. Neuro: Awake and alert, GCS 15, oriented to person, place, time, and situation. Motor strength 5/5 in all extremities. Sensory grossly intact. Positive mild left facial droop. Positive mild disarthria . 06:27 ECG was reviewed by the Attending Physician. EKG time 0 237, sinus tachycardia 114, no sp4 ST elevation or depression otherwise normal EKG Vital Signs: 02:23 BP 120 / 74; Pulse 111; Resp 16; Temp 100.1(O); Pulse Ox 98% on R/A; Weight 61.23 kg km8 (R); Height 5 ft. 4 in. (R); Pain 0/10; 03:00 BP 120 / 78; Pulse 112; Resp 21; Pulse Ox 96% ; vc1 04:00 BP 125 / 75; Pulse 114; Resp 18; Pulse Ox 98% ; vc1 05:00 BP 127 / 78; Pulse 112; Resp 16; Pulse Ox 100% on R/A; km8 06:00 BP 131 / 79; Pulse 111; Resp 16; Pulse Ox 100% on R/A; km8 06:30 BP 131 / 81; Pulse 109; Resp 20; Pulse Ox 97% ; vc1 07:09 BP 126 / 71; Pulse 109; Resp 17; Pulse Ox 100% ; ko1 02:23 Body Mass Index 23.17 (61.23 kg, 162.56 cm) km8 02:23 Pain Scale: Adult km8 NIH Stroke Scale Scores: 02:23 NIHSS Score: 2 km8 06:23 NIHSS Score: 2 sp4 Yasmani Coma Score: 02:23 Eye Response: spontaneous(4). Motor Response: obeys commands(6). Verbal Response: km8 oriented(5). Total: 15. 06:23 Eye Response: spontaneous(4). Motor Response: obeys commands(6). Verbal Response: sp4 oriented(5). Total: 15. MDM: 02:36 Patient medically screened. sp4 06:18 ED course: EXAM: CTA Head with Contrast 08/14/2023 at 4:39 AM HISTORY: Altered mental sp4 status COMPARISON: CT Head/Brain Without Contrast 08/14/2023 at 4:38 AM TECHNIQUE: Head CTA axial images acquired with IV contrast. Coronal and sagittal CTA MIPs and MPRs created. Exam performed according to departmental dose-optimization program which includes automated exposure control, adjustment of mA and/or kV according to patient size, and/or use of iterative reconstruction technique. FINDINGS: Both intracranial vertebral, basilar, and both posterior cerebral arteries unremarkable. Right and left internal carotid arteries' cavernous segments shows mild calcified atherosclerotic plaques causing mild stenosis (about 10% diameter stenosis). Both middle cerebral, anterior communicating, and both anterior cerebral arteries unremarkable. No evidence of large intracranial arterial occlusion, aneurysm, or AVM. IMPRESSION: Unremarkable CTA Head with Contrast for patient's age.. ED course: EXAM: CTA Neck with Contrast HISTORY: Altered mental status COMPARISON: None. TECHNIQUE: Neck CTA axial images acquired with IV contrast. Coronal and sagittal CTA MIPs and MPRs created. Exam performed according to departmental dose-optimization program which includes automated exposure control, adjustment of mA and/or kV according to patient size, and/or use of iterative reconstruction technique. FINDINGS: Aortic arch not imaged. Both vertebral arteries patent. Small calcified atherosclerotic plaque at right vertebral artery origin. Both carotid arteries unremarkable. No significant carotid artery stenosis (by NASCET criteria). Right globe prosthesis. IMPRESSION: Unremarkable CTA Neck with Contrast. ED course: CT - EXAM: CT Head Without Intravenous Contrast CLINICAL HISTORY: The patient is 58 years old and is Female; AMS TECHNIQUE: Axial computed tomography images of the head/brain without intravenous contrast. Sagittal and coronal reformatted images were created and reviewed. This CT exam was performed using one or more of the following dose reduction techniques: automated exposure control, adjustment of the mA and/or kV according to patient size, and/or use of iterative reconstruction technique. COMPARISON: No relevant prior studies available. FINDINGS: Brain: Bilateral basal ganglia calcifications. No hemorrhage. No significant white matter disease. Ventricles: Unremarkable. No ventriculomegaly. Bones/joints: Unremarkable. No acute skull fracture. Soft tissues: Unremarkable. Sinuses: Unremarkable as visualized. No acute sinusitis. Mastoid air cells: No significant mastoid fluid. IMPRESSION: No acute intracranial findings. No hemorrhage.. ED course: EXAMINATION: XR CHEST 1 VIEW INDICATION: Female, 58 years old, STROKE TECHNIQUE: 1 view COMPARISON(S): None. FINDINGS: SUPPORT DEVICES: Overlying leads. LUNGS/PLEURA: Low lung volumes with associated vascular crowding and bibasilar opacities favored to represent atelectasis. No evident pleural effusion or pneumothorax. HEART/MEDIASTINUM: Normal size and configuration. OTHER: No acute osseous findings. Dense opacities overlying the right breast and left humerus may be external to patient. IMPRESSION: Low lung volumes without acute cardiopulmonary findings.. 06:30 Differential Diagnosis altered mental status, sepsis, flu, TIA, CVA . Data reviewed: sp4 vital signs, nurses notes, EMS record, old medical records, lab test result(s), EKG, radiologic studies, CT scan, plain films. Consideration of Admission/Observation Patient was admitted/placed on observation. Escalation of care including admission/observation considered. Management of patient was discussed with the following: Hospitalist: Geovani MARRERO ,. Senior Scheduler: Moi MARRERO . ED course: Patient's last known well at 10 PM yesterday. Patient presented at 0 2:25 AM. Patient basically presented outside of the window for TNK. TNK was not administered and this was discussed with patient in detail. Facial asymmetry and dysarthria have resolved and at 0 6:25 AM patient's NIHSS is 0 . Patient was discussed with neurologist in detail who agreed to admit patient for evaluation of presumed TIA. Full dose aspirin was administered in ER. 08/14 02:33 Order name: Basic Metabolic Panel; Complete Time: 06:26 sp4 08/14 02:33 Order name: CBC with Diff; Complete Time: 06: sp4 08/14 02:33 Order name: Hepatic Function; Complete Time: 06:26 sp4 08/14 02:33 Order name: High Sensitivity Troponin; Complete Time: 06:26 sp08/14 02:33 Order name: Magnesium; Complete Time: 06:26 sp4 08/14 02:33 Order name: Protime (+inr); Complete Time: 06:26 sp4 08/14 02:33 Order name: Ptt, Activated; Complete Time: 06:26 sp4 08/14 02:33 Order name: UDS sp4 08/14 05:15 Order name: Manual Differential; Complete Time: 06:26 EDDC 08/14 05:59 Order name: Influenza Screen (a \T\ B); Complete Time: 07:09 08/14 05:59 Order name: SARS RAPID; Complete Time: 07:09 4 08/14 07:37 Order name: Anti-Thrombin III Activity EDMS 08/14 07:37 Order name: C-ANCA Anti-Proteinase 3 EDMS 08/14 07:37 Order name: Cardiolipin Antibodies G,M EDMS 08/14 07:37 Order name: RPR EDMS 08/14 07:37 Order name: Vitamin B12 Level EDMS 08/14 07:37 Order name: Vitamin D, 25 (OH), TOTAL EDMS 08/14 07:37 Order name: Basic Metabolic Panel EDMS 08/14 07:37 Order name: Basic Metabolic Panel EDMS 08/14 07:37 Order name: Basic Metabolic Panel EDMS 08/14 07:37 Order name: Basic Metabolic Panel EDMS 08/14 07:37 Order name: Basic Metabolic Panel EDMS 08/14 07:37 Order name: Basic Metabolic Panel EDMS 08/14 07:37 Order name: Comprehensive Metabolic Panel EDMS 08/14 07:37 Order name: Comprehensive Metabolic Panel EDMS 08/14 07:37 Order name: Comprehensive Metabolic Panel EDMS 08/14 07:37 Order name: Comprehensive Metabolic Panel EDMS 08/14 07:37 Order name: Comprehensive Metabolic Panel EDMS 08/14 07:37 Order name: Comprehensive Metabolic Panel EDMS 08/14 07:37 Order name: Lipid Profile EDMS 08/14 07:37 Order name: Lipid Profile EDMS 08/14 07:37 Order name: Magnesium EDMS 08/14 07:37 Order name: Magnesium EDMS 08/14 07:37 Order name: Magnesium EDMS 08/14 07:37 Order name: Magnesium EDMS 08/14 07:37 Order name: Magnesium EDMS 08/14 07:37 Order name: Magnesium EDMS 08/14 07:37 Order name: Phosphorus EDMS 08/14 07:37 Order name: Phosphorus EDMS 08/14 07:37 Order name: Phosphorus EDMS 08/14 07:37 Order name: Phosphorus EDMS 08/14 07:37 Order name: Phosphorus EDMS 08/14 07:37 Order name: Phosphorus EDMS 08/14 07:37 Order name: T4,Total EDMS 08/14 07:37 Order name: T4,Total EDMS 08/14 07:37 Order name: Thyroid Stimulating Hormone EDMS 08/14 07:37 Order name: Thyroid Stimulating Hormone EDMS 08/14 07:37 Order name: Troponin High Sensitivity EDMS 08/14 07:37 Order name: Troponin High Sensitivity EDMS 08/14 07:37 Order name: Troponin High Sensitivity EDMS 08/14 07:37 Order name: Factor V Leiden Mutation EDMS 08/14 07:37 Order name: Homocysteine EDMS 08/14 07:37 Order name: Miscellaneous Test Lab EDMS 08/14 07:37 Order name: P-ANCA Anti-Myeloperoxidase Ab EDMS 08/14 07:37 Order name: Protein C Antigen EDMS 08/14 07:37 Order name: Protein Electo w/M Celso Serum EDMS 08/14 07:37 Order name: Protein S (Total EDMS 08/14 07:37 Order name: PROTHROMBIN GENE ANALYSIS (F2) EDMS 08/14 09:15 Order name: Glucose, Ancillary Testing EDMS 08/14 13:21 Order name: Glucose, Ancillary Testing EDMS 08/14 02:33 Order name: CT Head Angio sp4 08/14 02:33 Order name: CT Neck Angio sp4 08/14 05:20 Order name: Head Brain Wo Cont EDMS 08/14 07:37 Order name: Echo with Doppler EDMS 08/14 07:37 Order name: Stroke Protocol EDMS 08/14 07:37 Order name: Chest Pa And Lat (2 Views) EDMS 08/14 02:33 Order name: EKG; Complete Time: 05:04 sp4 08/14 07:37 Order name: IRF Screen EDDC 08/14 07:37 Order name: Physical Therapy Consult [facility] 08/14 07:37 Order name: Speech Therapy Consult [facility] 08/14 02:33 Order name: Accucheck; Complete Time: 03:10 sp4 08/14 02:33 Order name: Cardiac monitoring; Complete Time: 02:40 sp4 08/14 02:33 Order name: EKG - Nurse/Tech; Complete Time: 02:42 sp4 08/14 02:33 Order name: IV Saline Lock; Complete Time: 02:40 sp4 08/14 02:33 Order name: Labs collected and sent; Complete Time: 02:51 sp4 08/14 02:33 Order name: NPO; Complete Time: 02:40 sp4 08/14 02:33 Order name: O2 Per Protocol; Complete Time: 02:40 sp4 08/14 02:33 Order name: O2 Sat Monitoring; Complete Time: 02:40 sp4 08/14 02:33 Order name: Stroke Swallow Screen; Complete Time: 03:57 sp4 EC:27 Rate is 114 beats/min. Rhythm is regular, Sinus tachycardia. QRS Como is Normal. VA sp4 interval is normal. QRS interval is normal. QT interval is normal. No Q waves. T waves are Normal. No ST changes noted. Clinical impression: No evidence of ischemia. Interpreted by me. Reviewed by me. Administered Medications: 02:51 Drug: NS 0.9% IV 1000 ml IV at 125 ml/hr continuous Route: IV; Rate: 125 ml/hr; Site: [facility] right forearm; 06:48 Follow up: IV Status: Infusion continued upon admission vc1 06:32 Drug: Aspirin PO 325 mg PO once Route: PO; [facility] 06:49 Follow up: Response: No adverse reaction vc1 Disposition Summary: 08/14/23 06:27 Hospitalization Ordered Notes: Hospitalization Status: Inpatient Admission sp4 Provider: Alex Olivo spPhillip Condition: Stable sp4 Problem: new sp4 Symptoms: have improved sp4 Bed/Room Type: Standard 4 Location: Telemetry/MedSurg (Inpatient)(08/14/23 15:14) bd Room Assignment: 405(08/14/23 15:14) bd Diagnosis - Transient ischemic attack, acute dysarthria sp4 - Acute COVID-19 sp4 Discharge Instructions: - Discharge Summary Sheet vc1 Forms: - SBAR form vc1 - Medication Reconciliation Form sp4 - Leadership Thank You Letter sp4 NIH Stroke Scale - NIH Stroke Score Date: 08/14/2023 Time: 02:23 Total Score = 2 10. Dysarthria (speech clarity - read or repeat words) - 1(Mild to Moderate) 11. Extinction and Inattention (visual/tactile/auditory/spatial/personal) - 0(No abnormality) 1a. Level of Consciousness (LOC) - 0(Alert) 1b. Level of Consciousness (LOC) (Month \T\ Age) - 0(Both) 1c. LOC Commands (Open \T\ Closes Eyes/Line Repairer) - 0(Both) 2. Best Gaze (Lateral Gaze Paresis) - 0(Normal) 3. Visual Field Loss - 0(No visual loss) 4. Facial Palsy - 1(Minor Paralysis) 5a. Left Arm: Motor (10-second hold) - 0(No drift) 5b. Right Arm: Motor (10-second hold) - 0(No drift) 6a. Left Leg: Motor (5-second hold - always test supine) - 0(No drift) 6b. Right Leg: Motor (5-second hold - always test supine) - 0(No drift) 7. Limb Ataxia (finger/nose \T\ heel/cain - test with eyes open) - 0(Absent) 8. Sensory Loss (pinprick arms/legs/face) - 0(Normal) 9. Best Language: Aphasia (description/naming/reading) - 0(No aphasia) Initials: km8 NIH Stroke Scale - NIH Stroke Score Date: 08/14/2023 Time: 06:23 Total Score = 2 10. Dysarthria (speech clarity - read or repeat words) - 1(Mild to Moderate) 11. Extinction and Inattention (visual/tactile/auditory/spatial/personal) - 0(No abnormality) 1a. Level of Consciousness (LOC) - 0(Alert) 1b. Level of Consciousness (LOC) (Month \T\ Age) - 0(Both) 1c. LOC Commands (Open \T\ Closes Eyes/Line Repairer) - 0(Both) 2. Best Gaze (Lateral Gaze Paresis) - 0(Normal) 3. Visual Field Loss - 0(No visual loss) 4. Facial Palsy - 1(Minor Paralysis) 5a. Left Arm: Motor (10-second hold) - 0(No drift) 5b. Right Arm: Motor (10-second hold) - 0(No drift) 6a. Left Leg: Motor (5-second hold - always test supine) - 0(No drift) 6b. Right Leg: Motor (5-second hold - always test supine) - 0(No drift) 7. Limb Ataxia (finger/nose \T\ heel/cain - test with eyes open) - 0(Absent) 8. Sensory Loss (pinprick arms/legs/face) - 0(Normal) 9. Best Language: Aphasia (description/naming/reading) - 0(No aphasia) Initials: sp4 Signatures: Dispatcher [employer] EDMS Laisha Bundy Sergey, MD MD sp4 Jade Nails RN RN km8 Yenny Ayala RN vc1 Corrections: (The following items were deleted from the chart) 05:20 05:04 CT-STROKE BRAIN W/O CONTRAST+CT.RAD.BRZ ordered. EDMS EDMS 05:29 05:04 Chest Single View+RAD.RAD.BRZ ordered. EDMS EDMS 07:47 06:27 Telemetry/MedSurg (Inpatient) sp4 bd 07:47 06:27 sp4 bd 15:14 07:47 [facility] ER HOLD bd bd 15:14 07:47 ERHOLD- bd bd
[2023-08-14] MEDS ORDERED: ASPIRIN EC 325 MG TABLET PO ONE (06:28)
[2023-08-14 06:39] LABS: SARS-CoV-2 Antigen Rapid Res Positive (Negative)
--- NOTE | 2023-08-14 06:59 | P.HP ---
Certification for Inpatient Patient admitted to: Observation With expected LOS: >2 Midnights Patient will require the following post-hospital care: None Practitioner: I am a practitioner with admitting privileges, knowledge of patient current condition, hospital course, and medical plan of care. Services: Services provided to patient in accordance with Admission requirements found in Title 42 Section 412.3 of the Code of Federal Regulations Patient History Date of Service: 08/14/23 Reason for admission: CVA vs TIA History of Present Illness: Kell Cm is a 58-year-old female with past medical history diabetes mellitus, high cholesterol, hypertension who presented to the ED with slurred speech at 10 PM yesterday (123 (it was also reported that she had facial symmetry prior to presentation). Initial presentation to the ED, Kell did not have limb deficits. She did present with mild dysarthria and left-sided facial symmetry. She was also able to stand up and ambulate in the ED. Kell reports taking 81 mg of aspirin daily. Kell reports falling from the couch when she was trying to stand at home, she experienced weakness to her legs but did not hit her head. Laboratory evaluation WBC 7.9, H&H 11.2/34.3, platelets 159, sodium 138, potassium 4.2, BUN/creatinine 16/1.58, GFR 38, serum glucose 99, TSH/T4 0.681/5.8, troponin < 3.0 serial pending. Initial vital Signs: BP 120 / 74; Pulse 111; Resp 16; Temp 100.1(O); Pulse Ox 98% on R/A NIH Stroke Scale Scores: 02:23 NIHSS Score: 2 with facial weakness and Dysarthria 06:23 NIHSS Score: 2 with facial weakness and Dysarthria. CTA neck with contrast reports "small calcified arthrosclerotic plaque at right vertebral artery origin, no significant carotid artery stenosis." CTA head reports "No evidence of large intracranial arterial occlusion, aneurysm, or AVM." CT head without contrast reports "bilateral basal ganglia calcifications, no acute intracranial findings, no hemorrhage." Chest x-ray reports "low lung volumes without acute cardiopulmonary finding" Kell will be admitted to hospital service for further evaluation and treatment of TIA, Dr. Prater has been consulted. Allergies No Known Allergies Allergy (Unverified 08/14/23 07:40) - Past Medical/Surgical History Diabetic: Yes -: HTN -: HLD -: DM2 Past Surgical History: Reviewed- Non-Contributory - Social History Smoking Status: Unknown if ever smoked Alcohol use: No CD- Drugs: No Caffeine use: Yes Review of Systems General: Weakness Gastrointestinal: Nausea, Vomiting Neurological: Weakness, Other (dizziness) Physical Examination - Physical Exam General: Alert, In no apparent distress, Oriented x3 HEENT: Atraumatic, Normocephalic, PERRLA Neck: Supple, 2+ carotid pulse no bruit, JVD not distended Respiratory: Clear to auscultation bilaterally, Normal air movement Cardiovascular: Normal pulses, Regular rate/rhythm, Normal S1 S2 Capillary refill: <2 Seconds Gastrointestinal: Normal bowel sounds, Soft and benign, No tenderness Musculoskeletal: No clubbing, No swelling, No contractures Integumentary: No rashes, No breakdown, No significant lesion Neurological: Normal speech, Normal strength at 5/5 x4 extr, Normal tone - Studies Laboratory Data (last 24 hrs) 08/14/23 08/14/23 08/14/23 02:46 02:46 02:46 WBC 7.90 Hgb 11.2 L Hct 34.3 L Plt Count 159 PT 13.2 H INR 1.21 APTT 25.8 Sodium 138 Potassium 4.2 BUN 16 Creatinine 1.58 H Glucose 99 Magnesium 1.7 Total Bilirubin 0.5 AST 36 ALT 41 Alkaline Phosphatase 73 Microbiology Data (last 24 hrs): 08/14/23 06:05 Nasopharnyx Influenza Type A Antigen Screen - Final 08/14/23 06:05 Nasopharnyx Influenza Type B Antigen Screen - Final Assessment and Plan - Plan Assessment and plan Acute CVA versus TIA Dr. Prater consulted- recommendations appreciated CTA neck with contrast reports "small calcified arthrosclerotic plaque at right vertebral artery origin, no significant carotid artery stenosis." CTA head reports "No evidence of large intracranial arterial occlusion, aneurysm, or AVM." CT head without contrast reports "bilateral basal ganglia calcifications, no acute intracranial findings, no hemorrhage." Chest x-ray reports "low lung volumes without acute cardiopulmonary finding" Initial NIH stroke scale 2, NIH strok sale 2 on examination with facial weakness and Dysarthria TSH/T4 0.681/5.8 Troponin< 3.0, serial pending Hgb A1c, lipid panel pending MRI head pending Echo pending Aspirin, statin, folic acid daily Allow permissive hypertension 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
[2023-08-14] MEDS: INSULIN REGULAR (HUMAN) 100 UNIT/ML SQ SCH ×4 (07:30→19:34)
[2023-08-14] MEDS: NA CHLORIDE 0.9% 1,000 ML IV SCH ×2 (08:00→17:03)
[2023-08-14] MEDS ORDERED: NA CHLORIDE 0.9% 1,000 ML ONE (08:29)
[2023-08-14 09:54] LABS: T4,Total 5.8 ug/dL (4.8-13.9); Thyroid Stimulating Hormone 0.681 uIU/mL (0.358-3.740)
[2023-08-14 10:01] VITALS: BMI 23.0
[2023-08-14 10:25] LABS: RPR (Rapid Plasma Reagin) NON-REACT (NON-REACT)
[2023-08-14 11:27] LABS: Barbiturates NEGATIVE (NEGATIVE); Benzodiazepines NEGATIVE (NEGATIVE); Cocaine NEGATIVE (NEGATIVE); METHAMPHETAM NEGATIVE (NEGATIVE); Methadone NEGATIVE (NEGATIVE); Opiates NEGATIVE (NEGATIVE); Phencyclidine NEGATIVE (NEGATIVE); THC Cannibis NEGATIVE (NEGATIVE)
--- NOTE | 2023-08-14 13:24 | RAD REPORT ---
EXAM DESCRIPTION: CT - Neck Angio - 08/14/2023 6:24 am CLINICAL HISTORY: Altered mental status COMPARISON: None. TECHNIQUE: Neck CTA axial images acquired with IV contrast. Coronal and sagittal CTA MIPs and MPRs c reated. Exam performed according to departmental dose-optimization program which includes automated e xposure control, adjustment of mA and/or kV according to patient size, and/or use of iterative recons truction technique. FINDINGS: Aortic arch not imaged. Both vertebral arteries patent. Small calcified atherosclerotic plaque at right vertebral artery orig in. Both carotid arteries unremarkable. No significant carotid artery stenosis (by NASCET criteria). Right globe prosthesis. IMPRESSION: Unremarkable CTA Neck with Contrast Electronically signed by: Felix Lawson MD 08/14/2023 06:09 AM DIETARY ASSISTANT Due to temporary technical issues with the PACS/Fluency reporting system, reports are being signed by the in house radiologist without review as a courtesy to ensure prompt reporting. The interpreting r adiologist is fully responsible for the content of the report.
--- NOTE | 2023-08-14 13:29 | RAD REPORT ---
EXAM DESCRIPTION: CT - Head angio - 08/14/2023 6:24 am CLINICAL HISTORY: Altered mental status COMPARISON: CT Head/Brain Without Contrast 08/14/2023 at 4:38 AM TECHNIQUE: Head CTA axial images acquired with IV contrast. Coronal and sagittal CTA MIPs and MPRs c reated. Exam performed according to departmental dose-optimization program which includes automated e xposure control, adjustment of mA and/or kV according to patient size, and/or use of iterative recons truction technique. FINDINGS: Both intracranial vertebral, basilar, and both posterior cerebral arteries unremarkable. Right and left internal carotid arteries' cavernous segments shows mild calcified atherosclerotic kanu ques causing mild stenosis (about 10% diameter stenosis). Both middle cerebral, anterior communicating, and both anterior cerebral arteries unremarkable. No evidence of large intracranial arterial occlusion, aneurysm, or AVM. IMPRESSION: Unremarkable CTA Head with Contrast for patient's age. Electronically signed by: Felix Lawson MD 08/14/2023 06:03 AM LOAN TELLER Due to temporary technical issues with the PACS/Fluency reporting system, reports are being signed by the in house radiologist without review as a courtesy to ensure prompt reporting. The interpreting r adiologist is fully responsible for the content of the report.
--- NOTE | 2023-08-14 13:30 | RAD REPORT ---
EXAM DESCRIPTION: CT - Head Brain Wo Cont - 08/14/2023 6:24 am CLINICAL HISTORY: The patient is 58 years old and is Female; AMS TECHNIQUE: Axial computed tomography images of the head/brain without intravenous contrast. Sagitt al and coronal reformatted images were created and reviewed. This CT exam was performed using one o r more of the following dose reduction techniques: automated exposure control, adjustment of the mA and/or kV according to patient size, and/or use of iterative reconstruction technique. COMPARISON: No relevant prior studies available. FINDINGS: Brain: Bilateral basal ganglia calcifications. No hemorrhage. No significant white matter disease. Ventricles: Unremarkable. No ventriculomegaly. Bones/joints: Unremarkable. No acute skull fracture. Soft tissues: Unremarkable. Sinuses: Unremarkable as visualized. No acute sinusitis. Mastoid air cells: No significant mastoid fluid. IMPRESSION: No acute intracranial findings. No hemorrhage. Electronically signed by: Marisa Mora MD 08/14/2023 05:21 AM CONSULTING ACTUARY Due to temporary technical issues with the PACS/Fluency reporting system, reports are being signed by the in house radiologist without review as a courtesy to ensure prompt reporting. The interpreting r adiologist is fully responsible for the content of the report.
--- NOTE | 2023-08-14 17:50 | RAD REPORT ---
EXAM DESCRIPTION: MRI - Brain Wo Cont - 08/14/2023 5:42 pm CLINICAL HISTORY: CVA vs TIA Headache, drowsiness COMPARISON: Head angio dated 08/14/2023 TECHNIQUE: Multi-sequence, multiplanar MR imaging of the brain was performed without contrast. FINDINGS: No intracranial hemorrhage, hydrocephalus or extra-axial fluid collections.Mild chronic mi crovascular ischemic changes in the periventricular and deep white matter. No edema or shift of midli ne structures. No findings to suspect brain mass. DWI is negative for acute CVA. Midline structures are normally formed. Mastoid air cells and paranasal sinuses are clear. IMPRESSION: Negative for acute CVA or other acute intracranial process.
[2023-08-14 19:41] VITALS: O2SAT 98
[2023-08-14] MEDS: BENZONATATE 100 MG CAP PO PRN (20:05)
[2023-08-14] MEDS ORDERED: ATORVASTATIN 40 MG TAB PO SCH (21:00)
[2023-08-15] MEDS: GUAIFENESIN 600 MG SA TAB PO PRN ×2 (01:00→10:35)
[2023-08-15 05:45] LABS: Potassium 3.6 mEq/L (3.5-5.1)
[2023-08-15 05:46] LABS: Albumin 3.2 g/dL (3.4-5.0); Bilirubin Total 0.4 mg/dL (0.2-1.0); Magnesium 1.8 mg/dL (1.6-2.4); Phosphorus 2.1 mg/dL (2.5-4.9); Protein, Total 6.7 g/dL (6.4-8.2)
[2023-08-15] MEDS ORDERED: POTASSIUM CL SA 10 MEQ TAB PO ONE (05:57)
[2023-08-15] MEDS ORDERED: MAGNESIUM SULFATE 1 gm IVPB 1 GM/100 ML BAG IV ONE (05:58)
[2023-08-15] MEDS: INSULIN REGULAR (HUMAN) 100 UNIT/ML SQ SCH ×2 (07:30→12:22)
--- NOTE | 2023-08-15 08:09 | P.PN ---
Date of Service: 08/15/23 Subjective ROS 10 point ROS as noted above, otherwise negative Physical Exam General: Alert, In no apparent distress, Oriented x3 HEENT: Atraumatic, Normocephalic, PERRLA Neck: Supple, 2+ carotid pulse no bruit, JVD not distended Respiratory: Clear to auscultation bilaterally, Normal air movement Cardiovascular: Normal pulses, Regular rate/rhythm, Normal S1 S2 Capillary refill: <2 Seconds Gastrointestinal: Normal bowel sounds, Soft and benign, No tenderness Musculoskeletal: No clubbing, No swelling, No contractures Integumentary: No rashes, No breakdown, No significant lesion Neurological: Normal speech, Normal strength at 5/5 x4 extr, Normal tone Vitals Reviewed Problem list Acute CVA versus TIA COVID-positive History diabetes type 2 IDDM Assessment and Plan Acute CVA versus TIA Dr. Prater consulted- recommendations appreciated CTA neck with contrast reports "small calcified arthrosclerotic plaque at right vertebral artery origin, no significant carotid artery stenosis." CTA head reports "No evidence of large intracranial arterial occlusion, aneurysm, or AVM." CT head without contrast reports "bilateral basal ganglia calcifications, no acute intracranial findings, no hemorrhage." Chest x-ray reports "low lung volumes without acute cardiopulmonary finding" Initial NIH stroke scale 2, NIH strok sale 2 on examination with facial weakness and Dysarthria TSH/T4 0.681/5.8 Troponin< 3.0, serial pending Hgb A1c, lipid panel pending MRI head pending Echo pending Aspirin, statin, folic acid daily Allow permissive 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
[2023-08-15] MEDS ORDERED: ASPIRIN EC 81 MG TAB PO SCH (09:00)
[2023-08-15] MEDS ORDERED: FOLIC ACID 1 MG TABLET PO SCH (09:00)
[2023-08-15] MEDS: POTASS/SODIUM PHOSPHATE 1 PKT POWD.PACK PO SCH ×3 (10:00→11:50)
[2023-08-15] MEDS: NA CHLORIDE 0.9% 1,000 ML IV SCH (10:28)
[2023-08-15] MEDS: BENZONATATE 100 MG CAP PO PRN (10:35)
[2023-08-15 12:28] VITALS: BP 139/73; TEMP 98.1
--- NOTE | 2023-08-15 12:57 | P.DS ---
Admission Date: 08/14/23 Discharge Date: 08/15/23 Disposition: DC HOME/HOME HEALTH CARE Discharge Condition: FAIR Reason for Admission: CVA vs TIA Brief History of Present Illness: Diagnosis Acute TIA HPI 08/14/23 Kell Cm is a 58-year-old female with past medical history diabetes mellitus, high cholesterol, hypertension who presented to the ED with slurred speech at 10 PM yesterday (123 (it was also reported that she had facial symmetry prior to presentation). Initial presentation to the ED, Kell did not have limb deficits. She did present with mild dysarthria and left-sided facial symmetry. She was also able to stand up and ambulate in the ED. Kell reports taking 81 mg of aspirin daily. Kell reports falling from the couch when she was trying to stand at home, she experienced weakness to her legs but did not hit her head. Laboratory evaluation WBC 7.9, H&H 11.2/34.3, platelets 159, sodium 138, potassium 4.2, BUN/creatinine 16/1.58, GFR 38, serum glucose 99, TSH/T4 0.681/5. 8, troponin < 3.0 serial pending. Initial vital Signs: BP 120 / 74; Pulse 111; Resp 16; Temp 100.1(O); Pulse Ox 98% on R/A NIH Stroke Scale Scores: 02:23 NIHSS Score: 2 with facial weakness and Dysarthria 06:23 NIHSS Score: 2 with facial weakness and Dysarthria. CTA neck with contrast reports "small calcified arthrosclerotic plaque at right vertebral artery origin, no significant carotid artery stenosis." CTA head reports "No evidence of large intracranial arterial occlusion, aneurysm, or AVM." CT head without contrast reports "bilateral basal ganglia calcifications, no acute intracranial findings, no hemorrhage." Chest x-ray reports "low lung volumes without acute cardiopulmonary finding" Kell will be admitted to hospital service for further evaluation and treatment of TIA, Dr. Prater has been consulted. Hospital Course: Kell Buchanan is a pleasant 58 year old female with a past medical history significant for diabetes mellitus, high cholesterol, hypertension who was admitted to the [facility] on 08/14/23 for generalized weakness and slurred speech. Kell's MRI and CT scans did not show a stroke. She was diagnosed with Transient ischemic attack for which she has been prescribed aspirin, Plavix and folic acid. Her cholesterol level was low, not requiring cholesterol-lowering medication. She was diagnosed with COVID, 08/14/2023, and has had an intermittent fever likely due to COVID. She is tolerating p.o. diet, she is hemodynamically stable, she is urinating without difficulty. She has been found stable for discharge with home health physical therapy. On 08/15/24, Kell was seen on morning rounds and deemed medically stable for discharge. Kell was discharged with instructions to schedule follow-up a ppointments with PCP and Dr. Prater. The patient and family members were given the opportunity to ask questions and reported no further questions. Furthermore, all questions were answered to the best of my ability. A copy of this discharge summary will be sent to the above providers to facilitate continuity of care. Today, I personally spent 50 minutes with Kell Buchanan, of which gre ater than 50% of the time was spent in patient education, counseling, and coordination of care as described above. Physical Exam General: Alert and Oriented x3, NAD HEENT: Atraumatic, Normocephalic, PERRLA Neck: Supple, 2+ carotid pulse no bruit, JVD not distended Respiratory: Clear to auscultation bilaterally, Normal air movement, symmetrical chest wall movement Cardiovascular: Normal pulses, Regular rate/rhythm, Normal S1 S2, no murmur appreciated Capillary refill: <2 Seconds Gastrointestinal: +BS, Soft and benign, No tenderness Musculoskeletal: No clubbing, No swelling, No contractures Integumentary: No rashes, No breakdown, No significant lesion Neurological: Normal speech, Normal strength at 5/5 x4 extr, Normal tone Vital Signs/Physical Exam: Temp Pulse Resp BP Pulse Ox 98.1 F 108 H 18 139/73 93 08/15/23 12:14 08/15/23 12:14 08/15/23 12:14 08/15/23 12:14 08/15/23 12:14 Laboratory Data at Discharge: WBC 7.90 thou/uL (4.3-10.9) 08/14/23 02:46 Hgb 11.2 g/dL (12.0-15.0) L 08/14/23 02:46 Hct 34.3 % (36.0-45.0) L 08/14/23 02:46 Plt Count 159 thou/uL (152-406) 08/14/23 02:46 PT 13.2 SECONDS (9.5-12.5) H 08/14/23 02:46 INR 1.21 08/14/23 02:46 APTT 25.8 SECONDS (24.3-36.9) 08/14/23 02:46 Sodium 137 mEq/L (136-145) 08/15/23 05:05 Potassium 3.6 mEq/L (3.5-5.1) D 08/15/23 05:05 BUN 14 mg/dL (7-18) 08/15/23 05:05 Creatinine 1.21 mg/dL (0.55-1.02) H 08/15/23 05:05 Glucose 140 mg/dL (74-106) H 08/15/23 05:05 Phosphorus 2.1 mg/dL (2.5-4.9) L 08/15/23 05:05 Magnesium 1.8 mg/dL (1.6-2.4) 08/15/23 05:05 Total Bilirubin 0.4 mg/dL (0.2-1.0) 08/15/23 05:05 AST 28 U/L (15-37) 08/15/23 05:05 ALT 32 U/L (13-56) 08/15/23 05:05 Alkaline Phosphatase 57 U/L (45-117) D 08/15/23 05:05 Triglycerides 69 mg/dL (<150) 08/15/23 05:05 Cholesterol 88 mg/dL (<200) 08/15/23 05:05 HDL Cholesterol 38 mg/dL (40-60) L 08/15/23 05:05 Cholesterol/HDL Ratio 2.32 08/15/23 05:05 Home Medications: Aspirin [Aspirin EC] 81 mg PO DAILY #30 tab 08/15/23 Clopidogrel Bisulfate [Plavix] 75 mg PO DAILY #30 tab 08/15/23 Folic Acid 1 mg PO DAILY #30 tab 08/15/23 New Medications: Aspirin [Aspirin EC] 81 mg PO DAILY #30 tab Folic Acid 1 mg PO DAILY #30 tab Clopidogrel Bisulfate [Plavix] 75 mg PO DAILY #30 tab Physician Discharge Instructions: You were hospitalized because of generalized weakness and slurred speech. Your MRI or CT scans did not show any stroke. You were diagnosed with Transient ischemic attack for which you have been prescribed aspirin, Plavix and folic acid. Your cholesterol level was low so you do not need any cholesterol-lowering medication. Diet: AHA Activity: Fall precautions Followup: NONE,NONE [UNKNOWN] - Time spent managing pt's care (in minutes): 50
--- NOTE | 2023-08-15 16:31 | EKG ---
Test Date: 2023-08-14 Test Time: 02:37:35 Commodity Lead: SAMMIE MEASUREMENT RESULTS: Intervals: Rate: 114 [place]: 148 QRSD: 74 QT: 328 QTc: 452 [place]: P: 54 [place]: 148 QRS: 37 T: 56 INTERPRETIVE STATEMENTS: Sinus tachycardia Otherwise normal ECG No previous ECG available for comparison Electronically Signed On 08-15-23 16:26:33 STATE AUDITOR by Anastacio Alcaraz
[2023-08-15] MEDS ORDERED: ENOXAPARIN 40 MG/0.4 ML SQ SCH (17:00)
--- NOTE | 2023-08-16 08:05 | ECHO ---
HEIGHT: 5 ft 4 in WEIGHT: 134 lb 0 oz DATE OF STUDY: 08/15/[address]: Alea Mckenna NP 2-DIMENSIONAL: YES M.MODE: YES DOPPLER: YES COLOR FLOW: YES TDS: NO PORTABLE: YES DEFINITY: NO BUBBLE STUDY: NO DIAGNOSIS: DIZZINESS CARDIAC HISTORY: CATHERIZATION: SURGERY: PROSTHETIC VALVE: PACEMAKER: MEASUREMENTS (cm) DIASTOLIC (NORMALS) SYSTOLIC (NORMALS) IVSd 0.8 (0.6-1.2) LA Diam 2.8 (1.9-4.0) LVEF 69% LVIDd 4.3 (3.5-5.7) LVIDs 2.6 (2.0-3.5) %FS 39% LVPWd 0.9 (0.6-1.2) Ao Diam 2.6 (2.0-3.7) 2 DIMENSIONAL ASSESSMENT: RIGHT ATRIUM: NORMAL LEFT ATRIUM: NORMAL RIGHT VENTRICLE: NORMAL LEFT VENTRICLE: NORMAL TRICUSPID VALVE: NORMAL MITRAL VALVE: MILD REGURGITATION PULMONIC VALVE: NORMAL AORTIC VALVE: NORMAL PERICARDIAL EFFUSION: NONE AORTIC ROOT: NORMAL LEFT VENTRICULAR WALL MOTION: NORMAL DOPPLER/COLOR FLOW: MILD MITRAL REGURGITATION. COMMENTS: 1. NORMAL LEFT VENTRICULAR EJECTION FRACTION 60-65% WITH NORMAL WALL MOTION. 2. GRADE I DIASTOLIC DYSFUNCTION. 3. MILD MITRAL REGURGITATION. TECHNOLOGIST: RYAN SALGUERO
== END 2023-08-15 13:47 | disposition home health service (06) ==
LOC: ER 01:37 → ERHOLD 07:41 → 4TH 15:32
PROVIDERS: ADMIT Internal Medicine; ATTEND Internal Medicine
DX: G45.9 Transient cerebral ischemic attack, unspecified (principal); E11.9 Type 2 diabetes mellitus without complications; E78.00 Pure hypercholesterolemia, unspecified; I10 Essential (primary) hypertension; R29.702 NIHSS score 2; Z79.82 Long term (current) use of aspirin
CPT/HCPCS: 93005; 93306; 85025; 80048; 36415 ×2; 83735 ×2; 84100; 85610; 80061; 82947 ×6; 80076; 86592; 85730; 84436; 84443; 84484 ×3; 82607; 80053; 81241; 81240; 82306; 80307; 83090; 85300; 85302; 85305; 85306; 86021 ×2; 86147 ×2; 84165; 87804 ×2; 70450; 70496; 70498; 70551; 92526; 92610; 97110 ×2; 97116; 97161; 97530; 87811; Q9967; J1815; J3475; J7030 ×3; G0378